=== PATIENT | female | born 1965 | race Caucasian/White ===

== ENCOUNTER 2020-01-18 10:57 | Outpatient (REF) | payer MEDICAID, SELFPAY | END 2020-01-18 10:58 | disposition home or self-care (01) | LOC: HO.LAB 10:57 | PROVIDERS: Visit Provider Internal Medicine | DX: Z20.828 Contact with and (suspected) exposure to other viral communicable diseases (principal) | CPT/HCPCS: U0003 ==

== ENCOUNTER → 2020-06-23 09:39 | Outpatient (BNVA) | payer MEDICAID, SELFPAY | PROVIDERS: PCP Nurse Practitioner Family; Visit Provider Student in an Organized Health Care Education/Training Program | DX: M17.0 Bilateral primary osteoarthritis of knee (principal); M25.511 Pain in right shoulder; M25.512 Pain in left shoulder | CPT/HCPCS: 99212 ==

== ENCOUNTER 2020-08-08 10:00 | Outpatient (RCR) | payer MEDICAID, SELFPAY ==
--- NOTE | 2020-07-19 15:00 | MHC.PT.EP ---
[facility] [place] [facility] [place] [facility] [place] Office [address] [phone] F: [phone] F: [phone] F: [phone] F: [phone] Physical Therapy Plan of Care Date of Evaluation: Date of Surgery: Diagnosis: B knee OA, B shoulder pain Assessment: 54 y/o RHD female referred to PT with B knee OA and B shoulder pain. She reports pain with news specialist, walking > 10min, standing, ascending/descending stairs in step through pattern, and reaching overhead. Examination shows decreased knee and shoulder strength, decreased shoulder AROM, decreased R patella mobility, and impaired gait pattern. Recommend PT 2x/week for 6 weeks to address impairments, implement HEP, and optimize functional mobility. Frequency and Duration: The patient will be seen 2x/week for 5 weeks Short Term Goals: 3 weeks 1. I with HEP 2. Pt will be able to reach overhead with shoulder flexion to 150 with pain < 3/10 Child Support Officer Goals: 6 weeks 1. I with HEP and self management of sx 2. Pt will be able to ascend/descend stairs in step through pattern with pain < 3/10 3. Pt will be able to walk >25min with pain < 3/10 Treatment Plan: Modalities to reduce pain, spasms and effusion. Manual therapy to restore motion and function. Therapeutic exercise to improve strength and flexibility. Neuromuscular re-education for posture and balance. Therapeutic activities to return to functional activities of daily living. Electronically signed by: Aislinn Edmonds PT Please sign and return to therapist. Thank you for your referral.
--- NOTE | 2020-11-09 09:28 | MHC.PT.DC ---
[facility] [place] [facility] [place] Office [place] Office [address] [facility] [phone] F: [phone] F: [phone] F: [phone] F: [phone] Physical Therapy Discharge Report Diagnosis: B knee OA, B shoulder pain Date of Surgery: Date of Evaluation: 07/19/20 Date of Discharge: 11/09/20 Treatments to Date: 4 Cancellations to Date: 1 No Shows to Date: 3 Discharge Status: Visit Non-compliance Discharge Summary: Pt did not f/u with further visits. Electronically signed by: Aislinn Edmonds PT Please sign and return to therapist. Thank you for your referral.
== END 2020-11-09 09:29 | disposition home or self-care (01) ==
LOC: HO.PT 10:00
PROVIDERS: PCP Family Medicine; Visit Provider Student in an Organized Health Care Education/Training Program
DX: M17.0 Bilateral primary osteoarthritis of knee (principal); M25.511 Pain in right shoulder; M25.512 Pain in left shoulder
CPT/HCPCS: 97110; 97162; 97530

== ENCOUNTER → 2020-10-17 08:17 | Outpatient (BNVA) | payer MEDICAID, SELFPAY | PROVIDERS: PCP Family Medicine; Visit Provider Internal Medicine | DX: I10 Essential (primary) hypertension (principal); R00.2 Palpitations; F17.200 Nicotine dependence, unspecified, uncomplicated | CPT/HCPCS: 93005; 99212 ==

== ENCOUNTER 2020-11-27 09:13 | Emergency (ER) | payer MEDICAID, SELFPAY ==
[2020-11-27 10:23] VITALS: BP 130/77; PULSE 84; RESP 19; TEMP 36.7; O2SAT 98; BMI 32.7
[2020-11-27 12:19] LABS: Appearance Urine CLOUDY; Color Urine YELLOW; Glucose Urine UA NEG (NEG); Leukocyte Esterase Urine NEG (NEG); Nitrite Urine NEG (NEG); Specific Gravity - Urine 1.025 (1.005-1.025); Urine Blood NEG (NEG); Urine Ketones NEG (NEG); Urine Protein NEG (NEG-TRACE)
[2020-11-27 15:39] LABS: MANUAL DIFF FLAG NO
[2020-11-27 15:43] LABS: Eosinophils Absolute Auto 0.3 X10*3/uL (0.0-0.4); Eosinophils Percent Auto 2.3 % (0-4); Hematocrit 41.9 % (37-47); Hemoglobin 13.4 g/dl (12.0-16.0); Imm Gran Abs Auto 0.03 X10*3/uL (0.00-0.03); Imm Gran Pct Auto 0.3 % (0.0-0.4); Lymphocytes Absolute Auto 1.4 X10*3/uL (1.2-4.9); Lymphocytes Percent Auto 12.7 % (20-40); Mean Corpuscular Volume 84.3 fL (80-98); Monocytes Absolute Auto 0.7 X10*3/uL (0.1-1.2); Neutrophils Absolute Auto 8.7 X10*3/uL (2.0-8.3); Neutrophils Percent Auto 78.7 % (45-73); Platelet Count 228 X10*3/uL (160-400); Red Blood Count 4.97 X10*6/uL (4.20-5.50); Red Cell Distribution Width 13.7 % (11.0-16.0); White Blood Count 11.1 X10*3/uL (4.8-10.8)
[2020-11-27 15:58] LABS: Alanine Aminotransferase 15 U/L (0-31); Alkaline Phosphatase 92 U/L (39-117); Anion Gap 11 (12-20); Aspartate Amino Transferase 17 U/L (5-31); Bilirubin Direct 0.2 mg/dL (0.0-0.5); Bilirubin Total 0.5 mg/dL (0.0-1.0); Blood Urea Nitrogen 16 mg/dL (9-16); Calcium 9.2 mg/dL (8.4-10.2); Carbon Dioxide 30 mmol/L (22-29); Chloride 103 mmol/L (96-108); Creatinine Clr Calc Pharmacy 97.7; Estimated Glomerular Filt Rate > 60; Glucose Random 88 mg/dL (60-115); Lipase 7 U/L (8-78); Potassium 3.9 mmol/L (3.3-5.1); Sodium 140 mmol/L (135-145); Total Protein 7.2 g/dL (6.5-8.0)
== END 2020-11-27 19:19 | disposition left against medical advice (07) ==
PROVIDERS: Emergency Medicine; Emergency Provider Emergency Medicine; PCP Family Medicine
DX: M54.5 Low back pain (principal); R19.7 Diarrhea, unspecified
CPT/HCPCS: 36415; 80048; 80076; 81003; 83690; 85025; 99282; 99283

== ENCOUNTER → 2021-01-29 10:52 | Outpatient (BNVA) | payer MEDICAID, SELFPAY | PROVIDERS: PCP Family Medicine; Visit Provider Nurse Practitioner Family | DX: M17.0 Bilateral primary osteoarthritis of knee (principal); M25.511 Pain in right shoulder; M25.512 Pain in left shoulder | CPT/HCPCS: 99212 ==

== ENCOUNTER 2021-03-19 04:41 | Emergency (ER) | payer MEDICAID, SELFPAY ==
--- NOTE | ~2021-03-19 | CT_ITS ---
EXAMINATION: CT ANGIOGRAM OF THE CHEST WITH AND WITHOUT CONTRAST (CT PULMONARY ANGIOGRAM FOR PE) CLINICAL INFORMATION: Reason for Exam Right-sided chest pain with abnormal D-dimer rule out PE COMPARISON: None TECHNIQUE: Prior to contrast administration, noncontrast localization images were obtained. Subsequently, multidetector volumetric imaging was performed from the thoracic inlet to below the diaphragms following the administration of 80 mL Omnipaque 350 intravenous contrast. No contrast reaction reported Sagittal, coronal, and MIP oblique sagittal reformatted images were obtained on the CT workstation, uploaded to PACS, and reviewed. This CT examination was performed using dose optimization techniques as appropriate, variously including the following: *Automated exposure control *Adjustment of mA and/or kV according to patient size (this includes techniques or standardized protocols for targeted exams where dose is matched to indication/reason for exam; i.e. extremities or head) *Use of iterative reconstruction technique Total exam dose-length product 343 mGy-cm FINDINGS: QUALITY OF STUDY/CONTRAST BOLUS: Satisfactory. PULMONARY ARTERIES: No central or segmental pulmonary emboli. THORACIC AORTA: No aneurysm or dissection. LUNG: No focal consolidation, nodules or masses. Minimal atelectatic changes are seen in the left lung base. PLEURA: No pleural effusion or pneumothorax. MEDIASTINUM: The heart size and the great vessels are normal caliber. There is a small hiatal hernia. No abnormal size mediastinal or hilar lymph nodes seen. The central trachea and the bronchi are widely patent the thyroid lobes are symmetrical and slightly prominent but no focal lesion seen. No evidence of septal bowing or right heart strain. CHEST WALL/AXILLA: No axillary or internal mammary lymphadenopathy. OSSEOUS STRUCTURES: No lytic or sclerotic process seen. There is mild spondylosis. UPPER ABDOMEN: Unremarkable. No reflux of contrast into the hepatic veins to suggest elevated right heart pressures. CT/CT angio chest PE protocol IMPRESSION: No evidence of PE. No evidence aortic dissection. Small hiatal hernia. Small right pleural effusion. No major change seen since the last exam VTE: negative
--- NOTE | ~2021-03-19 | XR_ITS ---
EXAMINATION: XR CHEST CLINICAL INFORMATION: Dyspnea COMPARISON: 10/01/2019 TECHNIQUE: Frontal view of the chest was obtained. FINDINGS: The lungs are clear with no focal consolidation. No evidence of pneumothorax, pulmonary edema, or pleural effusions. The cardiomediastinal silhouette is unremarkable. No acute osseous findings. XR/XR chest 1V IMPRESSION: No acute cardiopulmonary findings.
[2021-03-19 04:45] VITALS: BP 156/81; PULSE 97; RESP 22; O2SAT 97; BMI 29.7
--- NOTE | 2021-03-19 04:48 | ECG_ITS ---
Test Reason : SOB Blood Pressure : / mmHG Vent. Rate : 094 BPM Atrial Rate : 094 BPM P-R Int : 218 ms QRS Dur : 084 ms QT Int : 378 ms P-R-T Axes : 067 -06 020 degrees QTc Int : 472 ms Sinus rhythm with 1st degree A-V block Possible Left atrial enlargement Minimal voltage criteria for LVH, may be normal variant ( R in aVL ) Abnormal ECG When compared with ECG of 31-DEC-2018 18:16, No significant changes seen Referred By: Generic ED Physician Electronically Signed By:LUCIANA MAS MD
[2021-03-19 05:04] LABS: Basophils Percent Auto 0.2 % (0-2); Eosinophils Absolute Auto 0.2 X10*3/uL (0.0-0.4); Eosinophils Percent Auto 1.1 % (0-4); Hematocrit 39.5 % (37.0-47.0); Hemoglobin 12.6 g/dl (12.0-16.0); Imm Gran Abs Auto 0.06 X10*3/uL (0.00-0.03); Imm Gran Pct Auto 0.5 % (0.0-0.4); Lymphocytes Absolute Auto 1.5 X10*3/uL (1.2-4.9); Lymphocytes Percent Auto 11.1 % (20-40); MANUAL DIFF FLAG NO; Mean Corpuscular HGB Conc 31.9 g/dl (31.0-35.0); Mean Corpuscular Volume 84.6 fL (80.0-98.0); Mean Platelet Volume 11.7 fL (9.4-12.3); Monocytes Absolute Auto 1.2 X10*3/uL (0.1-1.2); Monocytes Percent Auto 9.4 % (2-11); Neutrophils Absolute Auto 10.3 x10*3/uL (2.0-8.3); Neutrophils Percent Auto 77.7 % (45-73); Platelet Count 218 X10*3/uL (160-400); Red Blood Count 4.67 X10*6/uL (4.20-5.50); Red Cell Distribution Width 13.9 % (11.0-16.0); White Blood Count 13.2 X10*3/uL (4.8-10.8)
[2021-03-19] MEDS: Acetaminophen 325 MG TABLET 650 MG PO (05:11)
[2021-03-19 05:19] LABS: COVID-19 Test Negative (Negative); IDNOW Serial# 9DD0AD1C
[2021-03-19 05:19] LABS: Anion Gap 12 (12-20); Blood Urea Nitrogen 12 mg/dL (9-16); Carbon Dioxide 29 mmol/L (22-29); Chloride 102 mmol/L (96-108); Creatinine Clr Calc Pharmacy 88.6; Estimated Glomerular Filt Rate > 60; Glucose Random 131 mg/dL (60-115); Potassium 4.1 mmol/L (3.3-5.1); Sodium 139 mmol/L (135-145)
[2021-03-19 05:23] LABS: Troponin-I High Sensitivity < 3.5 ng/L (<3.5-17.0)
--- NOTE | 2021-03-19 07:32 | ED_ITS ---
HPI - Chest Pain General Chief Complaint: Chest Pain Stated Complaint: SoB, chest pain? 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 Pain started yesterday, patient woke up with pain, pain described as constant, severe 10/10, pain is worsening with breathing and movement, nothing relieves the pain, patient to OTC pain medication which did not control her pain. Pain is localized to the right side of his chest with no radiation, patient has been coughing for the past couple days and that is making the pain worse, no recent travel, no lower extremity swelling or tenderness. No history of DVT. Related Data Home Medications Medication Instructions Recorded Confirmed bupropion HCl 150 mg 24 hr tablet, 150 mg PO QAM 06/23/20 10/17/20 extended release (Wellbutrin XL) duloxetine 60 mg capsule,delayed 60 mg PO DAILY 06/23/20 10/17/20 release fluticasone propionate 50 1 spray INTRANASAL DAILY 06/23/20 10/17/20 mcg/actuation nasal spray,suspension gabapentin 600 mg tablet 600 mg PO DAILY 06/23/20 10/17/20 lisinopril 20 1 tab PO DAILY 06/23/20 10/17/20 mg-hydrochlorothiazide 25 mg tablet sumatriptan succinate 50 mg tablet See Rx Instructions PO .COMPLEX 06/23/20 10/17/20 topiramate 100 mg tablet (Topamax) 100 mg PO BID 06/23/20 10/17/20 Previous Rx's Medication Instructions Recorded tramadol 50 mg tablet 50 mg PO Q6H #120 tab 10/17/20 Allergies Allergy/AdvReac Type Severity Reaction Status Date / Time ibuprofen [From Motrin] Allergy Unknown UPSET Verified 03/19/21 04:45 STOMACH Review of Systems Review of Systems: All other systems are reviewed and are negative Constitutional: Reports as per HPI and Reports no additional constitutional complaints Eyes: Reports as per HPI and Reports no additional eye complaints Reports system reviewed and no additional complaints, except as documented Cardiovascular: Reports as per HPI and Reports no additional cardiovascular complaints Respiratory: Reports as per HPI and Reports no additional respiratory complaints Gastrointestinal: Reports as per HPI and Reports no additional gastrointestinal complaints Genitourinary: Reports no additional female genitourinary complaints Musculoskeletal: Reports no additional musculoskeletal complaints Skin/Breast: Reports system reviewed and no additional complaints, except as docu Psychiatric: Reports no additional psychiatric complaints Endocrine: Reports no additional endocrine complaints Hematologic/Lymphatic: Reports no additional hematologic/lymphatic complaints Allergic/Immunologic: Reports no additional allergic/immunologic complaints Reports system reviewed and no additional complaints, except as documented and Reports Abnormal speech present FOR[facility]LY [facility], [facility] Past Medical History Medical History GERD (gastroesophageal reflux disease) HTN (hypertension) Hypercholesterolemia Obesity Osteoarthritis Primary osteoarthritis of knees, bilateral Smoker Surgical History Hx of hysterectomy Hx of tubal ligation Family History Family History Mother HTN (hypertension) Diabetes Father Alzheimer disease Brother Throat cancer Social History Social History Alcohol intake: unknown Patient Tobacco Use Status: Tobacco use Unknown Cigarettes Per Day: 8 Years Smoked: 40 Use of substances other than those prescribed or required for medical reasons: Unknown Advance Directives: No Advance Directives Information Provided: Yes Physical Exam Vital Signs: Vital Signs: Last Vital Signs Pulse 74 03/19/21 08:59 Resp 18 03/19/21 08:59 BP 143/86 H 03/19/21 08:59 Pulse Ox 96 03/19/21 08:59 BMI result Body Mass Index 29.7 Vital signs have been reviewed as appeared to be correct. Blood pressure normal. Heart rate normal. Respiration rate normal. Temperature normal. Oxygen saturation normal. Appearance: Alert. Oriented X3. No acute distress. Head: Normal external exam. Normocephalic. Atraumatic. No Tang signs noted. No raccoon eyes noted Eyes: PERRLA. EOMI. Conjunctiva and sclera normal. Eyelids normal. ENT: TM's Normal. Pharynx normal. Uvula midline. Moist mucous membranes. No trismus noted. No drooling noted. No muffled voice noted. Neck: Normal inspection. Neck supple. FROM. No adenopathy. Thyroid Normal. No meningeal signs. No neck mass noted. CVS: Normal heart rate and rhythm. Heart sound normal. No murmurs noted. Pulses normal throughout. Respiratory: No respiratory distress. Painless inspiration. Breath sounds normal. No wheezes/rales/rhonchi noted. Left-sided chest tenderness, no step- off, no deformity on ribs. No accessory muscle usage noted or decreased air movement noted. Abdomen: Soft and nontender. Bowel sounds normal in all 4 quadrants. No distention noted. No organomegaly noted. No visible injury noted. Back: No CVA tenderness. Full range of motion noted. Skin: Skin warm and dry. Normal skin color. Normal skin turgor. No rashes/lesions/lacerations noted. Extremities: No lower extremity edema. Extremities exhibit normal range of motion. Extremities nontender. Neuro: Oriented X 3. Cranial nerve exam: II-XII are grossly intact No motor deficit. No sensory deficit. Reflexes normal. Course Course Course Narrative: Assessment and plan. Right-sided chest pain, physical exam, lab finding, EKG, and CT angio of the chest is inconsistent for cardiopulmonary cause of the chest pain. Will discharge the patient with Tylenol if needed every 6 hours. Heating pad. MDM - Chest Pain Medical Records Data Attestation: I reviewed the patient's medical records. Lab Data Attestation: I reviewed the patient's lab results. Result diagrams: 03/19/21 04:59 03/19/21 04:59 Labs: Lab Results 03/19/21 03/19/21 03/19/21 Range/Units 04:58 04:59 04:59 WBC 13.2 H (4.8-10.8) X10*3/uL RBC 4.67 (4.20-5.50) X10*6/uL Hgb 12.6 (12.0-16.0) g/dl Hct 39.5 (37.0-47.0) % MCV 84.6 (80.0-98.0) fL MCH 27.0 (27.0-33.0) pg MCHC 31.9 (31.0-35.0) g/dl RDW 13.9 (11.0-16.0) % Plt Count 218 (160-400) X10*3/uL MPV 11.7 (9.4-12.3) fL Immature Gran % (Auto) 0.5 H (0.0-0.4) % Neut % (Auto) 77.7 H (45-73) % Lymph % (Auto) 11.1 L (20-40) % [place] % (Auto) 9.4 (2-11) % Eos % (Auto) 1.1 (0-4) % Baso % (Auto) 0.2 (0-2) % Lymph # (Auto) 1.5 (1.2-4.9) X10*3/uL [place] # (Auto) 1.2 (0.1-1.2) X10*3/uL Eos # (Auto) 0.2 (0.0-0.4) X10*3/uL Baso # (Auto) 0.0 (0.0-0.2) X10*3/uL Abs Immat Gran (auto) 0.06 H (0.00-0.03) X10*3/uL Absolute Neuts (auto) 10.3 H (2.0-8.3) x10*3/uL Absolute Nucleated RBC 0.000 (0.0-0.012) X10*3/uL Nucleated RBC % (auto) 0.0 (0.0-0.2) /100WBC D-Dimer High Sensitivty NG/ML Sodium 139 (135-145) mmol/L Potassium 4.1 (3.3-5.1) mmol/L Chloride 102 (96-108) mmol/L Carbon Dioxide 29 (22-29) mmol/L Anion Gap 12 (12-20) BUN 12 (9-16) mg/dL Creatinine 0.79 (0.5-1.4) mg/dL Estim Creat Clear Calc 88.6 Estimated GFR > 60 Random Glucose 131 H (60-115) mg/dL Calcium 9.0 (8.4-10.2) mg/dL Total Creatine Kinase (26-140) U/L Troponin I High Sens (<3.5-17.0) ng/L Urine Color Urine Appearance Urine pH (5.0-8.0) Ur Specific [place] (1.005-1.025) Urine Protein (NEG-TRACE) MG/DL Urine Glucose (UA) (NEG) MG/DL Urine Ketones (NEG) MG/DL Urine Blood (NEG) Urine Nitrite (NEG) Ur Leukocyte Esterase (NEG) COVID-19 (DIANE) Negative (Negative) COVID-19 Clin Com See Note 03/19/21 03/19/2103/19/22 Range/Units 04:59 08:08 08:08 WBC (4.8-10.8) X10*3/uL RBC (4.20-5.50) X10*6/uL Hgb (12.0-16.0) g/dl Hct (37.0-47.0) % MCV (80.0-98.0) fL MCH (27.0-33.0) pg MCHC (31.0-35.0) g/dl RDW (11.0-16.0) % Plt Count (160-400) X10*3/uL MPV (9.4-12.3) fL Immature Gran % (Auto) (0.0-0.4) % Neut % (Auto) (45-73) % Lymph % (Auto) (20-40) % [place] % (Auto) (2-11) % Eos % (Auto) (0-4) % Baso % (Auto) (0-2) % Lymph # (Auto) (1.2-4.9) X10*3/uL [place] # (Auto) (0.1-1.2) X10*3/uL Eos # (Auto) (0.0-0.4) X10*3/uL Baso # (Auto) (0.0-0.2) X10*3/uL Abs Immat Gran (auto) (0.00-0.03) X10*3/uL Absolute Neuts (auto) (2.0-8.3) x10*3/uL Absolute Nucleated RBC (0.0-0.012) X10*3/uL Nucleated RBC % (auto) (0.0-0.2) /100WBC D-Dimer High Sensitivty 244 NG/ML Sodium (135-145) mmol/L Potassium (3.3-5.1) mmol/L Chloride (96-108) mmol/L Carbon Dioxide (22-29) mmol/L Anion Gap (12-20) BUN (9-16) mg/dL Creatinine (0.5-1.4) mg/dL Estim Creat Clear Calc Estimated GFR Random Glucose (60-115) mg/dL Calcium (8.4-10.2) mg/dL Total Creatine Kinase 132 (26-140) U/L Troponin I High Sens < 3.5 (<3.5-17.0) ng/L Urine Color Urine Appearance Urine pH (5.0-8.0) Ur Specific [place] (1.005-1.025) Urine Protein (NEG-TRACE) MG/DL Urine Glucose (UA) (NEG) MG/DL Urine Ketones (NEG) MG/DL Urine Blood (NEG) Urine Nitrite (NEG) Ur Leukocyte Esterase (NEG) COVID-19 (DIANE) (Negative) COVID-19 Clin Com 03/19/21 03/19/21 Range/Units 08:08 08:08 WBC (4.8-10.8) X10*3/uL RBC (4.20-5.50) X10*6/uL Hgb (12.0-16.0) g/dl Hct (37.0-47.0) % MCV (80.0-98.0) fL MCH (27.0-33.0) pg MCHC (31.0-35.0) g/dl RDW (11.0-16.0) % Plt Count (160-400) X10*3/uL MPV (9.4-12.3) fL Immature Gran % (Auto) (0.0-0.4) % Neut % (Auto) (45-73) % Lymph % (Auto) (20-40) % [place] % (Auto) (2-11) % Eos % (Auto) (0-4) % Baso % (Auto) (0-2) % Lymph # (Auto) (1.2-4.9) X10*3/uL [place] # (Auto) (0.1-1.2) X10*3/uL Eos # (Auto) (0.0-0.4) X10*3/uL Baso # (Auto) (0.0-0.2) X10*3/uL Abs Immat Gran (auto) (0.00-0.03) X10*3/uL Absolute Neuts (auto) (2.0-8.3) x10*3/uL Absolute Nucleated RBC (0.0-0.012) X10*3/uL Nucleated RBC % (auto) (0.0-0.2) /100WBC D-Dimer High Sensitivty NG/ML Sodium (135-145) mmol/L Potassium (3.3-5.1) mmol/L Chloride (96-108) mmol/L Carbon Dioxide (22-29) mmol/L Anion Gap (12-20) BUN (9-16) mg/dL Creatinine (0.5-1.4) mg/dL Estim Creat Clear Calc Estimated GFR Random Glucose (60-115) mg/dL Calcium (8.4-10.2) mg/dL Total Creatine Kinase (26-140) U/L Troponin I High Sens < 3.5 (<3.5-17.0) ng/L Urine Color YELLOW Urine Appearance CLEAR Urine pH 6.0 (5.0-8.0) Ur Specific [place] 1.020 (1.005-1.025) Urine Protein TRACE (NEG-TRACE) MG/DL Urine Glucose (UA) NEG (NEG) MG/DL Urine Ketones NEG (NEG) MG/DL Urine Blood NEG (NEG) Urine Nitrite NEG (NEG) Ur Leukocyte Esterase NEG (NEG) COVID-19 (DIANE) (Negative) COVID-19 Clin Com Imaging Data Chest x-ray: Attestation: I personally reviewed and interpreted this imaging study as follows: Radiologist's impression: No acute cardiopulmonary findings. CT angio of the chest: Attestation: I personally reviewed and interpreted this imaging study as follows: Radiologist's impression: No evidence of PE. No evidence aortic dissection. ? Small hiatal hernia. ? Small right pleural effusion. No major change seen since the last exam ? ECG Data ECG #1: Attestation: I personally reviewed and interpreted this ECG as follows: Interpretation: Normal sinus rhythm with first-degree AV block, left axis deviation, LVH. Discharge Plan Discharge Clinical Impression: Chest pain Patient Disposition: Home, Self-Care Instructions: Chest Pain (ED) Prescriptions: No Action tramadol 50 mg tablet 50 mg PO Q6H Qty: 120 RF: 5 duloxetine 60 mg capsule,delayed release(DR/EC) 60 mg PO DAILY RF: 0 bupropion HCl [Wellbutrin XL] 150 mg tablet extended release 24 hr 150 mg PO QAM RF: 0 gabapentin 600 mg tablet 600 mg PO DAILY RF: 0 fluticasone propionate 50 mcg/actuation spray,suspension 1 spray intranasal DAILY RF: 0 lisinopril-hydrochlorothiazide 20-25 mg tablet 1 tab PO DAILY RF: 0 topiramate [Topamax] 100 mg tablet 100 mg PO BID RF: 0 sumatriptan succinate 50 mg tablet See Rx Instructions PO .COMPLEX RF: 0 Referrals: [facility] [Primary Care Provider] - 2 days
[2021-03-19] MEDS: Ibuprofen 600 MG TABLET PO (07:48)
[2021-03-19 08:21] LABS: Appearance Urine CLEAR; Color Urine YELLOW; Glucose Urine UA NEG (NEG); Leukocyte Esterase Urine NEG (NEG); Nitrite Urine NEG (NEG); Urine Blood NEG (NEG); Urine Ketones NEG (NEG); Urine Protein TRACE MG/DL (NEG-TRACE)
[2021-03-19 08:30] LABS: D Dimer High Sensitivity 244 NG/ML
[2021-03-19 08:49] LABS: Troponin-I High Sensitivity < 3.5 ng/L (<3.5-17.0)
[2021-03-19 08:59] VITALS: BP 143/86; PULSE 74; RESP 18; O2SAT 96
[2021-03-19] MEDS: iohexoL 350 MG/ML 100 ML INFUS..BTL IV (10:31)
== END 2021-03-19 11:56 | disposition home or self-care (01) ==
PROVIDERS: Emergency Provider Emergency Medicine
DX: R07.9 Chest pain, unspecified (principal); Z20.822 Contact with and (suspected) exposure to COVID-19; R06.02 Shortness of breath; I10 Essential (primary) hypertension; E78.5 Hyperlipidemia, unspecified; F17.200 Nicotine dependence, unspecified, uncomplicated
CPT/HCPCS: 36415; 71045; 71275; 80048; 81003; 82550; 84484; 85025; 85379; 87635; 93005; 99285; Q9967

== ENCOUNTER 2021-04-16 09:31 | Outpatient (REF) | payer MEDICAID, SELFPAY ==
--- NOTE | ~2021-04-16 | XR_ITS ---
EXAMINATION: XR FOOT, LEFT CLINICAL INFORMATION: Left foot pain. COMPARISON: None TECHNIQUE: AP, lateral, and oblique views of the left foot. FINDINGS: Subtle eccentric erosion is noted at the head of the first metatarsal. In the appropriate clinical setting, may represent early subtle changes secondary to gout. Mild diffuse osteopenia. Otherwise the bony alignments are intact. The cortices are intact. Articular margins, joint space and soft tissues are unremarkable. XR/XR foot LT min 3V IMPRESSION: Subtle eccentric erosion is noted at the head of the first metatarsal of the left foot, in the appropriate clinical setting may represent early subtle changes secondary to gout.
== END 2021-04-16 09:32 | disposition home or self-care (01) ==
LOC: HO.XRAY 09:31
PROVIDERS: Absent Provider Family Medicine; PCP Family Medicine; Visit Provider Emergency Medicine
DX: M79.672 Pain in left foot (principal)
CPT/HCPCS: 73630

== ENCOUNTER 2021-05-25 07:37 | Outpatient (REF) | payer MEDICAID, SELFPAY ==
[2021-05-25 08:03] LABS: MANUAL DIFF FLAG NO
[2021-05-25 08:17] LABS: Basophils Percent Auto 0.3 % (0-2); Eosinophils Absolute Auto 0.4 X10*3/uL (0.0-0.4); Eosinophils Percent Auto 4.6 % (0-4); Hematocrit 42.1 % (37.0-47.0); Hemoglobin 13.6 g/dl (12.0-16.0); Imm Gran Abs Auto 0.03 X10*3/uL (0.00-0.03); Imm Gran Pct Auto 0.3 % (0.0-0.4); Lymphocytes Absolute Auto 1.6 X10*3/uL (1.2-4.9); Lymphocytes Percent Auto 17.9 % (20-40); Mean Corpuscular HGB Conc 32.3 g/dl (31.0-35.0); Mean Corpuscular Hemoglobin 27.1 pg (27.0-33.0); Mean Platelet Volume 12.2 fL (9.4-12.3); Monocytes Absolute Auto 0.7 X10*3/uL (0.1-1.2); Monocytes Percent Auto 7.4 % (2-11); Neutrophils Absolute Auto 6.2 x10*3/uL (2.0-8.3); Neutrophils Percent Auto 69.5 % (45-73); Platelet Count 265 X10*3/uL (160-400); Red Blood Count 5.01 X10*6/uL (4.20-5.50); Red Cell Distribution Width 13.2 % (11.0-16.0); White Blood Count 8.9 X10*3/uL (4.8-10.8)
[2021-05-25 08:34] LABS: Estimated Average Glucose 114 mg/dL; Hemoglobin A1c % 5.6 %
[2021-05-25 08:50] LABS: Alanine Aminotransferase 13 U/L (0-31); Albumin Level 3.9 g/dL (3.5-5.0); Alkaline Phosphatase 122 U/L (39-117); Anion Gap 11 (12-20); Aspartate Amino Transferase 15 U/L (5-31); Bilirubin Total 0.5 mg/dL (0.0-1.0); Blood Urea Nitrogen 14 mg/dL (9-16); Calcium 9.4 mg/dL (8.4-10.2); Carbon Dioxide 32 mmol/L (22-29); Chloride 98 mmol/L (96-108); Cholesterol 196 mg/dL; Estimated Glomerular Filt Rate > 60; Glucose Random 127 mg/dL (60-115); HDL Cholesterol 33 mg/dL; LDL Cholesterol Calculated 126 mg/dl; Sodium 137 mmol/L (135-145); Total Protein 7.4 g/dL (6.5-8.0); Triglycerides 189 mg/dL
[2021-05-25 09:04] LABS: HIV AB/AG Nonreactive (Nonreactive); HIV Num 1 0.08 S/CO (0.00-0.99)
[2021-05-25 09:15] LABS: Thyroid Stimulating Hormone 1.46 uIU/mL (0.32-4.0); Vitamin D 25-OH Total 16.2 ng/mL (>30)
[2021-05-25 10:34] LABS: Creatinine Urine 148.21 mg/dL; Microalbum/Creatinine Ratio Ur 8.7 ug/mg cr
== END 2021-05-25 07:38 | disposition home or self-care (01) ==
LOC: HO.LAB 07:37
PROVIDERS: PCP Family Medicine; Visit Provider Family Medicine
DX: Z11.4 Encounter for screening for human immunodeficiency virus [HIV] (principal); E66.9 Obesity, unspecified
CPT/HCPCS: 36415; 80053; 80061; 82043; 82306; 83036; 84443; 85025; 87389

== ENCOUNTER 2021-05-28 09:21 | Outpatient (REF) | payer MEDICAID, SELFPAY ==
--- NOTE | ~2021-05-28 | XR_ITS ---
EXAMINATION: XR SHOULDER, RIGHT XR SHOULDER, LEFT CLINICAL INFORMATION: Shoulder pain. COMPARISON: Radiographs left shoulder 12/31/2018 TECHNIQUE: Each shoulder is imaged in 4 views. There are total of 8 views. FINDINGS: Right: Normal bony mineralization. No fracture or dislocation. The glenohumeral joint is normal. The acromioclavicular alignment is normal. There is borderline spurring at the lateral acromium. No visible rotator cuff calcifications. Left: Normal bony mineralization. No fracture or dislocation. The glenohumeral joint is normal. There is borderline spurring at lateral acromium. No visible rotator cuff calcifications. XR/XR shoulder LT min 2V IMPRESSION: 1. No fracture or dislocation. 2. No visible rotator cuff calcifications. 3. Borderline spurring bilateral acromium.
--- NOTE | ~2021-05-28 | XR_ITS ---
EXAMINATION: XR CERVICAL SPINE CLINICAL INFORMATION: M54.2 - Cervicalgia COMPARISON: None TECHNIQUE: 4 views of the cervical spine are obtained. FINDINGS: There is normal cervical lordosis. The vertebral bodies are normal in height. There is no cervical vertebral compression, spondylolisthesis, disc narrowing, or prevertebral soft tissue swelling. The odontoid appears intact. There is mild levocurvature cervical thoracic junction. No paraspinal soft tissue swelling. XR/XR cervical spine 2V IMPRESSION: Unremarkable examination.
--- NOTE | ~2021-05-28 | XR_ITS ---
EXAMINATION: XR SHOULDER, RIGHT XR SHOULDER, LEFT CLINICAL INFORMATION: Shoulder pain. COMPARISON: Radiographs left shoulder 12/31/2018 TECHNIQUE: Each shoulder is imaged in 4 views. There are total of 8 views. FINDINGS: Right: Normal bony mineralization. No fracture or dislocation. The glenohumeral joint is normal. The acromioclavicular alignment is normal. There is borderline spurring at the lateral acromium. No visible rotator cuff calcifications. Left: Normal bony mineralization. No fracture or dislocation. The glenohumeral joint is normal. There is borderline spurring at lateral acromium. No visible rotator cuff calcifications. XR/XR shoulder RT min 2V IMPRESSION: 1. No fracture or dislocation. 2. No visible rotator cuff calcifications. 3. Borderline spurring bilateral acromium.
== END 2021-05-28 09:22 | disposition home or self-care (01) ==
LOC: HO.XRAY 09:21
PROVIDERS: PCP Family Medicine; Visit Provider Nurse Practitioner Family
DX: M25.511 Pain in right shoulder (principal); M25.512 Pain in left shoulder; M54.2 Cervicalgia
CPT/HCPCS: 72040; 73030

== ENCOUNTER 2021-06-27 09:28 | Outpatient (REF) | payer MEDICAID, SELFPAY ==
--- NOTE | ~2021-06-27 | MM_ITS ---
EXAMINATION: MM SCREENING DIGITAL BREAST TOMOSYNTHESIS, BILATERAL CLINICAL INFORMATION: Screening. Asymptomatic. The lifetime risk of breast cancer based on the Tyrer-Cuzick Model is 6%. COMPARISON: Mammography: 05/24/2017, 09/20/2015, 07/06/2014 TECHNIQUE: Digital breast tomosynthesis is performed in both the craniocaudal and mediolateral oblique views along with computer-aided detection (CAD). Synthesized 2D images are generated from the tomosynthesis. FINDINGS: There are scattered areas of fibroglandular density (ACR BI-RADS breast composition Category b). There are no significant masses, abnormal calcifications, or other abnormalities. Parenchymal pattern is similar to prior studies. The axilla and skin contours are unremarkable. MM/MM tomosynthesis screening BI IMPRESSION: No mammographic evidence of malignancy. ASSESSMENT: BI-RADS 1: Negative RECOMMENDATION: Routine annual mammography screening. This patient's information was entered into a reminder system with a target due date for their next mammogram.
== END 2021-06-27 09:29 | disposition home or self-care (01) ==
LOC: HO.MAMMO 09:28
PROVIDERS: PCP Family Medicine; Visit Provider Family Medicine
DX: Z12.31 Encounter for screening mammogram for malignant neoplasm of breast (principal)
CPT/HCPCS: 77063; 77067

== ENCOUNTER 2021-08-07 21:08 | Emergency (ER) | payer MEDICAID, SELFPAY ==
--- NOTE | ~2021-08-07 | XR_ITS ---
EXAMINATION: XR CHEST CLINICAL INFORMATION: Chest pain COMPARISON: Chest x-ray 03/19/2021 TECHNIQUE: Frontal portable view of the chest was obtained. 2150 hours FINDINGS: No significant abnormality is noted involving the heart, lungs, mediastinum, bony thorax or soft tissues. XR/XR chest 1V IMPRESSION: Unremarkable examination.
--- NOTE | 2021-08-07 21:13 | ECG_ITS ---
Test Reason : CHEST PAIN Blood Pressure : / mmHG Vent. Rate : 099 BPM Atrial Rate : 099 BPM P-R Int : 212 ms QRS Dur : 080 ms QT Int : 366 ms P-R-T Axes : 062 -04 019 degrees QTc Int : 469 ms Sinus rhythm with 1st degree A-V block Minimal voltage criteria for LVH, may be normal variant ( R in aVL ) Borderline ECG When compared with ECG of 19-MAR-2021 04:49, No significant change was found Referred By: Yanci Rose Electronically Signed By:Van Zendejas
--- NOTE | 2021-08-07 21:15 | ED.CHESTPAIN ---
HPI - Chest Pain General Chief Complaint: Chest Pain Stated Complaint: SYNCOPAL EPIS,CHEST PAIN EARLIER S/P STRESSFUL DAY Time Seen by Provider: 08/07/21 21:13 Source: patient Mode of arrival: EMS Limitations: no limitations History of Present Illness MD complaint: chest pain (syncope x seconds, panic attack) Onset (ago): minute(s) (just prior to arrival ) Timing of current episode: other (improving) Prior episodes: Yes Onset: other (started after her house was raided for police due to suspicion of selling drugs) Pain location: left chest Pain radiation: left arm Severity: moderate Quality: aching Relieving factors: nothing Exacerbating factors: nothing Context: other (stressful event) Associated symptoms: nausea, dyspnea and syncope Treatment prior to arrival: none Related Data Home Medications Medication Instructions Recorded Confirmed bupropion HCl 150 mg 24 hr tablet, 150 mg PO QAM 06/23/20 10/17/20 extended release (Wellbutrin XL) duloxetine 60 mg capsule,delayed 60 mg PO DAILY 06/23/20 10/17/20 release fluticasone propionate 50 1 spray INTRANASAL DAILY 06/23/20 10/17/20 mcg/actuation nasal spray,suspension gabapentin 600 mg tablet 600 mg PO DAILY 06/23/20 10/17/20 lisinopril 20 1 tab PO DAILY 06/23/20 10/17/20 mg-hydrochlorothiazide 25 mg tablet sumatriptan succinate 50 mg tablet See Rx Instructions PO .COMPLEX 06/23/20 10/17/20 topiramate 100 mg tablet (Topamax) 100 mg PO BID 06/23/20 10/17/20 Previous Rx's Medication Instructions Recorded tramadol 50 mg tablet 50 mg PO Q6H #120 tab 07/23/21 Allergies Allergy/AdvReac Type Severity Reaction Status Date / Time ibuprofen [From Motrin] Allergy Unknown UPSET Verified 03/19/21 04:45 STOMACH Review of Systems Review of Systems: Constitutional : No Weight loss, No Fever, No Chills ENT/Mouth : No sore throat, No Rhinorrhea Eyes: No Eye Pain, No Swelling Cardiovascular : pos Chest Pain, pos SOB, no Dyspnea on Exertion, No Orthopnea, No Edema, pos Palpitations Respiratory : No Cough, No Sputum Gastrointestinal : pos Nausea, No Vomiting, No Diarrhea, No abdominal Pain, No Hematochezia, No Melena Genitourinary : No Dysuria, No Urinary Frequency Musculoskeletal : No joint pain, No Myalgias, No Joint Swelling Skin : No Skin Lesions, No rash Neuro : No Weakness, No Numbness, No Dizziness, No Headache, pos syncope Psych : No Anxiety/Panic, No Depression Heme/Lymph: No Bruising, No Lymphadenopathy Endocrine : No Polyuria, No Polydipsia All other systems reviewed and are negative [facility] Past Medical History Attestation statement: The following information was validated with the patient. Medical History GERD (gastroesophageal reflux disease) HTN (hypertension) Hypercholesterolemia Obesity Osteoarthritis Primary osteoarthritis of knees, bilateral Smoker Surgical History Hx of hysterectomy Hx of tubal ligation Family History Family History Mother HTN (hypertension) Diabetes Father Alzheimer disease Brother Throat cancer Social History Social History (Updated 08/07/21 @ 21:15 by Yanci Rose DO) Alcohol intake: unknown Patient Tobacco Use Status: Never used Tobacco Cigarettes Per Day: 8 Years Smoked: 40 Advance Directives: No Advance Directives Information Provided: No Physical Exam Vital Signs: Vital Signs: Last Vital Signs Temp 98.7 F 08/07/21 21:36 Pulse 100 08/07/21 21:36 Resp 15 08/07/21 21:36 BP 155/69 H 08/07/21 21:36 Pulse Ox 98 08/07/21 21:36 BMI result Body Mass Index 31.9 Appearance: Alert. Oriented X3. No acute distress. Anxious Eyes: Pupils equal, round and reactive to light. ENT: Pharynx normal. Neck: Normal inspection. Neck supple. CVS: Normal heart rate and rhythm. Pulses normal. Respiratory: No respiratory distress. Breath sounds normal. Abdomen: Soft and nontender. Skin: Skin warm and dry. Normal skin color. Normal skin turgor. Extremities: No lower extremity edema. No calf ttp Neuro: Oriented X 3. No motor deficit. No sensory deficit. Course Course Course Narrative: repeat trop flat talking to multiple visitors in no distress MDM - Chest Pain MDM Narrative Medical decision making narrative: 55 yo female with hx of asthma, HTN suffered chest pain, dyspnea then seconds of syncope after her house was raided due to suspicion for drug selling. She feels better now other than anxiety. At this time will need labs, EKG, troponin x 2, ativan. Seems situational. Doubt PE. Atypical for ACS. Dispo per results and findings. Syncope likelyl related to hyperventilation Lab Data Result diagrams: 08/07/21 21:35 08/07/21 21:35 Labs: Lab Results 08/07/21 08/07/21 08/07/21 Range/Units 21:35 21:35 21:35 WBC 9.1 (4.8-10.8) X10*3/uL RBC 4.46 (4.20-5.50) X10*6/uL Hgb 12.3 (12.0-16.0) g/dl Hct 37.6 (37.0-47.0) % MCV 84.3 (80.0-98.0) fL MCH 27.6 (27.0-33.0) pg MCHC 32.7 (31.0-35.0) g/dl RDW 13.7 (11.0-16.0) % Plt Count 218 (160-400) X10*3/uL MPV 11.8 (9.4-12.3) fL Immature Gran % (Auto) 0.3 (0.0-0.4) % Neut % (Auto) 68.6 (45-73) % Lymph % (Auto) 17.9 L (20-40) % [place] % (Auto) 9.2 (2-11) % Eos % (Auto) 3.8 (0-4) % Baso % (Auto) 0.2 (0-2) % Lymph # (Auto) 1.6 (1.2-4.9) X10*3/uL [place] # (Auto) 0.8 (0.1-1.2) X10*3/uL Eos # (Auto) 0.4 (0.0-0.4) X10*3/uL Baso # (Auto) 0.0 (0.0-0.2) X10*3/uL Abs Immat Gran (auto) 0.03 (0.00-0.03) X10*3/uL Absolute Neuts (auto) 6.3 (2.0-8.3) x10*3/uL Absolute Nucleated RBC 0.000 (0.0-0.012) X10*3/uL Nucleated RBC % (auto) 0.0 (0.0-0.2) /100WBC Sodium 140 (135-145) mmol/L Potassium 3.8 (3.3-5.1) mmol/L Chloride 105 (96-108) mmol/L Carbon Dioxide 27 (22-29) mmol/L Anion Gap 12 (12-20) BUN 16 (9-16) mg/dL Creatinine 0.83 (0.5-1.4) mg/dL Estim Creat Clear Calc 87.3 Estimated GFR > 60 Random Glucose 157 H (60-115) mg/dL Calcium 8.7 D (8.4-10.2) mg/dL Magnesium 1.9 (1.6-2.6) mg/dL Total Bilirubin 0.2 (0.0-1.0) mg/dL Direct Bilirubin < 0.2 (0.0-0.5) mg/dL AST 19 (5-31) U/L ALT 14 (0-31) U/L Alkaline Phosphatase 122 H (39-117) U/L Troponin I High Sens < 3.5 (<3.5-17.0) ng/L Total Protein 6.8 (6.5-8.0) g/dL Albumin 3.6 (3.5-5.0) g/dL 08/07/21 08/07/21 Range/Units 21:35 23:21 WBC (4.8-10.8) X10*3/uL RBC (4.20-5.50) X10*6/uL Hgb (12.0-16.0) g/dl Hct (37.0-47.0) % MCV (80.0-98.0) fL MCH (27.0-33.0) pg MCHC (31.0-35.0) g/dl RDW (11.0-16.0) % Plt Count (160-400) X10*3/uL MPV (9.4-12.3) fL Immature Gran % (Auto) (0.0-0.4) % Neut % (Auto) (45-73) % Lymph % (Auto) (20-40) % [place] % (Auto) (2-11) % Eos % (Auto) (0-4) % Baso % (Auto) (0-2) % Lymph # (Auto) (1.2-4.9) X10*3/uL [place] # (Auto) (0.1-1.2) X10*3/uL Eos # (Auto) (0.0-0.4) X10*3/uL Baso # (Auto) (0.0-0.2) X10*3/uL Abs Immat Gran (auto) (0.00-0.03) X10*3/uL Absolute Neuts (auto) (2.0-8.3) x10*3/uL Absolute Nucleated RBC (0.0-0.012) X10*3/uL Nucleated RBC % (auto) (0.0-0.2) /100WBC Sodium (135-145) mmol/L Potassium (3.3-5.1) mmol/L Chloride (96-108) mmol/L Carbon Dioxide (22-29) mmol/L Anion Gap (12-20) BUN (9-16) mg/dL Creatinine (0.5-1.4) mg/dL Estim Creat Clear Calc Estimated GFR Random Glucose (60-115) mg/dL Calcium (8.4-10.2) mg/dL Magnesium (1.6-2.6) mg/dL Total Bilirubin (0.0-1.0) mg/dL Direct Bilirubin (0.0-0.5) mg/dL AST (5-31) U/L ALT (0-31) U/L Alkaline Phosphatase (39-117) U/L Troponin I High Sens Cancelled 4.4 (<3.5-17.0) ng/L Total Protein (6.5-8.0) g/dL Albumin (3.5-5.0) g/dL ECG Data ECG #1: Attestation: I personally reviewed and interpreted this ECG as follows: ECG interpretation date: 08/07/21 ECG interpretation time: 21:28 Interpretation: Rate: 99 Rhythm: NSR 1st degree AVB [place]: left LVH Normal P waves. 1st degree AVB Normal QRS complex. ST T wave : normall no SWATI qTC: normal prior studies: no acute ischemia The study has been interpreted contemporaneously by me. . Discharge Plan Discharge Clinical Impression: Atypical chest pain, Anxiety Patient Disposition: Home, Self-Care Instructions: Chest Pain (ED), Panic Attack (ED) Additional Instructions: return to ED for any worsening symptoms or concerns Prescriptions: No Action tramadol 50 mg tablet 50 mg PO Q6H Qty: 120 0RF duloxetine 60 mg capsule,delayed release(DR/EC) 60 mg PO DAILY 0RF bupropion HCl [Wellbutrin XL] 150 mg tablet extended release 24 hr 150 mg PO QAM 0RF gabapentin 600 mg tablet 600 mg PO DAILY 0RF fluticasone propionate 50 mcg/actuation spray,suspension 1 spray intranasal DAILY 0RF Rx Instructions: administer into each nostril lisinopril-hydrochlorothiazide 20-25 mg tablet 1 tab PO DAILY 0RF topiramate [Topamax] 100 mg tablet 100 mg PO BID 0RF sumatriptan succinate 50 mg tablet See Rx Instructions PO .COMPLEX 0RF Rx Instructions: take 1 tab at onset of headache; if no relief may repeat 1 tab after at least 2 hrs; max = 4 tabs/24 hr PO Referrals: Chanel Bai MD [Primary Care Provider] - 2 days (if not better)
[2021-08-07 21:17] VITALS: BP 147/83; BP 152/78; PULSE 100; PULSE 101; RESP 18; TEMP 37.1; O2SAT 97; O2SAT 98; BMI 31.9
[2021-08-07 21:36] VITALS: BP 155/69; PULSE 100; RESP 15; TEMP 37.1; O2SAT 98
[2021-08-07 21:40] LABS: MANUAL DIFF FLAG NO
[2021-08-07 21:45] LABS: Basophils Percent Auto 0.2 % (0-2); Eosinophils Absolute Auto 0.4 X10*3/uL (0.0-0.4); Eosinophils Percent Auto 3.8 % (0-4); Hematocrit 37.6 % (37.0-47.0); Hemoglobin 12.3 g/dl (12.0-16.0); Imm Gran Abs Auto 0.03 X10*3/uL (0.00-0.03); Imm Gran Pct Auto 0.3 % (0.0-0.4); Lymphocytes Absolute Auto 1.6 X10*3/uL (1.2-4.9); Lymphocytes Percent Auto 17.9 % (20-40); Mean Corpuscular HGB Conc 32.7 g/dl (31.0-35.0); Mean Corpuscular Hemoglobin 27.6 pg (27.0-33.0); Mean Corpuscular Volume 84.3 fL (80.0-98.0); Mean Platelet Volume 11.8 fL (9.4-12.3); Monocytes Absolute Auto 0.8 X10*3/uL (0.1-1.2); Monocytes Percent Auto 9.2 % (2-11); Neutrophils Absolute Auto 6.3 x10*3/uL (2.0-8.3); Neutrophils Percent Auto 68.6 % (45-73); Platelet Count 218 X10*3/uL (160-400); Red Blood Count 4.46 X10*6/uL (4.20-5.50); Red Cell Distribution Width 13.7 % (11.0-16.0); White Blood Count 9.1 X10*3/uL (4.8-10.8)
[2021-08-07 21:59] LABS: Alanine Aminotransferase 14 U/L (0-31); Albumin Level 3.6 g/dL (3.5-5.0); Alkaline Phosphatase 122 U/L (39-117); Anion Gap 12 (12-20); Aspartate Amino Transferase 19 U/L (5-31); Bilirubin Direct < 0.2 mg/dL (0.0-0.5); Bilirubin Total 0.2 mg/dL (0.0-1.0); Blood Urea Nitrogen 16 mg/dL (9-16); Calcium 8.7 mg/dL (8.4-10.2); Carbon Dioxide 27 mmol/L (22-29); Chloride 105 mmol/L (96-108); Creatinine Clr Calc Pharmacy 87.3; Estimated Glomerular Filt Rate > 60; Glucose Random 157 mg/dL (60-115); Magnesium 1.9 mg/dL (1.6-2.6); Potassium 3.8 mmol/L (3.3-5.1); Sodium 140 mmol/L (135-145); Total Protein 6.8 g/dL (6.5-8.0)
[2021-08-07 22:05] LABS: Troponin-I High Sensitivity < 3.5 ng/L (<3.5-17.0)
[2021-08-07 23:53] LABS: Troponin-I High Sensitivity 4.4 ng/L (<3.5-17.0)
[2021-08-08] VITALS: BP 155/87; PULSE 99; RESP 16; TEMP 36.6; O2SAT 97
== END 2021-08-08 00:11 | disposition home or self-care (01) ==
PROVIDERS: Emergency Provider Emergency Medicine; PCP Family Medicine
DX: R07.89 Other chest pain (principal); R55 Syncope and collapse; F41.1 Generalized anxiety disorder; F43.0 Acute stress reaction; R06.02 Shortness of breath; Z79.899 Other long term (current) drug therapy; Z87.891 Personal history of nicotine dependence
CPT/HCPCS: 36415; 71045; 80048; 80076; 83735; 84484; 85025; 93005; 99283

== ENCOUNTER 2021-08-10 08:36 | Inpatient (IN) | payer MEDICAID, SELFPAY ==
[2021-08-10] VITALS (12 sets, daily range): BP systolic 114–181; BP diastolic 63–113; PULSE 68–87; RESP 13–18; TEMP 35.8–36.6; O2SAT 97–100; BMI 31.8
--- NOTE | ~2021-08-10 | XR_ITS ---
EXAMINATION: XR CHEST CLINICAL INFORMATION: Chest pain. COMPARISON: 08/07/2021 chest radiograph. TECHNIQUE: Frontal view of the chest was obtained. FINDINGS: No significant abnormality is noted involving the heart, lungs, mediastinum, bony thorax or soft tissues. XR/XR chest 1V IMPRESSION: No acute cardiopulmonary process.
--- NOTE | 2021-08-10 08:41 | ECG_ITS ---
Test Reason : cp Blood Pressure : / mmHG Vent. Rate : 084 BPM Atrial Rate : 084 BPM P-R Int : 200 ms QRS Dur : 090 ms QT Int : 386 ms P-R-T Axes : 053 -10 019 degrees QTc Int : 456 ms Normal sinus rhythm Moderate voltage criteria for LVH, may be normal variant ( R in aVL , [place] product ) Borderline ECG When compared with ECG of 07-AUG-2021 21:13, No significant change was found Referred By: Generic ED Physician Electronically Signed By:Van Zendejas
[2021-08-10 08:59] LABS: MANUAL DIFF FLAG NO
[2021-08-10 09:01] LABS: Basophils Percent Auto 0.4 % (0-2); Eosinophils Absolute Auto 0.4 X10*3/uL (0.0-0.4); Eosinophils Percent Auto 4.1 % (0-4); Hematocrit 41.1 % (37.0-47.0); Imm Gran Abs Auto 0.03 X10*3/uL (0.00-0.03); Imm Gran Pct Auto 0.4 % (0.0-0.4); Lymphocytes Absolute Auto 1.4 X10*3/uL (1.2-4.9); Lymphocytes Percent Auto 16.1 % (20-40); Mean Corpuscular HGB Conc 31.6 g/dl (31.0-35.0); Mean Corpuscular Hemoglobin 26.7 pg (27.0-33.0); Mean Corpuscular Volume 84.6 fL (80.0-98.0); Mean Platelet Volume 11.6 fL (9.4-12.3); Monocytes Absolute Auto 0.7 X10*3/uL (0.1-1.2); Monocytes Percent Auto 8.5 % (2-11); Neutrophils Percent Auto 70.5 % (45-73); Platelet Count 267 X10*3/uL (160-400); Red Blood Count 4.86 X10*6/uL (4.20-5.50); Red Cell Distribution Width 13.7 % (11.0-16.0); White Blood Count 8.6 X10*3/uL (4.8-10.8)
[2021-08-10 09:18] LABS: Anion Gap 12 (12-20); Blood Urea Nitrogen 15 mg/dL (9-16); Calcium 9.4 mg/dL (8.4-10.2); Carbon Dioxide 29 mmol/L (22-29); Chloride 102 mmol/L (96-108); Creatinine Clr Calc Pharmacy 87.1; Estimated Glomerular Filt Rate > 60; Glucose Random 137 mg/dL (60-115); Sodium 139 mmol/L (135-145)
[2021-08-10 09:21] LABS: Troponin-I High Sensitivity < 3.5 ng/L (<3.5-17.0)
--- NOTE | 2021-08-10 09:21 | ED_ITS ---
HPI - Chest Pain General Chief Complaint: Chest Pain Stated Complaint: chest pains Time Seen by Provider: 08/10/21 09:15 Source: patient and old records reviewed Mode of arrival: ambulatory Limitations: no limitations History of Present Illness HPI narrative: just seen on 08/07 after her house was raided by police for suspected drug use - had two negative troponins at that time and nonischemic EKG comes today with c/o MD complaint: chest pain Onset (ago): hour(s) (8am today) Timing of current episode: constant Prior episodes: Yes Onset: during rest Pain location: substernal Pain radiation: left arm Severity: moderate Quality: heaviness Relieving factors: nothing Exacerbating factors: nothing Context: other (recent stressful event , diodnt take BP meds today) Associated symptoms: nausea and dyspnea Treatment prior to arrival: none Related Data Home Medications Medication Instructions Recorded Confirmed bupropion HCl 150 mg 24 hr tablet, 150 mg PO QAM 06/23/20 10/17/20 extended release (Wellbutrin XL) duloxetine 60 mg capsule,delayed 60 mg PO DAILY 06/23/20 10/17/20 release fluticasone propionate 50 1 spray INTRANASAL DAILY 06/23/20 10/17/20 mcg/actuation nasal spray,suspension gabapentin 600 mg tablet 600 mg PO DAILY 06/23/20 10/17/20 lisinopril 20 1 tab PO DAILY 06/23/20 10/17/20 mg-hydrochlorothiazide 25 mg tablet sumatriptan succinate 50 mg tablet See Rx Instructions PO .COMPLEX 06/23/20 10/17/20 topiramate 100 mg tablet (Topamax) 100 mg PO BID 06/23/20 10/17/20 Previous Rx's Medication Instructions Recorded tramadol 50 mg tablet 50 mg PO Q6H #120 tab 07/23/21 Allergies Allergy/AdvReac Type Severity Reaction Status Date / Time ibuprofen [From Motrin] Allergy Unknown UPSET Verified 03/19/21 04:45 STOMACH Review of Systems Review of Systems: Constitutional : No Weight loss, No Fever, No Chills ENT/Mouth : No sore throat, No Rhinorrhea Eyes: No Eye Pain, No Swelling Cardiovascular : pos Chest Pain, pos SOB, no Dyspnea on Exertion, No Orthopnea, No Edema, No Palpitations Respiratory : No Cough, No Sputum Gastrointestinal : pos Nausea, No Vomiting, No Diarrhea, No abdominal Pain, No Hematochezia, No Melena Genitourinary : No Dysuria, No Urinary Frequency Musculoskeletal : No joint pain, No Myalgias, No Joint Swelling Skin : No Skin Lesions, No rash Neuro : No Weakness, No Numbness, No Dizziness, No Headache Psych : pos Anxiety/Panic, No Depression Heme/Lymph: No Bruising, No Lymphadenopathy Endocrine : No Polyuria, No Polydipsia All other systems reviewed and are negative PMFSH Past Medical History Attestation statement: The following information was validated with the patient. Medical History GERD (gastroesophageal reflux disease) HTN (hypertension) Hypercholesterolemia Obesity Osteoarthritis Primary osteoarthritis of knees, bilateral Smoker Surgical History Hx of hysterectomy Hx of tubal ligation Family History Family History Mother HTN (hypertension) Diabetes Father Alzheimer disease Brother Throat cancer Social History Social History Alcohol intake: unknown Patient Tobacco Use Status: Never used Tobacco Cigarettes Per Day: 8 Years Smoked: 40 Advance Directives: No Advance Directives Information Provided: Yes Physical Exam Vital Signs: Vital Signs: Last Vital Signs Temp 97.8 F 08/10/21 10:17 Pulse 75 08/10/21 14:05 Resp 16 08/10/21 14:04 BP 168/89 H 08/10/21 14:05 Pulse Ox 99 08/10/21 14:04 BMI result Body Mass Index 31.8 Appearance: Alert. Oriented X3. Mild acute distress. Very anxious. Tearful Eyes: Pupils equal, round and reactive to light. ENT: Pharynx normal. Neck: Normal inspection. Neck supple. CVS: Normal heart rate and rhythm. Pulses normal. Respiratory: No respiratory distress. Breath sounds normal. Abdomen: Soft and non-tender. Skin: Skin warm and dry. Normal skin color. Normal skin turgor. Extremities: No lower extremity edema. No calf ttp Neuro: Oriented X 3. No motor deficit. No sensory deficit. Course Course Course Narrative: has no chest pain - message sent to Dr. Zendejas plts and coags normal - no issues with bleeding per patient will start heparin while waiting for cardiology, patient adamantly denies cocaine or drug use Dr. Zendejas aware would admit and see patient - heparinize MDM - Chest Pain MDM Narrative Medical decision making narrative: 55 yo female with hx of HTN, OA, here with c/o chest pain that started at 8am this morning in sleep with associated nasuea, dyspnea and anxiety, she is crying. She is very anxious. She did not take her BP medications this AM. Will dose with her BP medications this AM and obtain trop x 2, EKG, CXR, and aspirin/ativan. She was just seen with CP following significant s tressful event at home. No hypoxia, not pleuritic, no signs of DVT to suggest PE. Distal pulses intact doubt dissection. Possible ACS vs stress event. Dispo per results and findings. Lab Data Result diagrams: 08/10/21 08:56 08/10/21 08:56 Labs: Lab Results 08/10/21 08/10/21 08/10/21 Range/Units 08:56 08:56 08:56 WBC 8.6 (4.8-10.8) X10*3/uL RBC 4.86 (4.20-5.50) X10*6/uL Hgb 13.0 (12.0-16.0) g/dl Hct 41.1 (37.0-47.0) % MCV 84.6 (80.0-98.0) fL MCH 26.7 L (27.0-33.0) pg MCHC 31.6 (31.0-35.0) g/dl RDW 13.7 (11.0-16.0) % Plt Count 267 (160-400) X10*3/uL MPV 11.6 (9.4-12.3) fL Immature Gran % (Auto) 0.4 (0.0-0.4) % Neut % (Auto) 70.5 (45-73) % Lymph % (Auto) 16.1 L (20-40) % [place] % (Auto) 8.5 (2-11) % Eos % (Auto) 4.1 H (0-4) % Baso % (Auto) 0.4 (0-2) % Lymph # (Auto) 1.4 (1.2-4.9) X10*3/uL [place] # (Auto) 0.7 (0.1-1.2) X10*3/uL Eos # (Auto) 0.4 (0.0-0.4) X10*3/uL Baso # (Auto) 0.0 (0.0-0.2) X10*3/uL Abs Immat Gran (auto) 0.03 (0.00-0.03) X10*3/uL Absolute Neuts (auto) 6.0 (2.0-8.3) x10*3/uL Absolute Nucleated RBC 0.000 (0.0-0.012) X10*3/uL Nucleated RBC % (auto) 0.0 (0.0-0.2) /100WBC PT (9.9-13.0) SEC INR (0.9-1.1) APTT (24.1-38.0) SEC aPTT Heparin Protocol (53-77.9) SEC Sodium 139 (135-145) mmol/L Potassium 4.0 (3.3-5.1) mmol/L Chloride 102 (96-108) mmol/L Carbon Dioxide 29 (22-29) mmol/L Anion Gap 12 (12-20) BUN 15 (9-16) mg/dL Creatinine 0.83 (0.5-1.4) mg/dL Estim Creat Clear Calc 87.1 Estimated GFR > 60 Random Glucose 137 H (60-115) mg/dL Calcium 9.4 D (8.4-10.2) mg/dL Total Bilirubin 0.4 (0.0-1.0) mg/dL Direct Bilirubin < 0.2 (0.0-0.5) mg/dL AST 17 (5-31) U/L ALT 15 (0-31) U/L Alkaline Phosphatase 127 H (39-117) U/L Troponin I High Sens < 3.5 (<3.5-17.0) ng/L Total Protein 7.5 (6.5-8.0) g/dL Albumin 3.9 (3.5-5.0) g/dL Lipase 15 (8-78) U/L COVID-19 (DIANE) (Negative) COVID-19 Clin Com 08/10/21 08/10/21 08/10/21 Range/Units 11:16 11:51 11:51 WBC (4.8-10.8) X10*3/uL RBC (4.20-5.50) X10*6/uL Hgb (12.0-16.0) g/dl Hct (37.0-47.0) % MCV (80.0-98.0) fL MCH (27.0-33.0) pg MCHC (31.0-35.0) g/dl RDW (11.0-16.0) % Plt Count (160-400) X10*3/uL MPV (9.4-12.3) fL Immature Gran % (Auto) (0.0-0.4) % Neut % (Auto) (45-73) % Lymph % (Auto) (20-40) % [place] % (Auto) (2-11) % Eos % (Auto) (0-4) % Baso % (Auto) (0-2) % Lymph # (Auto) (1.2-4.9) X10*3/uL [place] # (Auto) (0.1-1.2) X10*3/uL Eos # (Auto) (0.0-0.4) X10*3/uL Baso # (Auto) (0.0-0.2) X10*3/uL Abs Immat Gran (auto) (0.00-0.03) X10*3/uL Absolute Neuts (auto) (2.0-8.3) x10*3/uL Absolute Nucleated RBC (0.0-0.012) X10*3/uL Nucleated RBC % (auto) (0.0-0.2) /100WBC PT 11.0 (9.9-13.0) SEC INR 1.0 (0.9-1.1) APTT 36.6 (24.1-38.0) SEC aPTT Heparin Protocol (53-77.9) SEC Sodium (135-145) mmol/L Potassium (3.3-5.1) mmol/L Chloride (96-108) mmol/L Carbon Dioxide (22-29) mmol/L Anion Gap (12-20) BUN (9-16) mg/dL Creatinine (0.5-1.4) mg/dL Estim Creat Clear Calc Estimated GFR Random Glucose (60-115) mg/dL Calcium (8.4-10.2) mg/dL Total Bilirubin (0.0-1.0) mg/dL Direct Bilirubin (0.0-0.5) mg/dL AST (5-31) U/L ALT (0-31) U/L Alkaline Phosphatase (39-117) U/L Troponin I High Sens 76.4 H* D (<3.5-17.0) ng/L Total Protein (6.5-8.0) g/dL Albumin (3.5-5.0) g/dL Lipase (8-78) U/L COVID-19 (DIANE) Negative (Negative) COVID-19 Clin Com See Note 08/10/21 Range/Units 12:41 WBC (4.8-10.8) X10*3/uL RBC (4.20-5.50) X10*6/uL Hgb (12.0-16.0) g/dl Hct (37.0-47.0) % MCV (80.0-98.0) fL MCH (27.0-33.0) pg MCHC (31.0-35.0) g/dl RDW (11.0-16.0) % Plt Count (160-400) X10*3/uL MPV (9.4-12.3) fL Immature Gran % (Auto) (0.0-0.4) % Neut % (Auto) (45-73) % Lymph % (Auto) (20-40) % [place] % (Auto) (2-11) % Eos % (Auto) (0-4) % Baso % (Auto) (0-2) % Lymph # (Auto) (1.2-4.9) X10*3/uL [place] # (Auto) (0.1-1.2) X10*3/uL Eos # (Auto) (0.0-0.4) X10*3/uL Baso # (Auto) (0.0-0.2) X10*3/uL Abs Immat Gran (auto) (0.00-0.03) X10*3/uL Absolute Neuts (auto) (2.0-8.3) x10*3/uL Absolute Nucleated RBC (0.0-0.012) X10*3/uL Nucleated RBC % (auto) (0.0-0.2) /100WBC PT (9.9-13.0) SEC INR (0.9-1.1) APTT (24.1-38.0) SEC aPTT Heparin Protocol 34.9 L (53-77.9) SEC Sodium (135-145) mmol/L Potassium (3.3-5.1) mmol/L Chloride (96-108) mmol/L Carbon Dioxide (22-29) mmol/L Anion Gap (12-20) BUN (9-16) mg/dL Creatinine (0.5-1.4) mg/dL Estim Creat Clear Calc Estimated GFR Random Glucose (60-115) mg/dL Calcium (8.4-10.2) mg/dL Total Bilirubin (0.0-1.0) mg/dL Direct Bilirubin (0.0-0.5) mg/dL AST (5-31) U/L ALT (0-31) U/L Alkaline Phosphatase (39-117) U/L Troponin I High Sens (<3.5-17.0) ng/L Total Protein (6.5-8.0) g/dL Albumin (3.5-5.0) g/dL Lipase (8-78) U/L COVID-19 (DIANE) (Negative) COVID-19 Clin Com ECG Data ECG #1: Attestation: I personally reviewed and interpreted this ECG as follows: ECG interpretation date: 08/10/21 ECG interpretation time: 09:22 Interpretation: Rate: 84 Rhythm: NSR [place]: left , LVH Normal P waves. Normal [place]EN[place]. Normal QRS complex. ST T wave : no SWATI, inverted t wave III qTC: normal prior studies: no acute ischemia The study has been interpreted contemporaneously by me. . Critical Care Time Critical Care Time Critical Care Time: Yes Total Critical Care Time: 40 Attestation: review of records, repeat labs, IV ativan, BP medications, medical consult I attest to this time spent taking care of the patient Discharge Plan Discharge Clinical Impression: Elevated troponin Chest pain Qualifiers: Chest pain type: precordial pain Qualified Code(s): R07.2 - Precordial pain Patient Disposition: Admitted As Inpatient
[2021-08-10 09:47] LABS: Alanine Aminotransferase 15 U/L (0-31); Albumin Level 3.9 g/dL (3.5-5.0); Alkaline Phosphatase 127 U/L (39-117); Aspartate Amino Transferase 17 U/L (5-31); Bilirubin Direct < 0.2 mg/dL (0.0-0.5); Bilirubin Total 0.4 mg/dL (0.0-1.0); Lipase 15 U/L (8-78); Total Protein 7.5 g/dL (6.5-8.0)
[2021-08-10] MEDS: hydroCHLOROthiazide 25 MG TABLET PO (09:56)
[2021-08-10] MEDS: lisinopriL 20 MG TABLET PO (09:56)
[2021-08-10] MEDS: Aspirin 81 MG TAB.CHEW 162 MG PO (09:56)
[2021-08-10] MEDS: Famotidine 20 MG TABLET PO (09:56)
[2021-08-10] MEDS: Ondansetron ODT 4 MG TAB.RAPDIS TRANSLINGU (09:57)
[2021-08-10] MEDS: LORazepam 1 MG TABLET PO (09:57)
[2021-08-10 11:42] LABS: Troponin-I High Sensitivity 76.4 ng/L (<3.5-17.0)
[2021-08-10 12:06] LABS: Partial Thromboplastin Time 36.6 SEC (24.1-38.0)
[2021-08-10 12:28] LABS: COVID-19 Test Negative (Negative); IDNOW Serial# 16C4AD1C
[2021-08-10 13:01] LABS: PTT Heparin Drip 34.9 SEC (53-77.9)
[2021-08-10] MEDS: Heparin Sodium,Porcine 5,000 UNIT/ML VIAL 4000 UNIT IVPUSH (13:05)
[2021-08-10] MEDS: Heparin Sodium,Porcine/1/2NS 25,000 UNIT/250 ML IV.SOLN 10 UNIT IVCONT (13:10)
--- NOTE | 2021-08-10 13:33 | P.HPHOSP_ITS ---
History of Present Illness Date of Service: 08/10/21 Chief Complaint: chest pain 55 year old female [place] with history of HTN, HLD, history of palpittaion and is followed by Dr. Carmichael here with chest pain onset this mornin around 8, started as palpitation in the middle of chest about 10/10, no radiation, no sob, no diaphoresis. ECG show no acute ischemic changes, initial trop 3, repetat 76 consitent with acute NSTEMI and is bein treated as such with IV heparin, ASA, BB and statin Review of Systems Review of Systems: Gen: no fever Resp: no sob, no cough CV: + chest, no DIXON, no leg edema GI: No n/v, no abd pain Neuro: headache Yes all other systems are reviewed and are negative [facility] [place] Medical History GERD (gastroesophageal reflux disease) HTN (hypertension) Hypercholesterolemia Obesity Osteoarthritis Primary osteoarthritis of knees, bilateral Smoker Family History Mother HTN (hypertension) Diabetes Father Alzheimer disease Brother Throat cancer Surgical History Hx of hysterectomy Hx of tubal ligation Social History Alcohol intake: unknown Patient Tobacco Use Status: Never used Tobacco Cigarettes Per Day: 8 Years Smoked: 40 Advance Directives: No Advance Directives Information Provided: Yes service: No Current occupational status: unemployed Meds Allergies Allergy/AdvReac Type Severity Reaction Status Date / Time ibuprofen [From Motrin] Allergy Unknown UPSET Verified 03/19/21 04:45 STOMACH Active Medications: Current Medications Heparin Sodium (Porcine) (Heparin Sodium,Porcine 5,000 Unit/Ml Vial) 3,700 unit 40 unit/kg (3700 unit) IVPUSH PROTOCOL BOLUS PRN; Protocol PRN Reason: 40 unit/kg - Heparin Protocol Heparin Sodium (Porcine) (Heparin Sodium,Porcine 5,000 Unit/Ml Vial) 7,400 unit 80 unit/kg (7400 unit) IVPUSH PROTOCOL BOLUS PRN; Protocol PRN Reason: 80 unit/kg - Heparin Protocol Heparin Sodium/Sodium Chloride () 25,000 unit in 250 mls @ 0 mls/hr IVCONT .Q0M LIVIA; Protocol Last Admin: 08/10/21 13:10 Dose: 10.73 units/kg/hr, 10 mls/hr Documented by: Pharmacy Consult (Consult Rx Perform Med Rec) 1 each MISCELLANE ONCE PRN PRN Reason: Consult order Home Medications Medication Instructions Recorded Confirmed Last Taken Type omeprazole 20 mg tablet,delayed 20 mg PO DAILY 08/10/21 08/10/21 Unknown History release Physical Exam Vital Signs and Narrative: Vital Signs: Last Vital Signs Temp 97.8 F 08/10/21 10:17 Pulse 75 08/10/21 13:04 Resp 18 08/10/21 13:04 BP 181/91 H 08/10/21 13:04 Pulse Ox 98 08/10/21 13:04 BMI result Body Mass Index 31.8 Const: Other: Constitutional: Alert, in no distress, overweight. Mental Status: Oriented to person, place and time. Eyes: Pupils are equal, round and reactive to light. Ear, Nose and Throat: Oropharynx clear, mucous membranes moist. Ears and nose without eformities. Respiratory: Clear to auscultation. No wheezing, rales or rhonchi. Cardiovascular: S1 S2 regular. No murmurs, rubs or gallops. Gastrointestinal: Abdomen soft, non-tender, non-distended. Normal bowel sounds.? Neurologic: Cranial nerves II-XII grossly intact. No focal neurological deficits. Moves all extremities spontaneously.? Skin: No rashes or lesions.? Musculoskeletal: No cyanosis or clubbing. Psychiatric: Normal mood and affect? Results Labs CBC and Chem 7: 08/11/21 07:15 08/10/21 08:56 Labs: Laboratory Results - last 24 hr 08/10/21 08/10/21 08/10/21 08:56 08:56 08:56 MCV 84.6 MCH 26.7 L MCHC 31.6 RDW 13.7 Plt Count 267 MPV 11.6 Immature Gran % (Auto) 0.4 Neut % (Auto) 70.5 Lymph % (Auto) 16.1 L [place] % (Auto) 8.5 Eos % (Auto) 4.1 H Baso % (Auto) 0.4 Lymph # (Auto) 1.4 [place] # (Auto) 0.7 Eos # (Auto) 0.4 Baso # (Auto) 0.0 Abs Immat Gran (auto) 0.03 Absolute Neuts (auto) 6.0 Absolute Nucleated RBC 0.000 Nucleated RBC % (auto) 0.0 PT INR APTT aPTT Heparin Protocol Anion Gap 12 Estim Creat Clear Calc 87.1 Estimated GFR > 60 Random Glucose 137 H Calcium 9.4 D Total Bilirubin 0.4 Direct Bilirubin < 0.2 AST 17 ALT 15 Alkaline Phosphatase 127 H Troponin I High Sens < 3.5 Total Protein 7.5 Albumin 3.9 Lipase 15 COVID-19 (DIANE) COVID-19 [employer] 08/10/21 08/10/21 08/10/21 11:16 11:51 11:51 MCV MCH MCHC RDW Plt Count MPV Immature Gran % (Auto) Neut % (Auto) Lymph % (Auto) [place] % (Auto) Eos % (Auto) Baso % (Auto) Lymph # (Auto) [place] # (Auto) Eos # (Auto) Baso # (Auto) Abs Immat Gran (auto) Absolute Neuts (auto) Absolute Nucleated RBC Nucleated RBC % (auto) PT 11.0 INR 1.0 APTT 36.6 aPTT Heparin Protocol Anion Gap Estim Creat Clear Calc Estimated GFR Random Glucose Calcium Total Bilirubin Direct Bilirubin AST ALT Alkaline Phosphatase Troponin I High Sens 76.4 H* D Total Protein Albumin Lipase COVID-19 (DIANE) Negative COVID-Inaika See Note 08/10/21 12:41 MCV MCH MCHC RDW Plt Count MPV Immature Gran % (Auto) Neut % (Auto) Lymph % (Auto) [place] % (Auto) Eos % (Auto) Baso % (Auto) Lymph # (Auto) [place] # (Auto) Eos # (Auto) Baso # (Auto) Abs Immat Gran (auto) Absolute Neuts (auto) Absolute Nucleated RBC Nucleated RBC % (auto) PT INR APTT aPTT Heparin Protocol 34.9 L Anion Gap Estim Creat Clear Calc Estimated GFR Random Glucose Calcium Total Bilirubin Direct Bilirubin AST ALT Alkaline Phosphatase Troponin I High Sens Total Protein Albumin Lipase COVID-19 (DIANE) COVID-Inaika Imaging Radiologist's Impressions: Impressions Chest X-Ray 08/10/21 09:10 IMPRESSION: No acute cardiopulmonary process. Assessment and Plan (1) Chest pain: Qualifiers: Chest pain type: precordial pain Qualified Code(s): R07.2 - Precordial pain Status: Acute (2) NSTEMI (non-ST elevated myocardial infarction): Status: Acute (3) HTN (hypertension): Status: Acute (4) Hypercholesterolemia: Status: Acute Plan 55 year old female with HTN, HLD here with chest pain and found to have NSTEMI NSTEMI--Hemodynamically stable, other than elevated BP -Medical therapy with Heparin, ASA, Statin, BB. Cardiology evaluation, morphine for pain HTN--continue home meds HCTZ 25 daily, Lisinopril 20 and adding Metoprolol 25 bid HLD--Lipitor 80 mg at bed time Obesity--weight loss measures discussed and aware of health risk, including making the above worse Admission to [facility] at least 2 midnight for treatement of acute HI with IV heparin, further risk stratification before dc, adjustment of BP meds DVT prophylaxis: Heparin Full code Quality Stroke Does the patient have a stroke diagnosis?: No VTE Prior VTE?: No VTE Risk Level:: Medical - moderate - high VTE Device Contraindication: Treatment Not Indicated VTE Drug Contraindication: N/A - Med Ordered
[2021-08-10] MEDS: Nitroglycerin 2 % Oint 1 GM Packet 1 INCH TRANSDERMA (14:05)
--- NOTE | 2021-08-10 14:41 | PHA.MEDREC ---
Pharmacy Consult ? Medication Reconciliation Pharmacy has completed the medication reconciliation. Patient reports only taking omeprazole at home. Patient has recent filled history for the following medications: - Tramadol 50 mg q6h - paroxetine 20 mg at bedtime - bupropion SR 100 daily - Trazodone 100 mg bedtime Patient was clear reiterated that she only takes omeprazole and nothing from her pharmacy Eugenie Mendes, DkD
[2021-08-10 15:40] LABS: Amphetamine Screen Urine Not Detected (Not Detect); Barbiturates, Urine Not Detected (Not Detect); Benzodiazepines Screen Urine Not Detected (Not Detect); Cannabinoid Screen Urine Not Detected (Not Detect); Cocaine Screen Urine Not Detected (Not Detect); Fentanyl, urine Not Detected (Not Detect); Opiate Screen Urine Not Detected (Not Detect); Phencyclidine Screen Urine Not Detected (Not Detect)
[2021-08-10] MEDS: Metoprolol Tartrate 25 MG TABLET PO (17:10)
[2021-08-10 19:54] LABS: PTT Heparin Drip 75.7 SEC (53-77.9)
--- NOTE | 2021-08-10 19:58 | PC.NURSE ---
Aptt 75.7 at 19:03, therapeutic. According to order, no rate change. Will check again as per hospital protocol.
[2021-08-10] MEDS: Acetaminophen 325 MG TABLET 650 MG PO (20:10)
[2021-08-10] MEDS: Atorvastatin Calcium 80 MG TABLET PO (20:10)
[2021-08-10] MEDS: 0.9 % Sodium Chloride Flush 3 ML SYRINGE IVFLUSH (23:15)
[2021-08-11] VITALS: BP 143/73; PULSE 70; RESP 12; O2SAT 97
[2021-08-11 01:37] LABS: PTT Heparin Drip 68.1 SEC (53-77.9)
--- NOTE | 2021-08-11 01:43 | PC.NURSE ---
Aptt 68.1, therapeutic. No rate change according to MD order. Will monitor.
[2021-08-11 02:03] VITALS: BP 140/60; PULSE 63; RESP 14; O2SAT 99
[2021-08-11 06:09] VITALS: BP 132/67; PULSE 74; RESP 17; O2SAT 93
[2021-08-11] MEDS: Metoprolol Tartrate 25 MG TABLET PO (06:16)
[2021-08-11 06:56] VITALS: BP 115/56; PULSE 72; RESP 12; TEMP 36.6; O2SAT 97
[2021-08-11 07:29] LABS: Hematocrit 41.5 % (37.0-47.0); Hemoglobin 13.3 g/dl (12.0-16.0); Mean Corpuscular Hemoglobin 26.8 pg (27.0-33.0); Mean Corpuscular Volume 83.7 fL (80.0-98.0); Mean Platelet Volume 11.8 fL (9.4-12.3); Platelet Count 266 X10*3/uL (160-400); Red Blood Count 4.96 X10*6/uL (4.20-5.50); Red Cell Distribution Width 13.6 % (11.0-16.0); White Blood Count 10.7 X10*3/uL (4.8-10.8)
[2021-08-11 07:35] LABS: Prothrombin Time 11.8 SEC (9.9-13.0)
[2021-08-11 07:37] LABS: PTT Heparin Drip 70.5 SEC (53-77.9)
[2021-08-11] MEDS: Aspirin Enteric Coated 81 MG TABLET.DR PO (08:33)
--- NOTE | 2021-08-11 09:14 | MHC.CM.PN ---
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
[2021-08-11] MEDS: Heparin Sodium,Porcine/1/2NS 25,000 UNIT/250 ML IV.SOLN 10 UNIT IVCONT (10:22)
[2021-08-11 10:44] VITALS: BP 131/72; PULSE 67; RESP 16; TEMP 36.8; O2SAT 97
--- NOTE | 2021-08-11 11:21 | P.CONCA_ITS ---
History of Present Illness History of Present Illness Date of Service: 08/11/21 Requesting physician: Gera Nelson Chief complaint: NSTEMI Narrative: 55-year-old female who is presenting with chest tightness and ruled in for NSTEMI. Yesterday she had sudden onset sweating and chest tightness which lasted for approximately 1 hour. With these symptoms she presented to [facility]. Her symptoms improved while she was here and her biomarker were abnormal. She has been pain-free since then. She has been on heparin drip. No bleeding issues in the past. No other significant allergies. She is a current smoker and smokes half pack per day. She also has hypertension. She is prediabetic. [facility] Past Medical History Medical History GERD (gastroesophageal reflux disease) HTN (hypertension) Hypercholesterolemia Obesity Osteoarthritis Primary osteoarthritis of knees, bilateral Smoker Family History Family History Mother HTN (hypertension) Diabetes Father Alzheimer disease Brother Throat cancer Surgical History Surgical History Hx of hysterectomy Hx of tubal ligation Social History Social History Alcohol intake: unknown Patient Tobacco Use Status: Never used Tobacco Cigarettes Per Day: 8 Years Smoked: 40 Advance Directives: No Advance Directives Information Provided: Yes service: No Current occupational status: unemployed Meds Allergies Allergy/AdvReac Type Severity Reaction Status Date / Time ibuprofen [From Motrin] Allergy Unknown UPSET Verified 03/19/21 04:45 STOMACH Active Medications: Current Medications Acetaminophen (Acetaminophen 325 Mg Tablet) 650 mg PO Q6H PRN PRN Reason: Pain, Mild (Pain Scale 1-3) Last Admin: 08/10/21 20:10 Dose: 650 mg Documented by: Aspirin (Aspirin Enteric Coated 81 Mg Tablet.) 81 mg PO DAILY [facility] Last Admin: 08/11/21 08:33 Dose: 81 mg Documented by: Atorvastatin Calcium (Atorvastatin Calcium 80 Mg Tablet) 80 mg PO BEDTIME [facility] Last Admin: 08/10/21 20:10 Dose: 80 mg Documented by: Heparin Sodium (Porcine) (Heparin Sodium,Porcine 5,000 Unit/Ml Vial) 3,700 unit 40 unit/kg (3700 unit) IVPUSH PROTOCOL BOLUS PRN; Protocol PRN Reason: 40 unit/kg - Heparin Protocol Heparin Sodium (Porcine) (Heparin Sodium,Porcine 5,000 Unit/Ml Vial) 7,400 unit 80 unit/kg (7400 unit) IVPUSH PROTOCOL BOLUS PRN; Protocol PRN Reason: 80 unit/kg - Heparin Protocol Heparin Sodium/Sodium Chloride () 25,000 unit in 250 mls @ 0 mls/hr IVCONT .Q0M [facility]; Protocol Last Admin: 08/11/21 10:22 Dose: 10.73 units/kg/hr, 10 mls/hr Documented by: Magnesium Hydroxide (Milk Of Magnesia 30 Ml Oral.Susp) 30 ml PO DAILY PRN PRN Reason: Constipation Melatonin (Melatonin 3 Mg Tablet) 6 mg PO BEDTIME PRN PRN Reason: Insomnia Metoprolol Tartrate (Metoprolol Tartrate 25 Mg Tablet) 25 mg PO Q12H [facility]; Protocol Last Admin: 08/11/21 06:16 Dose: 25 mg Documented by: Morphine Sulfate (Morphine Sulfate 4 Mg/Ml Cartridge) 2 mg IVPUSH Q4H PRN; Protocol PRN Reason: Pain, Severe (Pain Scale 7-10) Ondansetron HCl (Ondansetron Hcl 4 Mg/2 Ml Vial) 4 mg IVPUSH Q8H PRN PRN Reason: Nausea and Vomiting Pharmacy Consult (Consult Rx Perform Med Rec) 1 each MISCELLANE ONCE PRN PRN Reason: Consult order Sodium Chloride (0.9 % Sodium Chloride Flush 3 Ml Syringe) [facility] Last Admin: 08/11/21 08:34 Dose: Not Given Documented by: Home Medications Medication Instructions Recorded Confirmed Last Taken Type omeprazole 20 mg tablet,delayed 20 mg PO DAILY 08/10/21 08/10/21 Unknown History release Physical Exam Vital Signs: Vital Signs: Last Vital Signs Temp 98.3 F 08/11/21 10:44 Pulse 67 08/11/21 10:44 Resp 16 08/11/21 10:44 BP 131/72 08/11/21 10:44 Pulse Ox 97 08/11/21 10:44 BMI result Body Mass Index 31.8 GENERAL APPEARANCE: in no acute distress, pleasant. NECK: no carotid bruit, no jugular venous distention. SKIN: no suspicious lesions, warm and dry. HEART: no murmurs, regular rate and rhythm. LUNGS: clear to auscultation bilaterally. ABDOMEN: soft, nontender. EXTREMITIES: no edema. PERIPHERAL PULSES: equal. NEUROLOGIC: No gross deficits, AAO X 3 Objective Labs and Meds Result diagrams: 08/11/21 07:15 08/10/21 08:56 Lab results: Laboratory Results - last 24 hr 08/10/21 08/10/21 08/10/21 11:16 11:51 11:51 WBC RBC Hgb Hct MCV MCH MCHC RDW Plt Count MPV Absolute Nucleated RBC Nucleated RBC % (auto) PT 11.0 INR 1.0 APTT 36.6 aPTT Heparin Protocol Troponin I High Sens 76.4 H* D Urine Opiates Screen Urine Fentanyl Screen Ur Barbiturates Screen Ur Phencyclidine Scrn Ur Amphetamines Screen U Benzodiazepines Scrn Urine Cocaine Screen U Marijuana (THC) Screen COVID-19 (DIANE) Negative COVID-19 Clin Com See Note 08/10/21 08/10/21 08/10/21 12:41 15:13 19:03 WBC RBC Hgb Hct MCV MCH MCHC RDW Plt Count MPV Absolute Nucleated RBC Nucleated RBC % (auto) PT INR APTT aPTT Heparin Protocol 34.9 L 75.7 D Troponin I High Sens Urine Opiates Screen Not Detected Urine Fentanyl Screen Not Detected Ur Barbiturates Screen Not Detected Ur Phencyclidine Scrn Not Detected Ur Amphetamines Screen Not Detected U Benzodiazepines Scrn Not Detected Urine Cocaine Screen Not Detected U Marijuana (THC) Screen Not Detected COVID-19 (DIANE) COVID-19 [employer] Com 08/11/21 08/11/21 08/11/21 01:08 07:15 07:15 WBC 10.7 RBC 4.96 Hgb 13.3 Hct 41.5 MCV 83.7 MCH 26.8 L MCHC 32.0 RDW 13.6 Plt Count 266 MPV 11.8 Absolute Nucleated RBC 0.000 Nucleated RBC % (auto) 0.0 PT 11.8 INR 1.0 APTT aPTT Heparin Protocol 68.1 70.5 Troponin I High Sens Urine Opiates Screen Urine Fentanyl Screen Ur Barbiturates Screen Ur Phencyclidine Scrn Ur Amphetamines Screen U Benzodiazepines Scrn Urine Cocaine Screen U Marijuana (THC) Screen COVID-19 (DIANE) COVID-19 Clin Com Assessment and Plan (1) HTN (hypertension): Status: Acute (2) NSTEMI (non-ST elevated myocardial infarction): Status: Acute Plan Pleasant 55-year-old female here for chest discomfort and non ST-elevation CO. Currently clinically stable. On heparin drip. On baby aspirin right now. Metoprolol 25 mg twice a day was added. Blood pressure currently is stable. I have discussed with her about cardiac catheterization and she is agreeable. I have discussed the case with Dr. Cm who will do cardiac catheterization on her tomorrow. Will transfer to [facility] for cardiac catheterization. She should be NPO after midnight. Thank you for allowing me to participate in the care of your patient. Please feel free to contact me if you have any questions. Procedures Date of Service Date of Service: 08/11/21
--- NOTE | 2021-08-11 12:29 | PC.NURSE ---
pt accepted [facility] mm7 room 10b nurse - nurse [phone]
--- NOTE | 2021-08-11 12:30 | P.DS_ITS ---
DS: Providers Provider Date of Service: 08/11/21 Date of admission: 08/10/21 14:19 Primary care physician: Chanel Bai MD Consults: 08/10/21 14:24 Consult to Cardiology Routine Consulting Provider: Van Zendejas Reason for consultation: NSTEMI Has provider been notified: No DS: Diagnosis Discharge Diagnosis (1) Chest pain: Status: Acute (2) NSTEMI (non-ST elevated myocardial infarction): Status: Acute (3) HTN (hypertension): Status: Acute (4) Hypercholesterolemia: Status: Acute DS: Summary Hospital Course Hospital Course: Chief Complaint: chest pain 55 year old female [place] with history of HTN, HLD, history of palpittaion and is followed by Dr. Carmichael here with chest pain onset this mornin around 8, started as palpitation in the middle of chest about 10/10, no radiation, no sob, no diaphoresis. ECG show no acute ischemic changes,? initial trop 3, repetat 76 consitent with acute NSTEMI and is bein treated as such with IV heparin, ASA, BB and statin Hospital course: Patient was admitted due to NSTEMI which has been medically managed with ASA, Heparin, betablocker and Lipitor. She is hemodynamically stable, no arrythmia. Following evaluation by Dr. Zendejas apprentice carpenter a decision was made for patient to be transfer to [facility] for cardiac cath. Time Spent with Patient Time attestation: Total time spent providing and/or coordinating discharge services: Discharge coordination time: Greater than 30 minutes Quality: Safe Use of Opioids Does Pt have an Active Cancer Diagnosis on the Problem List?: No Quality: Stroke Does the patient have a stroke diagnosis?: No Physical Exam Vital Signs: Vital Signs: Last Vital Signs Temp 98.3 F 08/11/21 10:44 Pulse 67 08/11/21 10:44 Resp 16 08/11/21 10:44 BP 131/72 08/11/21 10:44 Pulse Ox 97 08/11/21 10:44 BMI result Body Mass Index 31.8 DS: Data Data Completed and Pending Labs on day of discharge: Laboratory Results - last 24 hr 08/10/21 08/10/21 08/10/21 12:41 15:13 19:03 WBC RBC Hgb Hct MCV MCH MCHC RDW Plt Count MPV Absolute Nucleated RBC Nucleated RBC % (auto) PT INR aPTT Heparin Protocol 34.9 L 75.7 D Urine Opiates Screen Not Detected Urine Fentanyl Screen Not Detected Ur Barbiturates Screen Not Detected Ur Phencyclidine Scrn Not Detected Ur Amphetamines Screen Not Detected U Benzodiazepines Scrn Not Detected Urine Cocaine Screen Not Detected U Marijuana (THC) Screen Not Detected 08/11/21 08/11/21 08/11/21 01:08 07:15 07:15 WBC 10.7 RBC 4.96 Hgb 13.3 Hct 41.5 MCV 83.7 MCH 26.8 L MCHC 32.0 RDW 13.6 Plt Count 266 MPV 11.8 Absolute Nucleated RBC 0.000 Nucleated RBC % (auto) 0.0 PT 11.8 INR 1.0 aPTT Heparin Protocol 68.1 70.5 Urine Opiates Screen Urine Fentanyl Screen Ur Barbiturates Screen Ur Phencyclidine Scrn Ur Amphetamines Screen U Benzodiazepines Scrn Urine Cocaine Screen U Marijuana (THC) Screen Discharge Plan Discharge Anticipated Discharge Date/Time: 08/11/21 12:07 Patient Disposition: er [facility] Hospital Discharge Diagnosis: NSTEMI Referrals: Chanel Bai MD [Primary Care Provider] - 1 Week Discharge Medications: New heparin (porcine) 5,000 unit/mL Solution 3,700 unit IVPUSH PROTOCOL BOLUS PRN (Reason: 40 Unit/Kg - Heparin Protocol) Qty: 250 0RF atorvastatin 80 mg Tablet 80 mg PO BEDTIME Qty: 30 0RF heparin(porcine) in 0.45% NaCl 25,000 unit/250 mL Parenteral Solution 25,000 unit continuous IV infusion .Q0M Qty: 6000 0RF metoprolol tartrate 25 mg Tablet 25 mg PO Q12H Qty: 20 0RF Protocol: Hold for SBP/HR < HOLD for SBP < : 90 HOLD for HR < : 60 aspirin 81 mg Tablet,Delayed Release (Dr/Ec) 81 mg PO DAILY Qty: 14 0RF Continued omeprazole 20 mg Tablet,Delayed Release (Dr/Ec) 20 mg PO DAILY 0RF Discharge Orders: Discharge Order (Routine); Ordered 08/11/21 Ordered By: Gera Nelson Diet: advance to usual diet Activity on Discharge: As tolerated Stand Alone Forms: Patient Portal Discharge page Care Plan Goals: Full work up including cardiac cath Health Concerns: NSTEMI Plan of Treatment: To be transfer to [facility] for cardiac cath Heparin drip by hospital protocol Assessment: as above
== END 2021-08-11 18:36 | disposition short-term general hospital (02) | DRG 190 ==
LOC: HO.ED 13:48 → HO.EDOVER 14:25
PROVIDERS: Admitting Provider Internal Medicine; Emergency Provider Emergency Medicine; PCP Family Medicine; Visit Provider Internal Medicine
DX: I21.4 Non-ST elevation (NSTEMI) myocardial infarction (principal); E66.9 Obesity, unspecified; E78.5 Hyperlipidemia, unspecified; I10 Essential (primary) hypertension; K21.9 Gastro-esophageal reflux disease without esophagitis; Z20.822 Contact with and (suspected) exposure to COVID-19; Z56.0 Unemployment, unspecified; Z68.32 Body mass index [BMI] 32.0-32.9, adult; Z88.6 Allergy status to analgesic agent; Z79.82 Long term (current) use of aspirin; Z79.899 Other long term (current) drug therapy
CPT/HCPCS: 36415; 71045; 80048; 80076; 80307; 83690; 84484; 85025; 85027; 85610; 85730; 87635; 93005; 96365; 96366; 96375; 99285; 99291

== ENCOUNTER → 2021-08-29 12:09 | Outpatient (BNVA) | payer MEDICAID, SELFPAY | PROVIDERS: PCP Family Medicine; Referring Provider Family Medicine; Visit Provider Internal Medicine | DX: I21.4 Non-ST elevation (NSTEMI) myocardial infarction (principal); I10 Essential (primary) hypertension; E78.5 Hyperlipidemia, unspecified; F17.200 Nicotine dependence, unspecified, uncomplicated; Z79.82 Long term (current) use of aspirin; Z79.899 Other long term (current) drug therapy | CPT/HCPCS: 99212 ==

== ENCOUNTER 2021-09-04 07:20 | Outpatient (REF) | payer MEDICAID, SELFPAY ==
[2021-09-04 08:13] LABS: Alanine Aminotransferase 19 U/L (0-31); Albumin Level 3.8 g/dL (3.5-5.0); Alkaline Phosphatase 128 U/L (39-117); Aspartate Amino Transferase 20 U/L (5-31); Bilirubin Direct < 0.2 mg/dL (0.0-0.5); Bilirubin Total 0.4 mg/dL (0.0-1.0); Cholesterol 154 mg/dL; HDL Cholesterol 26 mg/dL; LDL Cholesterol Calculated 68 mg/dl; Total Protein 7.3 g/dL (6.5-8.0); Triglycerides 303 mg/dL
== END 2021-09-04 07:21 | disposition home or self-care (01) ==
LOC: HO.LAB 07:20
PROVIDERS: PCP Family Medicine; Visit Provider Internal Medicine
DX: I25.10 Atherosclerotic heart disease of native coronary artery without angina pectoris (principal); I21.4 Non-ST elevation (NSTEMI) myocardial infarction; E78.5 Hyperlipidemia, unspecified
CPT/HCPCS: 36415; 80061; 80076

== ENCOUNTER → 2021-09-27 10:40 | Outpatient (BNVA) | payer MEDICAID, SELFPAY | PROVIDERS: PCP Family Medicine; Visit Provider Nurse Practitioner Family | DX: M17.0 Bilateral primary osteoarthritis of knee (principal); M25.511 Pain in right shoulder; M25.512 Pain in left shoulder | CPT/HCPCS: 99212 ==

== ENCOUNTER 2021-10-02 06:35 | Outpatient (REF) | payer MEDICAID, SELFPAY ==
--- NOTE | ~2021-10-02 | XR_ITS ---
EXAMINATION: BILATERAL KNEE. CLINICAL INFORMATION: Pain. COMPARISON: None TECHNIQUE: 3 views each knee. FINDINGS: Right knee: There is minimal loss of medial compartment joint space. The lateral and the patellofemoral compartment joint spaces contain. No loose bodies, acute fracture or dislocation. No abnormal joint effusion seen. Left knee: There is minimal loss of medial compartment joint space. No visible acute fracture or dislocation seen. No abnormal suprapatellar joint effusion. There are no loose bodies. XR/XR knee RT 3V IMPRESSION: Mild degenerative changes in the medial compartment both knees. No visible acute fracture or dislocation seen.
--- NOTE | ~2021-10-02 | XR_ITS ---
EXAMINATION: BILATERAL KNEE. CLINICAL INFORMATION: Pain. COMPARISON: None TECHNIQUE: 3 views each knee. FINDINGS: Right knee: There is minimal loss of medial compartment joint space. The lateral and the patellofemoral compartment joint spaces contain. No loose bodies, acute fracture or dislocation. No abnormal joint effusion seen. Left knee: There is minimal loss of medial compartment joint space. No visible acute fracture or dislocation seen. No abnormal suprapatellar joint effusion. There are no loose bodies. XR/XR knee LT 3V IMPRESSION: Mild degenerative changes in the medial compartment both knees. No visible acute fracture or dislocation seen.
== END 2021-10-02 06:36 | disposition home or self-care (01) ==
LOC: HO.XRAY 06:35
PROVIDERS: PCP Family Medicine; Visit Provider Nurse Practitioner Family
DX: M25.561 Pain in right knee (principal); M25.562 Pain in left knee
CPT/HCPCS: 73562

== ENCOUNTER 2021-10-26 13:15 | Outpatient (REF) | payer MEDICAID, SELFPAY ==
--- NOTE | ~2021-10-26 | CT_ITS ---
EXAMINATION: CT CHEST SCREENING CLINICAL INFORMATION: Current smoker. 42 pack year history. COMPARISON: Previous chest x-ray July [address] a March 2021 TECHNIQUE: Multidetector volumetric CT imaging of the chest is performed without contrast using low dose technique. Additional 2D coronal and sagittal reformatted images and axial 3D maximum intensity projection (MIP) images are generated on the CT workstation. This CT examination was performed using dose optimization techniques as appropriate, variously including the following: *Automated exposure control *Adjustment of mA and/or kV according to patient size (this includes techniques or standardized protocols for targeted exams where dose is matched to indication/reason for exam; i.e. extremities or head) *Use of iterative reconstruction technique DLP: 58 mGy-cm FINDINGS: LUNGS: There is a 3 mm peripheral or subpleural right middle lobe nodule axial image 306 series 5 that is stable. There is minimal linear scarring or subsegmental atelectasis in the left lower lobe that is stable. No endobronchial or endotracheal lesion. MEDIASTINUM: There are small mediastinal lymph nodes that are stable. No enlarged lymph nodes are seen. There is a right thyroid nodule that is stable. The heart size is normal. No coronary artery calcification. No pericardial effusion. Normal caliber thoracic aorta. PLEURA: There is no pleural effusion. No pleural mass or thickening. Previously identified small right pleural effusion is no longer seen. AXILLA: Small bilateral axillary lymph nodes. No enlarged axillary lymph nodes or chest wall mass. UPPER ABDOMEN: Unremarkable. OSSEOUS STRUCTURES: There are mild degenerative changes of the spine. CT/CT lung screening IMPRESSION: Stable small right pulmonary nodule. Stable small mediastinal lymph nodes. ASSESSMENT: Lung-RADS category 2: Benign RECOMMENDATION: Annual low-dose chest CT follow-up recommended.
== END 2021-10-26 13:16 | disposition home or self-care (01) ==
LOC: HO.CT 13:15
PROVIDERS: PCP Family Medicine; Visit Provider Physician Assistant Medical
DX: Z12.2 Encounter for screening for malignant neoplasm of respiratory organs (principal); F17.210 Nicotine dependence, cigarettes, uncomplicated
CPT/HCPCS: 71271; G0296

== ENCOUNTER → 2022-02-04 12:31 | Outpatient (REF) | payer MEDICAID, SELFPAY ==
--- NOTE | 2022-02-04 12:39 | HM_ITS ---
Conclusion: 1. Patient was monitored for total period of 22 hours and 57 minutes 2. Baseline was normal sinus rhythm with average heart rate of 68 beats per minute 3. No significant pauses or bradycardia noted 4. Rare PVCs noted 5. No patient reported events MTDD
== END ==
LOC: HO.CARD 12:31
PROVIDERS: PCP Family Medicine; Visit Provider Family Medicine
DX: I49.9 Cardiac arrhythmia, unspecified (principal)
CPT/HCPCS: 93226; 93242

== ENCOUNTER → 2022-03-08 12:55 | Outpatient (BNVA) | payer MEDICAID, SELFPAY | PROVIDERS: PCP Family Medicine; Referring Provider Family Medicine; Visit Provider Nurse Practitioner Family | DX: I25.2 Old myocardial infarction (principal); I10 Essential (primary) hypertension; R00.2 Palpitations; E78.00 Pure hypercholesterolemia, unspecified | CPT/HCPCS: 99212 ==

== ENCOUNTER → 2022-03-26 10:09 | Outpatient (BNVA) | payer MEDICAID, SELFPAY | PROVIDERS: PCP Family Medicine; Visit Provider Nurse Practitioner Family | DX: M17.0 Bilateral primary osteoarthritis of knee (principal); M25.511 Pain in right shoulder; M25.512 Pain in left shoulder; M25.551 Pain in right hip; M25.552 Pain in left hip; R79.89 Other specified abnormal findings of blood chemistry | CPT/HCPCS: 99212 ==

== ENCOUNTER 2022-03-27 06:13 | Outpatient (REF) | payer MEDICAID, SELFPAY ==
--- NOTE | ~2022-03-27 | XR_ITS ---
EXAMINATION: XR hip RT min 2V, XR hip LT min 2V CLINICAL INFORMATION: Reason for Exam M25.551 - Pain in right hip COMPARISON: Hip radiographs 10/21/2017 TECHNIQUE: Two views of each hip. FINDINGS: No acute fracture or dislocation. Right hip joint space is maintained. Mild degenerative changes of the left hip with marginal osteophytes. Soft tissues are unremarkable. XR/XR hip LT min 2V IMPRESSION: No acute osseous abnormality. Mild degenerative changes of the left hip. No significant degenerative changes of the right hip.
--- NOTE | ~2022-03-27 | XR_ITS ---
EXAMINATION: XR hip RT min 2V, XR hip LT min 2V CLINICAL INFORMATION: Reason for Exam M25.551 - Pain in right hip COMPARISON: Hip radiographs 10/21/2017 TECHNIQUE: Two views of each hip. FINDINGS: No acute fracture or dislocation. Right hip joint space is maintained. Mild degenerative changes of the left hip with marginal osteophytes. Soft tissues are unremarkable. XR/XR hip RT min 2V IMPRESSION: No acute osseous abnormality. Mild degenerative changes of the left hip. No significant degenerative changes of the right hip.
== END 2022-03-27 06:14 | disposition home or self-care (01) ==
LOC: HO.XRAY 06:13
PROVIDERS: PCP Family Medicine; Visit Provider Nurse Practitioner Family
DX: M25.552 Pain in left hip (principal); M25.551 Pain in right hip
CPT/HCPCS: 73502

== ENCOUNTER → 2022-04-23 10:57 | Outpatient (BNVA) | payer MEDICAID, SELFPAY | PROVIDERS: PCP Family Medicine; Visit Provider Physician Assistant | DX: M17.0 Bilateral primary osteoarthritis of knee (principal); R73.03 Prediabetes | CPT/HCPCS: 20610; 99202; J1020 ==

== ENCOUNTER 2022-04-24 08:02 | Outpatient (REF) | payer MEDICAID, SELFPAY ==
--- NOTE | ~2022-04-24 | US_ITS ---
EXAMINATION: US ABDOMEN LIMITED CLINICAL INFORMATION: Mild worsening transaminitis. COMPARISON: CT abdomen and pelvis without contrast 03/24/2018. Ultrasound abdomen complete 11/21/2014. TECHNIQUE: Real-time imaging of the right upper quadrant abdominal viscera. FINDINGS: PANCREAS: There is an ovoid hypoechoic lesion in or adjacent to the pancreatic head measuring 1.8 x 1.0 x 2.6 cm. No ductal dilatation. LIVER: The liver is normal in size. The liver contour is normal. There is diffuse increased liver parenchymal echogenicity, consistent with hepatic steatosis. No focal hepatic lesion. There is no intrahepatic biliary duct dilatation seen. GALLBLADDER: Normal. The gallbladder is physiologically distended without evidence of stones, sludge, polyps, wall thickening or pericholecystic fluid. COMMON BILE DUCT: Normal in caliber measuring 0.6 cm in diameter. RIGHT KIDNEY: Normal. No hydronephrosis. No renal calculi or focal parenchymal lesions. The kidney measures 9.5 cm in maximum dimension. FREE FLUID: None. US/US abdomen limited IMPRESSION: Fatty liver. Ovoid hypoechoic lesion in the adjacent to the pancreatic head measuring 1.8 x 1.0 x 2.6 cm. This may be a peripancreatic lymph node but a pancreatic lesion cannot be excluded. Recommend further evaluation with MRI without and with contrast pancreas protocol.
== END 2022-04-24 08:03 | disposition home or self-care (01) ==
LOC: HO.US 08:02
PROVIDERS: Visit Provider Family Medicine
DX: R74.01 Elevation of levels of liver transaminase levels (principal)
CPT/HCPCS: 76705

== ENCOUNTER 2022-05-28 13:14 | Outpatient (REF) | payer MEDICAID, SELFPAY | END 2022-05-28 13:15 | disposition home or self-care (01) | LOC: HO.MRI 13:14 | PROVIDERS: PCP Family Medicine; Visit Provider Family Medicine | DX: Z13.89 Encounter for screening for other disorder (principal) ==

== ENCOUNTER 2022-06-28 09:01 | Outpatient (REF) | payer MEDICAID, SELFPAY ==
[2022-06-28 14:02] LABS: Amphetamine Screen Urine Not Detected (Not Detect); Barbiturates, Urine Not Detected (Not Detect); Benzodiazepines Screen Urine Not Detected (Not Detect); Cannabinoid Screen Urine Not Detected (Not Detect); Cocaine Screen Urine Not Detected (Not Detect); Fentanyl, urine POSITIVE (Not Detect); Opiate Screen Urine Not Detected (Not Detect); Phencyclidine Screen Urine Not Detected (Not Detect)
== END 2022-06-28 09:02 | disposition home or self-care (01) ==
LOC: HO.10HDL 09:01
PROVIDERS: Visit Provider Nurse Practitioner Family
DX: Z51.81 Encounter for therapeutic drug level monitoring (principal)
CPT/HCPCS: 80307

== ENCOUNTER 2022-07-02 14:00 | Outpatient (REF) | payer MEDICAID, SELFPAY ==
[2022-07-02 16:54] LABS: Amphetamine Screen Urine Not Detected (Not Detect); Barbiturates, Urine Not Detected (Not Detect); Benzodiazepines Screen Urine Not Detected (Not Detect); Cannabinoid Screen Urine Not Detected (Not Detect); Cocaine Screen Urine Not Detected (Not Detect); Fentanyl, urine POSITIVE (Not Detect); Opiate Screen Urine Not Detected (Not Detect); Phencyclidine Screen Urine Not Detected (Not Detect)
== END 2022-07-02 14:01 | disposition home or self-care (01) ==
LOC: HO.LAB 14:00
PROVIDERS: Visit Provider Nurse Practitioner Family
DX: Z79.899 Other long term (current) drug therapy (principal)
CPT/HCPCS: 80307

== ENCOUNTER 2022-07-03 09:28 | Outpatient (REF) | payer MEDICAID, SELFPAY ==
--- NOTE | ~2022-07-03 | MM_ITS ---
EXAMINATION: MM SCREENING DIGITAL BREAST TOMOSYNTHESIS, BILATERAL CLINICAL INFORMATION: Screening. Asymptomatic. The lifetime risk of breast cancer based on the Tyrer-Cuzick Model is 5.2%. COMPARISON: Mammography: June 27, 2021 and studies dating back to June 01, 2013 TECHNIQUE: Digital breast tomosynthesis is performed in both the craniocaudal and mediolateral oblique views along with computer-aided detection (CAD). Synthesized 2D images are generated from the tomosynthesis. FINDINGS: There are scattered areas of fibroglandular density (ACR BI-RADS breast composition Category b). There are no new significant masses, abnormal calcifications, or other abnormalities. MM/MM tomosynthesis screening BI IMPRESSION: No significant changes from prior exam. ASSESSMENT: BI-RADS 1: Negative RECOMMENDATION: Routine annual mammography screening. This patient's information was entered into a reminder system with a target due date for their next mammogram.
== END 2022-07-03 09:29 | disposition home or self-care (01) ==
LOC: HO.MAMMO 09:28
PROVIDERS: PCP Family Medicine; Visit Provider Family Medicine
DX: Z12.31 Encounter for screening mammogram for malignant neoplasm of breast (principal)
CPT/HCPCS: 77063; 77067

== ENCOUNTER 2022-07-10 08:13 | Outpatient (REF) | payer MEDICAID, SELFPAY | END 2022-07-10 08:14 | disposition home or self-care (01) | LOC: HO.LAB 08:13 | PROVIDERS: PCP Family Medicine; Visit Provider Nurse Practitioner Family | DX: Z51.81 Encounter for therapeutic drug level monitoring (principal) | CPT/HCPCS: 36415; 80373 ==

== ENCOUNTER 2022-08-27 12:28 | Emergency (ER) | payer MEDICAID, SELFPAY ==
--- NOTE | ~2022-08-27 | XR_ITS ---
EXAMINATION: XR CHEST CLINICAL INFORMATION: Chest pain COMPARISON: Chest 06/10/2021 TECHNIQUE: Frontal view of the chest was obtained. FINDINGS: No significant abnormality is noted involving the heart, lungs, mediastinum, bony thorax or soft tissues. XR/XR chest 1V IMPRESSION: Unremarkable chest exam.
--- NOTE | 2022-08-27 12:30 | ECG_ITS ---
Test Reason : CP Blood Pressure : / mmHG Vent. Rate : 064 BPM Atrial Rate : 064 BPM P-R Int : 182 ms QRS Dur : 088 ms QT Int : 426 ms P-R-T Axes : 031 -13 002 degrees QTc Int : 439 ms Normal sinus rhythm Normal ECG When compared with ECG of 10-AUG-2021 08:40, No significant change was found Referred By: Milagro Garcia Electronically Signed By:LUCIANA MAS MD
[2022-08-27 12:42] VITALS: BP 125/65; PULSE 64; RESP 16; TEMP 36; O2SAT 98; BMI 31.0
--- NOTE | 2022-08-27 12:42 | ED.CHESTPAIN ---
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 Patient states that she began having chest pain 45 minutes ago on the left side of her chest that feels consistently with when she had an NSTEMI last year. Patient denies any dizziness, lightheadedness, abdominal pain, nausea, vomiting, fever, chills, blurry vision, double vision, loss of vision, difficulty breathing, shortness of breath, back pain, night sweats, pain with urination, increased urinary frequency, increased urinary urgency, blood in her urine or stool, syncope or a near syncopal episode, recent trauma or falls, bowel incontinence, bladder incontinence, bowel retention, bladder retention, or any other complaints at this time. MD complaint: chest pain Pain location: left chest Pain radiation: none Related Data Home Medications Medication Instructions Recorded Confirmed omeprazole 20 mg tablet,delayed 20 mg PO DAILY 08/10/21 03/26/22 release amlodipine 5 mg tablet 5 mg PO DAILY 08/29/21 03/26/22 lisinopril 20 mg tablet 20 mg PO DAILY 08/29/21 03/26/22 mirabegron 50 mg tablet,extended 50 mg PO DAILY 08/29/21 03/26/22 release 24 hr (Myrbetriq) nitroglycerin 0.4 mg sublingual 0.4 mg sublingual angina 08/29/21 03/26/22 tablet sennosides 8.6 mg tablet (senna) 17.2 mg PO BEDTIME 08/29/21 03/26/22 bupropion HCl 100 mg tablet,12 hr 100 mg PO QAM 03/26/22 03/26/22 sustained-release cholecalciferol (vitamin D3) 50 50 mcg PO QAM 03/26/22 03/26/22 mcg (2,000 unit) tablet clopidogrel 75 mg tablet 75 mg PO QAM 03/26/22 03/26/22 fluticasone propionate 50 2 spray intranasal QAM PRN 03/26/22 03/26/22 mcg/actuation nasal spray,suspension loratadine 10 mg tablet (Allergy 10 mg PO DAILY PRN 03/26/22 03/26/22 Relief (loratadine)) pantoprazole 20 mg tablet,delayed 20 mg PO QAM 03/26/22 03/26/22 release paroxetine HCl 20 mg tablet 20 mg PO BEDTIME 03/26/22 03/26/22 topiramate 100 mg tablet 100 mg PO BEDTIME 03/26/22 03/26/22 trazodone 50 mg tablet 50 mg PO BEDTIME PRN 03/26/22 03/26/22 Previous Rx's Medication Instructions Recorded aspirin 81 mg tablet,delayed 81 mg PO DAILY #14 tabs 08/11/21 release atorvastatin 80 mg tablet 80 mg PO BEDTIME #30 tabs 08/11/21 metoprolol tartrate 25 mg tablet 25 mg PO Q12H #20 tabs 08/11/21 Allergies Allergy/AdvReac Type Severity Reaction Status Date / Time ibuprofen [From Motrin] Allergy Unknown UPSET Verified 08/27/22 12:42 STOMACH Review of Systems Constitutional: Constitutional: Reports no additional constitutional complaints, Denies chills, Denies fever(s) and Denies night sweats Eyes: Eyes: Reports no additional eye complaints, Denies blurry vision, Denies change in vision, Denies diplopia, Denies eye discharge, Denies loss of vision and Denies eye pain ENT: Denies dizziness Cardiovascular: Cardiovascular: Reports no additional cardiovascular complaints, Reports chest pain, Denies lightheadedness, Denies Loss of Consciousness and Denies dyspnea Respiratory: Respiratory: Reports no additional respiratory complaints and Denies dyspnea Gastrointestinal: Gastrointestinal: Reports no additional gastrointestinal complaints, Denies abdominal pain, Denies melena, Denies hematochezia, Denies change in bowel habits and Denies change in stool character Genitourinary: Genitourinary: Denies hematuria, Denies urinary frequency, Denies dysuria, Denies urinary incontinence, Denies urinary hesitancy and Denies urinary urgency Musculoskeletal: Musculoskeletal: Reports no additional musculoskeletal complaints, Denies numbness and Denies tingling Neurologic: Denies dizziness, Denies loss of vision, Denies numbness and Denies tingling Psychiatric: Psychiatric: Reports no additional psychiatric complaints Endocrine: Endocrine: Reports no additional endocrine complaints Hematologic/Lymphatic: Hematologic/Lymphatic: Reports no additional hematologic/lymphatic complaints Allergic/Immunologic: Allergic/Immunologic: Reports no additional allergic/immunologic complaints PMFSH Past Medical History Attestation statement: The following information was validated with the patient. Source: old records reviewed and nursing notes reviewed Medical History Depression with anxiety GERD (gastroesophageal reflux disease) History of non-ST elevation myocardial infarction (NSTEMI) (~07/2021) HTN (hypertension) Hypercholesterolemia Migraines Obesity Osteoarthritis Osteoarthritis of left hip Personal history of nicotine dependence Primary osteoarthritis of knees, bilateral Surgical History History of cardiac cath (~2021) History of carpal tunnel surgery of right wrist (~2014) History of colonoscopy History of total abdominal hysterectomy (~2004) History of tubal ligation Family History Family History Mother HTN (hypertension) Diabetes Father Alzheimer disease Brother Throat cancer Social History Social History Alcohol intake: current Alcohol intake frequency: a few times a month Alcohol type: beer Patient Tobacco Use Status: Current everyday Tobacco user Tobacco use type: Cigarette Cigarettes Per Day: 4 Years Smoked: (onset 13, 1/2ppd x 42yrs, 20+PYH) Smoked in Last 30 Days: No Use of substances other than those prescribed or required for medical reasons: No Substance Use Type: Marijuana Advance Directives: No Advance Directives Information Provided: Yes service: No Current occupational status: disabled Physical Exam Vital Signs: Vital Signs: Last Vital Signs Temp 98.2 F 08/27/22 16:00 Pulse 63 08/27/22 16:00 Resp 16 08/27/22 16:00 BP 118/46 L 08/27/22 16:00 Pulse Ox 98 08/27/22 16:00 O2 Del Method Room Air 08/27/22 16:00 BMI result Body Mass Index 31.0 Const: General: cooperative, no acute distress, alert and awake Nutritional Appearance: well nourished Orientation/consciousness: patient oriented x3 Limitations: no limitations HEENT: Head: Yes normal to inspection and Yes atraumatic Ears: hearing grossly normal bilaterally and external ears normal General nose exam: Normal external nose present, no nasal discharge noted and no epistaxis Face and sinus: Yes normal facial exam, No abrasion and No laceration Mouth: Normal oral and palatal mucosa present, no drooling and no muffled voice Eyes: General: appearance normal, both eyes and all related structures Periorbital: periorbital findings normal Eyelids: Yes eyelids normal Conjunctivae: conjunctivae normal Pupils: Equal, round and reactive pupils present EOM: EOMs intact bilaterally Neck: Neck: Yes normal visual inspection, Yes full ROM and Yes no lymphadenopathy Chest: Chest palpation & inspection: normal inspection of the chest Resp: Effort & Inspection: normal respiratory effort and able to speak in complete sentences Auscultation: clear to auscultation bilaterally Cardio: Rate: regular rate Rhythm: regular rhythm GI: Inspection: Yes normal to inspection Palpation (GI): Soft to palpation, not firm, nontender, no guarding and not rigid Neuro: General: patient oriented x3 and moves all extremities Cranial nerves: Yes Equal, round and reactive pupils present Cognition (Neuro): normal cognition Motor exam (neuro): 5/5 motor strength present throughout Sensory Exam: Normal double simultaneous stimulation for sensation Coordination: [id number] test normal Extrem: General: Yes normal to inspection, Yes full ROM and Yes capillary refill normal Psych: Appearance: grossly normal Mental Status: mental status grossly normal Affect: normal affect Attitude: cooperative Thought process: Normal thought process present Thought content: Normal thought content present Insight: Good insight present (Psych) Course Course Course Narrative: RME: 48-year-old female with a past medical history of OA, NSTEMI, HTN, palpitations, HLD, presenting to the ED complaining of intermittent CP x 45 minutes. Described as stabbing with mild SOB. Lungs CTA, VSS EKG, labs, CXR ordered Full HPI, ROS and PE to be performed by primary ED provider. Reevaluation(s) Reevaluation #1: Delta troponin negative, patient stable for discharge home. Time: 17:17 Medical Decision Making Medical Decision Making MDM Narrative: Patient is a 56 year old assigned female at with a history of NSTEMI presenting to the emergency department today with left sided chest pain. Patient's physical exam was unremarkable. Patient's blood work was unremarkable including a normal initial troponin. Patient's repeat troponin is pending. Patient's EKG was unremarkable. Patient's chest x-ray showed no acute process. I explained my physical exam findings as well as all test results to the patient. I answered all questions asked by the patient. Patient's disposition is pending her repeat troponin. Patient signed out to CHAPIN Ravi. Differential Diagnosis Differential Diagnoses: The differential diagnosis associated with the presentation includes chest pain Admission/Observation Consideration of admission/observation: Escalation of care including admission/observation considered Patient's need for admission will be determined by her repeat troponin. Lab Data MDM Lab Attestation statement: I reviewed the patient's lab results. My interpretation of these studies and their corresponding values is that they are grossly normal. 08/27/22 13:24 08/27/22 13:24 Labs: Lab Results 08/27/22 08/27/22 08/27/22 Range/Units 13:24 13:24 13:24 WBC 9.9 (4.8-10.8) X10*3/uL RBC 4.70 (4.20-5.50) X10*6/uL Hgb 13.4 (12.0-16.0) g/dl Hct 41.0 (37.0-47.0) % MCV 87.2 (80.0-98.0) fL MCH 28.5 (27.0-33.0) pg MCHC 32.7 (31.0-35.0) g/dl RDW 13.1 (11.0-16.0) % Plt Count 236 (160-400) X10*3/uL MPV 11.9 (9.4-12.3) fL Immature Gran % (Auto) 0.3 (0.0-0.4) % Neut % (Auto) 72.2 (45-73) % Lymph % (Auto) 14.9 L (20-40) % [place] % (Auto) 8.0 (2-11) % Eos % (Auto) 4.3 H (0-4) % Baso % (Auto) 0.3 (0-2) % Lymph # (Auto) 1.5 (1.2-4.9) X10*3/uL [place] # (Auto) 0.8 (0.1-1.2) X10*3/uL Eos # (Auto) 0.4 (0.0-0.4) X10*3/uL Baso # (Auto) 0.0 (0.0-0.2) X10*3/uL Abs Immat Gran (auto) 0.03 (0.00-0.03) X10*3/uL Absolute Neuts (auto) 7.2 (2.0-8.3) x10*3/uL Absolute Nucleated RBC 0.000 (0.0-0.012) X10*3/uL Nucleated RBC % (auto) 0.0 (0.0-0.2) /100WBC PT (10.0-13.1) SEC INR (0.9-1.1) Sodium 140 (135-145) mmol/L Potassium 3.7 (3.3-5.1) mmol/L Chloride 104 (96-108) mmol/L Carbon Dioxide 29 (22-29) mmol/L Anion Gap 11 L (12-20) BUN 13 (9-16) mg/dL Creatinine 0.86 (0.5-1.4) mg/dL Estim Creat Clear Calc 82.0 Estimated GFR > 60 Random Glucose 107 (60-115) mg/dL Calcium 9.1 (8.4-10.2) mg/dL Magnesium 1.9 (1.6-2.6) mg/dL Total Bilirubin 0.5 (0.0-1.0) mg/dL Direct Bilirubin 0.1 (0.0-0.5) mg/dL AST 25 (5-31) U/L ALT 18 (0-31) U/L Alkaline Phosphatase 101 (39-117) U/L Troponin I High Sens < 2.7 (<3.5-17.0) ng/L B-Natriuretic Peptide (<100) pg/mL Total Protein 6.8 (6.5-8.0) g/dL Albumin 3.7 (3.5-5.0) g/dL 08/27/22 08/27/22 08/27/22 Range/Units 13:24 13:24 15:19 WBC (4.8-10.8) X10*3/uL RBC (4.20-5.50) X10*6/uL Hgb (12.0-16.0) g/dl Hct (37.0-47.0) % MCV (80.0-98.0) fL MCH (27.0-33.0) pg MCHC (31.0-35.0) g/dl RDW (11.0-16.0) % Plt Count (160-400) X10*3/uL MPV (9.4-12.3) fL Immature Gran % (Auto) (0.0-0.4) % Neut % (Auto) (45-73) % Lymph % (Auto) (20-40) % [place] % (Auto) (2-11) % Eos % (Auto) (0-4) % Baso % (Auto) (0-2) % Lymph # (Auto) (1.2-4.9) X10*3/uL [place] # (Auto) (0.1-1.2) X10*3/uL Eos # (Auto) (0.0-0.4) X10*3/uL Baso # (Auto) (0.0-0.2) X10*3/uL Abs Immat Gran (auto) (0.00-0.03) X10*3/uL Absolute Neuts (auto) (2.0-8.3) x10*3/uL Absolute Nucleated RBC (0.0-0.012) X10*3/uL Nucleated RBC % (auto) (0.0-0.2) /100WBC PT 11.7 (10.0-13.1) SEC INR 1.0 (0.9-1.1) Sodium (135-145) mmol/L Potassium (3.3-5.1) mmol/L Chloride (96-108) mmol/L Carbon Dioxide (22-29) mmol/L Anion Gap (12-20) BUN (9-16) mg/dL Creatinine (0.5-1.4) mg/dL Estim Creat Clear Calc Estimated GFR Random Glucose (60-115) mg/dL Calcium (8.4-10.2) mg/dL Magnesium (1.6-2.6) mg/dL Total Bilirubin (0.0-1.0) mg/dL Direct Bilirubin (0.0-0.5) mg/dL AST (5-31) U/L ALT (0-31) U/L Alkaline Phosphatase (39-117) U/L Troponin I High Sens < 2.7 (<3.5-17.0) ng/L B-Natriuretic Peptide 39 (<100) pg/mL Total Protein (6.5-8.0) g/dL Albumin (3.5-5.0) g/dL 08/27/22 Range/Units 16:40 WBC (4.8-10.8) X10*3/uL RBC (4.20-5.50) X10*6/uL Hgb (12.0-16.0) g/dl Hct (37.0-47.0) % MCV (80.0-98.0) fL MCH (27.0-33.0) pg MCHC (31.0-35.0) g/dl RDW (11.0-16.0) % Plt Count (160-400) X10*3/uL MPV (9.4-12.3) fL Immature Gran % (Auto) (0.0-0.4) % Neut % (Auto) (45-73) % Lymph % (Auto) (20-40) % [place] % (Auto) (2-11) % Eos % (Auto) (0-4) % Baso % (Auto) (0-2) % Lymph # (Auto) (1.2-4.9) X10*3/uL [place] # (Auto) (0.1-1.2) X10*3/uL Eos # (Auto) (0.0-0.4) X10*3/uL Baso # (Auto) (0.0-0.2) X10*3/uL Abs Immat Gran (auto) (0.00-0.03) X10*3/uL Absolute Neuts (auto) (2.0-8.3) x10*3/uL Absolute Nucleated RBC (0.0-0.012) X10*3/uL Nucleated RBC % (auto) (0.0-0.2) /100WBC PT (10.0-13.1) SEC INR (0.9-1.1) Sodium (135-145) mmol/L Potassium (3.3-5.1) mmol/L Chloride (96-108) mmol/L Carbon Dioxide (22-29) mmol/L Anion Gap (12-20) BUN (9-16) mg/dL Creatinine (0.5-1.4) mg/dL Estim Creat Clear Calc Estimated GFR Random Glucose (60-115) mg/dL Calcium (8.4-10.2) mg/dL Magnesium (1.6-2.6) mg/dL Total Bilirubin (0.0-1.0) mg/dL Direct Bilirubin (0.0-0.5) mg/dL AST (5-31) U/L ALT (0-31) U/L Alkaline Phosphatase (39-117) U/L Troponin I High Sens < 2.7 (<3.5-17.0) ng/L B-Natriuretic Peptide (<100) pg/mL Total Protein (6.5-8.0) g/dL Albumin (3.5-5.0) g/dL Independent Interpretation I performed an independent interpretation of an: EKG Interpretation: Vent. Rate: 064 BPM ? ? Atrial Rate: 064 BPM P-R Int: 182 ms? QRS Dur: 088 ms QT Int: 426 ms ? ? ? P-R-T Axes: 031 -13 002 degrees QTc Int: 439 ms ? Normal sinus rhythm Normal ECG When compared with ECG of 10-AUG-2021 08:40, No significant change was found DD/ [id number] Critical Care Time Critical Care Time Critical Care Time: Yes Total Critical Care Time: 30 Attestation: I spent 30 minutes of Critical Care Time with this patient. This does not include time spent on separately reported billable procedures. Discharge Plan Discharge Clinical Impression: Chest pain Patient Disposition: Home, Self-Care Instructions: Chest Pain (DC) Prescriptions: No Action omeprazole 20 mg Tablet,Delayed Release (Dr/Ec) 20 mg PO DAILY atorvastatin 80 mg Tablet 80 mg PO BEDTIME Qty: 30 0RF aspirin 81 mg Tablet,Delayed Release (Dr/Ec) 81 mg PO DAILY Qty: 14 0RF metoprolol tartrate 25 mg Tablet 25 mg PO Q12H Qty: 20 0RF Protocol: Hold for SBP/HR < HOLD for SBP < : 90 HOLD for HR < : 60 sennosides [senna] 8.6 mg tablet 17.2 mg PO BEDTIME amlodipine 5 mg tablet 5 mg PO DAILY lisinopril 20 mg tablet 20 mg PO DAILY nitroglycerin 0.4 mg tablet, sublingual 0.4 mg sublingual Myrbetriq 50 mg tablet extended release 24 hr 50 mg PO DAILY cholecalciferol (vitamin D3) 50 mcg (2,000 unit) tablet 50 mcg PO QAM loratadine [Allergy Relief (loratadine)] 10 mg tablet 10 mg PO DAILY PRN fluticasone propionate 50 mcg/actuation spray,suspension 2 spray intranasal QAM PRN topiramate 100 mg tablet 100 mg PO BEDTIME paroxetine HCl 20 mg tablet 20 mg PO BEDTIME pantoprazole 20 mg tablet,delayed release (DR/EC) 20 mg PO QAM trazodone 50 mg tablet 50 mg PO BEDTIME PRN clopidogrel 75 mg tablet 75 mg PO QAM bupropion HCl 100 mg tablet sustained-release 12 hr 100 mg PO QAM
[2022-08-27 13:09] VITALS: BP 118/59; PULSE 79; RESP 18; TEMP 36.8; O2SAT 98
--- NOTE | 2022-08-27 13:12 | PC.NURSE ---
Alert and oriented. has had chest pain for bout 1 hour. States also has SOB. denies n/v/or headache. Denies trauma or lifting of any heavy objects. did get into an argument with her son about an hour ago and then her chest pain started. Lungs clear, no lower extremity edema noted, perrla. States pain does not radiate to her back but an hour ago it did extend to her left arm. vss.
[2022-08-27 13:31] LABS: MANUAL DIFF FLAG NO
[2022-08-27 13:32] LABS: Basophils Percent Auto 0.3 % (0-2); Eosinophils Absolute Auto 0.4 X10*3/uL (0.0-0.4); Eosinophils Percent Auto 4.3 % (0-4); Hemoglobin 13.4 g/dl (12.0-16.0); Imm Gran Abs Auto 0.03 X10*3/uL (0.00-0.03); Imm Gran Pct Auto 0.3 % (0.0-0.4); Lymphocytes Absolute Auto 1.5 X10*3/uL (1.2-4.9); Lymphocytes Percent Auto 14.9 % (20-40); Mean Corpuscular HGB Conc 32.7 g/dl (31.0-35.0); Mean Corpuscular Hemoglobin 28.5 pg (27.0-33.0); Mean Corpuscular Volume 87.2 fL (80.0-98.0); Mean Platelet Volume 11.9 fL (9.4-12.3); Monocytes Absolute Auto 0.8 X10*3/uL (0.1-1.2); Neutrophils Absolute Auto 7.2 x10*3/uL (2.0-8.3); Neutrophils Percent Auto 72.2 % (45-73); Platelet Count 236 X10*3/uL (160-400); Red Cell Distribution Width 13.1 % (11.0-16.0); White Blood Count 9.9 X10*3/uL (4.8-10.8)
[2022-08-27 13:40] LABS: Prothrombin Time 11.7 SEC (10.0-13.1)
[2022-08-27 13:49] LABS: Alanine Aminotransferase 18 U/L (0-31); Albumin Level 3.7 g/dL (3.5-5.0); Alkaline Phosphatase 101 U/L (39-117); Anion Gap 11 (12-20); Aspartate Amino Transferase 25 U/L (5-31); Bilirubin Direct 0.1 mg/dL (0.0-0.5); Bilirubin Total 0.5 mg/dL (0.0-1.0); Blood Urea Nitrogen 13 mg/dL (9-16); Calcium 9.1 mg/dL (8.4-10.2); Carbon Dioxide 29 mmol/L (22-29); Chloride 104 mmol/L (96-108); Estimated Glomerular Filt Rate > 60; Glucose Random 107 mg/dL (60-115); Magnesium 1.9 mg/dL (1.6-2.6); Potassium 3.7 mmol/L (3.3-5.1); Sodium 140 mmol/L (135-145); Total Protein 6.8 g/dL (6.5-8.0)
[2022-08-27 13:52] LABS: B Type Natriuretic Peptide 39 pg/mL (<100)
[2022-08-27 13:57] LABS: Troponin-I High Sensitivity < 2.7 ng/L (<3.5-17.0)
[2022-08-27 14:13] VITALS: BP 117/49; PULSE 64; RESP 14; TEMP 36.8; O2SAT 98
[2022-08-27 15:59] LABS: Troponin-I High Sensitivity < 2.7 ng/L (<3.5-17.0)
[2022-08-27 16:00] VITALS: BP 118/46; PULSE 63; RESP 16; TEMP 36.8; O2SAT 98
[2022-08-27 17:06] LABS: Troponin-I High Sensitivity < 2.7 ng/L (<3.5-17.0)
--- NOTE | 2022-08-27 17:54 | PC.NURSE ---
Took over for EUGENIE Weiss pt not in room departed pt.
== END 2022-08-27 17:53 | disposition home or self-care (01) ==
PROVIDERS: Physician Assistant; Physician Assistant Medical; Emergency Provider Emergency Medicine; PCP Family Medicine
DX: R07.89 Other chest pain (principal); R06.02 Shortness of breath; R00.2 Palpitations; F17.210 Nicotine dependence, cigarettes, uncomplicated; Z71.6 Tobacco abuse counseling; I10 Essential (primary) hypertension; Z79.899 Other long term (current) drug therapy
CPT/HCPCS: 36415; 71045; 80048; 80076; 83735; 83880; 84484; 85025; 85610; 93005; 99283; 99284

== ENCOUNTER 2022-10-14 07:57 | Outpatient (AMB) | payer MEDICAID, SELFPAY ==
[2022-10-14 08:10] VITALS: BP 118/50; PULSE 70; BMI 31.1
--- NOTE | 2022-10-14 08:10 | MHC.OFFVIS ---
Intake Vital Signs 10/14/22 08:10 Height 5 ft 7 in Weight 198 lb 6.656 oz BMI 31.1 BP 118/50 L Blood Pressure Location Lt brachial Position Sitting Pulse 70 Pulse Source Pulse Oximeter Intake Visit Reasons: 6 month p/u per DC Intake Note: 6 month f/u per DC patient has some palpitation while doing physical activities and when she is not doing them sometimes also Beach Expert Required: Yes Beach Expert Name: josiane montes [id number] Allergies ibuprofen [From Motrin] Allergy (Unknown, Verified 10/14/22 08:15) UPSET STOMACH Medication List - Last Reconciled 10/14/22 by CUATE Lino amlodipine 5 mg PO DAILY aspirin 81 mg PO DAILY atorvastatin 80 mg PO BEDTIME bupropion HCl 100 mg PO QAM cholecalciferol (vitamin D3) 50 mcg PO QAM clopidogrel 75 mg PO QAM fluticasone propionate 50 mcg/actuation 2 sprays intranasal QAM PRN lisinopril 20 mg PO DAILY loratadine (Allergy Relief (loratadine)) 10 mg PO DAILY PRN metoprolol tartrate 25 mg See Protocol PO Q12H mirabegron ER (Myrbetriq) 50 mg PO DAILY nitroglycerin 0.4 mg sublingual omeprazole 20 mg PO DAILY pantoprazole 20 mg PO QAM paroxetine HCl 20 mg PO BEDTIME sennosides (senna) 17.2 mg PO BEDTIME topiramate 100 mg PO BEDTIME trazodone 50 mg PO BEDTIME PRN HPI 6 month p/u per DC HPI Details Suze is a 56-year-old female with past medical history of hypertension, hyperlipidemia, obesity who had NSTEMI 07/2021 with cardiac catheterization showing no significant coronary artery disease who now presents for follow-up. Today she reports that she has been having increased stress at home. She was in the ER recently with chest discomfort and ruled out for ACS. She has not had any exertional chest discomfort. She does feel heart palpitations at times when she is doing only light activities. This is causing her concern as she is fearful of having another heart attack. No dizziness, presyncope, syncope, falls. When she has heart palpitations she says it lasts a few minutes and leaves her with fatigue. No shortness of breath, PND, orthopnea or edema. Mostly sedentary due to arthritis. Has a [employer]. Taking all meds as directed. 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 [facility] Medical History Depression with anxiety GERD (gastroesophageal reflux disease) History of non-ST elevation myocardial infarction (NSTEMI) (~07/2021) HTN (hypertension) Hypercholesterolemia Migraines Obesity Osteoarthritis Osteoarthritis of left hip Personal history of nicotine dependence Primary osteoarthritis of knees, bilateral Surgical History History of cardiac cath (~2021) History of carpal tunnel surgery of right wrist (~2014) History of colonoscopy History of total abdominal hysterectomy (~2004) History of tubal ligation Family History Mother HTN (hypertension) Diabetes Father Alzheimer disease Brother Throat cancer Social History Alcohol intake: current Alcohol intake frequency: a few times a month Alcohol type: beer Patient Tobacco Use Status: Current everyday Tobacco user Tobacco use type: Cigarette Cigarettes Per Day: 4 Years Smoked: (onset 13, 1/2ppd x 42yrs, 20+PYH) Substance Use Type: Marijuana service: No Current occupational status: disabled Review of Systems Const Details: high anxiety and stress All systems reviewed & are unremarkable except as noted in HPI and below ENT Reports dizziness Card Details: Chest pain episode last month. Reports chest pain, Denies chest pain at rest, Denies chest pain with activity, Denies rapid heart rate, Denies pedal edema, Denies edema, Denies leg edema, Denies lightheadedness, Denies palpitations, Denies dyspnea, Denies dyspnea on exertion and Denies orthopnea Resp Denies cough, Denies dyspnea and Denies dyspnea on exertion GI Denies hematochezia and Denies change in stool character Musc Denies abnormal gait, Reports limited range of motion, Reports muscle cramps, Denies muscle weakness, Denies numbness, Denies radiating pain into limb, Denies stiffness and Denies tingling Neuro Denies abnormal gait, Reports dizziness, Denies numbness and Denies tingling Endo Denies palpitations Physical Exam Vital Signs: Last Vital Signs Pulse 70 10/14/22 08:10 BP 118/50 L 10/14/22 08:10 BMI result Body Mass Index 31.1 Const General: cooperative, healthy appearing, comfortable and no acute distress Orientation/consciousness: patient oriented x3 Neck Neck: Yes normal visual inspection Resp Effort & Inspection: normal respiratory effort Auscultation: clear to auscultation bilaterally, no crackles, no rales, no rhonchi and no wheezes Cardio Jugular venous distension: no JVD Rate: regular rate Rhythm: regular rhythm Heart sounds: S1 normal heart sound present, S2 normal heart sound present, no gallops, no murmurs and no rubs Neuro General: patient oriented x3 Extrem General: Yes normal to inspection Psych Appearance: grossly normal Mental Status: mental status grossly normal Speech and movement: Normal speech and movement present Assessment & Plan Assessment & Plan (1) NSTEMI (non-ST elevated myocardial infarction): Onset Date: ~07/2021 Code(s): I21.4 - Non-ST elevation (NSTEMI) myocardial infarction Plan: NSTEMI 07/2021. Cardiac catheterization showed no obstructive coronary artery disease only mild luminal irregularities in the LAD, left circumflex and RCA. She has possible microvascular disease, based on prior note. Echocardiogram showed EF 65-70%, moderate LVH, mild basilar inferior hypokinesis. She was managed medically. She continues on aspirin indefinitely. She was initially on Plavix which has since been discontinued. No anginal sounding symptoms. Continue atorvastatin 80 mg daily. Labs done 09/04/2021 showed LDL 68. Continue lisinopril, metoprolol, amlodipine. Signs and symptoms of angina reviewed. Cardiac risk factor modification reviewed. Patient is a smoker. Benefits of smoking cessation reviewed. Cardiology followup in 1 year, sooner if needed (2) Primary hypertension: Code(s): I10 - Essential (primary) hypertension Plan: Well controlled at this time. Continue same antihypertensives, amlodipine, lisinopril and metoprolol. Labs from 08/27/2022 shows potassium 3.7, creatinine 0.86 (3) Hypercholesterolemia: Code(s): E78.00 - Pure hypercholesterolemia, unspecified Plan: Pony LDL goal less than 70. Continue high-dose statin (4) Heart palpitations: Code(s): R00.2 - Palpitations Plan: Reports of heart palpitations like her heart is beating fast for a few minutes. Previously evaluated with Holter monitor without findings. At this time will order a 7 day Holter for further evaluation and plan to call her with results. ED care if needed for sustained rapid palpitations. Anxiety may be a contributing factor. Orders: Orders ECG 7 day holter monitor Today R00.2 - Palpitations Coding Level of Care Code Est Pt Level 4 (49060) Diagnoses NSTEMI (non-ST elevated myocardial infarction) I21.4 Primary hypertension I10 Hypercholesterolemia E78.00 Heart palpitations R00.2 Time Spent (min) 26 Comment Chart review, documentation, interview, assessment
== END 2022-10-14 08:33 | disposition home or self-care (01) ==
PROVIDERS: PCP Family Medicine; Visit Provider Nurse Practitioner Family
DX: I21.4 Non-ST elevation (NSTEMI) myocardial infarction (principal); I10 Essential (primary) hypertension; E78.00 Pure hypercholesterolemia, unspecified; R00.2 Palpitations
CPT/HCPCS: 99214

== ENCOUNTER → 2022-10-14 07:57 | Outpatient (BNVA) | payer MEDICAID, SELFPAY | PROVIDERS: PCP Family Medicine; Visit Provider Nurse Practitioner Family | DX: I25.2 Old myocardial infarction (principal); I10 Essential (primary) hypertension; E78.00 Pure hypercholesterolemia, unspecified; R00.2 Palpitations | CPT/HCPCS: 99214 ==

== ENCOUNTER → 2022-10-25 09:20 | Outpatient (REF) | payer MEDICAID, SELFPAY ==
--- NOTE | 2022-10-25 09:24 | HM_ITS ---
Conclusion: 1. Patient was monitored for total period of 2 days 2. Baseline was normal sinus rhythm with average heart rate of 76 beats per minute 3. Occasional PVCs noted 4. No significant pauses noted 5. No patient reported symptoms MTDD
== END ==
LOC: HO.CARD 09:20
PROVIDERS: Visit Provider Nurse Practitioner Family
DX: R00.2 Palpitations (principal)
CPT/HCPCS: 93225

== ENCOUNTER → 2022-10-25 09:24 | Outpatient (BNV) | payer MEDICAID, SELFPAY | PROVIDERS: Visit Provider Internal Medicine Cardiovascular Disease | DX: I49.3 Ventricular premature depolarization (principal) | CPT/HCPCS: 93227 ==

== ENCOUNTER 2022-11-26 23:31 | Inpatient (IN) | payer MEDICAID, SELFPAY ==
--- NOTE | ~2022-11-26 | CT_ITS ---
EXAMINATION: CT ABDOMEN AND PELVIS WITH CONTRAST CLINICAL INFORMATION: Pain. COMPARISON: None available. TECHNIQUE: Multidetector volumetric images were obtained from the superior aspect of the liver through the pubic symphysis following administration 85 mL of Omnipaque 350 intravenous contrast. Sagittal and coronal reformatted images were obtained on the technologist's workstation. Oral contrast: No This CT examination was performed using dose optimization techniques as appropriate, variously including the following: *Automated exposure control *Adjustment of mA and/or kV according to patient size (this includes techniques or standardized protocols for targeted exams where dose is matched to indication/reason for exam; i.e. extremities or head) *Use of iterative reconstruction technique DLP: 759 mGy-cm FINDINGS: LUNG BASES: The visualized lung bases are unremarkable. LIVER, GALLBLADDER, AND BILIARY TREE: The liver is normal in size, shape, and attenuation. No focal hepatic lesion or biliary ductal dilatation is present. The gallbladder is unremarkable with no evidence of radiopaque gallstones, gallbladder wall thickening, or obvious pericholecystic inflammatory changes. PANCREAS: Unremarkable. SPLEEN: Unremarkable. ADRENAL GLANDS: Unremarkable. KIDNEYS AND URETERS: The kidneys are normal in size and position. There are adjacent 1 to 2 mm right upper pole renal calculi. There is no hydronephrosis. BLADDER: Unremarkable. GASTROINTESTINAL TRACT: There are diverticula of the distal descending/proximal sigmoid colon without diverticulitis. The appendix is visualized and is within normal limits. ABDOMINAL WALL: No significant hernia is appreciated. LYMPH NODES: Normal. VASCULAR: There is atherosclerotic plaque of the abdominal aorta with an aortic bulge up to 2.5 cm. PELVIC VISCERA: Unremarkable. OSSEOUS STRUCTURES: Unremarkable. CT/CT abdomen pelvis w IV con IMPRESSION: Diverticula of the distal descending/proximal sigmoid colon without diverticulitis. Nonobstructing 1 to 2 mm calculi upper pole right kidney. No acute intra-abdominal process identified. Fleischner guidelines were followed.
--- NOTE | ~2022-11-26 | US_ITS ---
EXAMINATION: US ABDOMEN LIMITED CLINICAL INFORMATION: Right upper quadrant pain, elevated LFTs. COMPARISON: None available. TECHNIQUE: Real-time imaging of the right upper quadrant abdominal viscera. FINDINGS: PANCREAS: The pancreas is homogeneous in echotexture. No focal lesion seen. There is a small lesion about the head of the pancreas likely a small lymph node measuring 1.7 x 1.1 x 3.0). LIVER: The liver is normal in size. The liver contour is normal. Parenchymal echogenicity is normal. No focal hepatic lesion. There is no intrahepatic biliary duct dilatation seen. GALLBLADDER: The gallbladder is physiologically distended with nonmobile echogenic sludge. The there is mild thickening and edema in the gallbladder wall with thickness of 0.7 cm. No pericystic cholecystic fluid collection. Mild tenderness is noted in the right upper quadrant by ultrasound probe. COMMON BILE DUCT: Normal in caliber measuring 1.0 cm in diameter. RIGHT KIDNEY: Normal. No hydronephrosis. No renal calculi or focal parenchymal lesions. The kidney measures 12.5 cm in maximum dimension. There are echogenic stones seen on CT. These are not visualized on ultrasound. FREE FLUID: None. US/US abdomen limited IMPRESSION: 1. Nonmobile echogenic sludge with mild wall thickening and mild tenderness in right upper quadrant by ultrasound probe. Findings are suggestive of acute cholecystitis. 2. Small lymph node at the head of the pancreas. 3. The liver, CBD and the right kidney is unremarkable.
[2022-11-26 23:37] VITALS: BP 129/52; PULSE 70; RESP 16; TEMP 37.1; O2SAT 98; BMI 31.1
[2022-11-27] VITALS (11 sets, daily range): BP systolic 105–153; BP diastolic 48–75; PULSE 62–71; RESP 12–20; TEMP 36–36.8; O2SAT 96–98; BMI 31.1
--- NOTE | 2022-11-27 00:05 | ECG_ITS ---
Test Reason : ABD PAIN Blood Pressure : / mmHG Vent. Rate : 070 BPM Atrial Rate : 070 BPM P-R Int : 224 ms QRS Dur : 094 ms QT Int : 420 ms P-R-T Axes : 061 -03 025 degrees QTc Int : 453 ms Sinus rhythm with 1st degree A-V block Otherwise normal ECG When compared with ECG of 27-AUG-2022 12:35, [place] interval has increased Referred By: Lisy Marti Electronically Signed By:ROBERTO KHAN
--- NOTE | 2022-11-27 00:15 | ED_ITS ---
HPI - Abdominal Pain General Chief Complaint: Abdominal Pain Stated Complaint: Abd pain Time Seen by Provider: 11/27/22 00:04 Source: patient Mode of arrival: ambulatory Limitations: no limitations History of Present Illness HPI narrative: Patient comes to the emergency room complaining of periumbilical/epigastric pain for approximately 4 days. Patient states that the pain is constant. Patient thought that the pain would self resolve but instead, the pain got worse. Patient denies nausea vomiting diarrhea. Patient states that earlier today she believes she had fever. Patient denies UTI symptoms Related Data Home Medications Medication Instructions Recorded Confirmed omeprazole 20 mg tablet,delayed 20 mg PO DAILY 08/10/21 10/14/22 release amlodipine 5 mg tablet 5 mg PO DAILY 08/29/21 10/14/22 lisinopril 20 mg tablet 20 mg PO DAILY 08/29/21 10/14/22 mirabegron 50 mg tablet,extended 50 mg PO DAILY 08/29/21 10/14/22 release 24 hr (Myrbetriq) nitroglycerin 0.4 mg sublingual 0.4 mg sublingual angina 08/29/21 10/14/22 tablet sennosides 8.6 mg tablet (senna) 17.2 mg PO BEDTIME 08/29/21 10/14/22 bupropion HCl 100 mg tablet,12 hr 100 mg PO QAM 03/26/22 10/14/22 sustained-release cholecalciferol (vitamin D3) 50 50 mcg PO QAM 03/26/22 10/14/22 mcg (2,000 unit) tablet clopidogrel 75 mg tablet 75 mg PO QAM 03/26/22 10/14/22 fluticasone propionate 50 2 spray intranasal QAM PRN 03/26/22 10/14/22 mcg/actuation nasal spray,suspension loratadine 10 mg tablet (Allergy 10 mg PO DAILY PRN 03/26/22 10/14/22 Relief (loratadine)) pantoprazole 20 mg tablet,delayed 20 mg PO QAM 03/26/22 10/14/22 release paroxetine HCl 20 mg tablet 20 mg PO BEDTIME 03/26/22 10/14/22 topiramate 100 mg tablet 100 mg PO BEDTIME 03/26/22 10/14/22 trazodone 50 mg tablet 50 mg PO BEDTIME PRN 03/26/22 10/14/22 Previous Rx's Medication Instructions Recorded aspirin 81 mg tablet,delayed 81 mg PO DAILY #14 tabs 08/11/21 release atorvastatin 80 mg tablet 80 mg PO BEDTIME #30 tabs 08/11/21 metoprolol tartrate 25 mg tablet 25 mg PO Q12H #20 tabs 08/11/21 Allergies Allergy/AdvReac Type Severity Reaction Status Date / Time ibuprofen [From Motrin] Allergy Unknown UPSET Verified 10/14/22 08:15 STOMACH Review of Systems Review of Systems Constitutional : No Weight loss, subjective Fever, No Chills, No Night Sweats, No Fatigue, No Malaise ENT/Mouth : No Hearing loss, No Ear Pain, No Nasal Congestion, No Sinus Pain, No Hoarseness, No sore throat, No Rhinorrhea, No Swallowing Difficulty Eyes: No Eye Pain, No Swelling, No Redness, No Foreign Body, No Discharge, No Vision Changes Cardiovascular : No Chest Pain, No SOB, No Dyspnea on Exertion, No Orthopnea, No Edema, No Palpitations Respiratory : No Cough, No Sputum, No Wheezing, No Smoke Exposure, No Dyspnea Gastrointestinal : No Nausea, No Vomiting, No Diarrhea, complaining of abdominal pain, worse in the periumbilical and epigastric area Genitourinary : no irregular bleeding, No Dysuria, No Urinary Frequency, No Hematuria, No Urinary Incontinence, No Urgency, No Flank Pain, No Urinary Flow Changes, No Hesitancy Musculoskeletal : No joint pain, No Myalgias, No Joint Swelling Skin : No Skin Lesions, No rash Neuro : No Weakness, No Numbness, No Paresthesias, No Loss of Consciousness, No Dizziness, No Headache Psych : No Anxiety/Panic, No Depression, No SI/HI/AH/VH, No Social Issues, Heme/Lymph: No Bruising, No Bleeding,No Lymphadenopathy Endocrine : No Polyuria, No Polydipsia, No Temperature Intolerance [facility] Past Medical History Medical History Osteoarthritis of left hip Depression with anxiety Migraines History of non-ST elevation myocardial infarction (NSTEMI) (~07/2021) Personal history of nicotine dependence Primary osteoarthritis of knees, bilateral GERD (gastroesophageal reflux disease) Hypercholesterolemia Obesity HTN (hypertension) Osteoarthritis Surgical History History of cardiac cath (~2021) History of colonoscopy History of carpal tunnel surgery of right wrist (~2014) History of total abdominal hysterectomy (~2004) History of tubal ligation Family History Family History Mother HTN (hypertension) Diabetes Father Alzheimer disease Brother Throat cancer Social History Social History Alcohol intake: current Alcohol intake frequency: does not drink Alcohol type: beer Patient Tobacco Use Status: Current everyday Tobacco user Tobacco use type: Cigarette Cigarettes Per Day: 4 Years Smoked: (onset 13, 1/2ppd x 40yrs, 20+PYH) Smoked in Last 30 Days: Yes Use of substances other than those prescribed or required for medical reasons: No Substance Use Type: Marijuana Advance Directives: No Advance Directives Information Provided: Yes service: No Current occupational status: disabled Physical Exam ED Vital Signs: Vital Signs - 24 hr 11/26/22 23:37 11/27/22 00:21 11/27/22 00:44 Temperature 98.8 F 98.2 F Pulse Rate 70 71 Respiratory Rate 16 12 16 Blood Pressure 129/52 L 115/57 L Pulse Oximetry 98 98 Oxygen Delivery Method Room Air Room Air BMI result Body Mass Index 31.1 Const Other: Appearance: Alert. Oriented X3. Patient seems uncomfortable Eyes: Pupils equal, round and reactive to light. ENT: Pharynx normal. Neck: Normal inspection. Neck supple. No lymph nodes noted. No crepitus CVS: Normal heart rate and rhythm. Pulses normal. Normal S1 and S2 Respiratory: No respiratory distress. Breath sounds normal. No Wheezing. No rales Abdomen: Soft , pain to palpation in the epigastric area, negative Harman sign Skin: Skin warm and dry. Normal skin color. Normal skin turgor. Extremities: No lower extremity edema. No Lacerations. No Rash Neuro: Oriented X 3. No motor deficit. No sensory deficit. Moving all extremities. No slurred speech. CN 2 through 12 grossly intact Psych: calm, cooperative, normal affect Medical Decision Making Medical Decision Making MDM Narrative: -:23, I reviewed patient's labs, patient's LFTs are elevated. Imaging studies are still pending. Empirically, patient receiving IV fluids based on an ideal weight of 64 kg, Zosyn has been given as well. Patient's blood pressure 115/57, not tachycardic, no fever. Lactic acid pending. At this time, sepsis is not suspected. -CT scan of the abdomen pending. Patient may need an ultrasound. -pending on the CT scan results, patient may need surgery consult. -sign-out given to Dr. Rose Differential Diagnosis Differential Diagnoses: The differential diagnosis associated with the presentation includes (Cholecystitis, ascending cholangitis, pancreatitis, gastroenteritis, peptic ulcer) Admission/Observation Consideration of admission/observation: Escalation of care including admission/observation considered Lab Data MDM Lab Attestation statement: I reviewed the patient's lab results. 11/27/22 00:37 11/27/22 00:37 Labs: Lab Results 11/27/22 11/27/22 Range/Units 00:37 01:38 WBC 11.2 H (4.8-10.8) X10*3/uL RBC 4.86 (4.20-5.50) X10*6/uL Hgb 13.6 (12.0-16.0) g/dl Hct 41.0 (37.0-47.0) % MCV 84.4 (80.0-98.0) fL MCH 28.0 (27.0-33.0) pg MCHC 33.2 (31.0-35.0) g/dl RDW 13.0 (11.0-16.0) % Plt Count 221 (160-400) X10*3/uL MPV 12.3 (9.4-12.3) fL Absolute Nucleated RBC 0.000 (0.0-0.012) X10*3/uL Nucleated RBC % (auto) 0.0 (0.0-0.2) /100WBC Sodium 139 (135-145) mmol/L Potassium 3.5 (3.3-5.1) mmol/L Chloride 104 (96-108) mmol/L Carbon Dioxide 29 (22-29) mmol/L Anion Gap 10 L (12-20) BUN 13 (9-16) mg/dL Creatinine 0.84 (0.5-1.4) mg/dL Estim Creat Clear Calc 84.1 Estimated GFR > 60 Random Glucose 114 (60-115) mg/dL Calcium 9.1 (8.4-10.2) mg/dL Total Bilirubin 2.1 H (0.0-1.0) mg/dL AST 137 H (5-31) U/L ALT 68 H (0-31) U/L Alkaline Phosphatase 252 H (39-117) U/L Troponin I High Sens < 2.7 (<3.5-17.0) ng/L Total Protein 7.2 (6.5-8.0) g/dL Albumin 4.0 (3.5-5.0) g/dL Lipase 12 (8-78) U/L Urine Color Yellow Urine Appearance Clear Urine pH 7.0 (5.0-9.0) Ur Specific [place] <= 1.005 (1.005-1.025) Urine Protein Negative (Neg-Trace) mg/dL Urine Glucose (UA) Negative (Negative) mg/dL Urine Ketones Negative (Negative) mg/dL Urine Blood Negative (Negative) Urine Nitrite Negative (Negative) Ur Leukocyte Esterase Negative (Negative) Independent Interpretation I performed an independent interpretation of an: EKG (My interpretation of EKG: Sinus rhythm, first-degree AV block, heart rate 70, no ST segment depression or elevation, nonspecific T-wave inversion in lead 3, QTC 453) Medications Administered Discontinued Medications Generic Name Dose Route Start Last Admin Trade Name José Luisq PRN Reason Stop Dose Admin Sodium Chloride 1,000 mls @ 999 mls/hr 11/27/22 00:10 11/27/22 00:46 Ns IVCONT 11/27/22 01:10 999 mls/hr .Q1H1M ONE Administration Morphine Sulfate 4 mg 11/27/22 00:10 11/27/22 00:44 Morphine Sulfate 4 Mg/Ml Cartridge IVPUSH 11/27/22 00:11 4 mg ONCE ONE Administration Protocol Ondansetron HCl 4 mg 11/27/22 00:10 11/27/22 00:42 Ondansetron Hcl 4 Mg/2 Ml Vial IVPUSH 11/27/22 00:11 4 mg ONCE ONE Administration Critical Care Time Critical Care Time Critical Care Time: Yes Total Critical Care Time: 60 Attestation: I have personally provided critical care time. Time includes review of lab data, radiology results, discussion with consultants, and monitoring for potential decompensation. Intervention performed as documented. Discharge Plan Discharge Clinical Impression: Abdominal pain Patient Disposition: Home, Self-Care Prescriptions: No Action omeprazole 20 mg Tablet,Delayed Release (Dr/Ec) 20 mg PO DAILY atorvastatin 80 mg Tablet 80 mg PO BEDTIME Qty: 30 0RF aspirin 81 mg Tablet,Delayed Release (Dr/Ec) 81 mg PO DAILY Qty: 14 0RF metoprolol tartrate 25 mg Tablet 25 mg PO Q12H Qty: 20 0RF Protocol: Hold for SBP/HR < HOLD for SBP < : 90 HOLD for HR < : 60 sennosides [senna] 8.6 mg tablet 17.2 mg PO BEDTIME amlodipine 5 mg tablet 5 mg PO DAILY lisinopril 20 mg tablet 20 mg PO DAILY nitroglycerin 0.4 mg tablet, sublingual 0.4 mg sublingual Myrbetriq 50 mg tablet extended release 24 hr 50 mg PO DAILY cholecalciferol (vitamin D3) 50 mcg (2,000 unit) tablet 50 mcg PO QAM loratadine [Allergy Relief (loratadine)] 10 mg tablet 10 mg PO DAILY PRN fluticasone propionate 50 mcg/actuation spray,suspension 2 spray intranasal QAM PRN topiramate 100 mg tablet 100 mg PO BEDTIME paroxetine HCl 20 mg tablet 20 mg PO BEDTIME pantoprazole 20 mg tablet,delayed release (DR/EC) 20 mg PO QAM trazodone 50 mg tablet 50 mg PO BEDTIME PRN clopidogrel 75 mg tablet 75 mg PO QAM bupropion HCl 100 mg tablet sustained-release 12 hr 100 mg PO QAM
--- NOTE | 2022-11-27 00:22 | PC.NURSE ---
Pt spo pt ca&ox4, no signs of distress. Pt reports 10/10 adbm pain. EKG being done by tech provider in with pt. plan of care ongoing.
[2022-11-27] MEDS: ondansetron HCL 4 MG/2 ML VIAL IVPUSH (00:42)
[2022-11-27 00:44] LABS: Hemoglobin 13.6 g/dl (12.0-16.0); Mean Corpuscular HGB Conc 33.2 g/dl (31.0-35.0); Mean Corpuscular Volume 84.4 fL (80.0-98.0); Mean Platelet Volume 12.3 fL (9.4-12.3); Platelet Count 221 X10*3/uL (160-400); Red Blood Count 4.86 X10*6/uL (4.20-5.50); White Blood Count 11.2 X10*3/uL (4.8-10.8)
[2022-11-27] MEDS: Morphine Sulfate 4 MG/ML CARTRIDGE IVPUSH ×2 (00:44→09:12)
[2022-11-27] MEDS: 0.9 % Sodium Chloride 1,000 ML 999 ML IVCONT ×2 (00:46→02:42)
--- NOTE | 2022-11-27 00:49 | PC.NURSE ---
Pt ca&ox4, no signs of distress. Pt IV placed in RT AC. Pt labs collected and sent. Pt placed on 02 monitor sat 96 Pt made aware urine needed. Plan of care ongoing.
[2022-11-27 01:01] LABS: Alanine Aminotransferase 68 U/L (0-31); Alkaline Phosphatase 252 U/L (39-117); Anion Gap 10 (12-20); Aspartate Amino Transferase 137 U/L (5-31); Bilirubin Total 2.1 mg/dL (0.0-1.0); Blood Urea Nitrogen 13 mg/dL (9-16); Calcium 9.1 mg/dL (8.4-10.2); Carbon Dioxide 29 mmol/L (22-29); Chloride 104 mmol/L (96-108); Creatinine Clr Calc Pharmacy 84.1; Estimated Glomerular Filt Rate > 60; Glucose Random 114 mg/dL (60-115); Lipase 12 U/L (8-78); Potassium 3.5 mmol/L (3.3-5.1); Sodium 139 mmol/L (135-145); Total Protein 7.2 g/dL (6.5-8.0)
[2022-11-27 01:12] LABS: Troponin-I High Sensitivity < 2.7 ng/L (<3.5-17.0)
--- NOTE | 2022-11-27 01:41 | PC.NURSE ---
Pt assisted to restroom. UA collected and sent. Pt with CT. Plan of care ongoing.
[2022-11-27 01:47] LABS: Appearance Urine Clear; Color Urine Yellow; Glucose Urine UA Negative (Negative); Leukocyte Esterase Urine Negative (Negative); Nitrite Urine Negative (Negative); Specific Gravity - Urine <= 1.005 (1.005-1.025); Urine Blood Negative (Negative); Urine Ketones Negative (Negative); Urine Protein Negative (Neg-Trace)
[2022-11-27 01:50] LABS: Bacteria Urine None Seen (None Seen); Hyaline Casts Urine 0-2 /LPF (0-2); RBC Urine 0-2 /HPF (0-2); Squamous Epithelial Cell Urine 0-2 /HPF (0-2); WBC Urine 0-5 /HPF (0-5)
[2022-11-27] MEDS: iohexoL 350 MG/ML 100 ML INFUS..BTL 85 ML IV (02:25)
[2022-11-27 02:39] LABS: Lactic Acid 0.6 mmol/L (0.5-2.0)
[2022-11-27] MEDS: Piperacillin Sodium/Tazobactam 3.375 GM in 0.9 % Sodium Chloride 50 ML IV ×4 (02:41→22:05)
--- NOTE | 2022-11-27 02:48 | PC.NURSE ---
Pt medicated per may. Plan of care ongoing.
--- NOTE | 2022-11-27 06:31 | PC.NURSE ---
Pt ca&ox4, no signs of distress. Pt requesting help with the TV. Plan of care ongoing.
--- NOTE | 2022-11-27 06:57 | PC.NURSE ---
This RN gave report to oncoming RN.
--- NOTE | 2022-11-27 07:00 | CA_ITS ---
Transthoracic Echocardiogram Patient (Last, First, Middle): Suze Edwards E Gender: Female Date of : 1965 Age: 56 Procedure Date: 11/27/2022 Procedure Type: Transthoracic Echocardiogram Location: ER Height: 170.18 cm Weight: 89.81 kg BSA: 2.01 m2 Heart Rate: bpm BP: 105 / 58 mmHg Customs Collector: TO Referring MD: Brina GOSS Symptoms: meza, pre-op Study Quality: Fair/Contrast Conclusions: - The left ventricular systolic function is normal. The calculated ejection fraction is 67% by biplane method. - No obvious valvular pathology seen on this study. Findings Procedure Information Contrast agent, definity, is being given per protocol without apparent complications. Left Ventricle Normal left ventricular cavity size. The left ventricular systolic function is normal. The calculated ejection fraction is 67% by biplane method. There is no evidence of regional wall motion abnormalities. Diastolic function is normal for age. There is mild septal asymmetric hypertrophy. Right Ventricle Normal right ventricular cavity size and systolic function. Atria Both atria are normal in size. Aortic Valve There is a normal trileaflet aortic valve. There is mild calcification of the aortic valve. There is no aortic valve stenosis. There is no aortic valve regurgitation. Mitral Valve The mitral valve appears normal. There is mild mitral annular calcification. There is no mitral valve regurgitation. There is no mitral valve stenosis. Pulmonic Valve The pulmonic valve is likely normal. Tricuspid Valve Normal tricuspid valve structure. There is trace tricuspid valve regurgitation. There is no evidence of pulmonary hypertension. Great Vessels The asc aorta is normal in size. Venous The inferior vena cava is normal in size and collapses greater than 50% with inspiration. Pericardium/Pleural There is no evidence of pericardial effusion. Prior Study Comparison No significant change compared to prior study dated: 03/05/2019. Recommendations, Care & Conclusions No obvious valvular pathology seen on this study. Measurements 2D Linear Measurements IVSd: 1.19 0.6-0.9/0.6-1.0 cm LVIDd: 4.43 3.9-5.3/4.2-5.9 cm LVIDd Index: 2.20 2.4-3.2/2.2-3.1 cm/m2 LVIDs: 2.85 2.0-3.6 cm LVPWd: 0.84 0.7-1.1 cm LA Diam: 3.80 2.7-3.8/3.0-4.0 cm LAIDs Index: 1.89 1.5-2.3 cm/m2 LV Mass: 190.08 67-162/88-224 g LV Mass Index: 94.57 43-95/49-115 g/m2 LVOT Diam: 2.10 3.0+(-)1.3 cm 2D Systolic Function EF 4C: 66.40 >55% EF 2C: 68.20 >55% EF BiP: 66.80 >55% Mitral Valve MV VTI: 0.30 MV Pk Heriberto: 0.95 MV Mn Heriberto: 0.62 MV Pk Grad: 4.00 MV Mn Grad: 2.00 MV Pk E: 0.96 MV PK A: 0.59 MV Decel Time: 196.00 E/A: 1.60 E'Lateral: 11.00 E'Medial: 7.62 E/E' Med: 12.70 E/E' Lat: 8.80 PHT: 57.00 MVA PHT: 3.86 MVA Continuity: 2.71 Decel [place]: 4.91 Aortic Valve AoV Pk Heriberto: 1.43 AoV Mn Heriberto: 0.97 AoV VTI: 0.33 AoV Pk Grad: 8.00 Aov Mn Grad: 4.00 ELISABETH Cont.VTI: 2.50 LVOT LVOT Pk Heriberto: 1.09 LVOT Mn Heriberto: 0.68 LVOT VTI: 0.24 LVOT Pk Grad: 5.00 LVOT Mn Grad: 2.00 LVOT Diam: 2.10 LVOT Area: 3.46 Diastolic Function MV Pk E: 0.96 MV Pk A: 0.59 E/A: 1.60 E'Medial: 7.62 E/E' Med: 12.70 E' Laterial: 11.00 E/E' Lat: 8.80 Right Ventricle TAPSE (mm): 25.40 TVS' Heriberto: 11.40 Tricuspid Valve TR Pk Heriberto: 1.91 TR Pk Grad: 15.00 RA Press: 3.00 RVSP: 18.00 Great Vessels Aorta Sinus of Valsalva: 3.48 2.0-3.5 cm Ao Asc: 3.30 2.1-3.4 cm Updated in Other Vendor System with Status of Final Hector Carmichael MD electronically signed on 11/27/2022 4:56:37 PM with status of Final
--- NOTE | 2022-11-27 07:19 | PC.NURSE ---
assumed care of pt at 0700. pt awake and alert in stretcher watching tv and talking on the phone. 20G IV access to the RAC patent and asymptomatic. no s/s of distress raciel. call sigala within pt reach. awaiting ultrasound per EUGENIE Pleitez.
[2022-11-27] MEDS: Lactated Ringers 1,000 ML 125 ML IVCONT (10:39)
--- NOTE | 2022-11-27 12:44 | P.HPGS_ITS ---
History of Present Illness History of Present Illness Date of Service: 12/02/22 Chief complaint: abdominal pain, question cholecystitis Narrative: Suze Edwards is a 56 year old female here in the ED for abdominal pain. She says she has had this problem for about 3-4 days now. This seems to be periodioc. She describes this us on the entire upper abdomen, not worse on the right side. She denies any nausea or vomitting. She is on PPI. She has a history of chronic constipation. She also has had 2 MIs, with the last one in July 2021. She apparently had cardiac cath done that time which did not show coronary obstruction.She denies any stenting or cardiac surgery. She currently denies abdominal now. Her last dose of pain meds here in the ED was over 3 hours ago. Review of Systems Constitutional: Constitutional: Denies chills and Denies fever(s) Cardiovascular: Cardiovascular: Denies chest pain, Denies dyspnea and Denies dyspnea on exertion Respiratory: Respiratory: Denies cough, Denies dyspnea and Denies dyspnea on exertion Gastrointestinal: Gastrointestinal: Denies hematochezia and Denies change in bowel habits Genitourinary: Genitourinary: Denies hematuria Musculoskeletal: Musculoskeletal: Reports back pain, Reports myalgias, Reports arthralgias and Reports limited range of motion Neurologic: Denies focal weakness and Denies convulsions Psychiatric: Psychiatric: Denies depression and Denies mood swings PMFSH Past Medical History Medical History Osteoarthritis of left hip Depression with anxiety Migraines History of non-ST elevation myocardial infarction (NSTEMI) (~07/2021) Personal history of nicotine dependence Primary osteoarthritis of knees, bilateral GERD (gastroesophageal reflux disease) Hypercholesterolemia Obesity HTN (hypertension) Osteoarthritis Family History Family History Mother HTN (hypertension) Diabetes Father Alzheimer disease Brother Throat cancer Surgical History Surgical History History of cardiac cath (~2021) History of colonoscopy History of carpal tunnel surgery of right wrist (~2014) History of total abdominal hysterectomy (~2004) History of tubal ligation Social History Social History Household Members: None Housing: House Do you presently have visiting nurse or other home services: No Alcohol intake: current Alcohol intake frequency: does not drink Alcohol type: beer Patient Tobacco Use Status: Current everyday Tobacco user Tobacco use type: Cigarette Cigarettes Per Day: 8 Years Smoked: (onset 13, 1/2ppd x 42yrs, 20+PYH) Second Hand Smoke Exposure: No Substance Use Type: Marijuana service: No Current occupational status: disabled Meds Allergies Allergy/AdvReac Type Severity Reaction Status Date / Time ibuprofen [From Motrin] Allergy Unknown UPSET Verified 10/14/22 08:15 STOMACH Active Medications: Current Medications Lactated Ringer's (Lr) 1,000 mls @ 125 mls/hr IVCONT .Q8H LIVIA Last Admin: 11/27/22 10:39 Dose: 125 mls/hr Home Medications Medication Instructions Recorded Confirmed Last Taken Type omeprazole 20 mg tablet,delayed 20 mg PO DAILY 08/10/21 11/27/22 11/26/22 Histo ry release amlodipine 5 mg tablet 5 mg PO DAILY 08/29/21 11/27/22 11/26/22 History lisinopril 20 mg tablet 20 mg PO DAILY 08/29/21 11/27/22 11/26/22 History mirabegron 50 mg tablet,extended 50 mg PO DAILY 08/29/21 11/27/22 11/26/22 History release 24 hr (Myrbetriq) nitroglycerin 0.4 mg sublingual 0.4 mg sublingual Q5M angina 08/29/21 11/27/22 11/26/22 History tablet sennosides 8.6 mg tablet (senna) 17.2 mg PO BEDTIME 08/29/21 11/27/22 11/26/22 History cholecalciferol (vitamin D3) 50 50 mcg PO QAM 03/26/22 11/27/22 11/26/22 History mcg (2,000 unit) tablet clopidogrel 75 mg tablet 75 mg PO QAM 03/26/22 11/27/22 11/26/22 History fluticasone propionate 50 2 spray intranasal QAM PRN Allergy 03/26/22 11/27/22 11/26/22 History mcg/actuation nasal Symptoms spray,suspension loratadine 10 mg tablet (Allergy 10 mg PO DAILY PRN Allergy Symptoms 03/26/22 11/27/22 11/26/22 History Relief (loratadine)) paroxetine HCl 20 mg tablet 20 mg PO BEDTIME 03/26/22 11/27/22 11/26/22 History topiramate 100 mg tablet 100 mg PO BEDTIME 03/26/22 11/27/22 11/26/22 History trazodone 50 mg tablet 50 mg PO BEDTIME Insomnia 03/26/22 11/27/22 11/26/22 History bupropion HCl 150 mg 24 hr tablet, 150 mg PO QAM 11/27/22 11/27/22 11/26/22 History extended release tramadol 50 mg tablet 50 mg PO Q6H PRN Pain 11/27/22 11/27/22 11/26/22 History Physical Exam Vital Signs: Vital Signs: Last Vital Signs Temp 98.3 F 11/27/22 05:50 Pulse 66 11/27/22 10:10 Resp 17 11/27/22 10:10 BP 117/48 L 11/27/22 10:10 Pulse Ox 96 11/27/22 10:10 O2 Del Method Room Air 11/27/22 10:10 BMI result Body Mass Index 31.1 Const: Other: obese, looks well General: comfortable and no acute distress Orientation/consciousness: patient oriented x3 Neck: Neck: Yes no lymphadenopathy Resp: Auscultation: clear to auscultation bilaterally Cardio: Rhythm: regular rhythm GI: Other: no tenderness at this time, no Harman's' sign Palpation (GI): Soft to palpation, nontender and no guarding Neuro: General: patient oriented x3 Results Results Labs: Short CBC 11/27/22 Range/Units 00:37 WBC 11.2 H (4.8-10.8) X10*3/uL Hgb 13.6 (12.0-16.0) g/dl Hct 41.0 (37.0-47.0) % Plt Count 221 (160-400) X10*3/uL BMP 11/27/22 00:37 Sodium 139 Potassium 3.5 Chloride 104 Carbon Dioxide 29 BUN 13 Creatinine 0.84 Calcium 9.1 Liver Function 11/27/22 Range/Units 00:37 Total Bilirubin 2.1 H (0.0-1.0) mg/dL AST 137 H (5-31) U/L ALT 68 H (0-31) U/L Alkaline Phosphatase 252 H (39-117) U/L Albumin 4.0 (3.5-5.0) g/dL Urine 11/27/22 Range/Units 01:38 Urine Color Yellow Urine Appearance Clear Urine pH 7.0 (5.0-9.0) Ur Specific [place] <= 1.005 (1.005-1.025) Urine Protein Negative (Neg-Trace) mg/dL Urine Glucose (UA) Negative (Negative) mg/dL Assessment and Plan (1) Abdominal pain: Status: Acute She describes periodic upper abdominal pain for 3-4 days. She denies nausea or vomitting. Her CT scan does not show any obvious acute intraabdominal pathology. Her US shows sludge, mild and mild GB wall thickening, and acute cholecystitis was a consideration. Currently, she denies any pain., SHe does not have RUQ tenderness nor Harman's sign. I recommended to her to be admitted at least for observation in view of the US report. I told her we will do serial exams and if there is a high index of suspicion for acute cholecystitis, we will review with her the option of cholecystectomy. Her LFTs are mildly elevated. There is no suggestion of CBD obstruction. We will repeat her LFTs tomorrow and decide whether she will benefit from MRCP. She can have clear liquids. I will start her on abx as well. She understands the plan and is comfortable with this. In view of her significant cardiac hx, I will ask the hospitalist to follow her as well. She otherwise looks well and nontoxic. Time Spent With Patient Time: Total time managing care of this patient today ____ minutes. Quality Stroke Does the patient have a stroke diagnosis?: No VTE Prior VTE?: No VTE Risk Level:: Medical - moderate - high VTE Device Contraindication: N/A - Device Ordered VTE Drug Contraindication: N/A - Med Ordered Procedures Date of Service Date of Service: 12/02/22
--- NOTE | 2022-11-27 13:29 | P.CONHOSP_ITS ---
History of Present Illness Data of Consult Service Date: 11/27/22 Requesting physician: Waqar Wynn Primary Care Provider: Chanel Bai MD [facility] Reason for consult: medical management, history ID 56-year-old female with history hypertension, hyperlipidemia, osteoarthritis, prediabetes, history NSTEMI in 07/2021 admitted to General surgery for management of acute acalculous cholecystitis with consult placed to hospital service for medical management given cardiac history. She has been following with Dr. Carmichael/Shonda Rubi NP in cardiology since the cardiac event. Cardiac catheterization at that time showed no obstructive coronary artery disease but only mild luminal irregularities in the LAD, left circumflex and RCA. Echocardiogram at that time showed EF 65-70%, moderate LVH, and mild basilar inferior hypokinesis and was managed medically during that hospitalization at [facility]. She was discharged on DAPT and per cardiology note, continues on asa only. However, it appears plavix may be filled through a different source. She denies any recent episodes of chest pain. No shortness of breath at rest but does endorse dyspnea on exertion when walking a distance or ascending stairs. Reports intermittent BLE edema. No palpitations or lightheadedness. She only uses etoh occassionally, last use several weeks ago. No illicit drug use or MJ use. Smokes 8 cigarettes daily (down from 1 PPD) and desires to quit. Last cigarette yesterday. Review of Systems 2 Review of Systems: General: No fevers, malaise, unintentional weight loss HEENT: No blurred vision, diplopia. No sore throat, nasal congestion, rhinorrhea, sinus pain, ear pain Cardiovascular: No chest pain, palpitations. +b/l leg edema Respiratory: +meza. No shortness of breath at rest, wheezing, cough GI: +abd painNo abdominal pain, nausea, vomiting, diarrhea, constipation, melena, hematochezia Skin: No rashes or lesions [facility] Medical History Osteoarthritis of left hip Depression with anxiety Migraines History of non-ST elevation myocardial infarction (NSTEMI) (~07/2021) Personal history of nicotine dependence Primary osteoarthritis of knees, bilateral GERD (gastroesophageal reflux disease) Hypercholesterolemia Obesity HTN (hypertension) Osteoarthritis Family History Mother HTN (hypertension) Diabetes Father Alzheimer disease Brother Throat cancer Surgical History History of cardiac cath (~2021) History of colonoscopy History of carpal tunnel surgery of right wrist (~2014) History of total abdominal hysterectomy (~2004) History of tubal ligation Social History Alcohol intake: current Alcohol intake frequency: does not drink Alcohol type: beer Patient Tobacco Use Status: Current everyday Tobacco user Tobacco use type: Cigarette Cigarettes Per Day: 4 Years Smoked: (onset 13, 1/2ppd x 42yrs, 20+PYH) Smoked in Last 30 Days: Yes Use of substances other than those prescribed or required for medical reasons: No Substance Use Type: Marijuana Advance Directives: No Advance Directives Information Provided: Yes service: No Current occupational status: disabled Meds Allergies Allergy/AdvReac Type Severity Reaction Status Date / Time ibuprofen [From Motrin] Allergy Unknown UPSET Verified 10/14/22 08:15 STOMACH Active Medications: Current Medications Heparin Sodium (Porcine) (Heparin Sodium,Porcine 5,000 Unit/Ml Vial) 5,000 unit SUBCUT Q8H LIVIA Lactated Ringer's (Lr) 1,000 mls @ 125 mls/hr IVCONT .Q8H LIVIA Last Admin: 11/27/22 10:39 Dose: 125 mls/hr Sodium Chloride (Ns) 1,000 mls @ 80 mls/hr IVCONT .[id number] LIVIA Piperacillin Sod/Tazobactam (Sod 3.375 gm/ Sodium Chloride) 50 mls @ 100 mls/hr IV Q6H LIVIA Morphine Sulfate (Morphine Sulfate 4 Mg/Ml Cartridge) 3 mg IVPUSH Q4H PRN; Protocol PRN Reason: Pain, Severe (Pain Scale 7-10) Sodium Chloride (0.9 % Sodium Chloride Flush 3 Ml Syringe) 3 ml IVFLUSH QSHIFT LIVIA Home Medications Medication Instructions Recorded Confirmed Last Taken Type omeprazole 20 mg tablet,delayed 20 mg PO DAILY 08/10/21 11/27/22 11/26/22 History release amlodipine 5 mg tablet 5 mg PO DAILY 08/29/21 11/27/22 11/26/22 History lisinopril 20 mg tablet 20 mg PO DAILY 08/29/21 11/27/22 11/26/22 History mirabegron 50 mg tablet,extended 50 mg PO DAILY 08/29/21 11/27/22 11/26/22 History release 24 hr (Myrbetriq) nitroglycerin 0.4 mg sublingual 0.4 mg sublingual Q5M angina 08/29/21 11/27/22 11/26/22 History tablet sennosides 8.6 mg tablet (senna) 17.2 mg PO BEDTIME 08/29/21 11/27/22 11/26/22 History cholecalciferol (vitamin D3) 50 50 mcg PO QAM 03/26/22 11/27/22 11/26/22 History mcg (2,000 unit) tablet clopidogrel 75 mg tablet 75 mg PO QAM 03/26/22 11/27/22 11/26/22 History fluticasone propionate 50 2 spray intranasal QAM PRN Allergy 03/26/22 11/27/22 11/26/22 History mcg/actuation nasal Symptoms spray,suspension loratadine 10 mg tablet (Allergy 10 mg PO DAILY PRN Allergy Symptoms 03/26/22 11/27/22 11/26/22 History Relief (loratadine)) paroxetine HCl 20 mg tablet 20 mg PO BEDTIME 03/26/22 11/27/22 11/26/22 History topiramate 100 mg tablet 100 mg PO BEDTIME 03/26/22 11/27/22 11/26/22 History trazodone 50 mg tablet 50 mg PO BEDTIME Insomnia 03/26/22 11/27/22 11/26/22 History bupropion HCl 150 mg 24 hr tablet, 150 mg PO QAM 11/27/22 11/27/22 11/26/22 History extended release tramadol 50 mg tablet 50 mg PO Q6H PRN Pain 11/27/22 11/27/22 11/26/22 History Physical Exam 2 Vital Signs and Narrative: Vital Signs: Last Vital Signs Temp 98.3 F 11/27/22 05:50 Pulse 66 11/27/22 10:10 Resp 17 11/27/22 10:10 BP 117/48 L 11/27/22 10:10 Pulse Ox 96 11/27/22 10:10 O2 Del Method Room Air 11/27/22 10:10 BMI result Body Mass Index 31.1 Constitutional - Awake and Alert, No apparent distress Eyes - PERRLA, EOMI Cardiovascular - S1S2, RRR, No edema Respiratory - Normal lung expansion, Normal respiratory effort, No respiratory distress, CTA bilaterally Extremities - no calf tenderness bilaterally, no swelling Skin - Warm/Dry Neurological - Alert & oriented x3 Results Labs 11/27/22 00:37 11/27/22 00:37 Labs: Laboratory Results - last 24 hr 11/27/22 11/27/22 11/27/22 00:37 01:38 02:23 MCV 84.4 MCH 28.0 MCHC 33.2 RDW 13.0 Plt Count 221 MPV 12.3 Absolute Nucleated RBC 0.000 Nucleated RBC % (auto) 0.0 Anion Gap 10 L Estim Creat Clear Calc 84.1 Estimated GFR > 60 Random Glucose 114 Lactic Acid 0.6 Calcium 9.1 Total Bilirubin 2.1 H AST 137 H ALT 68 H Alkaline Phosphatase 252 H Total Protein 7.2 Albumin 4.0 Lipase 12 Urine Color Yellow Urine Appearance Clear Urine pH 7.0 Ur Specific [place] <= 1.005 Urine Protein Negative Urine Glucose (UA) Negative Urine Ketones Negative Urine Blood Negative Urine Nitrite Negative Ur Leukocyte Esterase Negative Urine RBC 0-2 Urine WBC 0-5 Ur Squamous Epith Cells 0-2 Urine Bacteria None Seen Hyaline Casts 0-2 Imaging Radiologist's Impressions: Impressions Abdomen/Pelvis CT 11/27/22 02:00 IMPRESSION: Diverticula of the distal descending/proximal sigmoid colon without diverticulitis. Nonobstructing 1 to 2 mm calculi upper pole right kidney. No acute intra-abdominal process identified. Fleischner guidelines were followed. Abdomen Ultrasound 11/27/22 07:38 IMPRESSION: 1. Nonmobile echogenic sludge with mild wall thickening and mild tenderness in right upper quadrant by ultrasound probe. Findings are suggestive of acute cholecystitis. 2. Small lymph node at the head of the pancreas. 3. The liver, CBD and the right kidney is unremarkable. Assessment and Plan (1) Acute acalculous cholecystitis: Status: Acute Plan 56-year-old female with history hypertension, hyperlipidemia, osteoarthritis, prediabetes, history NSTEMI in 07/2021 admitted to General surgery for management of acute acalculous cholecystitis with consult placed to hospital service for medical management given cardiac history. #Acute acalculous cholecystitis -plan per General surgery. Discussed with Dr. Wynn, will likely continue with conservative management -given significant cardiac history and reports of dyspnea on exertion, echocardiogram ordered preoperatively and will consult Cardiology for risk assessment -she does appear to still be on dual antiplatelet therapy. Hold aspirin and Plavix preoperatively as it does not appear pt should still be taking plavix per cardiology note. # history NSTEMI -no anginal chest pain and recent history -Trop undetectable x 4 -EKG non-ischemic -resume statin on discharge #MEZA -BNP 39, lucy edema, lungs clear -low suspicion for acute CHF exacerbation -echo ordered as above #HTN -blood pressures soft -hold antihypertensives at this time #Mood disorder -continue home meds #PreDm -glucose controlled Thank you for this consult, we will continue following. Time Spent With Patient Time: Total time managing care of this patient today ____ minutes.
--- NOTE | 2022-11-27 15:08 | PHA.MEDREC ---
Pharmacy Consult ? Medication Reconciliation Pharmacy has completed the medication reconciliation. Patient confirmed medicaitons. Patient gets med boxes. Called pharmacy to confirm if patient is still taking clopidgrel. Amlodpipine has not been filled since 06/28, patient reports still taking it. Eugenie Mendes, PharmD
[2022-11-27] MEDS: 0.9 % Sodium Chloride 1,000 ML 80 ML IVCONT (15:20)
--- NOTE | 2022-11-27 16:16 | PC.NURSE ---
Dr. Wynn d/c lactated ringers. normal saline running per may. pt currently having echocardiogram. awaiting bed assignment.
--- NOTE | 2022-11-27 16:24 | PM.EVENT ---
Event Note Date of Service: 11/27/22 Event Note: seen on afternoon round says she has had no abdominal pain looks well abd remains soft, nontender echocardiogram ordered by Hospitalist hold Plavix temporarily in case she needs invasive intervention repeat LFTs in AM appreciate Hospitalist input Time Spent With Patient Time: Total time managing care of this patient today ____ minutes.
--- NOTE | 2022-11-27 17:20 | PC.NURSE ---
nurse to nurse report given to Raquel, RN
[2022-11-27] MEDS: PARoxetine HCL 20 MG TABLET PO (20:07)
[2022-11-27] MEDS: Sennosides 8.6 MG TABLET 17.2 MG PO (20:07)
[2022-11-27] MEDS: 0.9 % Sodium Chloride Flush 3 ML SYRINGE IVFLUSH (20:07)
[2022-11-27] MEDS: Topiramate 100 MG TABLET PO (20:07)
[2022-11-27] MEDS: traZODone HCL 50 MG TABLET PO (20:07)
[2022-11-27] MEDS: Morphine Sulfate 4 MG/ML CARTRIDGE 3 MG IVPUSH (22:05)
[2022-11-28] MEDS: 0.9 % Sodium Chloride 1,000 ML 80 ML IVCONT ×2 (03:16→09:40)
[2022-11-28] MEDS: Piperacillin Sodium/Tazobactam 3.375 GM in 0.9 % Sodium Chloride 50 ML IV ×4 (03:17→21:48)
[2022-11-28 03:24] VITALS: BP 132/67; PULSE 65; RESP 16; TEMP 36.2; O2SAT 95
[2022-11-28] MEDS: Omeprazole 20 MG CAPSULE.DR PO (05:07)
[2022-11-28 06:47] LABS: Alanine Aminotransferase 62 U/L (0-31); Albumin Level 3.5 g/dL (3.5-5.0); Alkaline Phosphatase 246 U/L (39-117); Anion Gap 10 (12-20); Aspartate Amino Transferase 72 U/L (5-31); Bilirubin Total 1.6 mg/dL (0.0-1.0); Blood Urea Nitrogen 7 mg/dL (9-16); Calcium 8.9 mg/dL (8.4-10.2); Carbon Dioxide 28 mmol/L (22-29); Chloride 108 mmol/L (96-108); Creatinine Clr Calc Pharmacy 88.3; Estimated Glomerular Filt Rate > 60; Glucose Random 72 mg/dL (60-115); Potassium 3.7 mmol/L (3.3-5.1); Sodium 142 mmol/L (135-145); Total Protein 6.5 g/dL (6.5-8.0)
[2022-11-28 07:47] VITALS: BP 104/64; PULSE 67; RESP 16; TEMP 36.7; O2SAT 95
--- NOTE | 2022-11-28 07:56 | P.PNGS_ITS ---
Subjective Subjective Date of Service: 11/29/22 Interval history: denies pain - says she has had no pain since admission wants to eat no fever feels well Physical Exam 2 Vital Signs: Vital Signs: Last Vital Signs Temp 98.0 F 11/28/22 07:47 Pulse 67 11/28/22 07:47 Resp 16 11/28/22 07:47 BP 104/64 11/28/22 07:47 Pulse Ox 95 11/28/22 07:47 O2 Del Method Room Air 11/28/22 07:47 BMI result Body Mass Index 31.1 Const: General: comfortable and no acute distress Resp: Effort & Inspection: normal respiratory effort Cardio: Rate: regular rate GI: Other: no Muprhy's Palpation (GI): Soft to palpation, not firm, nontender and no guarding Objective Data Active Medications Bupropion HCl (Bupropion Hcl Xl 150 Mg Tab.Er.24h) 150 mg PO DAILY [facility] Fluticasone Propionate (Fluticasone Propionate Nasal 16 Gm [place]) 2 spray NOSTRIL-B DAILY PRN PRN Reason: Allergy Symptoms Heparin Sodium (Porcine) (Heparin Sodium,Porcine 5,000 Unit/Ml Vial) 5,000 unit SUBCUT Q8H [facility] Lactated Ringer's (Lr) 1,000 mls @ 125 mls/hr IVCONT .Q8H [facility] Last Admin: 11/28/22 01:56 Dose: Not Given Documented By: ALBANIA Non-Admin Reason: Medication Discontinued Sodium Chloride (Ns) 1,000 mls @ 80 mls/hr IVCONT .[id number] [facility] Last Admin: 11/28/22 03:16 Dose: 80 mls/hr Documented By: ALBANIA Piperacillin Sod/Tazobactam (Sod 3.375 gm/ Sodium Chloride) 50 mls @ 100 mls/hr IV Q6H [facility] Last Infusion: 11/28/22 04:17 Dose: Infused Documented By: ALBANIA Loratadine (Loratadine 10 Mg Tablet) 10 mg PO DAILY PRN PRN Reason: Allergy Symptoms Morphine Sulfate (Morphine Sulfate 4 Mg/Ml Cartridge) 3 mg IVPUSH Q4H PRN; Protocol PRN Reason: Pain, Severe (Pain Scale 7-10) Last Admin: 11/27/22 22:05 Dose: 3 mg Documented By: ALBANIA Nitroglycerin (Nitroglycerin 0.4 Mg Tab.Subl) 0.4 mg SUBLINGUAL Q5M PRN PRN Reason: CHEST PAIN Omeprazole (Omeprazole 20 Mg Capsule.Dr) 20 mg PO DAILY@0630 [facility] Last Admin: 11/28/22 05:07 Dose: 20 mg Documented By: ALBANIA Paroxetine HCl (Paroxetine Hcl 20 Mg Tablet) 20 mg PO BEDTIME [facility] Last Admin: 11/27/22 20:07 Dose: 20 mg Documented By: ALBANIA Senna (Sennosides 8.6 Mg Tablet) 17.2 mg PO BEDTIME [facility] Last Admin: 11/27/22 20:07 Dose: 17.2 mg Documented By: ALBANIA Sodium Chloride (0.9 % Sodium Chloride Flush 3 Ml Syringe) 3 ml IVFLUSH QSHIFT [facility] Last Admin: 11/27/22 20:07 Dose: 3 ml Documented By: ALBANIA Topiramate (Topiramate 100 Mg Tablet) 100 mg PO BEDTIME [facility] Last Admin: 11/27/22 20:07 Dose: 100 mg Documented By: ALB[place]IA Trazodone HCl (Trazodone Hcl 50 Mg Tablet) 50 mg PO BEDTIME [facility] Last Admin: 11/27/22 20:07 Dose: 50 mg Documented By: ALBANIA Vitamin D (Cholecalciferol (Vitamin D3) 25 Mcg Tablet) 50 mcg PO DAILY [facility] Labs 11/27/22 00:37 11/28/22 05:33 Labs: Laboratory Results - last 24 hr 11/28/22 11/28/22 11/28/22 05:33 05:33 05:33 Anion Gap Cancelled 10 L Estim Creat Clear Calc Cancelled 88.3 Estimated GFR Cancelled Random Glucose Calcium Total Bilirubin Direct Bilirubin AST ALT Alkaline Phosphatase Total Protein Albumin 11/28/22 11/28/22 11/28/22 05:33 05:33 05:33 Anion Gap Estim Creat Clear Calc Estimated GFR > 60 Random Glucose Cancelled 72 Calcium Cancelled 8.9 Total Bilirubin 1.6 H Direct Bilirubin 1.0 H AST 72 H ALT 62 H Alkaline Phosphatase 246 H Total Protein 6.5 Albumin 3.5 Microbiology Microbiology Results: Microbiology 11/27/22 02:33 Blood Culture - Preliminary Blood - Venous No growth after 24 hours. 11/27/22 02:23 Blood Culture - Preliminary Blood - Venous No growth after 24 hours. Procedures Date of Service Date of Service: 11/29/22 Progress Note: A&P Assessment and plan (1) Abdominal pain: Status: Acute Assessment and Plan: completely resolved abd soft, nontender plan to advance diet LFTs down may have passed stone? US does not show gallstones, sludge seen looks well appreciate hospitalist input plan to restart Plavix tomorrow if she continues to be asymptomatic (2) Elevated liver enzymes: Status: Acute Time Spent With Patient Time: Total time managing care of this patient today ____ minutes. Quality Stroke Does the patient have a stroke diagnosis?: No VTE Prior VTE?: No VTE Risk Level:: Medical - moderate - high VTE Device Contraindication: N/A - Device Ordered VTE Drug Contraindication: N/A - Med Ordered
[2022-11-28] MEDS: Cholecalciferol (Vitamin D3) 25 MCG TABLET 50 MCG PO (09:38)
[2022-11-28] MEDS: buPROPion HCl XL 150 MG TAB.ER.24H PO (09:39)
[2022-11-28] MEDS: 0.9 % Sodium Chloride Flush 3 ML SYRINGE IVFLUSH ×2 (09:39→15:57)
[2022-11-28] MEDS: Heparin Sodium,Porcine 5,000 UNIT/ML VIAL 5000 UNIT SUBCUT ×2 (10:22→18:05)
--- NOTE | 2022-11-28 10:36 | MHC.CM.PN ---
CM MET WITH PT AT BEDSIDE. PT LIVES ALONE AND HAS 2 HOURS OF [employer] DAILY. USES A WALKER FOR MOBILITY. NO HCP BUT WILLING TO COMPLETE ONE. + COVID [facility] PCP JUNAID REDDY. + THRIVE ASSESSMENT, RESOURCE GUIDE PROVIDED. DP: HOME, RESUME [employer]. FAMILY WILL TRANSPORT ON DC. CM WILL CONTINUE TO FOLLOW FOR ANY CHANGE IN DC PLAN/NEEDS.
--- NOTE | 2022-11-28 14:03 | HO.PM.IMPN ---
Subjective Subjective Date of Service: 11/28/22 Interval History: F/U for patient admitted to general surgery for management of acute acalculous cholecystitis Patient continues to do well, denies any abdominal pain Has tolerated advancement of diet to regular Has not had bowel movement yet, denies any flatus Denies chest pain/pressure, palpitations No shortness of breath Patient's Plavix was discontinued by Cardiology on 03/08/2022, the patient's PCP continued prescription and patient has been taking Plavix continuously since NSTEMI on 08/03/2021 Review of Systems No bowel movement, flatus since admission Denies abdominal pain No chest pain/pressure, palpitations Denies shortness of breath No fever, chills, nausea, vomiting, diarrhea Review of Systems: Yes all other systems are reviewed and are negative Physical Exam Vital Signs: Vital Signs: Last Vital Signs Temp 98.0 F 11/28/22 07:47 Pulse 67 11/28/22 07:47 Resp 16 11/28/22 07:47 BP 104/64 11/28/22 07:47 Pulse Ox 95 11/28/22 07:47 O2 Del Method Room Air 11/28/22 07:47 BMI result Body Mass Index 31.1 General: AOx3, no acute distress Resp: CTA bilaterally CVS: S1, S2, RRR GI: +BS, NT, no distention Skin: No rash Neuro: Cranial nerves II-XII grossly intact bilaterally. Motor grossly intact bilaterally Extremities: No edema Psych: Appropriate affect Objective Data Active Medications Bupropion HCl (Bupropion Hcl Xl 150 Mg Tab.Er.24h) 150 mg PO DAILY [facility] Last Admin: 11/28/22 09:39 Dose: 150 mg Documented By: BEATRIS Fluticasone Propionate (Fluticasone Propionate Nasal 16 Gm [place]) 2 spray NOSTRIL-B DAILY PRN PRN Reason: Allergy Symptoms Heparin Sodium (Porcine) (Heparin Sodium,Porcine 5,000 Unit/Ml Vial) 5,000 unit SUBCUT Q8H [facility] Last Admin: 11/28/22 10:22 Dose: 5,000 unit Documented By: BEATRIS Lactated Ringer's (Lr) 1,000 mls @ 125 mls/hr IVCONT .Q8H [facility] Last Admin: 11/28/22 10:18 Dose: Not Given Documented By: BEATRIS Non-Admin Reason: Medication Discontinued Sodium Chloride (Ns) 1,000 mls @ 80 mls/hr IVCONT .[id number] [facility] Last Admin: 11/28/22 09:40 Dose: 80 mls/hr Documented By: BEATRIS Piperacillin Sod/Tazobactam (Sod 3.375 gm/ Sodium Chloride) 50 mls @ 100 mls/hr IV Q6H [facility] Last Infusion: 11/28/22 10:23 Dose: Infused Documented By: BEATRIS Loratadine (Loratadine 10 Mg Tablet) 10 mg PO DAILY PRN PRN Reason: Allergy Symptoms Morphine Sulfate (Morphine Sulfate 4 Mg/Ml Cartridge) 3 mg IVPUSH Q4H PRN; Protocol PRN Reason: Pain, Severe (Pain Scale 7-10) Last Admin: 11/27/22 22:05 Dose: 3 mg Documented By: ALBANIA Nitroglycerin (Nitroglycerin 0.4 Mg Tab.Subl) 0.4 mg SUBLINGUAL Q5M PRN PRN Reason: CHEST PAIN Omeprazole (Omeprazole 20 Mg Capsule.Dr) 20 mg PO DAILY@0630 [facility] Last Admin: 11/28/22 05:07 Dose: 20 mg Documented By: ALB[place]IA Paroxetine HCl (Paroxetine Hcl 20 Mg Tablet) 20 mg PO BEDTIME [facility] Last Admin: 11/27/22 20:07 Dose: 20 mg Documented By: ALB[place]IA Senna (Sennosides 8.6 Mg Tablet) 17.2 mg PO BEDTIME [facility] Last Admin: 11/27/22 20:07 Dose: 17.2 mg Documented By: AL[place] Sodium Chloride (0.9 % Sodium Chloride Flush 3 Ml Syringe) 3 ml IVFLUSH QSHIFT [facility] Last Admin: 11/28/22 09:39 Dose: 3 ml Documented By: BEATRIS Topiramate (Topiramate 100 Mg Tablet) 100 mg PO BEDTIME [facility] Last Admin: 11/27/22 20:07 Dose: 100 mg Documented By: AL[place] Trazodone HCl (Trazodone Hcl 50 Mg Tablet) 50 mg PO BEDTIME [facility] Last Admin: 11/27/22 20:07 Dose: 50 mg Documented By: ALB[place] Vitamin D (Cholecalciferol (Vitamin D3) 25 Mcg Tablet) 50 mcg PO DAILY [facility] Last Admin: 11/28/22 09:38 Dose: 50 mcg Documented By: BEATRIS Labs 11/27/22 00:37 11/28/22 05:33 Labs: Laboratory Results - last 24 hr 11/28/22 11/28/22 11/28/22 05:33 05:33 05:33 Anion Gap Cancelled 10 L Estim Creat Clear Calc Cancelled 88.3 Estimated GFR Cancelled Random Glucose Calcium Total Bilirubin Direct Bilirubin AST ALT Alkaline Phosphatase Total Protein Albumin 11/28/22 11/28/22 11/28/22 05:33 05:33 05:33 Anion Gap Estim Creat Clear Calc Estimated GFR > 60 Random Glucose Cancelled 72 Calcium Cancelled 8.9 Total Bilirubin 1.6 H Direct Bilirubin 1.0 H AST 72 H ALT 62 H Alkaline Phosphatase 246 H Total Protein 6.5 Albumin 3.5 Microbiology Microbiology Results: Microbiology 11/27/22 02:33 Blood Culture - Preliminary Blood - Venous No growth after 24 hours. 11/27/22 02:23 Blood Culture - Preliminary Blood - Venous No growth after 24 hours. Assessment and Plan (1) Acute acalculous cholecystitis: Status: Acute Assessment and Plan: 56-year-old female with history hypertension, hyperlipidemia, osteoarthritis, prediabetes, history NSTEMI in 07/2021 admitted to General surgery for management of acute acalculous cholecystitis with consult placed to hospital service for medical management given cardiac history. Acute acalculous cholecystitis Plan per General surgery Pt's diet advanced to regular, has been tolerating it well Denies abdominal pain No bowel movement or flatus Given significant cardiac history and reports of dyspnea on exertion, echocardiogram ordered preoperatively; echo on 11/27/2022 negative, finding left ventricular systolic function normal with EF of 67% with no obvious valvular pathology. History of NSTEMI Had history of NSTEMI on 07/2021; PCI found no significant CAD Patient was started on dual anti-platelet therapy with Plavix and aspirin, was set to be on aspirin indefinitely but discontinue Plavix after 6-12 months Plavix was discontinued on 03/08/2022 by Cardiology, however patient's PCP continued prescription subsequently and patient received refills on 06/25/2022 and 10/29/2022 Continue to hold Plavix and will discontinue Plavix on discharge; have TT'd patient's PCP to let them know patient should no longer be on Plavix per Cardiology Patient currently has no anginal chest pain Trop undetectable x 4 EKG non-ischemic Resume statin on discharge [place] Patient earlier had dyspnea on exertion, currently asymptomatic BNP 39, no edema, lungs clear Low suspicion for acute CHF exacerbation echo ordered as above #HTN -blood pressures soft -hold antihypertensives at this time #Mood disorder -continue home meds #PreDm -glucose controlled Thank you for this consult, we will continue following. Time Spent With Patient Time: Total time managing care of this patient today ____ minutes. Quality Stroke Does the patient have a stroke diagnosis?: No VTE Prior VTE?: No VTE Risk Level:: Medical - moderate - high VTE Device Contraindication: N/A - Device Ordered VTE Drug Contraindication: N/A - Med Ordered
[2022-11-28 15:33] VITALS: BP 126/69; PULSE 68; RESP 18; TEMP 36.4; O2SAT 98
[2022-11-28 20:00] VITALS: BP 139/64; PULSE 65; RESP 18; TEMP 36.9; O2SAT 97
[2022-11-28] MEDS: traZODone HCL 50 MG TABLET PO (20:24)
[2022-11-28] MEDS: Sennosides 8.6 MG TABLET 17.2 MG PO (20:24)
[2022-11-28] MEDS: PARoxetine HCL 20 MG TABLET PO (20:24)
[2022-11-28] MEDS: Topiramate 100 MG TABLET PO (20:24)
[2022-11-29] MEDS: Heparin Sodium,Porcine 5,000 UNIT/ML VIAL 5000 UNIT SUBCUT ×2 (02:17→09:26)
[2022-11-29] MEDS: 0.9 % Sodium Chloride 1,000 ML 80 ML IVCONT (02:18)
[2022-11-29 03:22] VITALS: BP 125/62; PULSE 62; RESP 18; TEMP 36.6; O2SAT 98
[2022-11-29] MEDS: Piperacillin Sodium/Tazobactam 3.375 GM in 0.9 % Sodium Chloride 50 ML IV ×2 (03:40→09:27)
[2022-11-29] MEDS: Omeprazole 20 MG CAPSULE.DR PO (05:17)
[2022-11-29 07:28] VITALS: BP 118/64; PULSE 63; RESP 16; TEMP 36.6; O2SAT 96
--- NOTE | 2022-11-29 08:28 | P.PNGS_ITS ---
Subjective Subjective Date of Service: 11/29/22 Interval history: continues to feel well tolerating diet has had no abdl pain since admission Physical Exam 2 Vital Signs: Vital Signs: Last Vital Signs Temp 97.8 F 11/29/22 07:28 Pulse 63 11/29/22 07:28 Resp 16 11/29/22 07:28 BP 118/64 11/29/22 07:28 Pulse Ox 96 11/29/22 07:28 O2 Del Method Room Air 11/29/22 07:28 BMI result Body Mass Index 31.1 Const: General: comfortable and no acute distress Resp: Effort & Inspection: normal respiratory effort Cardio: Rate: regular rate GI: Palpation (GI): Soft to palpation, not firm, nontender and no guarding Objective Data Active Medications Bupropion HCl (Bupropion Hcl Xl 150 Mg Tab.Er.24h) 150 mg PO DAILY [facility] Last Admin: 11/28/22 09:39 Dose: 150 mg Documented By: BEATRIS Fluticasone Propionate (Fluticasone Propionate Nasal 16 Gm [place]) 2 spray NOSTRIL-B DAILY PRN PRN Reason: Allergy Symptoms Heparin Sodium (Porcine) (Heparin Sodium,Porcine 5,000 Unit/Ml Vial) 5,000 unit SUBCUT Q8H [facility] Last Admin: 11/29/22 02:17 Dose: 5,000 unit Documented By: ALBANIA Lactated Ringer's (Lr) 1,000 mls @ 125 mls/hr IVCONT .Q8H [facility] Last Admin: 11/29/22 00:50 Dose: Not Given Documented By: ALB[place]IA Non-Admin Reason: Medication Discontinued Sodium Chloride (Ns) 1,000 mls @ 80 mls/hr IVCONT .[id number] [facility] Last Admin: 11/29/22 02:18 Dose: 80 mls/hr Documented By: ALBANIA Piperacillin Sod/Tazobactam (Sod 3.375 gm/ Sodium Chloride) 50 mls @ 100 mls/hr IV Q6H [facility] Last Infusion: 11/29/22 04:29 Dose: Infused Documented By: ALBANIA Loratadine (Loratadine 10 Mg Tablet) 10 mg PO DAILY PRN PRN Reason: Allergy Symptoms Morphine Sulfate (Morphine Sulfate 4 Mg/Ml Cartridge) 3 mg IVPUSH Q4H PRN; Protocol PRN Reason: Pain, Severe (Pain Scale 7-10) Last Admin: 11/27/22 22:05 Dose: 3 mg Documented By: ALBANIA Nitroglycerin (Nitroglycerin 0.4 Mg Tab.Subl) 0.4 mg SUBLINGUAL Q5M PRN PRN Reason: CHEST PAIN Omeprazole (Omeprazole 20 Mg Capsule.) 20 mg PO DAILY@0630 [facility] Last Admin: 11/29/22 05:17 Dose: 20 mg Documented By: ALB[place]IA Paroxetine HCl (Paroxetine Hcl 20 Mg Tablet) 20 mg PO BEDTIME [facility] Last Admin: 11/28/22 20:24 Dose: 20 mg Documented By: ALBANIA Senna (Sennosides 8.6 Mg Tablet) 17.2 mg PO BEDTIME [facility] Last Admin: 11/28/22 20:24 Dose: 17.2 mg Documented By: ALB[place]IA Sodium Chloride (0.9 % Sodium Chloride Flush 3 Ml Syringe) 3 ml IVFLUSH QSHIFT [facility] Last Admin: 11/28/22 23:47 Dose: Not Given Documented By: ALB[place]IA Non-Admin Reason: IV Running Topiramate (Topiramate 100 Mg Tablet) 100 mg PO BEDTIME [facility] Last Admin: 11/28/22 20:24 Dose: 100 mg Documented By: ALB[place]IA Trazodone HCl (Trazodone Hcl 50 Mg Tablet) 50 mg PO BEDTIME [facility] Last Admin: 11/28/22 20:24 Dose: 50 mg Documented By: ALBANIA Vitamin D (Cholecalciferol (Vitamin D3) 25 Mcg Tablet) 50 mcg PO DAILY [facility] Last Admin: 11/28/22 09:38 Dose: 50 mcg Documented By: RAJESHK Labs 11/27/22 00:37 11/28/22 05:33 Microbiology Microbiology Results: Microbiology 11/27/22 02:33 Blood Culture - Preliminary Blood - Venous No growth after 48 hours. 11/27/22 02:23 Blood Culture - Preliminary Blood - Venous No growth after 48 hours. Procedures Date of Service Date of Service: 11/29/22 Progress Note: A&P Assessment and plan (1) Abdominal pain: Status: Acute Assessment and Plan: completely resolved no tenderness good GI function no fever may have passed stone through CBD? US shows sludge, no gallstones ok to dc home ffup in office may benefit from lap mel down the line if with recurrent issues discussed with cardiology Dr Carmichael - she will ffup with them for her cardiac hx resume Plavix (2) Elevated liver enzymes: Status: Acute Time Spent With Patient Time: Total time managing care of this patient today ____ minutes. Quality Stroke Does the patient have a stroke diagnosis?: No VTE Prior VTE?: No VTE Risk Level:: Medical - moderate - high VTE Device Contraindication: N/A - Device Ordered VTE Drug Contraindication: N/A - Med Ordered
--- NOTE | 2022-11-29 09:16 | MHC.CM.PN ---
pt dcd home no services
[2022-11-29] MEDS: buPROPion HCl XL 150 MG TAB.ER.24H PO (09:27)
[2022-11-29] MEDS: Cholecalciferol (Vitamin D3) 25 MCG TABLET 50 MCG PO (09:27)
--- NOTE | 2022-12-06 14:36 | PM.DS ---
DS: Providers Provider Date of Service: 11/29/22 Date of admission: 11/27/22 12:55 Primary care physician: Chanel Bai MD Consults: 11/27/22 12:55 Consult to Hospitalist Routine Comment: Consulting Provider: Hospitalist Reason For Exam: hx of [place] DS: Diagnosis Discharge Diagnosis (1) Abdominal pain: Status: Acute DS: Summary Hospital Course Hospital Course: 56-year-old female admitted on November 27, 2022 for abdominal pain. Her LFTs were elevated as well at that time. Her CAT scan was unremarkable, but her ultrasound read as question of possible acute cholecystitis. However, by the time she was seen, she did not have any pain or tenderness. She was admitted and kept on IV antibiotics in view of mildly elevated WBC. Was started on clear liquids as she continued to have no abdominal pain during the admission. Her diet was slowly advanced. She remained afebrile Her LFTs trended down significantly. It was therefore possible that she may have passed a stone but no residual gallstones seen on ultrasound although she did have some sludge She continued to tolerate diet, and remained afebrile. She was therefore discharged on 11/29/2022. She was instructed to see me in the office. Time Spent with Patient Time attestation: Total time managing care of this patient today ____ minutes. Discharge coordination time: Less than 30 minutes Quality: Safe Use of Opioids Does Pt have an Active Cancer Diagnosis on the Problem List?: No Quality: Stroke Does the patient have a stroke diagnosis?: No Physical Exam Vital Signs: Vital Signs: Last Vital Signs Temp 97.8 F 11/29/22 07:28 Pulse 63 11/29/22 07:28 Resp 16 11/29/22 07:28 BP 118/64 11/29/22 07:28 Pulse Ox 96 11/29/22 07:28 O2 Del Method Room Air 11/29/22 07:28 BMI result Body Mass Index 31.1 Const: General: comfortable and no acute distress Orientation/consciousness: patient oriented x3 Neck: Neck: Yes no lymphadenopathy Resp: Auscultation: clear to auscultation bilaterally Cardio: Rhythm: regular rhythm GI: Palpation (GI): Soft to palpation, nontender and no guarding Neuro: General: patient oriented x3 DS: Data Data Completed and Pending Labs on day of discharge: Laboratory Results WBC 11.2 X10*3/uL (4.8-10.8) H 11/27/22 00:37 RBC 4.86 X10*6/uL (4.20-5.50) 11/27/22 00:37 Hgb 13.6 g/dl (12.0-16.0) 11/27/22 00:37 Hct 41.0 % (37.0-47.0) 11/27/22 00:37 MCV 84.4 fL (80.0-98.0) 11/27/22 00:37 MCH 28.0 pg (27.0-33.0) 11/27/22 00:37 MCHC 33.2 g/dl (31.0-35.0) 11/27/22 00:37 RDW 13.0 % (11.0-16.0) 11/27/22 00:37 Plt Count 221 X10*3/uL (160-400) 11/27/22 00:37 MPV 12.3 fL (9.4-12.3) 11/27/22 00:37 Absolute Nucleated RBC 0.000 X10*3/uL (0.0-0.012) 11/27/22 00:37 Nucleated RBC % (auto) 0.0 /100WBC (0.0-0.2) 11/27/22 00:37 Sodium 142 mmol/L (135-145) 11/28/22 05:33 Sodium Cancelled 11/28/22 05:33 Potassium 3.7 mmol/L (3.3-5.1) 11/28/22 05:33 Potassium Cancelled 11/28/22 05:33 Chloride 108 mmol/L (96-108) 11/28/22 05:33 Chloride Cancelled 11/28/22 05:33 Carbon Dioxide 28 mmol/L (22-29) 11/28/22 05:33 Carbon Dioxide Cancelled 11/28/22 05:33 Anion Gap 10 (12-20) L 11/28/22 05:33 Anion Gap Cancelled 11/28/22 05:33 BUN 7 mg/dL (9-16) L 11/28/22 05:33 BUN Cancelled 11/28/22 05:33 Creatinine 0.80 mg/dL (0.5-1.4) 11/28/22 05:33 Creatinine Cancelled 11/28/22 05:33 Estim Creat Clear Calc 88.3 11/28/22 05:33 Estim Creat Clear Calc Cancelled 11/28/22 05:33 Estimated GFR > 60 11/28/22 05:33 Estimated GFR Cancelled 11/28/22 05:33 Random Glucose 72 mg/dL (60-115) 11/28/22 05:33 Random Glucose Cancelled 11/28/22 05:33 Lactic Acid 0.6 mmol/L (0.5-2.0) 11/27/22 02:23 Calcium 8.9 mg/dL (8.4-10.2) 11/28/22 05:33 Calcium Cancelled 11/28/22 05:33 Total Bilirubin 1.6 mg/dL (0.0-1.0) H 11/28/22 05:33 Direct Bilirubin 1.0 mg/dL (0.0-0.5) H 11/28/22 05:33 AST 72 U/L (5-31) H 11/28/22 05:33 ALT 62 U/L (0-31) H 11/28/22 05:33 Alkaline Phosphatase 246 U/L (39-117) H 11/28/22 05:33 Troponin I High Sens < 2.7 ng/L (<3.5-17.0) 11/27/22 00:37 Total Protein 6.5 g/dL (6.5-8.0) 11/28/22 05:33 Albumin 3.5 g/dL (3.5-5.0) 11/28/22 05:33 Lipase 12 U/L (8-78) 11/27/22 00:37 Urine Color Yellow 11/27/22 01:38 Urine Appearance Clear 11/27/22 01:38 Urine pH 7.0 (5.0-9.0) 11/27/22 01:38 Ur Specific [place] <= 1.005 (1.005-1.025) 11/27/22 01:38 Urine Protein Negative mg/dL (Neg-Trace) 11/27/22 01:38 Urine Glucose (UA) Negative mg/dL (Negative) 11/27/22 01:38 Urine Ketones Negative mg/dL (Negative) 11/27/22 01:38 Urine Blood Negative (Negative) 11/27/22 01:38 Urine Nitrite Negative (Negative) 11/27/22 01:38 Ur Leukocyte Esterase Negative (Negative) 11/27/22 01:38 Urine RBC 0-2 /HPF (0-2) 11/27/22 01:38 Urine WBC 0-5 /HPF (0-5) 11/27/22 01:38 Ur Squamous Epith Cells 0-2 /HPF (0-2) 11/27/22 01:38 Urine Bacteria None Seen (None Seen) 11/27/22 01:38 Hyaline Casts 0-2 /LPF (0-2) 11/27/22 01:38 Impressions Abdomen/Pelvis CT 11/27/22 02:00 IMPRESSION: Diverticula of the distal descending/proximal sigmoid colon without diverticulitis. Nonobstructing 1 to 2 mm calculi upper pole right kidney. No acute intra-abdominal process identified. Fleischner guidelines were followed. Abdomen Ultrasound 11/27/22 07:38 IMPRESSION: 1. Nonmobile echogenic sludge with mild wall thickening and mild tenderness in right upper quadrant by ultrasound probe. Findings are suggestive of acute cholecystitis. 2. Small lymph node at the head of the pancreas. 3. The liver, CBD and the right kidney is unremarkable. Discharge Plan Discharge Anticipated Discharge Date/Time: 11/29/22 08:31 Patient Disposition: Home, Self-Care Discharge Diagnosis: abdominal pain Referrals: Waqar Wynn MD [Physician] - 2 Weeks Hector Carmichael MD [Physician] - 3 Weeks Chanel Bai MD [Primary Care Provider] - 1 Week Discharge Medications: Continued omeprazole 20 mg Tablet,Delayed Release (Dr/Ec) 20 mg PO DAILY atorvastatin 80 mg Tablet 80 mg PO BEDTIME Qty: 30 0RF aspirin 81 mg Tablet,Delayed Release (Dr/Ec) 81 mg PO DAILY Qty: 14 0RF metoprolol tartrate 25 mg Tablet 25 mg PO Q12H Qty: 20 0RF Protocol: Hold for SBP/HR < HOLD for SBP < : 90 HOLD for HR < : 60 bupropion HCl 150 mg tablet extended release 24 hr 150 mg PO QAM tramadol 50 mg tablet 50 mg PO Q6H PRN (Reason: Pain) sennosides [senna] 8.6 mg tablet 17.2 mg PO BEDTIME amlodipine 5 mg tablet 5 mg PO DAILY lisinopril 20 mg tablet 20 mg PO DAILY nitroglycerin 0.4 mg tablet, sublingual 0.4 mg sublingual Q5M Myrbetriq 50 mg tablet extended release 24 hr 50 mg PO DAILY cholecalciferol (vitamin D3) 50 mcg (2,000 unit) tablet 50 mcg PO QAM loratadine [Allergy Relief (loratadine)] 10 mg tablet 10 mg PO DAILY PRN (Reason: Allergy Symptoms) fluticasone propionate 50 mcg/actuation spray,suspension 2 spray intranasal QAM PRN (Reason: Allergy Symptoms) topiramate 100 mg tablet 100 mg PO BEDTIME paroxetine HCl 20 mg tablet 20 mg PO BEDTIME trazodone 50 mg tablet 50 mg PO BEDTIME clopidogrel 75 mg tablet 75 mg PO QAM Discharge Orders: Discharge Order (Routine); Ordered 11/29/22 Ordered By: Waqar Wynn Diet: Advance to usual diet Activity on Discharge: As tolerated Stand Alone Forms: Patient Portal Discharge page Activity Restrictions/Additional Instructions: if with recurrent severe symptoms, may need to go ED call office for ffup need to ffup with cardiology Care Plan Goals: followup in office Health Concerns: CAD abnormal LFTs Plan of Treatment: ffup in office plan to repeat US down the line Assessment: doing well Discharge Date/Time: 11/29/22 11:03
== END 2022-11-29 11:03 | disposition home or self-care (01) ==
LOC: HO.ED 11-27 09:51 → HO.EDOVER 11-27 13:54 → HO.S3 11-27 16:13
PROVIDERS: Emergency Medicine; Admitting Provider Surgery; Emergency Provider Emergency Medicine Emergency Medical Services; PCP Family Medicine; Visit Provider Surgery
DX: K81.0 Acute cholecystitis (principal); F17.210 Nicotine dependence, cigarettes, uncomplicated; K21.9 Gastro-esophageal reflux disease without esophagitis; I10 Essential (primary) hypertension; F41.8 Other specified anxiety disorders; R73.03 Prediabetes; K59.09 Other constipation; I25.2 Old myocardial infarction; Z71.6 Tobacco abuse counseling; Z79.02 Long term (current) use of antithrombotics/antiplatelets; Z79.82 Long term (current) use of aspirin; Z79.899 Other long term (current) drug therapy
CPT/HCPCS: 36415; 74177; 76705; 80053; 81001; 82248; 83605; 83690; 84484; 85027; 87040; 93005; 93306; 99221; 99285; J1643; J2270; J2405; J2543; Q9957; Q9967

== ENCOUNTER → 2022-11-27 07:00 | Outpatient (BNV) | payer MEDICAID, SELFPAY | PROVIDERS: Admitting Provider Surgery; Emergency Provider Emergency Medicine Emergency Medical Services; PCP Family Medicine; Visit Provider Internal Medicine | DX: I34.81 Nonrheumatic mitral (valve) annulus calcification (principal); I35.8 Other nonrheumatic aortic valve disorders | CPT/HCPCS: 93306 ==

== ENCOUNTER → 2022-11-27 12:55 | Outpatient (BNV) | payer MEDICAID, SELFPAY | PROVIDERS: Admitting Provider Surgery; Emergency Provider Emergency Medicine Emergency Medical Services; PCP Family Medicine; Visit Provider Physician Assistant | DX: K81.0 Acute cholecystitis (principal) | CPT/HCPCS: 99222; 99232 ==

== ENCOUNTER → 2022-11-27 12:55 | Outpatient (BNV) | payer MEDICAID, SELFPAY | PROVIDERS: Admitting Provider Surgery; Emergency Provider Emergency Medicine Emergency Medical Services; PCP Family Medicine; Visit Provider Surgery | DX: R10.9 Unspecified abdominal pain (principal) | CPT/HCPCS: 99222; 99232; 99238; 99499 ==

== ENCOUNTER 2022-12-12 08:55 | Outpatient (AMB) | payer MEDICAID, SELFPAY ==
--- NOTE | 2022-12-12 09:21 | A.OFFVIS_ITS ---
Intake Vital Signs 12/12/22 09:26 Height 5 ft 7 in Weight 192 lb BMI 30.1 BP 135/62 Blood Pressure Location Rt brachial Position Sitting Pulse 65 Intake Visit Reasons: abdominal pain, question cholecystitis Intake Note: This patient presents for [facility] [place] follow-up assessment for abdominal pain, question cholecystitis. Patient c/o; reports no abdominal pain, reports no nausea or vomiting, reports no lost of appetite, reports constipation, reports last bowel movements this morning. Modeling And Simulation Analyst Required: Yes Modeling And Simulation Analyst Language: Abrasive Mixer Helper Name: Elsy Information Interpreted: non-clinical & clinical Accompanied by: Self / Same As Patient Allergies ibuprofen [From Motrin] Allergy (Unknown, Verified 12/12/22 09:27) UPSET STOMACH HPI abdominal pain, question cholecystitis HPI Details 56-year-old female here for follow-up fo r a question of cholecystitis. I had admitted her to the hospital last 11/27/2022 for transient pain with mildly elevated bilirubin. At that time, her ultrasound had shown some mild gallbladder wall thickening without gallstones although there was mention of sludge being seen. When I admitted her, she did not have pain anymore. However, I kept her because of her mildly elevated bilirubin which trended down. It appeared that she may have passed a stone based on the pattern of her pain. I instructed her to see me in the office for follow-up. She has had no problems with pain since then. She has good oral intake. She says she feels well overall. She does have a history of coronary artery disease and had a cardiac catheterization done last year. [facility] Medical History Cholecystitis Osteoarthritis of left hip Depression with anxiety Migraines History of non-ST elevation myocardial infarction (NSTEMI) (~07/2021) Personal history of nicotine dependence Primary osteoarthritis of knees, bilateral GERD (gastroesophageal reflux disease) Hypercholesterolemia Obesity HTN (hypertension) Osteoarthritis Surgical History History of cardiac cath (~2021) History of colonoscopy History of carpal tunnel surgery of right wrist (~2014) History of total abdominal hysterectomy (~2004) History of tubal ligation Family History Mother HTN (hypertension) Diabetes Father Alzheimer disease Brother Throat cancer Social History Household Members: None Housing: House Do you presently have visiting nurse or other home services: No Alcohol intake: current Alcohol intake frequency: does not drink Alcohol type: beer Patient Tobacco Use Status: Current everyday Tobacco user Tobacco use type: Cigarette Cigarettes Per Day: 8 Years Smoked: (onset 13, 1/2ppd x 42yrs, 20+PYH) Second Hand Smoke Exposure: No Substance Use Type: Marijuana service: No Current occupational status: disabled Review of Systems Const Denies chills and Denies fever(s) Card Denies chest pain, Denies dyspnea and Denies dyspnea on exertion Resp Denies cough, Denies dyspnea and Denies dyspnea on exertion GI Denies hematochezia and Denies change in bowel habits Denies hematuria Musc Denies back pain and Denies limited range of motion Neuro Denies focal weakness and Denies convulsions Psych Denies depression and Denies mood swings Physical Exam Vital Signs: Last Vital Signs Pulse 65 12/12/22 09:26 BP 135/62 12/12/22 09:26 BMI result Body Mass Index 30.1 Const General: comfortable and no acute distress Orientation/consciousness: patient oriented x3 Neck Neck: Yes no lymphadenopathy Resp Auscultation: clear to auscultation bilaterally Cardio Rhythm: regular rhythm GI Other: Nontender Palpation (GI): Soft to palpation, nontender and no guarding Neuro General: patient oriented x3 Assessment & Plan Assessment & Plan (1) Cholecystitis: Code(s): K81.9 - Cholecystitis, unspecified Plan: She was admitted to the hospital weeks ago because of transient abdominal pain with mildly elevated LFTs. She did not have any gallstones ultrasound but did have sludge She has been asymptomatic since that time. I am going to repeat her ultrasound to see if he has any stones gallbladder at all as it appears that she may have passed a gallstone to the on bile duct with transient elevation of her LFTs at that time She seems to be doing well. She is going to see her procurement technician in 2 weeks as well and I told her that finding on the ultrasound, she may fit from gallbladder surgery. Orders: Orders US abdomen limited Today K81.9 - Cholecystitis, unspecified Coding Level of Care Code Est Pt Level 3 (87092) Diagnoses Cholecystitis K81.9
[2022-12-12 09:26] VITALS: BP 135/62; PULSE 65; BMI 30.1
== END 2022-12-12 09:42 | disposition home or self-care (01) ==
PROVIDERS: PCP Family Medicine; Visit Provider Surgery
DX: K81.9 Cholecystitis, unspecified (principal)
CPT/HCPCS: 99213

== ENCOUNTER → 2022-12-12 08:55 | Outpatient (BNVA) | payer MEDICAID, SELFPAY | PROVIDERS: PCP Family Medicine; Visit Provider Surgery | DX: K81.9 Cholecystitis, unspecified (principal) | CPT/HCPCS: 99212 ==

== ENCOUNTER 2022-12-27 13:31 | Outpatient (AMB) | payer MEDICAID, SELFPAY ==
[2022-12-27 13:47] VITALS: BP 120/62; PULSE 62
--- NOTE | 2022-12-27 13:47 | A.OFFVIS_ITS ---
Intake Vital Signs 12/27/22 13:47 Height 5 ft 7 in Weight 191 lb 12.835 oz BMI 30.0 BP 120/62 Blood Pressure Location Lt brachial Position Sitting Pulse 62 Pulse Source Pulse Oximeter Intake Visit Reasons: hospital follow up/ requested by Dr. Wynn. Intake Note: F/u Seating And Mobility Technologist Required: Yes Seating And Mobility Technologist Language: Box Blank Machine Operator Name: josiane peck [id number] Allergies ibuprofen [From Motrin] Allergy (Unknown, Verified 12/27/22 13:53) UPSET STOMACH Medication List - Last Reconciled 12/27/22 by CUATE Lino amlodipine 5 mg PO DAILY aspirin 81 mg PO DAILY atorvastatin 80 mg PO BEDTIME bupropion HCl 150 mg PO QAM cholecalciferol (vitamin D3) 50 mcg PO QAM fluticasone propionate 50 mcg/actuation 2 sprays intranasal QAM PRN lisinopril 20 mg PO DAILY loratadine (Allergy Relief (loratadine)) 10 mg PO DAILY PRN metoprolol tartrate 25 mg See Protocol PO Q12H mirabegron ER (Myrbetriq) 50 mg PO DAILY nitroglycerin 0.4 mg sublingual Q5M omeprazole 40 mg PO QAM paroxetine HCl 20 mg PO BEDTIME sennosides (senna) 17.2 mg PO BEDTIME topiramate 100 mg PO BEDTIME tramadol 50 mg PO Q6H PRN trazodone 50 mg PO BEDTIME HPI hospital follow up/ requested by Dr. Wynn. HPI Details Suze is a 56-year-old female with past medical history of hypertension, hyperlipidemia, obesity who had NSTEMI 07/2021 with cardiac catheterization showing no significant coronary artery disease who was recently admitted to [facility] [place] with abdominal pain and followed for possible cholecystitis. Her condition improved with conservative management and she continues to follow with surgery as an outpatient. Today she reports that she is now feeling back to her normal self. She denies having abdominal discomfort. She has not had recent chest discomfort, shortness of breath, palpitations, presyncope, syncope, PND, orthopnea or edema. She is taking her meds as directed. She describes doing only light physical activity. [facility] Medical History Cholecystitis Osteoarthritis of left hip Depression with anxiety Migraines History of non-ST elevation myocardial infarction (NSTEMI) (~07/2021) Personal history of nicotine dependence Primary osteoarthritis of knees, bilateral GERD (gastroesophageal reflux disease) Hypercholesterolemia Obesity HTN (hypertension) Osteoarthritis Surgical History History of cardiac cath (~2021) History of colonoscopy History of carpal tunnel surgery of right wrist (~2014) History of total abdominal hysterectomy (~2004) History of tubal ligation Family History Mother HTN (hypertension) Diabetes Father Alzheimer disease Brother Throat cancer Social History Household Members: None Housing: House Do you presently have visiting nurse or other home services: No Alcohol intake: current Alcohol intake frequency: does not drink Alcohol type: beer Patient Tobacco Use Status: Current everyday Tobacco user Tobacco use type: Cigarette Cigarettes Per Day: 8 Years Smoked: (onset 13, 1/2ppd x 42yrs, 20+PYH) Second Hand Smoke Exposure: No Substance Use Type: Marijuana service: No Current occupational status: disabled Review of Systems Const All systems reviewed & are unremarkable except as noted in HPI and below ENT Denies dizziness Card Denies chest pain, Denies chest pain at rest, Denies chest pain with activity, Denies rapid heart rate, Denies pedal edema, Denies edema, Denies leg edema, Denies lightheadedness, Denies palpitations, Denies dyspnea, Denies dyspnea on exertion and Denies orthopnea Resp Denies cough, Denies dyspnea and Denies dyspnea on exertion GI Denies hematochezia and Denies change in stool character Musc Denies abnormal gait, Denies limited range of motion, Denies muscle cramps, Denies muscle weakness, Denies numbness, Denies radiating pain into limb, Denies stiffness and Denies tingling Neuro Denies abnormal gait, Denies dizziness, Denies numbness and Denies tingling Endo Denies palpitations Physical Exam Vital Signs: Last Vital Signs Pulse 62 12/27/22 13:47 BP 120/62 12/27/22 13:47 BMI result Body Mass Index 30.0 Const General: cooperative, healthy appearing, comfortable and no acute distress Orientation/consciousness: patient oriented x3 Neck Neck: Yes normal visual inspection Resp Effort & Inspection: normal respiratory effort Auscultation: clear to auscultation bilaterally, no crackles, no rales, no rhonchi and no wheezes Cardio Jugular venous distension: no JVD Rate: regular rate Rhythm: regular rhythm Heart sounds: S1 normal heart sound present, S2 normal heart sound present, no murmurs and no rubs Neuro General: patient oriented x3 Extrem General: Yes normal to inspection Psych Appearance: grossly normal Mental Status: mental status grossly normal Speech and movement: Normal speech and movement present Assessment & Plan Assessment & Plan (1) NSTEMI (non-ST elevated myocardial infarction): Onset Date: ~07/2021 Code(s): I21.4 - Non-ST elevation (NSTEMI) myocardial infarction Plan: NSTEMI 07/2021. Echocardiogram showed EF 65-70%, moderate LVH, mild basilar inferior hypokinesis. Cardiac catheterization 08/12/2021 showed no obstructive coronary artery disease only mild luminal irregularities in the LAD, left circumflex and RCA. She has possible microvascular disease, based on prior note. She was managed medically. Recently she was admitted to [facility] with abdominal pain and treated for possible cholecystitis. It was noted she was on aspirin and Plavix. Her Plavix had been discontinued by us 03/08/2022. An echocardiogram was done while she was inpatient in preparation for possible need for preop clearance. Echo done 11/27/2022 showed EF 67%, no valve abnormalities and no regional wall motion abnormalities. Today she reports no anginal sounding symptoms. She can continue on daily aspirin, high- dose atorvastatin, lisinopril, metoprolol, amlodipine. Last lipid profile showed LDL 68. Order placed for lipid profile to be done with next lab draw. Spent time reviewing Signs and symptoms of angina reviewed. Cardiac risk factor modification reviewed. Patient is a smoker. Benefits of smoking cessation reviewed. Cardiology followup in 6 months, sooner if needed (2) Primary hypertension: Code(s): I10 - Essential (primary) hypertension Plan: Well controlled at this time. Continue same antihypertensives, amlodipine, lisinopril and metoprolol. Labs from 11/28/2022 shows potassium 3.7, creatinine 0.80 (3) Hypercholesterolemia: Code(s): E78.00 - Pure hypercholesterolemia, unspecified Plan: [place] LDL goal less than 70. Continue high-dose statin, as tolerated. LFTs elevated however improving. Being followed by surgery (4) Heart palpitations: Code(s): R00.2 - Palpitations Plan: Prior Reports of heart palpitations like her heart is beating fast for a few minutes. Previously evaluated with Holter monitor without findings. Repeat Holter monitor done 10/25/2022 for 2 days shows sinus rhythm with average heart rate 76, occasional PVCs. Results reviewed with her. Continue current med management. (5) Hospital discharge follow-up: Code(s): Z09 - Encounter for follow-up examination after completed treatment for conditions other than malignant neoplasm (6) Preop cardiovascular exam: Code(s): Z01.810 - Encounter for preprocedural cardiovascular examination Plan: Patient may require cholecystectomy in the near future. She is low cardiac risk and may proceed as needed. Aspirin can be held as directed by surgeon and restarted when cleared to do so. Orders: Orders Lipid Panel Today E78.00 - Pure hypercholesterolemia, unspecified Coding Level of Care Code Est Pt Level 4 (75206) Diagnoses NSTEMI (non-ST elevated myocardial infarction) I21.4 Primary hypertension I10 Hypercholesterolemia E78.00 Heart palpitations R00.2 Hospital discharge follow-up Z09 Preop cardiovascular exam Z01.810 Time Spent (min) 28
== END 2022-12-27 14:18 | disposition home or self-care (01) ==
PROVIDERS: PCP Family Medicine; Visit Provider Nurse Practitioner Family
DX: I21.4 Non-ST elevation (NSTEMI) myocardial infarction (principal); I10 Essential (primary) hypertension; E78.00 Pure hypercholesterolemia, unspecified; R00.2 Palpitations; Z09 Encounter for follow-up examination after completed treatment for conditions other than malignant neoplasm; Z01.810 Encounter for preprocedural cardiovascular examination
CPT/HCPCS: 99214

== ENCOUNTER → 2022-12-27 13:31 | Outpatient (BNVA) | payer MEDICAID, SELFPAY | PROVIDERS: PCP Family Medicine; Visit Provider Nurse Practitioner Family | DX: Z01.810 Encounter for preprocedural cardiovascular examination (principal); Z09 Encounter for follow-up examination after completed treatment for conditions other than malignant neoplasm; I25.2 Old myocardial infarction; I10 Essential (primary) hypertension; E78.00 Pure hypercholesterolemia, unspecified; R00.2 Palpitations | CPT/HCPCS: 99212 ==

== ENCOUNTER 2023-01-21 09:05 | Outpatient (REF) | payer MEDICAID, SELFPAY ==
--- NOTE | ~2023-01-21 | US_ITS ---
EXAMINATION: US ABDOMEN LIMITED CLINICAL INFORMATION: Cholecystitis. COMPARISON: Abdominal ultrasound 11/27/2022 TECHNIQUE: Real-time imaging of the right upper quadrant abdominal viscera. FINDINGS: PANCREAS: Again seen is a probable peripancreatic node measuring 1.9 x 0.8 x 1.8 cm previously 3.0 x 1.1 x 1.7 cm decreased in size from prior. LIVER: Normal. The liver is normal in size. The liver contour is normal. Parenchymal echogenicity is normal. No focal hepatic lesion. There is no intrahepatic biliary duct dilatation seen. GALLBLADDER: Normal. The gallbladder is physiologically distended without evidence of stones, sludge, polyps, wall thickening or pericholecystic fluid. COMMON BILE DUCT: Normal in caliber measuring 0.4 cm in diameter. RIGHT KIDNEY: Normal. No hydronephrosis. No renal calculi or focal parenchymal lesions. The kidney measures 11.4 cm in maximum dimension. FREE FLUID: None. US/US abdomen limited IMPRESSION: 1. No cholelithiasis or evidence of acute cholecystitis. 2. Again seen is a probable peripancreatic node measuring 0.8 cm short axis, decreased in size from prior.
== END 2023-01-21 09:06 | disposition home or self-care (01) ==
LOC: HO.US 09:05
PROVIDERS: PCP Family Medicine; Visit Provider Surgery
DX: K81.9 Cholecystitis, unspecified (principal)
CPT/HCPCS: 76705

== ENCOUNTER 2023-01-29 09:22 | Outpatient (AMB) | payer MEDICAID, SELFPAY ==
[2023-01-29 09:28] VITALS: BP 131/60; PULSE 64; O2SAT 97; BMI 30.7
--- NOTE | 2023-01-29 09:28 | MHC.OFFVIS ---
Intake Vital Signs 01/29/23 09:28 Height 5 ft 7 in Weight 195 lb 12.328 oz BMI 30.7 BP 131/60 Blood Pressure Location Lt brachial Position Sitting Pulse 64 Pulse Source Pulse Oximeter Pulse Oximetry (%) 97 Oxygen Delivery Method Room Air Intake Visit Reasons: US abdomen follow-up Intake Note: Pt presents to the office today for US abdomen follow up. Pt states she gets pain on her left side of her abdomen which started yesterday. Pt denies any other concerns at this time. Allergies ibuprofen [From Motrin] Allergy (Unknown, Verified 01/29/23 09:32) UPSET STOMACH Medication List - Last Reconciled 01/29/23 by Waqar Wynn MD amlodipine 5 mg PO DAILY aspirin 81 mg PO DAILY atorvastatin 80 mg PO BEDTIME bupropion HCl 150 mg PO QAM cholecalciferol (vitamin D3) 50 mcg PO QAM fluticasone propionate 50 mcg/actuation 2 sprays intranasal QAM PRN lisinopril 20 mg PO DAILY loratadine (Allergy Relief (loratadine)) 10 mg PO DAILY PRN metoprolol tartrate 25 mg See Protocol PO Q12H mirabegron ER (Myrbetriq) 50 mg PO DAILY nitroglycerin 0.4 mg sublingual Q5M omeprazole 40 mg PO QAM paroxetine HCl 20 mg PO BEDTIME sennosides (senna) 17.2 mg PO BEDTIME topiramate 100 mg PO BEDTIME tramadol 50 mg PO Q6H PRN trazodone 50 mg PO BEDTIME HPI US abdomen follow-up HPI Details I had scheduled her for an ultrasound of the gallbladder in view of her episode of abdominal pain with transient elevation of her LFTs last November,. This appeared to be secondary to passage of gallstones to her common bile duct. She has had no recent episodes. She denies any new complaints at this time. [facility] Medical History Cholecystitis Osteoarthritis of left hip Depression with anxiety Migraines History of non-ST elevation myocardial infarction (NSTEMI) (~07/2021) Personal history of nicotine dependence Primary osteoarthritis of knees, bilateral GERD (gastroesophageal reflux disease) Hypercholesterolemia Obesity HTN (hypertension) Osteoarthritis Surgical History History of cardiac cath (~2021) History of colonoscopy History of carpal tunnel surgery of right wrist (~2014) History of total abdominal hysterectomy (~2004) History of tubal ligation Family History Mother HTN (hypertension) Diabetes Father Alzheimer disease Brother Throat cancer Social History Household Members: None Housing: House Do you presently have visiting nurse or other home services: No Alcohol intake: current Alcohol intake frequency: holidays/special occasions only Alcohol type: beer Patient Tobacco Use Status: Current everyday Tobacco user Tobacco use type: Cigarette Cigarettes Per Day: 8 Years Smoked: (onset 13, 1/2ppd x 42yrs, 20+PYH) Second Hand Smoke Exposure: No Substance Use Type: Marijuana service: No Current occupational status: disabled Review of Systems Const Denies chills and Denies fever(s) Card Denies chest pain, Denies dyspnea and Denies dyspnea on exertion Resp Denies cough, Denies dyspnea and Denies dyspnea on exertion GI Denies hematochezia and Denies change in bowel habits Denies hematuria Musc Denies back pain and Denies limited range of motion Neuro Denies focal weakness and Denies convulsions Psych Denies depression and Denies mood swings Physical Exam Vital Signs: Last Vital Signs Pulse 64 01/29/23 09:28 BP 131/60 01/29/23 09:28 Pulse Ox 97 01/29/23 09:28 Oxygen Delivery Method Room Air 01/29/23 09:28 BMI result Body Mass Index 30.7 Const General: comfortable and no acute distress Eyes Other: Anicteric Resp Effort & Inspection: normal respiratory effort Cardio Rate: regular rate GI Palpation (GI): Soft to palpation, not firm, nontender and no guarding Assessment & Plan Assessment & Plan (1) Cholecystitis: Code(s): K81.9 - Cholecystitis, unspecified Plan: Her ultrasound actually does not show any gallstones or any cholecystitis. I explained this finding to her. She did have a peripancreatic lymph node that appears smaller than before. This is likely reactive She is asymptomatic as well. In the absence of gallstones, I told her that she does not require cholecystectomy at this time. She can otherwise follow up on a p.r.n. basis. Coding Level of Care Code Est Pt Level 3 (29846) Diagnoses Cholecystitis K81.9
== END 2023-01-29 09:38 | disposition home or self-care (01) ==
PROVIDERS: PCP Family Medicine; Visit Provider Surgery
DX: K81.9 Cholecystitis, unspecified (principal)
CPT/HCPCS: 99213

== ENCOUNTER → 2023-01-29 09:22 | Outpatient (BNVA) | payer MEDICAID, SELFPAY | PROVIDERS: PCP Family Medicine; Visit Provider Surgery | DX: K81.9 Cholecystitis, unspecified (principal) | CPT/HCPCS: 99212 ==

== ENCOUNTER 2023-04-16 09:36 | Outpatient (REF) | payer MEDICAID, SELFPAY ==
[2023-04-16 10:58] LABS: MANUAL DIFF FLAG NO
[2023-04-16 11:57] LABS: Basophils Percent Auto 0.4 % (0-2); Eosinophils Absolute Auto 0.4 X10*3/uL (0.0-0.4); Eosinophils Percent Auto 4.3 % (0-4); Imm Gran Abs Auto 0.03 X10*3/uL (0.00-0.03); Imm Gran Pct Auto 0.3 % (0.0-0.4); Lymphocytes Absolute Auto 1.5 X10*3/uL (1.2-4.9); Lymphocytes Percent Auto 15.6 % (20-40); Mean Corpuscular HGB Conc 32.5 g/dl (31.0-35.0); Mean Corpuscular Hemoglobin 27.3 pg (27.0-33.0); Mean Platelet Volume 12.2 fL (9.4-12.3); Monocytes Absolute Auto 0.7 X10*3/uL (0.1-1.2); Monocytes Percent Auto 6.8 % (2-11); Neutrophils Percent Auto 72.6 % (45-73); Platelet Count 254 X10*3/uL (160-400); Red Blood Count 4.76 X10*6/uL (4.20-5.50); Red Cell Distribution Width 13.2 % (11.0-16.0); White Blood Count 9.7 X10*3/uL (4.8-10.8)
[2023-04-16 12:30] LABS: Alanine Aminotransferase 11 U/L (0-31); Aspartate Amino Transferase 14 U/L (5-31); C Reactive Protein 2.06 mg/dL (< or = 0.50); Estimated Glomerular Filt Rate > 60
[2023-04-16 12:35] LABS: Erythrocyte Sedimentation Rate 17 MM/HR (0-20)
== END 2023-04-16 09:37 | disposition home or self-care (01) ==
LOC: HO.LAB 09:36
PROVIDERS: PCP Family Medicine; Visit Provider Nurse Practitioner Family
DX: M25.50 Pain in unspecified joint (principal); Z79.899 Other long term (current) drug therapy
CPT/HCPCS: 36415; 82565; 84450; 84460; 85025; 85652; 86140; 99212

== ENCOUNTER 2023-04-16 09:36 | Outpatient (AMB) | payer MEDICAID, SELFPAY ==
[2023-04-16 09:46] VITALS: BP 118/72; PULSE 78; TEMP 36.1; O2SAT 98; BMI 31.8
--- NOTE | 2023-04-16 09:46 | MHC.OFFVIS ---
Intake Vital Signs 04/16/23 09:46 Height 5 ft 7 in Weight 202 lb 13.204 oz BMI 31.8 BP 118/72 Blood Pressure Location Rt brachial Position Sitting Pulse 78 Pulse Source Pulse Oximeter Temp 97 F Temp Source Skin Pulse Oximetry (%) 98 Oxygen Delivery Method Room Air Intake Visit Reasons: osteoarthritis Intake Note: Patient last seen 03/26/22 by Ca, presents today for follow up. c/o left shoulder pain radiating down the arm x 2 months Community Music Therapist Required: Yes Community Music Therapist Language: Rn Wellness Name: [id number] Jr Information Interpreted: clinical only Accompanied by: Self / Same As Patient Allergies ibuprofen [From Motrin] Allergy (Unknown, Verified 04/16/23 09:46) UPSET STOMACH HPI HPI Comments History of Present Illness Details Ms. Arciniega, 56yoF presents for follow-up of joint pain. Her joint pains continues to be the same as at last visit. She continues with elevated liver enzymes and is not sure why. She has a CT scan scheduled for . Prior Visit Mar 2022. Patient states that she had the flu the end of February and is still recovering. She states she received a call while in the waiting room today from her PCP that her liver enzymes are elevated with plan to repeat her labs in 4 days. She follows with a psychiatrist. She reports that she gets very little activity and stays in bed most of the day due to her depression. She continues to have pain in bilateral knees, completed physical therapy for her knees, but reports that physical therapy made her overall pain worse. States that occasionally her knees have some swelling.? Her pain is generally worse with activity and improves with rest.? She was referred to orthopedics but states that she did not make an appointment. She denies knee pain today. She states that her bilateral shoulder pain is stable at this time as well.? She reports chronic bilateral hip pain. She states when she goes to take a step she gets sharp pain in the left groin, pain comes and goes. She is managing her symptoms with gabapentin and tramadol. 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 Cholecystitis Osteoarthritis of left hip Depression with anxiety Migraines History of non-ST elevation myocardial infarction (NSTEMI) (~07/2021) Personal history of nicotine dependence Primary osteoarthritis of knees, bilateral GERD (gastroesophageal reflux disease) Hypercholesterolemia Obesity HTN (hypertension) Osteoarthritis Surgical History History of cardiac cath (~2021) History of colonoscopy History of carpal tunnel surgery of right wrist (~2014) History of total abdominal hysterectomy (~2004) History of tubal ligation Family History Mother HTN (hypertension) Diabetes Father Alzheimer disease Brother Throat cancer Social History Household Members: None Housing: House Do you presently have visiting nurse or other home services: No Alcohol intake: current Alcohol intake frequency: holidays/special occasions only Alcohol type: beer Patient Tobacco Use Status: Current everyday Tobacco user Tobacco use type: Cigarette Cigarettes Per Day: 8 Years Smoked: (onset 13, 1/2ppd x 42yrs, 20+PYH) Second Hand Smoke Exposure: No Substance Use Type: Marijuana service: No Current occupational status: disabled Review of Systems Const All systems reviewed & are unremarkable except as noted in HPI and below Physical Exam Vital Signs: Last Vital Signs Temp 97 F 04/16/23 09:46 Pulse 78 04/16/23 09:46 BP 118/72 04/16/23 09:46 Pulse Ox 98 04/16/23 09:46 Oxygen Delivery Method Room Air 04/16/23 09:46 BMI result Body Mass Index 31.8 APPEARANCE: Patient in no acute distress EYES: no redness, eyelids normal NOSE/SINUS: Airflow through both nares, no nasal discharge, no bleeding THROAT: Oral mucosa moist, no ulcerations NECK: No thyromegaly or masses, no adenopathy, trachea midline. HEART: Regular rhythm, S1-S2 heard, no murmurs, rubs or gallops. LUNG: Clear to auscultation, respiratory rate regular nonlabored. EXTREMITIES: No edema, no calf tenderness, normal peripheral pulses. NEURO: Oriented and alert x3. No focal weakness. Gait normal. SKIN: No inflammatory or neoplastic lesions. Normal color and turgor JOINT EXAM:? Hands: Normal pain-free range of motion without tenderness, swelling, increased warmth or erythema. Able to make a full fist and has a good product safety head strength. Wrists: Normal pain-free range of motion without tenderness, swelling, increased warmth or erythema. Elbows:Normal pain-free range of motion without tenderness, swelling, increased warmth or erythema. Shoulders:? Full range of motion without pain. No tenderness, weakness, swelling, increased warmth or erythema. Hips:? LEFT: Full range of motion without pain. RIGHT: Full range of motion. Pain that radiates to the groin reported with abduction, internal and external rotation. Hip bursa: No tenderness. Knees: LEFT:? Normal pain-free range of motion without tenderness, swelling, increased warmth or erythema.? There is no effusion or crepitation RIGHT: Normal pain-free range of motion without tenderness, swelling, increased warmth or erythema.? There is no effusion or crepitation Ankles: Normal pain-free range of motion without tenderness, swelling, increased warmth or erythema. Feet: Normal pain-free range of motion without tenderness, swelling, increased warmth or erythema. Tender points:? Tenderness to digital palpation at the occiput, trapezius, second rib, lateral epicondyle, knees, greater trochanter and gluteal area bilaterally. Results Reviewed Results Reviewed: Laboratory Tests 11/27/22 11/27/22 11/27/22 00:37 00:37 00:37 Total Bilirubin 2.1 H Direct Bilirubin AST 137 H ALT 68 H Alkaline Phosphatase 11/27/22 11/28/22 11/28/22 00:37 05:33 05:33 Total Bilirubin 1.6 H Direct Bilirubin 1.0 H AST 72 H ALT Alkaline Phosphatase 252 H 11/28/22 11/28/22 05:33 05:33 Total Bilirubin Direct Bilirubin AST ALT 62 H Alkaline Phosphatase 246 H EXAMINATION: XR hip RT min 2V, XR hip LT min 2V CLINICAL INFORMATION: Reason for Exam M25.551 - Pain in right hip COMPARISON: Hip radiographs 10/21/2017 TECHNIQUE: Two views of each hip. FINDINGS: No acute fracture or dislocation. Right hip joint space is maintained. Mild degenerative changes of the left hip with marginal osteophytes. Soft tissues are unremarkable. XR/XR hip LT min 2V IMPRESSION: No acute osseous abnormality. Mild degenerative changes of the left hip. No significant degenerative changes of the right hip. EXAMINATION: BILATERAL KNEE. CLINICAL INFORMATION: Pain. COMPARISON: None TECHNIQUE: 3 views each knee. FINDINGS: Right knee: There is minimal loss of medial compartment joint space. The lateral and the patellofemoral compartment joint spaces contain. No loose bodies, acute fracture or dislocation. No abnormal joint effusion seen. Left knee: There is minimal loss of medial compartment joint space. No visible acute fracture or dislocation seen. No abnormal suprapatellar joint effusion. There are no loose bodies. XR/XR knee RT 3V IMPRESSION: Mild degenerative changes in the medial compartment both knees. No visible acute fracture or dislocation seen. Assessment & Plan Assessment & Plan (1) Primary osteoarthritis of knees, bilateral: Code(s): M17.0 - Bilateral primary osteoarthritis of knee Plan: Osteoarthritis in bilateral knees. Previously evaluated by Ortho who felt that she may benefit from knee replacement in the future. Managing symptoms with tramadol.? Continues to be symptomatic reporting pain with use although pain is well controlled today. Orthopedics consult updated in case patient would like evaluation in the future. Tramadol contract reviewed and signed in clinic today. Follow-up in the office in 8 months or sooner if needed. (2) Elevated LFTs: Code(s): R79.89 - Other specified abnormal findings of blood chemistry (3) Osteoarthritis of shoulders, bilateral: Code(s): M19.011 - Primary osteoarthritis, right shoulder; M19.012 - Primary osteoarthritis, left shoulder Qualifiers: Osteoarthritis type: primary Qualified Code(s): M19.011 - Primary osteoarthritis, right shoulder; M19.012 - Primary osteoarthritis, left shoulder Plan #OA multiple Joints: Ms. Arciniega continues with OA to multiple Joints. No evidence on of inflammation on PE today. She manages her pain with Tramadol and Gabapentin so we will continue with those. #Elevated Liver Enzymes: Continues with elevated liver enzymes. She has had multiple imaging done, US as recent 01/2023, which shows liver as normal. I suspect the liver irritation may be related to Atorvastatin 80mg. Patient was not sure she was taking Atorvastatin, but I called in to [facility] and they confirmed she started taking it September 2021. Per the note in her last visit 03/2022: Patient received call today from PCP as above. Labs requested. LFTs elevated AST 99, ALT 78. Liver enzymes were normal in August 2021. CRP also elevated at 3.08 mg/dL. No evidence of active joint inflammation on exam. Patient reports she is recovering from the flu. Per patient PCP has ordered repeat blood work in 3 days, patient plans to complete this blood work. Will follow up with patient to check on status when I follow-up with x-ray results. She has continued with intermittent elevated enzymes since then. Since Tramadol is also metabolized in the liver, there is a concern for risk of toxicity. We will obtain updated labs and continue to monitor. We will continue Tramadol for now. 40 minutes spent reviewing chart, contacting pharmacy, evaluating patient and documenting. 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
== END 2023-04-16 10:26 | disposition home or self-care (01) ==
PROVIDERS: PCP Family Medicine; Visit Provider Nurse Practitioner Family
DX: M17.0 Bilateral primary osteoarthritis of knee (principal); R79.89 Other specified abnormal findings of blood chemistry; M19.011 Primary osteoarthritis, right shoulder; M19.012 Primary osteoarthritis, left shoulder
CPT/HCPCS: 99214

== ENCOUNTER 2023-04-24 08:27 | Outpatient (REF) | payer MEDICAID, SELFPAY ==
--- NOTE | ~2023-04-24 | XR_ITS ---
EXAMINATION: XR SHOULDER, LEFT CLINICAL INFORMATION: Pain COMPARISON: Previous x-ray May 2021 TECHNIQUE: AP external rotation, Grashey, scapular Y, and axillary views of the left shoulder. FINDINGS: Bone alignment is normal. No fracture or dislocation. Normal glenohumeral joint. Mild arthritis at the acromioclavicular joint. Soft tissues are normal. XR/XR shoulder LT min 2V IMPRESSION: Mild arthritis at the acromioclavicular joint.
== END 2023-04-24 08:28 | disposition home or self-care (01) ==
LOC: HO.CT 08:27
PROVIDERS: PCP Family Medicine; Visit Provider Family Medicine
DX: M25.512 Pain in left shoulder (principal); G89.29 Other chronic pain
CPT/HCPCS: 73030

== ENCOUNTER 2023-05-23 12:27 | Outpatient (REF) | payer MEDICAID, SELFPAY | END 2023-05-23 12:28 | disposition home or self-care (01) | LOC: HO.CT 12:27 | PROVIDERS: PCP Family Medicine; Visit Provider Family Medicine | DX: Z13.89 Encounter for screening for other disorder (principal) ==

== ENCOUNTER 2023-06-05 09:31 | Outpatient (REF) | payer MEDICAID, SELFPAY | END 2023-06-05 09:32 | disposition home or self-care (01) | LOC: HO.HOSX 09:31 | PROVIDERS: Visit Provider Physician Assistant | DX: Z13.89 Encounter for screening for other disorder (principal) ==

== ENCOUNTER 2023-06-16 17:11 | Inpatient (IN) | payer MEDICAID, SELFPAY ==
--- NOTE | ~2023-06-16 | XR_ITS ---
EXAMINATION: XR CHEST CLINICAL INFORMATION: Chest pain. COMPARISON: Prior chest radiographs, most recently 08/27/2022; CT chest dated 10/26/2021. TECHNIQUE: Frontal view of the chest was obtained. FINDINGS: The heart, great vessels, pulmonary vasculature and mediastinum are normal. There is mild atherosclerotic calcification of the aortic knob. No infiltrate, effusion or pneumothorax is seen. There is no acute osseous abnormality. There is mild calcific tendinitis of the right rotator cuff insertion. XR/XR chest 1V IMPRESSION: No active cardiopulmonary disease.
--- NOTE | 2023-06-16 17:23 | ECG_ITS ---
Test Reason : CHEST PAIN Blood Pressure : / mmHG Vent. Rate : 064 BPM Atrial Rate : 064 BPM P-R Int : 230 ms QRS Dur : 090 ms QT Int : 418 ms P-R-T Axes : 056 -08 020 degrees QTc Int : 431 ms Sinus rhythm with 1st degree A-V block Otherwise normal ECG When compared with ECG of 27-NOV-2022 00:18, No significant change was found Referred By: Generic ED Physician Electronically Signed By:LUCIANA MAS MD
[2023-06-16 17:24] VITALS: BP 109/68; PULSE 68; O2SAT 98
--- NOTE | 2023-06-16 17:28 | ED.CHESTPAIN ---
HPI - Chest Pain General Chief Complaint: Chest Pain Stated Complaint: CHEST PAIN SHOULDER PAIN Time Seen by Provider: 06/16/23 17:28 History of Present Illness HPI narrative: Patient is a 57-year-old female presents today with having chest pain. The chest pain lasted 20 minutes prior. Patient claims the pain is dull. Question radiate to the shoulder. Given some nitroglycerin on EMS arrival. Symptoms seems to have improved. Positive history of NSTEMI. Positive history of hypertension, hypercholesterolemia, smoking. Currently pain-free. There was no exertional component. Patient was sitting watching PD at the time. There has no radiation to the back. Related Data Home Medications Medication Instructions Recorded Confirmed amlodipine 5 mg tablet 5 mg PO DAILY 08/29/21 01/29/23 lisinopril 20 mg tablet 20 mg PO DAILY 08/29/21 01/29/23 mirabegron 50 mg tablet,extended 50 mg PO DAILY 08/29/21 01/29/23 release 24 hr (Myrbetriq) nitroglycerin 0.4 mg sublingual 0.4 mg sublingual Q5M angina 08/29/21 01/29/23 tablet sennosides 8.6 mg tablet (senna) 17.2 mg PO BEDTIME 08/29/21 01/29/23 cholecalciferol (vitamin D3) 50 50 mcg PO QAM 03/26/22 01/29/23 mcg (2,000 unit) tablet fluticasone propionate 50 2 spray intranasal QAM PRN Allergy 03/26/22 01/29/23 mcg/actuation nasal Symptoms spray,suspension loratadine 10 mg tablet (Allergy 10 mg PO DAILY PRN Allergy Symptoms 03/26/22 01/29/23 Relief (loratadine)) paroxetine HCl 20 mg tablet 20 mg PO BEDTIME 03/26/22 01/29/23 topiramate 100 mg tablet 100 mg PO BEDTIME 03/26/22 01/29/23 trazodone 50 mg tablet 50 mg PO BEDTIME Insomnia 03/26/22 01/29/23 bupropion HCl 150 mg 24 hr tablet, 150 mg PO QAM 11/27/22 01/29/23 extended release tramadol 50 mg tablet 50 mg PO Q6H PRN Pain 11/27/22 01/29/23 omeprazole 40 mg capsule,delayed 40 mg PO QAM 12/27/22 01/29/23 release sumatriptan succinate 50 mg tablet 50 mg PO DAILY PRN 04/16/23 Previous Rx's Medication Instructions Recorded aspirin 81 mg tablet,delayed 81 mg PO DAILY #14 tabs 08/11/21 release atorvastatin 80 mg tablet 80 mg PO BEDTIME #30 tabs 08/11/21 metoprolol tartrate 25 mg tablet 25 mg PO Q12H #20 tabs 08/11/21 Allergies Allergy/AdvReac Type Severity Reaction Status Date / Time ibuprofen [From Motrin] Allergy Unknown UPSET Verified 04/16/23 09:46 STOMACH Review of Systems Review of Systems: Positive chest pain Yes all other systems are reviewed and are negative PMFSH Past Medical History Attestation statement: The following information was validated with the patient. 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 Cholecystitis Osteoarthritis of left hip Depression with anxiety Migraines History of non-ST elevation myocardial infarction (NSTEMI) (~07/2021) Personal history of nicotine dependence Primary osteoarthritis of knees, bilateral GERD (gastroesophageal reflux disease) Hypercholesterolemia Obesity HTN (hypertension) Osteoarthritis Surgical History History of cardiac cath (~2021) History of colonoscopy History of carpal tunnel surgery of right wrist (~2014) History of total abdominal hysterectomy (~2004) History of tubal ligation Family History Family History Mother HTN (hypertension) Diabetes Father Alzheimer disease Brother Throat cancer Social History Social History Household Members: None Housing: House Do you presently have visiting nurse or other home services: No Alcohol intake: current Alcohol intake frequency: holidays/special occasions only Alcohol type: beer Patient Tobacco Use Status: Current everyday Tobacco user Tobacco use type: Cigarette Cigarettes Per Day: 8 Years Smoked: (onset 13, 1/2ppd x 42yrs, 20+PYH) Smoked in Last 30 Days: Yes Second Hand Smoke Exposure: No Use of substances other than those prescribed or required for medical reasons: Yes Substance Use Type: Marijuana Advance Directives: Yes Advance Directives on File: Yes Advance Directives Date on File: 12/02/22 Patient : No service: No Current occupational status: disabled Physical Exam Vital Signs: Vital Signs: Last Vital Signs Temp 98.6 F 06/16/23 20:43 Pulse 68 06/16/23 20:43 Resp 18 06/16/23 20:43 BP 138/63 06/16/23 20:43 Pulse Ox 98 06/16/23 20:43 O2 Del Method Room Air 06/16/23 20:43 BMI result Body Mass Index 32.8 Appearance: Alert. Oriented X3. No acute distress. Eyes: Pupils equal, round and reactive to light. ENT: Pharynx normal. Neck: Normal inspection. Neck supple. No lymph nodes noted. No crepitus CVS: Normal heart rate and rhythm. Pulses normal. Normal S1 and S2 Respiratory: No respiratory distress. Breath sounds normal. No Wheezing. No rales Abdomen: Soft and nontender. No rigidity. No distention. good BS x4 Skin: Skin warm and dry. Normal skin color. Normal skin turgor. Extremities: No lower extremity edema. Neurovascular intact to all extremities. No Lacerations. No Rash Neuro: Oriented X 3. No motor deficit. No sensory deficit. Moving all extermities. No slurred speech Medical Decision Making Medical Decision Making MDM Narrative: Positive chest pain relieved with nitroglycerin history of NSTEMI in the past. Was given nitroglycerin in route. The symptoms seems have gone. Patient claims that her pain was mid chest that goes to her shoulder lasts about 5 minutes. Associated with some shortness of breath. She has a history of prediabetes, hypertension, high cholesterol. Patient's troponin became more more elevated 1st set was less than 2.7 then in the 9 range then the last 1 at 34. Started on Lovenox. Case consulted by Cardiology 0 comfortable with admission. Case consulted by the hospitalist team. Will admit for possible NSTEMI. Differential Diagnosis Differential Diagnoses: The differential diagnosis associated with the presentation includes Angina Admission/Observation Consideration of admission/observation: Escalation of care including admission/observation considered Consult Healthcare Provider Management of the patient was discussed with: Hospitalist and Payment Manager (Hospitalist and Cardiology) Lab Data [facility] Lab Attestation statement: I reviewed the patient's lab results. 06/16/23 18:04 06/16/23 18:04 Labs: Lab Results 06/16/23 06/16/23 06/16/23 Range/Units 18:04 20:24 21:42 WBC 12.1 H (4.8-10.8) X10*3/uL RBC 4.79 (4.20-5.50) X10*6/uL Hgb 13.1 (12.0-16.0) g/dl Hct 40.1 (37.0-47.0) % MCV 83.7 (80.0-98.0) fL MCH 27.3 (27.0-33.0) pg MCHC 32.7 (31.0-35.0) g/dl RDW 13.0 (11.0-16.0) % Plt Count 224 (160-400) X10*3/uL MPV 11.6 (9.4-12.3) fL Immature Gran % (Auto) 0.3 (0.0-0.4) % Neut % (Auto) 68.5 (45-73) % Lymph % (Auto) 19.4 L (20-40) % Lawrence % (Auto) 7.9 (2-11) % Eos % (Auto) 3.7 (0-4) % Baso % (Auto) 0.2 (0-2) % Lymph # (Auto) 2.4 (1.2-4.9) X10*3/uL Lawrence # (Auto) 1.0 (0.1-1.2) X10*3/uL Eos # (Auto) 0.5 H (0.0-0.4) X10*3/uL Baso # (Auto) 0.0 (0.0-0.2) X10*3/uL Abs Immat Gran (auto) 0.04 H (0.00-0.03) X10*3/uL Absolute Neuts (auto) 8.3 (2.0-8.3) x10*3/uL Absolute Nucleated RBC 0.000 (0.0-0.012) X10*3/uL Nucleated RBC % (auto) 0.0 (0.0-0.2) /100WBC Sodium 141 (135-145) mmol/L Potassium 3.8 (3.3-5.1) mmol/L Chloride 106 (96-108) mmol/L Carbon Dioxide 27 (22-29) mmol/L Anion Gap 12 (12-20) BUN 21 H (9-16) mg/dL Creatinine 0.86 (0.5-1.4) mg/dL Estim Creat Clear Calc 83.3 Estimated GFR > 60 Random Glucose 120 H (60-115) mg/dL Calcium 9.4 (8.4-10.2) mg/dL Total Bilirubin 0.2 (0.0-1.0) mg/dL Direct Bilirubin 0.2 (0.0-0.5) mg/dL AST 12 (5-31) U/L ALT 7 (0-31) U/L Alkaline Phosphatase 100 (39-117) U/L Troponin I High Sens < 2.7 9.8 D 34.1 H D (<3.5-17.0) ng/L Total Protein 6.6 (6.5-8.0) g/dL Albumin 3.5 (3.5-5.0) g/dL Lipase 17 (8-78) U/L Independent Interpretation I performed an independent interpretation of an: EKG (Sinus heart rate is 80 PA QRS QTC normal there is no acute ST segment elevation) External Record Review External record reviewed: Inpatient record Chronic Conditions Patient?s care impacted by: Diabetes and Hypertension Social Determinants Patient?s care significantly limited by Social Determinants of Health including: Problems related to primary support group Critical Care Time Critical Care Time Critical Care Time: Yes Total Critical Care Time: 40 Attestation: I have personally provided 40 minutes of critical care time exclusive of time spent on separately billable procedures. ?Time includes review of lab data, radiology results, discussion with consultants, and monitoring for potential decompensation. ?Interventions were performed as documented above Discharge Plan Discharge Clinical Impression: Non-ST elevation [place] (NSTEMI) Patient Disposition: Admitted As Inpatient Prescriptions: No Action atorvastatin 80 mg Tablet 80 mg PO BEDTIME Qty: 30 0RF aspirin 81 mg Tablet,Delayed Release (Dr/Ec) 81 mg PO DAILY Qty: 14 0RF metoprolol tartrate 25 mg Tablet 25 mg PO Q12H Qty: 20 0RF Protocol: Hold for SBP/HR < HOLD for SBP < : 90 HOLD for HR < : 60 bupropion HCl 150 mg tablet extended release 24 hr 150 mg PO QAM tramadol 50 mg tablet 50 mg PO Q6H PRN (Reason: Pain) sennosides [senna] 8.6 mg tablet 17.2 mg PO BEDTIME amlodipine 5 mg tablet 5 mg PO DAILY lisinopril 20 mg tablet 20 mg PO DAILY nitroglycerin 0.4 mg tablet, sublingual 0.4 mg sublingual Q5M Myrbetriq 50 mg tablet extended release 24 hr 50 mg PO DAILY cholecalciferol (vitamin D3) 50 mcg (2,000 unit) tablet 50 mcg PO QAM loratadine [Allergy Relief (loratadine)] 10 mg tablet 10 mg PO DAILY PRN (Reason: Allergy Symptoms) fluticasone propionate 50 mcg/actuation spray,suspension 2 spray intranasal QAM PRN (Reason: Allergy Symptoms) topiramate 100 mg tablet 100 mg PO BEDTIME paroxetine HCl 20 mg tablet 20 mg PO BEDTIME trazodone 50 mg tablet 50 mg PO BEDTIME sumatriptan succinate 50 mg tablet 50 mg PO DAILY PRN omeprazole 40 mg capsule,delayed release(DR/EC) 40 mg PO QAM
[2023-06-16 17:36] VITALS: BP 122/63; PULSE 66; RESP 12; TEMP 36.7; O2SAT 99; BMI 32.8
[2023-06-16 18:08] LABS: MANUAL DIFF FLAG NO
[2023-06-16 18:10] LABS: Basophils Percent Auto 0.2 % (0-2); Eosinophils Absolute Auto 0.5 X10*3/uL (0.0-0.4); Eosinophils Percent Auto 3.7 % (0-4); Hematocrit 40.1 % (37.0-47.0); Hemoglobin 13.1 g/dl (12.0-16.0); Imm Gran Abs Auto 0.04 X10*3/uL (0.00-0.03); Imm Gran Pct Auto 0.3 % (0.0-0.4); Lymphocytes Absolute Auto 2.4 X10*3/uL (1.2-4.9); Lymphocytes Percent Auto 19.4 % (20-40); Mean Corpuscular HGB Conc 32.7 g/dl (31.0-35.0); Mean Corpuscular Hemoglobin 27.3 pg (27.0-33.0); Mean Corpuscular Volume 83.7 fL (80.0-98.0); Mean Platelet Volume 11.6 fL (9.4-12.3); Monocytes Percent Auto 7.9 % (2-11); Neutrophils Absolute Auto 8.3 x10*3/uL (2.0-8.3); Neutrophils Percent Auto 68.5 % (45-73); Platelet Count 224 X10*3/uL (160-400); Red Blood Count 4.79 X10*6/uL (4.20-5.50); White Blood Count 12.1 X10*3/uL (4.8-10.8)
[2023-06-16 18:43] LABS: Alanine Aminotransferase 7 U/L (0-31); Albumin Level 3.5 g/dL (3.5-5.0); Alkaline Phosphatase 100 U/L (39-117); Anion Gap 12 (12-20); Aspartate Amino Transferase 12 U/L (5-31); Bilirubin Direct 0.2 mg/dL (0.0-0.5); Bilirubin Total 0.2 mg/dL (0.0-1.0); Blood Urea Nitrogen 21 mg/dL (9-16); Calcium 9.4 mg/dL (8.4-10.2); Carbon Dioxide 27 mmol/L (22-29); Chloride 106 mmol/L (96-108); Creatinine Clr Calc Pharmacy 83.3; Estimated Glomerular Filt Rate > 60; Glucose Random 120 mg/dL (60-115); Lipase 17 U/L (8-78); Potassium 3.8 mmol/L (3.3-5.1); Sodium 141 mmol/L (135-145); Total Protein 6.6 g/dL (6.5-8.0)
[2023-06-16 18:50] LABS: Troponin-I High Sensitivity < 2.7 ng/L (<3.5-17.0)
[2023-06-16 20:43] VITALS: BP 138/63; PULSE 68; RESP 18; TEMP 37; O2SAT 98
[2023-06-16 20:47] LABS: Troponin-I High Sensitivity 9.8 ng/L (<3.5-17.0)
[2023-06-16 22:06] LABS: Troponin-I High Sensitivity 34.1 ng/L (<3.5-17.0)
[2023-06-17 00:44] LABS: Hematocrit 38.8 % (37.0-47.0); Hemoglobin 12.6 g/dl (12.0-16.0); Mean Corpuscular HGB Conc 32.5 g/dl (31.0-35.0); Mean Corpuscular Volume 83.3 fL (80.0-98.0); Mean Platelet Volume 11.6 fL (9.4-12.3); Platelet Count 214 X10*3/uL (160-400); Red Blood Count 4.66 X10*6/uL (4.20-5.50); White Blood Count 11.5 X10*3/uL (4.8-10.8)
[2023-06-17 00:53] LABS: INTERNATIONAL NORM RATIO 0.9 (0.9-1.1); Prothrombin Time 11.3 SEC (11.1-13.3)
[2023-06-17 00:55] LABS: Partial Thromboplastin Time 31.9 SEC (26.0-36.8)
--- NOTE | 2023-06-17 01:01 | P.HPHOSP_ITS ---
History of Present Illness Date of Service: 06/16/23 Attending physician on admission: Santosh Hendricks Chief Complaint: chest pain Suze Edwards is a 57 years old woman with past medical history significant for CAD (WI 2021), hyperlipidemia, GERD, essential hypertension and depression was brought to the emergency department complaining of retrosternal chest pain that started today at 4:30 PM while she was watching TV. She described the pain as a pressure with intensity 9/10 and radiating to the left arm. She mentioned that while getting the chest pain she was having cold + hot sensation on her face. Pain was associated with shortness of breath and heartburn. She stated that this chest pain was similar to the one she had when she was diagnosed with an WI. She denied any headache, dizziness, palpitations, nausea, vomiting or sweating. She is ongoing tobacco smoker -smoked since age 13 (6 cigarettes/day). She denied alcohol abuse or illicit drug use. She takes aspirin daily. Pain relieved with 1 dose of nitroglycerin sublingual (given by EMS, she also received treatment aspirin). Chart review: Cardiac catheterization July 2021: No obstructive epicardial CAD, patient has WI with nonobstructive coronary artery, normal LVEDP, there is no significant gradient on pullback across the aortic valve. In the ED, she was found to have stable vital signs. Blood workup was remarkable for slight leukocytosis, 11.5. There are no significant electrolyte imbalances. Renal function is adequate. Troponin is increasing (<2.7 --> 9.8 --> 34.1). LFTs and lipase are normal. CXR is pending. ECG showed normal sinus rhythm, first-degree AV block and no acute ischemic changes. ED tx: Lovenox 100 mg subcut. Review of Systems 2 Review of Systems: All 12 systems were reviewed and normal except as noted in HPI. 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 Cholecystitis Osteoarthritis of left hip Depression with anxiety Migraines History of non-ST elevation myocardial infarction (NSTEMI) (~07/2021) Personal history of nicotine dependence Primary osteoarthritis of knees, bilateral GERD (gastroesophageal reflux disease) Hypercholesterolemia Obesity HTN (hypertension) Osteoarthritis Family History Mother HTN (hypertension) Diabetes Father Alzheimer disease Brother Throat cancer Surgical History History of cardiac cath (~2021) History of colonoscopy History of carpal tunnel surgery of right wrist (~2014) History of total abdominal hysterectomy (~2004) History of tubal ligation Social History Household Members: None Housing: House Do you presently have visiting nurse or other home services: No Alcohol intake: current Alcohol intake frequency: holidays/special occasions only Alcohol type: beer Patient Tobacco Use Status: Current everyday Tobacco user Tobacco use type: Cigarette Cigarettes Per Day: 8 Years Smoked: (onset 13, 1/2ppd x 42yrs, 20+PYH) Smoked in Last 30 Days: Yes Second Hand Smoke Exposure: No Use of substances other than those prescribed or required for medical reasons: Yes Substance Use Type: Marijuana Advance Directives: Yes Advance Directives on File: Yes Advance Directives Date on File: 12/02/22 Patient : No service: No Current occupational status: disabled Meds Allergies Allergy/AdvReac Type Severity Reaction Status Date / Time ibuprofen [From Motrin] Allergy Unknown UPSET Verified 04/16/23 09:46 STOMACH Active Medications: Current Medications Acetaminophen (Acetaminophen 325 Mg Tablet) 650 mg PO Q6H PRN PRN Reason: Pain, Mild (Pain Scale 1-3) Amlodipine Besylate (Amlodipine Besylate 5 Mg Tablet) 5 mg PO DAILY [facility]; Protocol Aspirin (Aspirin Enteric Coated 81 Mg Tablet.) 81 mg PO DAILY [facility] Atorvastatin Calcium (Atorvastatin Calcium 80 Mg Tablet) 80 mg PO BEDTIME [facility] Enoxaparin Sodium (Enoxaparin Sodium 100 Mg/Ml Syringe) 100 mg 1 mg/kg (100 mg) SUBCUT Q12H [facility] Lisinopril (Lisinopril 20 Mg Tablet) 20 mg PO DAILY [facility]; Protocol Metoprolol Tartrate (Metoprolol Tartrate 25 Mg Tablet) 25 mg PO BID [facility]; Protocol Omeprazole (Omeprazole 40 Mg Capsule.) 40 mg PO DAILY [facility] Sodium Chloride (0.9 % Sodium Chloride Flush 3 Ml Syringe) 3 ml IVFLUSH QSHIFT [facility] Topiramate (Topiramate 100 Mg Tablet) 100 mg PO BEDTIME [facility] Trazodone HCl (Trazodone Hcl 50 Mg Tablet) 50 mg PO BEDTIME PRN PRN Reason: anxiety Home Medications Medication Instructions Recorded Confirmed Last Taken Type amlodipine 5 mg tablet 5 mg PO DAILY 08/29/21 06/17/23 11/26/22 History lisinopril 20 mg tablet 20 mg PO DAILY 08/29/21 06/17/23 11/26/22 History mirabegron 50 mg tablet,extended 50 mg PO DAILY 08/29/21 01/29/23 11/26/22 History release 24 hr (Myrbetriq) nitroglycerin 0.4 mg sublingual 0.4 mg sublingual Q5M angina 08/29/21 01/29/23 11/26/22 History tablet sennosides 8.6 mg tablet (senna) 17.2 mg PO BEDTIME 08/29/21 01/29/23 11/26/22 History cholecalciferol (vitamin D3) 50 50 mcg PO QAM 03/26/22 01/29/23 11/26/22 History mcg (2,000 unit) tablet fluticasone propionate 50 2 spray intranasal QAM PRN Allergy 03/26/22 01/29/23 11/26/22 History mcg/actuation nasal Symptoms spray,suspension loratadine 10 mg tablet (Allergy 10 mg PO DAILY PRN Allergy Symptoms 03/26/22 01/29/23 11/26/22 History Relief (loratadine)) paroxetine HCl 20 mg tablet 20 mg PO BEDTIME 03/26/22 01/29/23 11/26/22 History topiramate 100 mg tablet 100 mg PO BEDTIME 03/26/22 01/29/23 11/26/22 History trazodone 50 mg tablet 50 mg PO BEDTIME Insomnia 03/26/22 01/29/23 11/26/22 History bupropion HCl 150 mg 24 hr tablet, 150 mg PO QAM 11/27/22 06/17/23 11/26/22 History extended release tramadol 50 mg tablet 50 mg PO Q6H PRN Pain 11/27/22 01/29/23 11/26/22 History omeprazole 40 mg capsule,delayed 40 mg PO QAM 12/27/22 01/29/23 Unknown History release sumatriptan succinate 50 mg tablet 50 mg PO DAILY PRN 04/16/23 Unknown History metoprolol tartrate 25 mg tablet 25 mg PO BID 06/17/23 06/17/23 Unknown History metoprolol tartrate 25 mg tablet 25 mg PO BID 06/17/23 06/17/23 Unknown History omeprazole 40 mg capsule,delayed 40 mg PO QAM 06/17/23 06/17/23 Unknown History release topiramate 100 mg tablet 100 mg PO BEDTIME 06/17/23 06/17/23 Unknown History trazodone 50 mg tablet 50 mg PO BEDTIME PRN anxiety 06/17/23 06/17/23 Unknown History Physical Exam 2 Vital Signs and Narrative: Vital Signs: Last Vital Signs Temp 98.6 F 06/16/23 20:43 Pulse 68 06/16/23 20:43 Resp 18 06/16/23 20:43 BP 138/63 06/16/23 20:43 Pulse Ox 98 06/16/23 20:43 O2 Del Method Room Air 06/16/23 20:43 BMI result Body Mass Index 32.8 Constitutional - Awake and Alert, No apparent distress HEENT - PERRL, EOMI. Moist oral mucosa. Heart - S1S2, RRR. Lungs - Normal lung expansion, Normal respiratory effort, No respiratory distress, CTA bilaterally Abdomen - NT / ND; +BS; No rebound or guarding Extremities - no calf tenderness bilaterally, no swelling Musculoskeletal - Normal inspection, normal ROM Skin - Warm/Dry Neurological - Alert & oriented x3. No focal weakness grossly noted. Normal speech. Psychological - Appropriate affect Results Labs 06/17/23 00:28 06/16/23 18:04 Labs: Laboratory Results - last 24 hr 06/16/23 06/16/23 06/16/23 18:04 20:24 21:42 MCV 83.7 MCH 27.3 MCHC 32.7 RDW 13.0 Plt Count 224 MPV 11.6 Immature Gran % (Auto) 0.3 Neut % (Auto) 68.5 Lymph % (Auto) 19.4 L [place] % (Auto) 7.9 Eos % (Auto) 3.7 Baso % (Auto) 0.2 Lymph # (Auto) 2.4 [place] # (Auto) 1.0 Eos # (Auto) 0.5 H Baso # (Auto) 0.0 Abs Immat Gran (auto) 0.04 H Absolute Neuts (auto) 8.3 Absolute Nucleated RBC 0.000 Nucleated RBC % (auto) 0.0 PT INR APTT Anion Gap 12 Estim Creat Clear Calc 83.3 Estimated GFR > 60 Random Glucose 120 H Calcium 9.4 Total Bilirubin 0.2 Direct Bilirubin 0.2 AST 12 ALT 7 Alkaline Phosphatase 100 Troponin I High Sens < 2.7 9.8 D 34.1 H D Total Protein 6.6 Albumin 3.5 Lipase 17 06/17/23 00:28 MCV 83.3 MCH 27.0 MCHC 32.5 RDW 13.0 Plt Count 214 MPV 11.6 Immature Gran % (Auto) Neut % (Auto) Lymph % (Auto) [place] % (Auto) Eos % (Auto) Baso % (Auto) Lymph # (Auto) [place] # (Auto) Eos # (Auto) Baso # (Auto) Abs Immat Gran (auto) Absolute Neuts (auto) Absolute Nucleated RBC 0.000 Nucleated RBC % (auto) 0.0 PT 11.3 INR 0.9 APTT 31.9 Anion Gap Estim Creat Clear Calc Estimated GFR Random Glucose Calcium Total Bilirubin Direct Bilirubin AST ALT Alkaline Phosphatase Troponin I High Sens Total Protein Albumin Lipase Assessment and Plan (1) Non-ST elevation WI (NSTEMI): Status: Acute (2) Hypercholesterolemia: Status: Acute (3) Primary hypertension: Status: Acute (4) Pre-diabetes: Status: Acute Plan Suze Edwards is a 57 years old woman admitted with: * Non ST-elevation myocardial infarction. Admit to hospitalist service. Telemetry. Continue treatment with aspirin 81 mg p.o. daily. Continue Lovenox 100 mg subQ twice daily. Continue beta-dajuan, ACEI and statin. Hold Wellbutrin. Recheck troponin. Check lipid panel and hemoglobin A1c. Obtain echocardiogram. Cardiology consult. (Cardiac catheterization July 2021: No obstructive epicardial CAD, patient has WI with nonobstructive coronary artery, normal LVEDP, there is no significant gradient on pullback across the aortic valve). * Essential hypertension. Continue metoprolol, amlodipine and lisinopril. * Hyperlipidemia. Continue statin, * Tobacco smoking. Tobacco cessation education. Avoid nicotine gums or patches. * Depression. Continue home medications. * GERD. Continue PPI. DVT prophylaxis: Lovenox Code status: Full Patient will need hospitalization for at least 2 midnights for NSTEMI treatment with Lovenox, beta dajuan, MIRLANDE inhibitor and statin. Patient will also need evaluation by subspecialty and possible cardiac catheterization in the near future. Quality Stroke Does the patient have a stroke diagnosis?: No VTE Prior VTE?: No VTE Risk Level:: Medical - moderate - high VTE Device Contraindication: Treatment Not Indicated VTE Drug Contraindication: N/A - Med Ordered
[2023-06-17] MEDS: Enoxaparin Sodium 100 MG/ML SYRINGE SUBCUT (01:57)
[2023-06-17] MEDS: 0.9 % Sodium Chloride Flush 3 ML SYRINGE IVFLUSH ×2 (01:59→10:14)
[2023-06-17 05:43] VITALS: BP 130/57; PULSE 58; RESP 17; TEMP 36.6; O2SAT 97
[2023-06-17 06:28] LABS: MANUAL DIFF FLAG NO
[2023-06-17 06:36] LABS: Basophils Percent Auto 0.3 % (0-2); Eosinophils Absolute Auto 0.5 X10*3/uL (0.0-0.4); Eosinophils Percent Auto 4.1 % (0-4); Hematocrit 40.1 % (37.0-47.0); Hemoglobin 12.9 g/dl (12.0-16.0); Imm Gran Abs Auto 0.04 X10*3/uL (0.00-0.03); Imm Gran Pct Auto 0.4 % (0.0-0.4); Lymphocytes Absolute Auto 2.8 X10*3/uL (1.2-4.9); Lymphocytes Percent Auto 24.4 % (20-40); Mean Corpuscular HGB Conc 32.2 g/dl (31.0-35.0); Mean Corpuscular Hemoglobin 27.2 pg (27.0-33.0); Mean Corpuscular Volume 84.6 fL (80.0-98.0); Mean Platelet Volume 12.2 fL (9.4-12.3); Monocytes Absolute Auto 0.8 X10*3/uL (0.1-1.2); Neutrophils Absolute Auto 7.2 x10*3/uL (2.0-8.3); Neutrophils Percent Auto 63.8 % (45-73); Platelet Count 217 X10*3/uL (160-400); Red Blood Count 4.74 X10*6/uL (4.20-5.50); White Blood Count 11.3 X10*3/uL (4.8-10.8)
[2023-06-17 07:00] LABS: Troponin-I High Sensitivity 1855.4 ng/L (<3.5-17.0)
--- NOTE | 2023-06-17 07:00 | CA_ITS ---
Transthoracic Echocardiogram Patient (Last, First, Middle): Suze Edwards E Gender: Female Date of : 1965 Age: 57 Procedure Date: 06/17/2023 Procedure Type: Transthoracic Echocardiogram Location: [facility] [place] Height: 170.18 cm Weight: 94.8 kg BSA: 2.06 m2 Heart Rate: bpm BP: 124 / 60 mmHg Manager Social Responsibility: Referring MD: Santosh Hendricks MD Claims Adjudicator: Nelson Cotter MD Symptoms: NSTEMI Study Quality: Good ECG Rhythm: Sinus Conclusions: - 1. Normal LV systolic function with LVEF of 60-65% with mild LVH 2. Cardiac valvular Dopplers within normal limits 3. Normal RV systolic pressure 4. No gross pericardial effusion Findings Left Ventricle Normal left ventricular size and systolic function. There is mildly increased left ventricular wall thickness. The visually estimated ejection fraction is between 60-65%. Spectral Doppler is indicative of a normal filling pattern. Peak GLS is -19.5%, within normal limits Right Ventricle Normal right ventricular cavity size and systolic function. Atria Both atria are normal in size. There is no evidence of interatrial shunt. Aortic Valve Normal aortic valve structure and function. There is no aortic valve stenosis. There is no aortic valve regurgitation. Mitral Valve Normal mitral valve structure and function. There is trace mitral valve regurgitation. There is no mitral valve stenosis. Pulmonic Valve The pulmonic valve is likely normal. There is trace to mild pulmonic valve regurgitation. Tricuspid Valve Normal tricuspid valve structure. There is trace tricuspid valve regurgitation. The right ventricular systolic pressure is normal. The right ventricular systolic pressure is 18 mmHg. Normal right atrial pressure. There is no evidence of pulmonary hypertension. Great Vessels All visible segments of the aorta are normal in size. The pulmonary artery was not well visualized. Venous The inferior vena cava is normal in size and collapses greater than 50% with inspiration. Pericardium/Pleural There is no evidence of pericardial effusion. Measurements 2D Linear Measurements IVSd: 1.22 0.6-0.9/0.6-1.0 cm LVIDd: 3.92 3.9-5.3/4.2-5.9 cm LVIDd Index: 1.90 2.4-3.2/2.2-3.1 cm/m2 LVIDs: 2.42 2.0-3.6 cm LVPWd: 1.21 0.7-1.1 cm Ao Root: 3.10 2.1-3.5 cm LA Diam: 3.50 2.7-3.8/3.0-4.0 cm LAIDs Index: 1.70 1.5-2.3 cm/m2 LV Mass: 203.64 67-162/88-224 g LV Mass Index: 98.86 43-95/49-115 g/m2 LVOT Diam: 2.10 3.0+(-)1.3 cm 2D Systolic Function EF 4C: 61.40 >55% EF 2C: 63.60 >55% EF BiP: 63.00 >55% Mitral Valve MV Pk E: 0.81 MV PK A: 0.72 MV Decel Time: 235.00 E/A: 1.10 E'Lateral: 10.80 E'Medial: 7.29 E/E' Med: 11.10 E/E' Lat: 7.50 PHT: 69.00 MVA PHT: 3.19 Decel [place]: 3.43 Aortic Valve AoV Pk Heriberto: 1.43 AoV Mn Heriberto: 0.98 AoV VTI: 0.39 AoV Pk Grad: 8.00 Aov Mn Grad: 5.00 ELISABETH Cont.VTI: 2.53 LVOT LVOT Pk Heriberto: 1.22 LVOT Mn Heriberto: 0.71 LVOT VTI: 0.29 LVOT Pk Grad: 6.00 LVOT Mn Grad: 3.00 LVOT Diam: 2.10 LVOT Area: 3.46 Diastolic Function MV Pk E: 0.81 MV Pk A: 0.72 E/A: 1.10 E'Medial: 7.29 E/E' Med: 11.10 E' Laterial: 10.80 E/E' Lat: 7.50 Right Ventricle TAPSE (mm): 25.00 TVS' Heriberto: 11.00 Tricuspid Valve TR Pk Heriberto: 1.91 TR Pk Grad: 15.00 RA Press: 3.00 RVSP: 18.00 Great Vessels Aorta Ao Root-2D: 3.10 2.0-3.7 cm Ao Asc: 3.30 2.1-3.4 cm Pulmonary Valve PV Pk Heriberto: 0.95 Peak PV Grad: 4.00 Updated in Other Vendor System with Status of Final Nelson Cotter MD electronically signed on 06/17/2023 11:56:55 AM with status of Final
[2023-06-17 07:01] LABS: Alanine Aminotransferase 13 U/L (0-31); Albumin Level 3.5 g/dL (3.5-5.0); Alkaline Phosphatase 96 U/L (39-117); Anion Gap 11 (12-20); Aspartate Amino Transferase 23 U/L (5-31); Bilirubin Total 0.3 mg/dL (0.0-1.0); Blood Urea Nitrogen 15 mg/dL (9-16); Carbon Dioxide 30 mmol/L (22-29); Chloride 103 mmol/L (96-108); Cholesterol 189 mg/dL (<200); Creatinine Clr Calc Pharmacy 95.5; Estimated Glomerular Filt Rate > 60; Glucose Random 77 mg/dL (60-115); HDL Cholesterol 32 mg/dL (>40); LDL Cholesterol Calculated 133 mg/dL (<100); Potassium 3.7 mmol/L (3.3-5.1); Sodium 140 mmol/L (135-145); Total Protein 6.6 g/dL (6.5-8.0); Triglycerides 124 mg/dL (<150)
--- NOTE | 2023-06-17 07:04 | ECG_ITS ---
Test Reason : ELEVATED TROP Blood Pressure : / mmHG Vent. Rate : 061 BPM Atrial Rate : 061 BPM P-R Int : 230 ms QRS Dur : 082 ms QT Int : 420 ms P-R-T Axes : 056 -10 003 degrees QTc Int : 422 ms Sinus rhythm with 1st degree A-V block Otherwise normal ECG When compared with ECG of 16-JUN-2023 17:24, No significant change was found Referred By: Santosh Hendricks Electronically Signed By:LUCIANA MAS MD
--- NOTE | 2023-06-17 07:15 | PC.NURSE ---
Critical trop 1855.4, pt denies any chest pain. notified and ekg put in NSR with 1st degree block.
[2023-06-17 07:16] VITALS: BP 124/60; PULSE 62; RESP 10; TEMP 36.8; O2SAT 97
[2023-06-17 07:23] LABS: Estimated Average Glucose 114 mg/dL; Hemoglobin A1c % 5.6 % (<6.0)
--- NOTE | 2023-06-17 07:45 | PC.NURSE ---
pt is alert and oriented, skin appropriate for ethnicity, respirations even and unlabored, pt denies chest pain/sob at this time, ns on the monitor and vs stable
--- NOTE | 2023-06-17 09:39 | P.CONCA_ITS ---
History of Present Illness History of Present Illness Date of Service: 06/17/23 Requesting physician: Kaushik Gold Consult reason: myocardial infarction Chief complaint: NSTEMI Narrative: I was consulted to see Suze in cardiology consultation today for NSTEMI. She is a 57-year-old female who lives with the with prior history of myocardial infarction with cardiac catheterization showing nonobstructive CAD at that time, longstanding hypertension with hypertensive heart disease, hyperlipidemia, smoking. She takes all her medications regularly. Yesterday she says she was sitting watching television with her and relaxing and suddenly developed retrosternal precordial chest pressure radiating to left arm associated with diaphoresis. Patient got pre symptomatic and then came to the emergency room. Symptoms lasted for about an hour. A time she came to the emergency room symptoms had improved. Her initial troponin was 9 subsequent 34 and then 1800. EKG showed minor ST sagging. Patient is currently chest pain- free. Appropriately started on IV heparin, getting statins and aspirin. At home patient is on amlodipine 10 mg for suspected vaso spasm. Patient also on metoprolol 25 mg b.i.d.. She says she has been taking all her medications regularly. She says she has no sudden stressful events yesterday. She has generally increased stress in her life. Has prior history of drug abuse. Review of Systems 2 Constitutional: Constitutional: Reports no additional constitutional complaints Eyes: Eyes: Reports no additional eye complaints Cardiovascular: Cardiovascular: Reports chest pain at rest, Reports diaphoresis, Denies lightheadedness, Denies Loss of Consciousness, Denies palpitations and Reports dyspnea Respiratory: Respiratory: Reports no additional respiratory complaints and Reports dyspnea Gastrointestinal: Gastrointestinal: Reports no additional gastrointestinal complaints Genitourinary: Genitourinary: Reports no additional female genitourinary complaints Neurologic: Reports system reviewed and no additional complaints, except as documented Psychiatric: Psychiatric: Reports no additional psychiatric complaints Endocrine: Endocrine: Reports no additional endocrine complaints and Denies palpitations Hematologic/Lymphatic: Hematologic/Lymphatic: Reports no additional hematologic/lymphatic complaints [facility] Past Medical History Medical History Osteoarthritis of shoulders, bilateral Pain in joint involving multiple sites jail use of drug Cholecystitis Osteoarthritis of left hip Depression with anxiety Migraines History of non-ST elevation myocardial infarction (NSTEMI) (~07/2021) Personal history of nicotine dependence Primary osteoarthritis of knees, bilateral GERD (gastroesophageal reflux disease) Hypercholesterolemia Obesity HTN (hypertension) Osteoarthritis Family History Family History Mother HTN (hypertension) Diabetes Father Alzheimer disease Brother Throat cancer Surgical History Surgical History History of cardiac cath (~2021) History of colonoscopy History of carpal tunnel surgery of right wrist (~2014) History of total abdominal hysterectomy (~2004) History of tubal ligation Social History Social History Household Members: None Housing: House Do you presently have visiting nurse or other home services: No Alcohol intake: current Alcohol intake frequency: holidays/special occasions only Alcohol type: beer Patient Tobacco Use Status: Never used Tobacco Tobacco use type: Cigarette Cigarettes Per Day: 8 Years Smoked: (onset 13, 1/2ppd x 42yrs, 20+PYH) Second Hand Smoke Exposure: No Substance Use Type: Marijuana Advance Directives Date on File: 12/02/22 service: No Current occupational status: disabled Meds Allergies Allergy/AdvReac Type Severity Reaction Status Date / Time ibuprofen [From Motrin] Allergy Unknown UPSET Verified 04/16/23 09:46 STOMACH Active Medications: Current Medications Acetaminophen (Acetaminophen 325 Mg Tablet) 650 mg PO Q6H PRN PRN Reason: Pain, Mild (Pain Scale 1-3) Amlodipine Besylate (Amlodipine Besylate 5 Mg Tablet) 5 mg PO DAILY [facility]; Protocol Aspirin (Aspirin Enteric Coated 81 Mg Tablet.) 81 mg PO DAILY [facility] Atorvastatin Calcium (Atorvastatin Calcium 80 Mg Tablet) 80 mg PO BEDTIME [facility] Enoxaparin Sodium (Enoxaparin Sodium 100 Mg/Ml Syringe) 100 mg 1 mg/kg (100 mg) SUBCUT Q12H [facility] Lisinopril (Lisinopril 20 Mg Tablet) 20 mg PO DAILY [facility]; Protocol Metoprolol Tartrate (Metoprolol Tartrate 25 Mg Tablet) 25 mg PO BID [facility]; Protocol Omeprazole (Omeprazole 40 Mg Capsule.) 40 mg PO DAILY [facility] Sodium Chloride (0.9 % Sodium Chloride Flush 3 Ml Syringe) 3 ml IVFLUSH QSHIFT [facility] Last Admin: 06/17/23 01:59 Dose: 3 ml Topiramate (Topiramate 100 Mg Tablet) 100 mg PO BEDTIME [facility] Trazodone HCl (Trazodone Hcl 50 Mg Tablet) 50 mg PO BEDTIME PRN PRN Reason: anxiety Home Medications Medication Instructions Recorded Confirmed Last Taken Type lisinopril 20 mg tablet 20 mg PO DAILY 08/29/21 06/17/23 11/26/22 History mirabegron 50 mg tablet,extended 50 mg PO DAILY 08/29/21 06/17/23 11/26/22 History release 24 hr (Myrbetriq) sennosides 8.6 mg tablet (senna) 17.2 mg PO BEDTIME 08/29/21 06/17/23 11/26/22 History cholecalciferol (vitamin D3) 50 50 mcg PO DAILY 03/26/22 06/17/23 11/26/22 History mcg (2,000 unit) tablet fluticasone propionate 50 2 spray intranasal DAILY PRN 03/26/22 06/17/23 11/26/22 History mcg/actuation nasal Allergy Symptoms spray,suspension loratadine 10 mg tablet (Allergy 10 mg PO DAILY PRN Allergy Symptoms 03/26/22 06/17/23 11/26/22 History Relief (loratadine)) bupropion HCl 150 mg 24 hr tablet, 150 mg PO DAILY 11/27/22 06/17/23 11/26/22 History extended release tramadol 50 mg tablet 50 mg PO Q6H PRN Pain 11/27/22 06/17/23 11/26/22 History sumatriptan succinate 50 mg tablet 50 mg PO DAILY PRN Migraine 04/16/23 06/17/23 Unknown History Headache amlodipine 10 mg tablet 10 mg PO DAILY 06/17/23 06/17/23 Unknown History metoprolol tartrate 25 mg tablet 25 mg PO BID 06/17/23 06/17/23 Unknown History omeprazole 40 mg capsule,delayed 40 mg PO DAILY@0630 06/17/23 06/17/23 Unknown History release paroxetine HCl 10 mg tablet 10 mg PO BEDTIME 06/17/23 06/17/23 Unknown History trazodone 50 mg tablet 50 mg PO BEDTIME PRN anxiety 06/17/23 06/17/23 Unknown History Physical Exam 2 Vital Signs: Vital Signs: Last Vital Signs Temp 98.2 F 06/17/23 07:16 Pulse 62 06/17/23 07:16 Resp 10 L 06/17/23 07:16 BP 124/60 06/17/23 07:16 Pulse Ox 97 06/17/23 07:16 O2 Del Method Room Air 06/17/23 07:16 BMI result Body Mass Index 32.8 Const: General: cooperative, comfortable, no acute distress, alert, awake and Physically active Nutritional Appearance: overweight O rientation/consciousness: patient oriented x3 Limitations: no limitations HEENT: Head: Yes normocephalic and Yes atraumatic Neck: Neck: Yes trachea midline, Yes supple and Yes no JVD Resp: Effort & Inspection: normal respiratory effort Auscultation: clear to auscultation bilaterally Cardio: Jugular venous distension: no JVD Palpation: normal PMI Rate: r egular rate Rhythm: regular rhythm Heart sounds: S1 normal heart sound present, S2 normal heart sound present, no click, no gallops, no murmurs and no rubs GI: Auscultation: normal bowel sounds Skin: General skin exam: no rashes or lesions noted Neuro: General: patient oriented x3 and no focal motor deficits Extrem: General: Yes no clubbing, cyanosis or edema Psych: Appearance: grossly normal Objective Labs and Meds 06/17/23 04:57 06/17/23 04:57 Lab results: Laboratory Results - last 24 hr 06/16/23 06/16/23 06/16/23 18:04 20:24 21:42 WBC 12.1 H RBC 4.79 Hgb 13.1 Hct 40.1 MCV 83.7 MCH 27.3 MCHC 32.7 RDW 13.0 Plt Count 224 MPV 11.6 Immature Gran % (Auto) 0.3 Neut % (Auto) 68.5 Lymph % (Auto) 19.4 L Dewitt % (Auto) 7.9 Eos % (Auto) 3.7 Baso % (Auto) 0.2 Lymph # (Auto) 2.4 Dewitt # (Auto) 1.0 Eos # (Auto) 0.5 H Baso # (Auto) 0.0 Abs Immat Gran (auto) 0.04 H Absolute Neuts (auto) 8.3 Absolute Nucleated RBC 0.000 Nucleated RBC % (auto) 0.0 PT INR APTT Sodium 141 Potassium 3.8 Chloride 106 Carbon Dioxide 27 Anion Gap 12 BUN 21 H Creatinine 0.86 Estim Creat Clear Calc 83.3 Estimated GFR > 60 Random Glucose 120 H Estimat Average Glucose Hemoglobin A1c % Calcium 9.4 Total Bilirubin 0.2 Direct Bilirubin 0.2 AST 12 ALT 7 Alkaline Phosphatase 100 Troponin I High Sens < 2.7 9.8 D 34.1 H D Total Protein 6.6 Albumin 3.5 Triglycerides Cholesterol LDL Cholesterol, Calc HDL Cholesterol Lipase 17 06/17/23 06/17/23 00:28 04:57 WBC 11.5 H 11.3 H RBC 4.66 4.74 Hgb 12.6 12.9 Hct 38.8 40.1 MCV 83.3 84.6 MCH 27.0 27.2 MCHC 32.5 32.2 RDW 13.0 13.0 Plt Count 214 217 MPV 11.6 12.2 Immature Gran % (Auto) 0.4 Neut % (Auto) 63.8 Lymph % (Auto) 24.4 Dewitt % (Auto) 7.0 Eos % (Auto) 4.1 H Baso % (Auto) 0.3 Lymph # (Auto) 2.8 Dewitt # (Auto) 0.8 Eos # (Auto) 0.5 H Baso # (Auto) 0.0 Abs Immat Gran (auto) 0.04 H Absolute Neuts (auto) 7.2 Absolute Nucleated RBC 0.000 0.000 Nucleated RBC % (auto) 0.0 0.0 PT 11.3 INR 0.9 APTT 31.9 Sodium 140 Potassium 3.7 Chloride 103 Carbon Dioxide 30 H Anion Gap 11 L BUN 15 Creatinine 0.75 Estim Creat Clear Calc 95.5 Estimated GFR > 60 Random Glucose 77 Estimat Average Glucose 114 Hemoglobin A1c % 5.6 Calcium 9.0 Total Bilirubin 0.3 Direct Bilirubin AST 23 ALT 13 Alkaline Phosphatase 96 Troponin I High Sens 1855.4 H* D Total Protein 6.6 Albumin 3.5 Triglycerides 124 Cholesterol 189 LDL Cholesterol, Calc 133 H HDL Cholesterol 32 L Lipase EKG shows normal sinus rhythm with minor ST segment sagging Assessment and Plan (1) Non-ST elevation NV (NSTEMI): Status: Acute NSTEMI with typical symptoms and rising troponins are highly concerning for obvious high risk acute coronary syndrome. Although she has had similar event in the past with no significant obstructive coronary artery disease. However she still needs to pursue recurrent cardiac catheterization to evaluate for coronary anatomy and for plaque rupture/erosion. Other possibilities include coronary vaso spasm or stress-induced cardiomyopathy. Recommend an echocardiogram. I will also suggest a urine tox screen to evaluate for cocaine use. Continue IV heparin, aspirin, high-intensity statin therapies. Patient was explained the need for cardiac catheterization including risk, benefits with help of plastics worker. Patient agrees. Arrangements are being made to transfer to [facility]. Will follow with her as outpatient. Procedures Date of Service Date of Service: 06/17/23
--- NOTE | 2023-06-17 09:40 | PHA.MEDREC ---
Pharmacy Consult ? Medication Reconciliation Pharmacy has completed the medication reconciliation. List sent from [facility] and cross checked with claim history
[2023-06-17 10:09] VITALS: BP 119/69; PULSE 90; RESP 20; TEMP 36.4; O2SAT 98
[2023-06-17] MEDS: Omeprazole 40 MG CAPSULE.DR PO (10:14)
[2023-06-17] MEDS: Metoprolol Tartrate 25 MG TABLET PO (10:14)
[2023-06-17] MEDS: Aspirin Enteric Coated 81 MG TABLET.DR PO (10:14)
[2023-06-17] MEDS: lisinopriL 20 MG TABLET PO (10:14)
[2023-06-17] MEDS: amLODIPine Besylate 5 MG TABLET PO (10:14)
[2023-06-17 10:52] LABS: COVID-19 Test Negative (Negative); IDNOW Serial# 152EDE1D
[2023-06-17 10:58] LABS: Amphetamine Screen Urine Not Detected (Not Detect); Barbiturates, Urine Not Detected (Not Detect); Benzodiazepines Screen Urine Not Detected (Not Detect); Cannabinoid Screen Urine Not Detected (Not Detect); Cocaine Screen Urine Not Detected (Not Detect); Fentanyl, urine Not Detected (Not Detect); Opiate Screen Urine Not Detected (Not Detect); Phencyclidine Screen Urine Not Detected (Not Detect)
[2023-06-17] MEDS: Nicotine 21 MG PATCH.TD24 TRANSDERMA (11:24)
--- NOTE | 2023-06-17 12:01 | MHC.CM.PN ---
CM met with pt and S.O. at admission, she lives with S. 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 HCP confirmed: Eileen Kim. Pt is being transferred to [facility] today.
--- NOTE | 2023-06-17 12:17 | PM.EVENT ---
Event Note Date of Service: 06/17/23 Event Note: Review the echocardiogram. Noted to have moderate LV systolic dysfunction of unclear etiology. Still does not explain patient's symptoms. There is no evidence of acute coronary syndrome. However given her LV systolic dysfunction will transfer for cardiac catheterization tomorrow to [facility]. Findings were discussed with her daughter over the phone. Time Spent With Patient Time: Total time managing care of this patient today ____ minutes.
[2023-06-17 12:40] LABS: Prothrombin Time 11.7 SEC (11.1-13.3)
[2023-06-17 12:41] VITALS: BMI 31.7
[2023-06-17 12:42] LABS: PTT Heparin Drip 38.2 SEC (53-77.9)
[2023-06-17 12:45] VITALS: BP 113/53; PULSE 60; RESP 18; TEMP 36.6; O2SAT 98
[2023-06-17] MEDS: Heparin Sodium,Porcine/1/2NS 25,000 UNIT/250 ML IV.SOLN 10 UNIT IVCONT ×2 (13:18→13:37)
--- NOTE | 2023-06-17 13:23 | PM.DS ---
DS: Providers Provider Date of Service: 06/17/23 Date of admission: 06/16/23 23:55 Primary care physician: Chanel Bai MD Consults: 06/16/23 23:57 Consult to Cardiology Routine Consulting Provider: [facility] Reason for consultation: NSTEMI Has provider been notified: Yes DS: Diagnosis Discharge Diagnosis (1) Non-ST elevation MO (NSTEMI): Status: Acute DS: Summary Hospital Course Hospital Course: 57 years old woman with past medical history significant for CAD (MO 2021), hyperlipidemia, GERD, essential hypertension and depression was brought to the emergency department complaining of retrosternal chest pain that started today at 4:30 PM while she was watching TV. She described the pain as a pressure with intensity 9/10 and radiating to the left arm. She mentioned that while getting the chest pain she was having cold + hot sensation on her face. Pain was associated with shortness of breath and heartburn. She stated that this chest pain was similar to the one she had when she was diagnosed with an MO. She denied any headache, dizziness, palpitations, nausea, vomiting or sweating. She is ongoing tobacco smoker -smoked since age 13 (6 cigarettes/day). She denied alcohol abuse or illicit drug use. She takes aspirin daily. Pain relieved with 1 dose of nitroglycerin sublingual (given by EMS, she also received treatment aspirin). Chart review: Cardiac catheterization July 2021: No obstructive epicardial CAD, patient has MO with nonobstructive coronary artery, normal LVEDP, there is no significant gradient on pullback across the aortic valve. In the ED, she was found to have stable vital signs. Blood workup was remarkable for slight leukocytosis, 11.5. There are no significant electrolyte imbalances. Renal function is adequate. Troponin is increasing (<2.7 --> 9.8 --> 34.1). LFTs and lipase are normal. CXR is pending. ECG showed normal sinus rhythm, first-degree AV block and no acute ischemic changes. ED tx: Lovenox 100 mg subcut. Hospital course: Patient was admitted to the hospital because of chest pain found to have NSTEMI: Troponin elevated,cxr pending ,utox negative : [phone] range-patient is on aspirin, statin, beta-dajuan, IV heparin: Patient seen by Cardiology recommended-based transfer for further cardiac workup and possible cardiac catheterization intervention. Above management discussed with the patient in detail length she understand and plan, time spent 40 minute. Time Attestation Total time managing care of this patient today: 40 mintues. Discharge Coordination Time (in mins): 40 min Quality: Safe Use of Opioids Does Pt have an Active Cancer Diagnosis on the Problem List?: No Quality: Stroke Does the patient have a stroke diagnosis?: No Physical Exam Vital Signs: Vital Signs: Last Vital Signs Temp 97.8 F 06/17/23 12:45 Pulse 60 06/17/23 12:45 Resp 18 06/17/23 12:45 BP 113/53 L 06/17/23 12:45 Pulse Ox 98 06/17/23 12:45 O2 Del Method Room Air 06/17/23 12:45 BMI result Body Mass Index 31.7 Appearance: Alert.? Oriented X3. cvs: rrr, [id number] , no murmur res: clear to auscultation ,no rhonchii or wheezing abd: no rebound or guarding ,nt, bs present. ext pulses present , no cyanosis. neuro: axo3 , nonfocal. DS: Data Data Completed and Pending Labs on day of discharge: Laboratory Results - last 24 hr 06/16/23 06/16/23 06/16/23 18:04 20:24 21:42 WBC 12.1 H RBC 4.79 Hgb 13.1 Hct 40.1 MCV 83.7 MCH 27.3 MCHC 32.7 RDW 13.0 Plt Count 224 MPV 11.6 Immature Gran % (Auto) 0.3 Neut % (Auto) 68.5 Lymph % (Auto) 19.4 L Gillespie % (Auto) 7.9 Eos % (Auto) 3.7 Baso % (Auto) 0.2 Lymph # (Auto) 2.4 Gillespie # (Auto) 1.0 Eos # (Auto) 0.5 H Baso # (Auto) 0.0 Abs Immat Gran (auto) 0.04 H Absolute Neuts (auto) 8.3 Absolute Nucleated RBC 0.000 Nucleated RBC % (auto) 0.0 PT INR APTT aPTT Heparin Protocol Sodium 141 Potassium 3.8 Chloride 106 Carbon Dioxide 27 Anion Gap 12 BUN 21 H Creatinine 0.86 Estim Creat Clear Calc 83.3 Estimated GFR > 60 Random Glucose 120 H Estimat Average Glucose Hemoglobin A1c % Calcium 9.4 Total Bilirubin 0.2 Direct Bilirubin 0.2 AST 12 ALT 7 Alkaline Phosphatase 100 Troponin I High Sens < 2.7 9.8 D 34.1 H D Total Protein 6.6 Albumin 3.5 Triglycerides Cholesterol LDL Cholesterol, Calc HDL Cholesterol Lipase 17 Urine Opiates Screen Urine Fentanyl Screen Ur Barbiturates Screen Ur Phencyclidine Scrn Ur Amphetamines Screen U Benzodiazepines Scrn Urine Cocaine Screen U Marijuana (THC) Screen COVID-19 (DIANE) COVID-19 Clin Com 06/17/23 06/17/23 06/17/23 00:28 04:57 09:38 WBC 11.5 H 11.3 H RBC 4.66 4.74 Hgb 12.6 12.9 Hct 38.8 40.1 MCV 83.3 84.6 MCH 27.0 27.2 MCHC 32.5 32.2 RDW 13.0 13.0 Plt Count 214 217 MPV 11.6 12.2 Immature Gran % (Auto) 0.4 Neut % (Auto) 63.8 Lymph % (Auto) 24.4 Gillespie % (Auto) 7.0 Eos % (Auto) 4.1 H Baso % (Auto) 0.3 Lymph # (Auto) 2.8 Gillespie # (Auto) 0.8 Eos # (Auto) 0.5 H Baso # (Auto) 0.0 Abs Immat Gran (auto) 0.04 H Absolute Neuts (auto) 7.2 Absolute Nucleated RBC 0.000 0.000 Nucleated RBC % (auto) 0.0 0.0 PT 11.3 INR 0.9 APTT 31.9 aPTT Heparin Protocol Sodium 140 Potassium 3.7 Chloride 103 Carbon Dioxide 30 H Anion Gap 11 L BUN 15 Creatinine 0.75 Estim Creat Clear Calc 95.5 Estimated GFR > 60 Random Glucose 77 Estimat Average Glucose 114 Hemoglobin A1c % 5.6 Calcium 9.0 Total Bilirubin 0.3 Direct Bilirubin AST 23 ALT 13 Alkaline Phosphatase 96 Troponin I High Sens 1855.4 H* D 2095.3 H* Total Protein 6.6 Albumin 3.5 Triglycerides 124 Cholesterol 189 LDL Cholesterol, Calc 133 H HDL Cholesterol 32 L Lipase Urine Opiates Screen Urine Fentanyl Screen Ur Barbiturates Screen Ur Phencyclidine Scrn Ur Amphetamines Screen U Benzodiazepines Scrn Urine Cocaine Screen U Marijuana (THC) Screen COVID-19 (DIANE) COVID-19 Clin Com 06/17/23 06/17/23 06/17/23 10:15 10:32 12:18 WBC RBC Hgb Hct MCV MCH MCHC RDW Plt Count MPV Immature Gran % (Auto) Neut % (Auto) Lymph % (Auto) Gillespie % (Auto) Eos % (Auto) Baso % (Auto) Lymph # (Auto) Gillespie # (Auto) Eos # (Auto) Baso # (Auto) Abs Immat Gran (auto) Absolute Neuts (auto) Absolute Nucleated RBC Nucleated RBC % (auto) PT 11.7 INR 1.0 APTT aPTT Heparin Protocol 38.2 L Sodium Potassium Chloride Carbon Dioxide Anion Gap BUN Creatinine Estim Creat Clear Calc Estimated GFR Random Glucose Estimat Average Glucose Hemoglobin A1c % Calcium Total Bilirubin Direct Bilirubin AST ALT Alkaline Phosphatase Troponin I High Sens Total Protein Albumin Triglycerides Cholesterol LDL Cholesterol, Calc HDL Cholesterol Lipase Urine Opiates Screen Not Detected Urine Fentanyl Screen Not Detected Ur Barbiturates Screen Not Detected Ur Phencyclidine Scrn Not Detected Ur Amphetamines Screen Not Detected U Benzodiazepines Scrn Not Detected Urine Cocaine Screen Not Detected U Marijuana (THC) Screen Not Detected COVID-19 (DIANE) Negative COVID-19 Clin Com See Note Discharge Plan Discharge Anticipated Discharge Date/Time: 06/17/23 11:53 Patient Disposition: Xfer Acute Care Hospital Discharge Diagnosis: Nstemi Referrals: Chanel Bai MD [Primary Care Provider] - 1 Week Discharge Medications: New nicotine 21 mg/24 hr Patch 24 Hour 21 mg transdermal DAILY Qty: 1 0RF enoxaparin 100 mg/mL Syringe 100 mg subcut Q12H Qty: 1 0RF Continued atorvastatin 80 mg Tablet 80 mg PO BEDTIME Qty: 30 0RF aspirin 81 mg Tablet,Delayed Release (Dr/Ec) 81 mg PO DAILY Qty: 14 0RF trazodone 50 mg tablet 50 mg PO BEDTIME PRN (Reason: anxiety) omeprazole 40 mg capsule,delayed release(DR/EC) 40 mg PO DAILY@0630 metoprolol tartrate 25 mg tablet 25 mg PO BID amlodipine 10 mg tablet 10 mg PO DAILY paroxetine HCl 10 mg tablet 10 mg PO BEDTIME bupropion HCl 150 mg tablet extended release 24 hr 150 mg PO DAILY tramadol 50 mg tablet 50 mg PO Q6H PRN (Reason: Pain) sennosides [senna] 8.6 mg tablet 17.2 mg PO BEDTIME lisinopril 20 mg tablet 20 mg PO DAILY Myrbetriq 50 mg tablet extended release 24 hr 50 mg PO DAILY cholecalciferol (vitamin D3) 50 mcg (2,000 unit) tablet 50 mcg PO DAILY loratadine [Allergy Relief (loratadine)] 10 mg tablet 10 mg PO DAILY PRN (Reason: Allergy Symptoms) fluticasone propionate 50 mcg/actuation spray,suspension 2 spray intranasal DAILY PRN (Reason: Allergy Symptoms) sumatriptan succinate 50 mg tablet 50 mg PO DAILY PRN (Reason: Migraine Headache) Discharge Orders: Discharge Order (Routine); Ordered 06/17/23 Ordered By: Kaushik Gold Diet: Advance to usual diet Activity on Discharge: As tolerated Stand Alone Forms: Patient Portal Discharge page Care Plan Goals: Patient was admitted to the hospital because of chest pain found to have NSTEMI: Troponin elevated: [phone] range-patient is on aspirin, statin, beta-dajuan, IV heparin: Patient seen by Cardiology recommended-based transfer for further cardiac workup and possible cardiac catheterization intervention. Above management discussed with the patient in detail length she understand and plan. Health Concerns: As above. Plan of Treatment: As above. Assessment: As above.
== END 2023-06-17 14:04 | disposition short-term general hospital (02) | DRG 190 ==
LOC: HO.ED 22:24 → HO.EDOVER 06-17 00:03 → HO.IMC 06-17 07:39
PROVIDERS: Admitting Provider Internal Medicine; Emergency Provider Emergency Medicine Emergency Medical Services; PCP Family Medicine; Visit Provider Internal Medicine
DX: I21.4 Non-ST elevation (NSTEMI) myocardial infarction (principal); E78.5 Hyperlipidemia, unspecified; I25.10 Atherosclerotic heart disease of native coronary artery without angina pectoris; F32.A Depression, unspecified; K21.9 Gastro-esophageal reflux disease without esophagitis; F17.210 Nicotine dependence, cigarettes, uncomplicated; Z71.6 Tobacco abuse counseling; Z20.822 Contact with and (suspected) exposure to COVID-19; Z79.82 Long term (current) use of aspirin; Z79.899 Other long term (current) drug therapy
CPT/HCPCS: 36415; 71045; 80048; 80053; 80061; 80076; 80307; 83036; 83690; 84484; 85025; 85027; 85610; 85730; 87635; 93005; 93306; 93356; 99285; J1644; J1650; Q9957

== ENCOUNTER 2023-06-16 23:55 | Outpatient (BNV) | payer MEDICAID, SELFPAY | END 2023-06-17 07:04 | PROVIDERS: Admitting Provider Internal Medicine; Emergency Provider Emergency Medicine Emergency Medical Services; PCP Family Medicine; Visit Provider Internal Medicine Cardiovascular Disease | DX: I21.4 Non-ST elevation (NSTEMI) myocardial infarction (principal) | CPT/HCPCS: 93306; 93356 ==

== ENCOUNTER → 2023-06-16 23:55 | Outpatient (BNV) | payer MEDICAID, SELFPAY | PROVIDERS: Admitting Provider Internal Medicine; Emergency Provider Emergency Medicine Emergency Medical Services; PCP Family Medicine; Visit Provider Internal Medicine Cardiovascular Disease | DX: I21.4 Non-ST elevation (NSTEMI) myocardial infarction (principal); I44.0 Atrioventricular block, first degree | CPT/HCPCS: 93010; 99222 ==

== ENCOUNTER → 2023-06-16 23:55 | Outpatient (BNV) | payer MEDICAID, SELFPAY | PROVIDERS: Admitting Provider Internal Medicine; Emergency Provider Emergency Medicine Emergency Medical Services; PCP Family Medicine; Visit Provider Internal Medicine | DX: I21.4 Non-ST elevation (NSTEMI) myocardial infarction (principal); E78.00 Pure hypercholesterolemia, unspecified; I10 Essential (primary) hypertension; R73.03 Prediabetes | CPT/HCPCS: 99235; 99499 ==

== ENCOUNTER → 2023-06-17 23:59 | Outpatient (BNV) | payer MEDICAID, SELFPAY | PROVIDERS: PCP Family Medicine; Visit Provider Internal Medicine Cardiovascular Disease | DX: I21.4 Non-ST elevation (NSTEMI) myocardial infarction (principal) | CPT/HCPCS: 93458; 99152 ==

== ENCOUNTER 2023-09-15 10:08 | Outpatient (REF) | payer MEDICAID, SELFPAY ==
--- NOTE | ~2023-09-15 | XR_ITS ---
EXAMINATION: XR THORACOLUMBAR SPINE CLINICAL INFORMATION: Thoracic back pain. COMPARISON: Chest of June 17, 2023. TECHNIQUE: 3 views of the thoracic spine. FINDINGS: Dextroscoliosis of the thoracic spine. Moderate multilevel degenerative changes in the thoracic spine. Limited visualization of the lower thoracic spine due to overlying bone and soft tissue structures. XR/XR thoracic spine 2V IMPRESSION: Dextroscoliosis of the thoracic spine. Moderate multilevel degenerative changes in the thoracic spine.
== END 2023-09-15 10:09 | disposition home or self-care (01) ==
LOC: HO.XRAY 10:08
PROVIDERS: PCP Family Medicine; Visit Provider Family Medicine
DX: M54.6 Pain in thoracic spine (principal); G89.29 Other chronic pain
CPT/HCPCS: 72070

== ENCOUNTER 2023-10-03 12:53 | Outpatient (AMB) | payer MEDICAID, SELFPAY ==
[2023-10-03 13:09] VITALS: BP 108/60; PULSE 65; BMI 31.5
--- NOTE | 2023-10-03 13:09 | MHC.OFFVIS ---
Vital Signs 10/03/23 13:09 Height 5 ft 7 in Weight 201 lb 0.985 oz BMI 31.5 BP 108/60 Blood Pressure Location Rt brachial Position Sitting Pulse 65 Pulse Source Pulse Oximeter Intake Visit Reasons: f/u River Tester Required: Yes River Tester Language: Rougher Machine Operator Name: josiane shultz [id number] Allergies ibuprofen [From Motrin] Allergy (Unknown, Verified 10/03/23 13:11) UPSET STOMACH Medication List - Last Reconciled 10/03/23 by CUATE Lino amlodipine 10 mg PO DAILY aspirin 81 mg PO DAILY atorvastatin 80 mg PO BEDTIME bupropion HCl XL 150 mg PO DAILY cholecalciferol (vitamin D3) 50 mcg PO DAILY fluticasone propionate 50 mcg/actuation 2 sprays intranasal DAILY PRN heparin(porcine) in 0.45% NaCl 25,000 unit/250 mL 25,000 units (250 mL) continuous IV infusion .Q0M lisinopril 20 mg PO DAILY loratadine (Allergy Relief (loratadine)) 10 mg PO DAILY PRN metoprolol tartrate 25 mg PO BID mirabegron ER (Myrbetriq) 50 mg PO DAILY nicotine 21 mg transdermal DAILY omeprazole 40 mg PO DAILY@0630 paroxetine HCl 10 mg PO BEDTIME sennosides (senna) 17.2 mg PO BEDTIME sumatriptan succinate 50 mg PO DAILY PRN tramadol 50 mg PO Q6H PRN trazodone 50 mg PO BEDTIME PRN HPI HPI f/u: Details: Suze is a 57-year-old female with past medical history of smoking, hypertension, hyperlipidemia, obesity who had NSTEMI 07/2021 with cardiac catheterization showing no significant coronary artery disease who was recently admitted to [facility] 06/16/2023 with chest discomfort and ruled in for NSTEMI. She was transferred to [facility] for cardiac catheterization showing no significant CAD. She was thought to have coronary vasospasm and was put on amlodipine. She now presents for follow-up. Today she reports that she has been feeling well since her MO in . She has not had any recurrent chest discomfort. No shortness of breath, palpitations, presyncope, syncope, PND, orthopnea or edema. She is taking her meds as directed. She describes doing only light physical activity. She has been attending cardiac rehab. 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 Cholecystitis Osteoarthritis of left hip Depression with anxiety Migraines History of non-ST elevation myocardial infarction (NSTEMI) (~07/2021) Personal history of nicotine dependence Primary osteoarthritis of knees, bilateral GERD (gastroesophageal reflux disease) Hypercholesterolemia Obesity HTN (hypertension) Osteoarthritis Surgical History History of cardiac cath (~2021) History of colonoscopy History of carpal tunnel surgery of right wrist (~2014) History of total abdominal hysterectomy (~2004) History of tubal ligation Family History Mother HTN (hypertension) Diabetes Father Alzheimer disease Brother Throat cancer Social History Household Members: Spouse Housing: House Do you presently have visiting nurse or other home services: Yes (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) Alcohol intake: current Alcohol intake frequency: holidays/special occasions only Alcohol type: beer Patient Tobacco Use Status: Never used Tobacco Tobacco use type: Cigarette Cigarettes Per Day: 8 Years Smoked: (onset 13, 1/2ppd x 42yrs, 20+PYH) Second Hand Smoke Exposure: No Substance Use Type: Marijuana Advance Directives Date on File: 12/02/22 service: No Current occupational status: disabled Review of Systems Const All systems reviewed & are unremarkable except as noted in HPI and below ENT Denies no additional complaints Card Denies chest pain, Denies chest pain at rest, Denies chest pain with activity, Denies syncope, Denies rapid heart rate, Denies dyspnea, Denies dyspnea on exertion and Denies orthopnea Resp Denies dyspnea and Denies dyspnea on exertion Musc Denies no additional complaints Neuro Denies no additional complaints and Denies syncope Physical Exam Vital Signs: Last Vital Signs Pulse 65 10/03/23 13:09 BP 108/60 10/03/23 13:09 BMI result Body Mass Index 31.5 Const General: cooperative, healthy appearing, comfortable and no acute distress Orientation/consciousness: patient oriented x3 Neck Neck: Yes normal visual inspection Resp Effort & Inspection: normal respiratory effort Auscultation: clear to auscultation bilaterally, no crackles, no rales, no rhonchi and no wheezes Cardio Jugular venous distension: no JVD Rate: regular rate Rhythm: regular rhythm Heart sounds: S1 normal heart sound present, S2 normal heart sound present, no murmurs and no rubs Neuro General: patient oriented x3 Extrem General: Yes normal to inspection Psych Appearance: grossly normal Mental Status: mental status grossly normal Speech and movement: Normal speech and movement present Assessment & Plan Assessment & Plan (1) NSTEMI (non-ST elevated myocardial infarction): Onset Date: ~07/2021 Code(s): I21.4 - Non-ST elevation (NSTEMI) myocardial infarction Category: Medical Plan: NSTEMI 07/2021. Echocardiogram showed EF 65-70%, moderate LVH, mild basilar inferior hypokinesis. Cardiac catheterization 08/12/2021 showed no obstructive coronary artery disease only mild luminal irregularities in the LAD, left circumflex and RCA. She has possible microvascular disease, based on prior note. She was managed medically. She had been doing very well until presenting to [facility] [phone] with chest discomfort in her mid chest that radiated to her left arm. She ruled in for NSTEMI with troponins as high as 2094. Her EKG did not show ischemia. An echocardiogram showed EF 60-65%, mild LVH, normal valves. She was transferred to [facility] where she underwent cardiac catheterization showing no significant CAD. She was thought to have coronary vasospasm. She was put on amlodipine. Today she reports she has not had any recurrent chest discomfort. She is attending cardiac rehab. She has some mild lightheadedness when going from sitting to standing. She is taking all meds as directed. Her blood pressure is noted to be on the low side, recheck done by me 96/58 sitting. Will reduce her lisinopril down to 10 mg daily. Continue amlodipine at 10 mg daily, metoprolol. Continue aspirin indefinitely. Continue atorvastatin 80 mg daily. Last labs 06/17/2023 showed LDL 133. Informed of the need to recheck fasting lipids and CMP. All the above reviewed with her and she states understanding. Signs and symptoms of angina reviewed. Instructed on smoking cessation. Cardiology follow-up 3 months, sooner if needed. (2) Primary hypertension: Code(s): I10 - Essential (primary) hypertension Category: Medical Plan: Running on low side. Will reduce dose of lisinopril. Continue same amlodipine and metoprolol. (3) Hypercholesterolemia: Code(s): E78.00 - Pure hypercholesterolemia, unspecified Category: Medical Plan: Lookout LDL goal less than 70. Continue high-dose statin, as tolerated. Recent LDL was elevated at 133. She reports compliance with her atorvastatin. Will have her recheck lipid profile in the next few weeks. (4) Hospital discharge follow-up: Code(s): Z09 - Encounter for follow-up examination after completed treatment for conditions other than malignant neoplasm Category: Medical (5) S/P cardiac cath: Comment: 06/17/2023, left main and LAD normal, left circumflex and RCA minimal irregularities Code(s): Z98.890 - Other specified postprocedural states Category: Surgical Plan: As above (6) History of cardiac cath: Onset Date: ~2021 Comment: (No obstructed coronary arteries - [facility] 08/12/2021) Code(s): Z98.890 - Other specified postprocedural states Category: Surgical Plan: As above Plan Time spent on chart review, documentation, interview and assessment Orders: Orders Comprehensive Met. Panel Today I21.4 - Non-ST elevation (NSTEMI) myocardial infarction Lipid Panel Today I21.4 - Non-ST elevation (NSTEMI) myocardial infarction Medications: New lisinopril 10 mg PO DAILY 30 tabs 5RF Coding Level of Care Code Est Pt Level 4 (62570) Diagnoses NSTEMI (non-ST elevated myocardial infarction) I21.4 Primary hypertension I10 Hypercholesterolemia E78.00 Hospital discharge follow-up Z09 S/P cardiac cath Z98.890 History of cardiac cath Z98.890 Time Spent (min) 30
== END 2023-10-03 13:29 | disposition home or self-care (01) ==
PROVIDERS: PCP Family Medicine; Visit Provider Nurse Practitioner Family
DX: I21.4 Non-ST elevation (NSTEMI) myocardial infarction (principal); I10 Essential (primary) hypertension; E78.00 Pure hypercholesterolemia, unspecified; Z09 Encounter for follow-up examination after completed treatment for conditions other than malignant neoplasm; Z98.890 Other specified postprocedural states
CPT/HCPCS: 99214

== ENCOUNTER → 2023-10-03 12:53 | Outpatient (BNVA) | payer MEDICAID, SELFPAY | PROVIDERS: PCP Family Medicine; Visit Provider Nurse Practitioner Family | DX: I10 Essential (primary) hypertension (principal); I21.4 Non-ST elevation (NSTEMI) myocardial infarction; F17.210 Nicotine dependence, cigarettes, uncomplicated; E78.5 Hyperlipidemia, unspecified; E66.9 Obesity, unspecified; E78.00 Pure hypercholesterolemia, unspecified; Z98.890 Other specified postprocedural states | CPT/HCPCS: 99212 ==

== ENCOUNTER 2023-10-18 07:28 | Outpatient (REF) | payer MEDICAID, SELFPAY ==
[2023-10-18 08:36] LABS: Alanine Aminotransferase 13 U/L (0-31); Albumin Level 3.9 g/dL (3.5-5.0); Alkaline Phosphatase 114 U/L (39-117); Anion Gap 9 (12-20); Aspartate Amino Transferase 15 U/L (5-31); Bilirubin Total 0.3 mg/dL (0.0-1.0); Blood Urea Nitrogen 15 mg/dL (9-16); Calcium 9.6 mg/dL (8.4-10.2); Carbon Dioxide 34 mmol/L (22-29); Chloride 104 mmol/L (96-108); Cholesterol 198 mg/dL (<200); Estimated Glomerular Filt Rate > 60; Glucose Random 121 mg/dL (60-115); HDL Cholesterol 31 mg/dL (>40); LDL Cholesterol Calculated 127 mg/dL (<100); Potassium 3.6 mmol/L (3.3-5.1); Sodium 143 mmol/L (135-145); Total Protein 7.2 g/dL (6.5-8.0); Triglycerides 204 mg/dL (<150)
== END 2023-10-18 07:29 | disposition home or self-care (01) ==
LOC: HO.LAB 07:28
PROVIDERS: PCP Family Medicine; Visit Provider Nurse Practitioner Family
DX: I21.4 Non-ST elevation (NSTEMI) myocardial infarction (principal)
CPT/HCPCS: 36415; 80053; 80061

== ENCOUNTER 2023-10-27 09:43 | Emergency (ER) | payer MEDICAID, SELFPAY ==
[2023-10-27 09:59] VITALS: BP 104/67; PULSE 89; RESP 18; TEMP 37.2; O2SAT 98; BMI 30.8
--- NOTE | 2023-10-27 10:24 | ED.URI ---
HPI - URI/Sore Throat General Chief Complaint: Upper Respiratory Symptoms Stated Complaint: fever cough sore throat Time Seen by Provider: 10/27/23 10:13 Source: patient Mode of arrival: ambulatory Limitations: no limitations History of Present Illness ED Provider: Ravi Low PA-C HPI Narrative: 57-year-old female with a history CAD status post cardiac catheterization, prediabetes, HTN, HLD, Migraines, active smoker presents to the ED today with headache, sore throat, fatigue, bodyaches and fever that started yesterday and has since gotten worse this morning. Patient states that she took her temperature last night, and it was 100.6 degrees. She has not taken anything for the fever, or for the muscle pain. She has a history of migraines, and takes sumatriptan as abortive therapy and Topamax at night. She is having chest pain that is not radiating anywhere. She is coughing and it is non-productive and endorses a increase in shortness of breath (she has had shortness of breath for a while, is referred to a curatorial assistant from PCP). States symptoms started yesterday, got worse this morning. She denies nausea, vomiting, diarrhea, difficulty breathing. She has not taken her morning medications, states she can not take them without food. MD elicited complaint: fever, cough and sore throat Onset (ago): day(s) (1) Consistency: constant Able to tolerate fluids by mouth: Yes Exacerbating factors: swallowing Associated symptoms: fever, chills, myalgias, headache, sore throat, cough and shortness of breath Treatments prior to arrival: none Related Data Home Medications ?Medication ?Instructions ?Recorded ?Confirmed mirabegron 50 mg tablet,extended 50 mg PO DAILY 08/29/21 10/03/23 release 24 hr (Myrbetriq) sennosides 8.6 mg tablet (senna) 17.2 mg PO BEDTIME 08/29/21 10/03/23 cholecalciferol (vitamin D3) 50 50 mcg PO DAILY 03/26/22 10/03/23 mcg (2,000 unit) tablet fluticasone propionate 50 2 spray intranasal DAILY PRN 03/26/22 10/03/23 mcg/actuation nasal Allergy Symptoms spray,suspension loratadine 10 mg tablet (Allergy 10 mg PO DAILY PRN Allergy Symptoms 03/26/22 10/03/23 Relief (loratadine)) bupropion HCl 150 mg 24 hr tablet, 150 mg PO DAILY 11/27/22 10/03/23 extended release tramadol 50 mg tablet 50 mg PO Q6H PRN Pain 11/27/22 10/03/23 sumatriptan succinate 50 mg tablet 50 mg PO DAILY PRN Migraine 04/16/23 10/03/23 Headache amlodipine 10 mg tablet 10 mg PO DAILY 06/17/23 10/03/23 metoprolol tartrate 25 mg tablet 25 mg PO BID 06/17/23 10/03/23 omeprazole 40 mg capsule,delayed 40 mg PO DAILY@0630 06/17/23 10/03/23 release paroxetine HCl 10 mg tablet 10 mg PO BEDTIME 06/17/23 10/03/23 trazodone 50 mg tablet 50 mg PO BEDTIME PRN anxiety 06/17/23 10/03/23 Previous Rx's ?Medication ?Instructions ?Recorded aspirin 81 mg tablet,delayed 81 mg PO DAILY #14 tabs 08/11/21 release atorvastatin 80 mg tablet 80 mg PO BEDTIME #30 tabs 08/11/21 heparin (porcine) 25,000 unit/250 25,000 unit (250 mL) continuous IV 06/17/23 mL in 0.45 % sodium chloride IV infusion .Q0M #1 mL soln nicotine 21 mg/24 hr daily 21 mg transdermal DAILY #1 ea 06/17/23 transdermal patch lisinopril 10 mg tablet 10 mg PO DAILY #30 tabs 10/03/23 ezetimibe 10 mg tablet (Zetia) 10 mg PO DAILY #90 tabs 10/21/23 Allergies Allergy/AdvReac Type Severity Reaction Status Date / Time ibuprofen [From Motrin] AdvReac Unknown UPSET Verified 10/27/23 10:02 STOMACH Review of Systems Review of Systems: Yes all other systems are reviewed and are negative PMFSH Past Medical History Medical History Osteoarthritis of shoulders, bilateral Pain in joint involving multiple sites residential use of drug Cholecystitis Osteoarthritis of left hip Depression with anxiety Migraines History of non-ST elevation myocardial infarction (NSTEMI) (~07/2021) Personal history of nicotine dependence Primary osteoarthritis of knees, bilateral GERD (gastroesophageal reflux disease) Hypercholesterolemia Obesity HTN (hypertension) Osteoarthritis Surgical History History of cardiac cath (~2021) History of colonoscopy History of carpal tunnel surgery of right wrist (~2014) History of total abdominal hysterectomy (~2004) History of tubal ligation Family History Family History Mother HTN (hypertension) Diabetes Father Alzheimer disease Brother Throat cancer Social History Social History Household Members: Spouse Housing: House Do you presently have visiting nurse or other home services: 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) Alcohol intake: current Alcohol intake frequency: holidays/special occasions only Alcohol type: beer Patient Tobacco Use Status: Never used Tobacco Tobacco use type: Cigarette Cigarettes Per Day: 8 Years Smoked: (onset 13, 1/2ppd x 42yrs, 20+PYH) Second Hand Smoke Exposure: No Substance Use Type: Marijuana Advance Directives: Yes Advance Directives on File: Yes Advance Directives Date on File: 12/02/22 service: No Current occupational status: disabled Physical Exam Vital Signs: Vital Signs: Last Vital Signs Temp 98.9 F 10/27/23 11:17 Pulse 89 10/27/23 11:17 Resp 18 10/27/23 11:17 BP 104/67 10/27/23 11:17 Pulse Ox 98 10/27/23 11:17 O2 Del Method Room Air 10/27/23 11:17 BMI result Body Mass Index 30.8 Appearance: Alert. Oriented X3. Mild distress HEENT: normal inspection. Mild erythema to posterior throat, no exudate or tonsilar enlargement noted. CVS: Normal heart rate and rhythm. Pulses normal. Chest pain is present on palpation and while coughing, pain remains in center of chest. Respiratory: No respiratory distress. Cough present with deep breaths, no mucous production noted. Skin: Skin warm and dry. Normal skin color. Normal skin turgor. No rashes. Extremities: Normal to inspection and palpation, no trauma or injury noted. Neuro: Oriented X 3. No motor deficit. No sensory deficit. Medications Administered Discontinued Medications Generic Name Dose Route Start Last Admin Trade Name Freq PRN Reason Stop Dose Admin Acetaminophen/Butalbital/Caffeine 1 tab 10/27/23 10:43 10/27/23 10:59 Butalb/Acetamin/Caff 50/325/40 Tablet PO 10/27/23 10:44 1 tab ONCE ONE Administration Medical Decision Making Medical Decision Making [facility] Narrative: 57-year-old female with a history CAD status post cardiac catheterization, prediabetes, HTN, HLD, Migraines, active smoker presents to the ED today with headache, sore throat, fatigue, bodyaches and fever that started yesterday and has since gotten worse this morning. She has a history of multiple OH so EKG was obtained and was normal besides 1 T-wave inversion which was present on previous EKG reads. No concern for OH currently; with EKG and she has reproducible chest that does not radiate and is on aspirin/atorvstatin. Less likely pericarditis/myocarditis due to EKG reading. Most likely viral illness present, and a viral illness panel was run. She was positive for Covid. No need for chest x-ray, no difficulty breathing or wheezing on exam, no decreased lung sounds present and non-productive cough. Multiple medication interactions w/ paxlovid. symptoms are mild at this time. will defer paxlovid for now given risk v benefit of stopping her cardiac meds. stable for d/c home with supportive care. we discussed return precautions. Differential Diagnosis Differential Diagnoses: The differential diagnosis associated with the presentation includes Covid, RSV, Flu, OH, Viral illness, Viral induced pericarditis/myocarditis, pnuemonia Admission/Observation Consideration of admission/observation: Escalation of care including admission/observation considered Lab Data [facility] Lab Attestation statement: I reviewed the patient's lab results. Labs: Lab Results 10/27/23 Range/Units 10:13 Influenza Type A (PCR) NEGATIVE (Negative) Influenza Type B (PCR) NEGATIVE (Negative) RSV RNA Qual (PCR) NEGATIVE (Negative) SARS-CoV-2 RNA (RT-PCR) POSITIVE A (Negative) S. pyogenes GrpA SHAVON Negative (Negative) Independent Interpretation I performed an independent interpretation of an: EKG Interpretation: ekg w/ normal sinus rhythm, ventricular rate 81 bpm, normal IN interval, isolated t wave inversion in lead V1 only, no ST segment elevations or depressions External Record Review External record reviewed: Outpatient record, Prior outpatient labs and Prior outpatient radiology Tests considered The following testing was considered but not selected: CXR considered, low suspicion for PNA Prescription Management I considered prescription management with: Pain Medication and Antiviral Chronic Conditions Patient?s care impacted by: Diabetes, Hypertension and Other (smoker, cardiac disease) Social Determinants Patient?s care significantly limited by Social Determinants of Health including: Problems related to primary support group no transportation to pharmacy Critical Care Time Critical Care Time Critical Care Time: No Discharge Plan Discharge Clinical Impression: COVID-19 Patient Disposition: Home, Self-Care Instructions: COVID-19 (Coronavirus Disease 2019) (ED) Additional Instructions: You were found to be COVID-19 POSITIVE today. Your exam and oxygen levels were normal. Rest. Drink plenty of fluids. Do not go out in public while you are not feeling well. Take over the counter cold/flu medications as needed for your symptoms. Take Tylenol and/or Motrin as needed for fevers and body aches. Follow up with your doctor this week. If you develop new or worsening symptoms call 911 or come back to the ER for further evaluation. Prescriptions: No Action ezetimibe [Zetia] 10 mg tablet 10 mg PO DAILY Qty: 90 1RF Rx Instructions: Cholesterol medication, take in addition to atorvastatin atorvastatin 80 mg Tablet 80 mg PO BEDTIME Qty: 30 0RF aspirin 81 mg Tablet,Delayed Release (Dr/Ec) 81 mg PO DAILY Qty: 14 0RF trazodone 50 mg tablet 50 mg PO BEDTIME PRN (Reason: anxiety) omeprazole 40 mg capsule,delayed release(DR/EC) 40 mg PO DAILY@0630 metoprolol tartrate 25 mg tablet 25 mg PO BID amlodipine 10 mg tablet 10 mg PO DAILY paroxetine HCl 10 mg tablet 10 mg PO BEDTIME nicotine 21 mg/24 hr Patch 24 Hour 21 mg transdermal DAILY Qty: 1 0RF heparin(porcine) in 0.45% NaCl 25,000 unit/250 mL Parenteral Solution 25,000 unit continuous IV infusion .Q0M Qty: 1 0RF bupropion HCl 150 mg tablet extended release 24 hr 150 mg PO DAILY tramadol 50 mg tablet 50 mg PO Q6H PRN (Reason: Pain) sennosides [senna] 8.6 mg tablet 17.2 mg PO BEDTIME Myrbetriq 50 mg tablet extended release 24 hr 50 mg PO DAILY cholecalciferol (vitamin D3) 50 mcg (2,000 unit) tablet 50 mcg PO DAILY loratadine [Allergy Relief (loratadine)] 10 mg tablet 10 mg PO DAILY PRN (Reason: Allergy Symptoms) fluticasone propionate 50 mcg/actuation spray,suspension 2 spray intranasal DAILY PRN (Reason: Allergy Symptoms) sumatriptan succinate 50 mg tablet 50 mg PO DAILY PRN (Reason: Migraine Headache) lisinopril 10 mg tablet 10 mg PO DAILY Qty: 30 5RF Referrals: Chanel Bai MD [Primary Care Provider] - Interventions: ED Discharge Assessment Last Done: 10/27/23 11:17 Discharge Date/Time: 10/27/23 11:17 Print Language: Samoan
--- NOTE | 2023-10-27 10:25 | ECG_ITS ---
Test Reason : chest tightness Blood Pressure : / mmHG Vent. Rate : 081 BPM Atrial Rate : 081 BPM P-R Int : 190 ms QRS Dur : 086 ms QT Int : 372 ms P-R-T Axes : 041 -14 018 degrees QTc Int : 432 ms Normal sinus rhythm Normal ECG When compared with ECG of 17-JUN-2023 07:11, MD interval has decreased Referred By: Genesis Low Electronically Signed By:KIRA LICEA
[2023-10-27 10:45] LABS: IDNOW Serial# 08D9AD1C
[2023-10-27 10:46] LABS: Strep A Nucleic Acid Negative (Negative)
[2023-10-27] MEDS: Butalb/Acetamin/Caff 50/325/40 TABLET 1 TAB PO (10:59)
[2023-10-27 11:03] LABS: Influenza A PCR NEGATIVE (Negative); Influenza B PCR NEGATIVE (Negative); Resp Syncy Virus RNA Qual PCR NEGATIVE (Negative); SARS COV2 PCR INHOUSE POSITIVE (Negative)
[2023-10-27 11:17] VITALS: BP 104/67; PULSE 89; RESP 18; TEMP 37.2; O2SAT 98
== END 2023-10-27 11:17 | disposition home or self-care (01) ==
PROVIDERS: Emergency Provider Emergency Medicine Emergency Medical Services; PCP Family Medicine
DX: U07.1 COVID-19 (principal); R50.9 Fever, unspecified; J02.9 Acute pharyngitis, unspecified; R07.89 Other chest pain; R05.9 Cough, unspecified; I10 Essential (primary) hypertension
CPT/HCPCS: 0241U; 87651; 93005; 99283; 99284

== ENCOUNTER → 2023-10-27 10:25 | Outpatient (BNV) | payer MEDICAID, SELFPAY | PROVIDERS: Emergency Provider Emergency Medicine Emergency Medical Services; PCP Family Medicine; Visit Provider Internal Medicine | DX: R07.9 Chest pain, unspecified (principal) | CPT/HCPCS: 93010 ==

== ENCOUNTER 2023-12-26 11:30 | Outpatient (RCR) | payer MEDICAID, SELFPAY | END 2024-01-14 09:53 | disposition home or self-care (01) | LOC: HO.CR 11:30 | PROVIDERS: PCP Family Medicine; Visit Provider Internal Medicine | DX: I25.2 Old myocardial infarction (principal) | CPT/HCPCS: 93798 ==

== ENCOUNTER 2024-02-29 06:18 | Emergency (ER) | payer MEDICAID, SELFPAY ==
[2024-02-29] VITALS (7 sets, daily range): BP systolic 115–121; BP diastolic 63–74; PULSE 64–83; RESP 18–25; TEMP 36.6–36.9; O2SAT 95–99; BMI 34.5
--- NOTE | 2024-02-29 | ECG_ITS ---
Test Reason : ABD PAIN Blood Pressure : / mmHG Vent. Rate : 061 BPM Atrial Rate : 061 BPM P-R Int : 216 ms QRS Dur : 090 ms QT Int : 418 ms P-R-T Axes : 016 -06 -02 degrees QTc Int : 420 ms Sinus rhythm with 1st degree A-V block Otherwise normal ECG When compared with ECG of 27-OCT-2023 10:24, No significant change was found Referred By: Generic ED Physician Electronically Signed By:LUCIANA MAS MD
--- NOTE | ~2024-02-29 | US_ITS ---
EXAMINATION: US ABDOMEN LIMITED CLINICAL INFORMATION: Right upper quadrant pain. COMPARISON: None available. TECHNIQUE: Real-time imaging of the gallbladder and biliary ductal system. FINDINGS: GALLBLADDER: The gallbladder is physiologically distended without evidence of stones, sludge, polyps, wall thickening or pericholecystic fluid. COMMON BILE DUCT: Normal in caliber measuring 0.6 cm in diameter. US/US abdomen limited IMPRESSION: Normal gallbladder. Electronically signed by: Boone Mcdonald MD 02/29/2024 09:07 AM JOVITA
--- NOTE | ~2024-02-29 | CT_ITS ---
EXAMINATION: CT ABDOMEN AND PELVIS WITHOUT CONTRAST CLINICAL INFORMATION: Right-sided abdominal pain COMPARISON: CT abdomen and pelvis November 27, 2022 TECHNIQUE: Multidetector volumetric imaging was performed from the superior aspect of the liver through the pubic symphysis. Sagittal and coronal reformatted images were obtained on the technologist's workstation. This CT examination was performed using dose optimization techniques as appropriate, variously including the following: *Automated exposure control *Adjustment of mA and/or kV according to patient size (this includes techniques or standardized protocols for targeted exams where dose is matched to indication/reason for exam; i.e. extremities or head) *Use of iterative reconstruction technique DLP: 760 mGy-cm FINDINGS: LUNG BASES: The visualized lung bases are unremarkable. LIVER, GALLBLADDER, AND BILIARY TREE: The liver is normal in size, shape, and attenuation. No focal hepatic lesion or biliary ductal dilatation is present. The gallbladder is unremarkable with no evidence of radiopaque gallstones, gallbladder wall thickening, or obvious pericholecystic inflammatory changes. PANCREAS: Unremarkable. SPLEEN: Unremarkable. ADRENAL GLANDS: Unremarkable. KIDNEYS AND URETERS: The kidneys are normal in size. Punctate calyceal stones in the right upper pole. No hydronephrosis. BLADDER: Unremarkable. GASTROINTESTINAL TRACT: The small and large bowel are unremarkable. The appendix is unremarkable. ABDOMINAL WALL: No significant hernia is appreciated. LYMPH NODES: Normal. VASCULAR: Unremarkable. PELVIC VISCERA: Unremarkable. OSSEOUS STRUCTURES: Unremarkable. CT/CT abdomen pelvis wo IV con IMPRESSION: 1. No acute findings in the abdomen or pelvis. 2. Punctate calyceal stones in the right upper pole. No hydronephrosis. Fleischner guidelines were followed. Electronically signed by: Lucio Hall MD 02/29/2024 01:36 PM EST
[2024-02-29 06:49] LABS: MANUAL DIFF FLAG NO
--- NOTE | 2024-02-29 06:49 | ED.ABDPAIN ---
HPI - Abdominal Pain General Chief Complaint: Abdominal Pain Stated Complaint: RUQ pain 10/10 since friday -worse w/ respirations Time Seen by Provider: 02/29/24 06:48 Source: patient and EMS Mode of arrival: EMS Limitations: other (Poor historian) History of Present Illness ED Provider: WOLFGANG Rascno HPI narrative: 58-year-old female past medical history significant for obesity, coronary artery disease status post cardiac catheterization, NSTEMI, cholecystitis, oa, hypertension, hyperlipidemia, nicotine dependence presenting to the emergency department with intermittent sharp stabbing abdominal pain to the right upper quadrant ongoing intermittently since Friday. Patient reports pain reaches 10/10 strength with the pain comes on. Pain is precipitated by deep breathing unable to tell me what makes it better. He tells me she is very uncomfortable. Denies associated nausea, vomiting, fevers, chills, recent sick contacts, chest pain, shortness of breath, headache, vision changes, dizziness and weakness. She reports she last traveled by airplane back in November, no history of PE or DVT. Patient not on anticoagulation. Denies any previous abdominal surgeries. Patient is however a poor historian Related Data Home Medications ?Medication ?Instructions ?Recorded ?Confirmed mirabegron 50 mg tablet,extended 50 mg PO DAILY 08/29/21 10/03/23 release 24 hr (Myrbetriq) sennosides 8.6 mg tablet (senna) 17.2 mg PO BEDTIME 08/29/21 10/03/23 cholecalciferol (vitamin D3) 50 50 mcg PO DAILY 03/26/22 10/03/23 mcg (2,000 unit) tablet fluticasone propionate 50 2 spray intranasal DAILY PRN 03/26/22 10/03/23 mcg/actuation nasal Allergy Symptoms spray,suspension loratadine 10 mg tablet (Allergy 10 mg PO DAILY PRN Allergy Symptoms 03/26/22 10/03/23 Relief (loratadine)) bupropion HCl 150 mg 24 hr tablet, 150 mg PO DAILY 11/27/22 10/03/23 extended release tramadol 50 mg tablet 50 mg PO Q6H PRN Pain 11/27/22 10/03/23 sumatriptan succinate 50 mg tablet 50 mg PO DAILY PRN Migraine 04/16/23 10/03/23 Headache amlodipine 10 mg tablet 10 mg PO DAILY 06/17/23 10/03/23 metoprolol tartrate 25 mg tablet 25 mg PO BID 06/17/23 10/03/23 omeprazole 40 mg capsule,delayed 40 mg PO DAILY@0630 06/17/23 10/03/23 release paroxetine HCl 10 mg tablet 10 mg PO BEDTIME 06/17/23 10/03/23 trazodone 50 mg tablet 50 mg PO BEDTIME PRN anxiety 06/17/23 10/03/23 Previous Rx's ?Medication ?Instructions ?Recorded aspirin 81 mg tablet,delayed 81 mg PO DAILY #14 tabs 08/11/21 release atorvastatin 80 mg tablet 80 mg PO BEDTIME #30 tabs 08/11/21 heparin (porcine) 25,000 unit/250 25,000 unit (250 mL) continuous IV 06/17/23 mL in 0.45 % sodium chloride IV infusion .Q0M #1 mL soln nicotine 21 mg/24 hr daily 21 mg transdermal DAILY #1 ea 06/17/23 transdermal patch lisinopril 10 mg tablet 10 mg PO DAILY #30 tabs 10/03/23 ezetimibe 10 mg tablet (Zetia) 10 mg PO DAILY #90 tabs 10/21/23 Allergies Allergy/AdvReac Type Severity Reaction Status Date / Time ibuprofen [From Motrin] AdvReac Unknown UPSET Verified 02/29/24 06:43 STOMACH Review of Systems Review of Systems Yes all other systems are reviewed and are negative [facility] Past Medical History Attestation statement: The following information was validated with the patient. 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 Cholecystitis Osteoarthritis of left hip Depression with anxiety Migraines History of non-ST elevation myocardial infarction (NSTEMI) (~07/2021) Personal history of nicotine dependence Primary osteoarthritis of knees, bilateral GERD (gastroesophageal reflux disease) Hypercholesterolemia Obesity HTN (hypertension) Osteoarthritis Surgical History History of cardiac cath (~2021) History of colonoscopy History of carpal tunnel surgery of right wrist (~2014) History of total abdominal hysterectomy (~2004) History of tubal ligation Family History Family History Mother HTN (hypertension) Diabetes Father Alzheimer disease Brother Throat cancer Social History Social History Household Members: Spouse Housing: House Do you presently have visiting nurse or other home services: Yes ([employer] services) Alcohol intake: never Patient Tobacco Use Status: Never used Tobacco Tobacco use type: Cigarette Cigarettes Per Day: 8 Years Smoked: (onset 13, 1/2ppd x 42yrs, 20+PYH) Smoked in Last 30 Days: Yes Second Hand Smoke Exposure: No Use of substances other than those prescribed or required for medical reasons: No Substance Use Type: Marijuana Advance Directives: Yes Advance Directives on File: Yes Advance Directives Date on File: 12/02/22 Patient : No service: No Current occupational status: disabled Physical Exam ED Vital Signs: Vital Signs - 24 hr 02/29/24 06:26 02/29/24 08:03 02/29/24 10:02 Temperature 98.4 F 97.9 F Pulse Rate 67 64 Respiratory Rate 18 25 H 20 Blood Pressure 121/63 115/70 Pulse Oximetry 98 99 Oxygen Delivery Method Room Air Room Air 02/29/24 10:53 02/29/24 12:56 Temperature 97.9 F Pulse Rate 68 Respiratory Rate 25 H 18 Blood Pressure 115/74 Pulse Oximetry 99 Oxygen Delivery Method Room Air BMI result Body Mass Index 34.5 vss Appearance: Alert.? Oriented X3.? No acute distress.? Head: Normocephalic, atraumatic, no step-offs or deformities Eyes: Pupils equal, round and reactive to light.? CVS: Normal heart rate and rhythm.? Pulses normal.? Respiratory: No respiratory distress.? Breath sounds normal.? Abdomen: Soft and nontender.? Skin: Skin warm and dry.? Normal skin color.? Normal skin turgor.? Extremities: No lower extremity edema.? No calf ttp. 5/5 strength to bilateral upper and lower extremities Neuro: Oriented X 3.? No motor deficit.? No sensory deficit. CN 2-12 intact Course Reevaluation(s) Reevaluation #1: CBC unremarkable. Chemistry with no acute findings needing intervention. Troponin negative x3 with nonischemic EKG. Lipase normal. Patient continues to report right-sided pain now stating it is the whole right side and not particularly in the right upper quadrant. CT ordered. However, ultrasound abdomen limited with normal gallbladder. Time: 10:18 Reevaluation #2: UA without infection. Patient is still reporting discomfort despite medication. Time: 11:42 Reevaluation #3: Patient feeling better. CT scan showing no acute findings in the abdomen or pelvis, punctate stones in the right upper pole no hydronephrosis. Patient's pain could be renal colic. Will have her follow up with PCP and return with new or worsening symptoms. Educated patient on diagnosis and treatment plan, answered all question, patient verbalizes understanding. At this time patient will be discharged home, advised to return with new or worsening symptoms. Educated on worrisome signs and symptoms and when to return. At this time I feel comfortable discharge home. Time: 13:45 Medical Decision Making Medical Decision Making [facility] Narrative: 0755 58 yo f presents w/ RUQ pain that is worse w/ deep breathing and better at rest has been intermittent in nature since Friday PE w/ tenderness to palpation to RUQ on exam Hx and pe concerning for renal colic vs pe vs cholecysitits. Acute abdomen, cholangitis, dissection, ACS, acute respiratory distress, choledocholithiasis. Will rule out metabolic derangements and UTI Plan- labs, UA, imaging Differential Diagnosis Differential Diagnoses: The differential diagnosis associated with the presentation includes ( Hx and pe concerning for renal colic vs pe vs cholecysitits. Acute abdomen, cholangitis, dissection, ACS, acute respiratory distress, choledocholithiasis. Will rule out metabolic derangements and UTI) Admission/Observation Consideration of admission/observation: Escalation of care including admission/observation considered Lab Data [facility] Lab Attestation statement: I reviewed the patient's lab results. 02/29/24 06:45 02/29/24 06:45 Labs: Lab Results 02/29/24 02/29/24 02/29/24 Range/Units 06:45 08:02 10:06 WBC 8.2 (4.8-10.8) X10*3/uL RBC 4.48 (4.20-5.50) X10*6/uL Hgb 12.1 (12.0-16.0) g/dl Hct 36.7 L (37.0-47.0) % MCV 81.9 (80.0-98.0) fL MCH 27.0 (27.0-33.0) pg MCHC 33.0 (31.0-35.0) g/dl RDW 13.0 (11.0-16.0) % Plt Count 246 (160-400) X10*3/uL MPV 11.5 (9.4-12.3) fL Immature Gran % (Auto) 0.4 (0.0-0.4) % Neut % (Auto) 66.2 (45-73) % Lymph % (Auto) 17.2 L (20-40) % [place] % (Auto) 10.4 (2-11) % Eos % (Auto) 5.6 H (0-4) % Baso % (Auto) 0.2 (0-2) % Lymph # (Auto) 1.4 (1.2-4.9) X10*3/uL [place] # (Auto) 0.9 (0.1-1.2) X10*3/uL Eos # (Auto) 0.5 H (0.0-0.4) X10*3/uL Baso # (Auto) 0.0 (0.0-0.2) X10*3/uL Abs Immat Gran (auto) 0.03 (0.00-0.03) X10*3/uL Absolute Neuts (auto) 5.4 (2.0-8.3) x10*3/uL Absolute Nucleated RBC 0.000 (0.0-0.012) X10*3/uL Nucleated RBC % (auto) 0.0 (0.0-0.2) /100WBC PT 11.4 (10.9-12.4) SEC INR 1.0 (0.9-1.1) D-Dimer High Sensitivty 190 NG/ML Sodium 139 (135-145) mmol/L Potassium 3.5 (3.3-5.1) mmol/L Chloride 105 (96-108) mmol/L Carbon Dioxide 28 (22-29) mmol/L Anion Gap 10 L (12-20) BUN 14 (9-16) mg/dL Creatinine 0.78 (0.5-1.4) mg/dL Estim Creat Clear Calc 93.1 Estimated GFR > 60 Random Glucose 105 (60-115) mg/dL Calcium 8.6 D (8.4-10.2) mg/dL Magnesium 1.7 (1.6-2.6) mg/dL Total Bilirubin 0.4 (0.0-1.0) mg/dL AST 20 (5-31) U/L ALT 13 (0-31) U/L Alkaline Phosphatase 153 H (39-117) U/L Troponin I High Sens < 2.7 D < 2.7 (<3.5-17.0) ng/L Total Protein 6.8 (6.5-8.0) g/dL Albumin 3.5 (3.5-5.0) g/dL Lipase 12 (8-78) U/L Urine Color Yellow Urine Appearance Clear Urine pH 7.0 (5.0-9.0) Ur Specific Ewing 1.015 (1.005-1.025) Urine Protein Negative (Neg-Trace) mg/dL Urine Glucose (UA) Negative (Negative) mg/dL Urine Ketones Negative (Negative) mg/dL Urine Blood Negative (Negative) Urine Nitrite Negative (Negative) Ur Leukocyte Esterase Negative (Negative) 02/29/24 Range/Units 10:51 WBC (4.8-10.8) X10*3/uL RBC (4.20-5.50) X10*6/uL Hgb (12.0-16.0) g/dl Hct (37.0-47.0) % MCV (80.0-98.0) fL MCH (27.0-33.0) pg MCHC (31.0-35.0) g/dl RDW (11.0-16.0) % Plt Count (160-400) X10*3/uL MPV (9.4-12.3) fL Immature Gran % (Auto) (0.0-0.4) % Neut % (Auto) (45-73) % Lymph % (Auto) (20-40) % [place] % (Auto) (2-11) % Eos % (Auto) (0-4) % Baso % (Auto) (0-2) % Lymph # (Auto) (1.2-4.9) X10*3/uL [place] # (Auto) (0.1-1.2) X10*3/uL Eos # (Auto) (0.0-0.4) X10*3/uL Baso # (Auto) (0.0-0.2) X10*3/uL Abs Immat Gran (auto) (0.00-0.03) X10*3/uL Absolute Neuts (auto) (2.0-8.3) x10*3/uL Absolute Nucleated RBC (0.0-0.012) X10*3/uL Nucleated RBC % (auto) (0.0-0.2) /100WBC PT (10.9-12.4) SEC INR (0.9-1.1) D-Dimer High Sensitivty NG/ML Sodium (135-145) mmol/L Potassium (3.3-5.1) mmol/L Chloride (96-108) mmol/L Carbon Dioxide (22-29) mmol/L Anion Gap (12-20) BUN (9-16) mg/dL Creatinine (0.5-1.4) mg/dL Estim Creat Clear Calc Estimated GFR Random Glucose (60-115) mg/dL Calcium (8.4-10.2) mg/dL Magnesium (1.6-2.6) mg/dL Total Bilirubin (0.0-1.0) mg/dL AST (5-31) U/L ALT (0-31) U/L Alkaline Phosphatase (39-117) U/L Troponin I High Sens < 2.7 (<3.5-17.0) ng/L Total Protein (6.5-8.0) g/dL Albumin (3.5-5.0) g/dL Lipase (8-78) U/L Urine Color Urine Appearance Urine pH (5.0-9.0) Ur Specific Ewing (1.005-1.025) Urine Protein (Neg-Trace) mg/dL Urine Glucose (UA) (Negative) mg/dL Urine Ketones (Negative) mg/dL Urine Blood (Negative) Urine Nitrite (Negative) Ur Leukocyte Esterase (Negative) Independent Interpretation I performed an independent interpretation of an: EKG (Vent. Rate : 061 BPM Atrial Rate : 061 BPM P-R Int : 216 ms QRS Dur : 090 ms QT Int : 418 ms P-R-T Axes : 016 -06 -02 degrees QTc Int : 420 ms Sinus rhythm with 1st degree A-V block Otherwise normal ECG When compared with ECG of 27-OCT-2023 10:24, No significant change) and Ultrasound Radiology Impression Discussion of test interpretation with radiology: I have reviewed the radiologist's reading. External Record Review External record reviewed: Inpatient record, Office record, Outpatient record, Prior outpatient labs, Prior outpatient radiology, Primary care record and Outside ED record Chronic Conditions Patient?s care impacted by: Other (see hpi ) Social Determinants Patient?s care significantly limited by Social Determinants of Health including: Other Social Determinant of Health Medications Administered Discontinued Medications Generic Name Dose Route Start Last Admin Trade Name Freq PRN Reason Stop Dose Admin Morphine Sulfate 4 mg 02/29/24 07:49 02/29/24 08:03 Morphine Sulfate 4 Mg/Ml Cartridge IVPUSH 02/29/24 07:50 4 mg ONCE ONE Administration Protocol Morphine Sulfate 4 mg 02/29/24 10:42 02/29/24 10:53 Morphine Sulfate 4 Mg/Ml Cartridge IVPUSH 02/29/24 10:43 4 mg ONCE ONE Administration Protocol Critical Care Time Critical Care Time Critical Care Time: Yes Total Critical Care Time: 35 Attestation: I attest to this time spent taking care of the patient, obtaining history, physical, reviewing labs, imaging, treatment of patients condition +/- specialist/hospitalist consult Discharge Plan Discharge Clinical Impression: Abdominal pain, RUQ, Biliary colic Patient Disposition: Home, Self-Care Instructions: Abdominal Pain (ED) Additional Instructions: Take your medications as prescribed. If you were prescribed antibiotics today, it is important that you take your medication to their entirety, do not skip any doses, do not finish them early. Follow-up with your primary care provider this week. Return to the emergency department with new or worsening symptoms. Such as fevers, chills, chest pain, shortness of breath, nausea, vomiting, dizziness, headache, vision changes, lethargy In case of emergency call 911 CT/CT abdomen pelvis wo IV con IMPRESSION: 1. No acute findings in the abdomen or pelvis. 2. Punctate calyceal stones in the right upper pole. No hydronephrosis. Fleischner guidelines were followed. Prescriptions: No Action ezetimibe [Zetia] 10 mg tablet 10 mg PO DAILY Qty: 90 1RF Rx Instructions: Cholesterol medication, take in addition to atorvastatin atorvastatin 80 mg Tablet 80 mg PO BEDTIME Qty: 30 0RF aspirin 81 mg Tablet,Delayed Release (Dr/Ec) 81 mg PO DAILY Qty: 14 0RF trazodone 50 mg tablet 50 mg PO BEDTIME PRN (Reason: anxiety) omeprazole 40 mg capsule,delayed release(DR/EC) 40 mg PO DAILY@0630 metoprolol tartrate 25 mg tablet 25 mg PO BID amlodipine 10 mg tablet 10 mg PO DAILY paroxetine HCl 10 mg tablet 10 mg PO BEDTIME nicotine 21 mg/24 hr Patch 24 Hour 21 mg transdermal DAILY Qty: 1 0RF heparin(porcine) in 0.45% NaCl 25,000 unit/250 mL Parenteral Solution 25,000 unit continuous IV infusion .Q0M Qty: 1 0RF bupropion HCl 150 mg tablet extended release 24 hr 150 mg PO DAILY tramadol 50 mg tablet 50 mg PO Q6H PRN (Reason: Pain) sennosides [senna] 8.6 mg tablet 17.2 mg PO BEDTIME Myrbetriq 50 mg tablet extended release 24 hr 50 mg PO DAILY cholecalciferol (vitamin D3) 50 mcg (2,000 unit) tablet 50 mcg PO DAILY loratadine [Allergy Relief (loratadine)] 10 mg tablet 10 mg PO DAILY PRN (Reason: Allergy Symptoms) fluticasone propionate 50 mcg/actuation spray,suspension 2 spray intranasal DAILY PRN (Reason: Allergy Symptoms) sumatriptan succinate 50 mg tablet 50 mg PO DAILY PRN (Reason: Migraine Headache) lisinopril 10 mg tablet 10 mg PO DAILY Qty: 30 5RF Referrals: [facility] [Provider Group] - 1 day Chanel Bai MD [Primary Care Provider] - 2 days Stand Alone Forms: Work/School Release Print Language: Armenian
[2024-02-29 06:50] LABS: Basophils Percent Auto 0.2 % (0-2); Eosinophils Absolute Auto 0.5 X10*3/uL (0.0-0.4); Eosinophils Percent Auto 5.6 % (0-4); Hematocrit 36.7 % (37.0-47.0); Hemoglobin 12.1 g/dl (12.0-16.0); Imm Gran Abs Auto 0.03 X10*3/uL (0.00-0.03); Imm Gran Pct Auto 0.4 % (0.0-0.4); Lymphocytes Absolute Auto 1.4 X10*3/uL (1.2-4.9); Lymphocytes Percent Auto 17.2 % (20-40); Mean Corpuscular Volume 81.9 fL (80.0-98.0); Mean Platelet Volume 11.5 fL (9.4-12.3); Monocytes Absolute Auto 0.9 X10*3/uL (0.1-1.2); Monocytes Percent Auto 10.4 % (2-11); Neutrophils Absolute Auto 5.4 x10*3/uL (2.0-8.3); Neutrophils Percent Auto 66.2 % (45-73); Platelet Count 246 X10*3/uL (160-400); Red Blood Count 4.48 X10*6/uL (4.20-5.50); White Blood Count 8.2 X10*3/uL (4.8-10.8)
[2024-02-29 07:26] LABS: Alanine Aminotransferase 13 U/L (0-31); Albumin Level 3.5 g/dL (3.5-5.0); Alkaline Phosphatase 153 U/L (39-117); Anion Gap 10 (12-20); Aspartate Amino Transferase 20 U/L (5-31); Bilirubin Total 0.4 mg/dL (0.0-1.0); Blood Urea Nitrogen 14 mg/dL (9-16); Calcium 8.6 mg/dL (8.4-10.2); Carbon Dioxide 28 mmol/L (22-29); Chloride 105 mmol/L (96-108); Creatinine Clr Calc Pharmacy 93.1; Estimated Glomerular Filt Rate > 60; Glucose Random 105 mg/dL (60-115); Lipase 12 U/L (8-78); Magnesium 1.7 mg/dL (1.6-2.6); Potassium 3.5 mmol/L (3.3-5.1); Sodium 139 mmol/L (135-145); Total Protein 6.8 g/dL (6.5-8.0)
[2024-02-29] MEDS: Morphine Sulfate 4 MG/ML CARTRIDGE IVPUSH ×2 (08:03→10:53)
[2024-02-29 08:14] LABS: Troponin-I High Sensitivity < 2.7 ng/L (<3.5-17.0)
[2024-02-29 08:20] LABS: Prothrombin Time 11.4 SEC (10.9-12.4)
[2024-02-29 08:22] LABS: D Dimer High Sensitivity 190 NG/ML
[2024-02-29 08:56] LABS: Troponin-I High Sensitivity < 2.7 ng/L (<3.5-17.0)
[2024-02-29 10:14] LABS: Appearance Urine Clear; Color Urine Yellow; Glucose Urine UA Negative (Negative); Leukocyte Esterase Urine Negative (Negative); Nitrite Urine Negative (Negative); Specific Gravity - Urine 1.015 (1.005-1.025); Urine Blood Negative (Negative); Urine Ketones Negative (Negative); Urine Protein Negative (Neg-Trace)
[2024-02-29 11:36] LABS: Troponin-I High Sensitivity < 2.7 ng/L (<3.5-17.0)
== END 2024-02-29 14:16 | disposition home or self-care (01) ==
PROVIDERS: Physician Assistant; Emergency Provider Emergency Medicine; PCP Family Medicine
DX: K80.50 Calculus of bile duct without cholangitis or cholecystitis without obstruction (principal); R10.811 Right upper quadrant abdominal tenderness; I25.10 Atherosclerotic heart disease of native coronary artery without angina pectoris; F17.210 Nicotine dependence, cigarettes, uncomplicated; R07.1 Chest pain on breathing; Z79.899 Other long term (current) drug therapy
CPT/HCPCS: 36415; 74176; 76705; 80053; 81003; 83690; 83735; 84484; 85025; 85379; 85610; 93005; 99284; 99285; J2270

== ENCOUNTER → 2024-02-29 06:46 | Outpatient (BNV) | payer MEDICAID, SELFPAY | PROVIDERS: Emergency Provider Emergency Medicine; PCP Family Medicine; Visit Provider Internal Medicine Cardiovascular Disease | DX: I44.0 Atrioventricular block, first degree (principal) | CPT/HCPCS: 93010 ==

== ENCOUNTER 2024-03-23 13:10 | Outpatient (REF) | payer MEDICAID, SELFPAY ==
--- NOTE | ~2024-03-23 | MM_ITS ---
EXAMINATION: MM SCREENING DIGITAL BREAST TOMOSYNTHESIS, BILATERAL CLINICAL INFORMATION: Screening. Asymptomatic. COMPARISON: Mammography: Comparison is made with available priors TECHNIQUE: Digital breast mammography with tomosynthesis is performed in both the craniocaudal and mediolateral oblique views along with computer-aided detection (CAD). FINDINGS: There are scattered areas of fibroglandular density (ACR BI-RADS breast composition Category b). There are no significant masses, abnormal calcifications, or other abnormalities. MM/MM tomosynthesis screening BI IMPRESSION: No mammographic evidence of malignancy. ASSESSMENT: BI-RADS BI-RADS 1 - Negative RECOMMENDATION: Routine annual mammography screening. 1 year F/U This examination should not preclude the clinical evaluation of a suspicious palpable abnormality. This patient's information was entered into a reminder system with a target due date for their next mammogram. Electronically signed by: Katharine Mcduffie DO 03/29/2024 05:10 PM JOVITA
== END 2024-03-23 13:11 | disposition home or self-care (01) ==
LOC: HO.MAMMO 13:10
PROVIDERS: PCP Family Medicine; Visit Provider Family Medicine
DX: Z12.31 Encounter for screening mammogram for malignant neoplasm of breast (principal)
CPT/HCPCS: 77063; 77067

== ENCOUNTER → 2024-03-23 13:30 | Outpatient (BNV) | payer MEDICAID, SELFPAY | PROVIDERS: PCP Family Medicine; Visit Provider Internal Medicine | DX: Z12.31 Encounter for screening mammogram for malignant neoplasm of breast (principal) | CPT/HCPCS: 77063; 77067 ==

== ENCOUNTER 2024-04-05 17:07 | Emergency (ER) | payer MEDICAID, SELFPAY ==
--- NOTE | ~2024-04-05 | US_ITS ---
CLINICAL HISTORY: RUQ pain US abdomen limited Comparison: CT of the abdomen without contrast from 02/29/2024. Findings: No gallbladder wall thickening or pericholecystic fluid with mild under distention of the imaged gallbladder. Portions of the gallbladder including the fundus are obscured by side lobe artifacts. Imaged CBD is nondilated measuring up to 0.5 cm diameter. Sonographic Harman's sign is not elicited by the technologist. Imaged IVC and imaged aorta are unremarkable. No right upper quadrant ascites or right pleural effusion. Portions of the liver obscured by side lobe artifacts. The majority of the pancreas is obscured by overlying artifacts. Right kidney is obscured. 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 Main portal vein is obscured. The gallbladder is normal. There is no sonographic Harman sign. The main portal vein is antegrade. IMPRESSION: No ultrasound findings of acute cholecystitis. Imaged CBD is nondilated. This document has been electronically signed by: Ki Marroquin MD on 04/05/2024 19:22:05
[2024-04-05 18:06] VITALS: BP 111/61; PULSE 65; RESP 18; TEMP 36.5; O2SAT 97; BMI 30.1
--- NOTE | 2024-04-05 18:08 | ED_ITS ---
HPI - Abdominal Pain General Chief Complaint: Abdominal Pain Stated Complaint: ?gallbladder issues Related Data Home Medications ?Medication ?Instructions ?Recorded ?Confirmed mirabegron 50 mg tablet,extended 50 mg PO DAILY 08/29/21 10/03/23 release 24 hr (Myrbetriq) sennosides 8.6 mg tablet (senna) 17.2 mg PO BEDTIME 08/29/21 10/03/23 cholecalciferol (vitamin D3) 50 50 mcg PO DAILY 03/26/22 10/03/23 mcg (2,000 unit) tablet fluticasone propionate 50 2 spray intranasal DAILY PRN 03/26/22 10/03/23 mcg/actuation nasal Allergy Symptoms spray,suspension loratadine 10 mg tablet (Allergy 10 mg PO DAILY PRN Allergy Symptoms 03/26/22 10/03/23 Relief (loratadine)) bupropion HCl 150 mg 24 hr tablet, 150 mg PO DAILY 11/27/22 10/03/23 extended release tramadol 50 mg tablet 50 mg PO Q6H PRN Pain 11/27/22 10/03/23 sumatriptan succinate 50 mg tablet 50 mg PO DAILY PRN Migraine 04/16/23 10/03/23 Headache amlodipine 10 mg tablet 10 mg PO DAILY 06/17/23 10/03/23 metoprolol tartrate 25 mg tablet 25 mg PO BID 06/17/23 10/03/23 omeprazole 40 mg capsule,delayed 40 mg PO DAILY@0630 06/17/23 10/03/23 release paroxetine HCl 10 mg tablet 10 mg PO BEDTIME 06/17/23 10/03/23 trazodone 50 mg tablet 50 mg PO BEDTIME PRN anxiety 06/17/23 10/03/23 Previous Rx's ?Medication ?Instructions ?Recorded aspirin 81 mg tablet,delayed 81 mg PO DAILY #14 tabs 08/11/21 release atorvastatin 80 mg tablet 80 mg PO BEDTIME #30 tabs 08/11/21 heparin (porcine) 25,000 unit/250 25,000 unit (250 mL) continuous IV 06/17/23 mL in 0.45 % sodium chloride IV infusion .Q0M #1 mL soln nicotine 21 mg/24 hr daily 21 mg transdermal DAILY #1 ea 06/17/23 transdermal patch lisinopril 10 mg tablet 10 mg PO DAILY #30 tabs 10/03/23 ezetimibe 10 mg tablet (Zetia) 10 mg PO DAILY #90 tabs 10/21/23 acetaminophen 325 mg tablet 650 mg (2 x 325 mg) PO Q6H PRN 02/29/24 (Tylenol) fever or pain #30 tabs Allergies Allergy/AdvReac Type Severity Reaction Status Date / Time ibuprofen [From Motrin] AdvReac Unknown UPSET Verified 04/05/24 18:09 STOMACH PMFSH Past Medical History Medical History Osteoarthritis of shoulders, bilateral Pain in joint involving multiple sites assisted use of drug Cholecystitis Osteoarthritis of left hip Depression with anxiety Migraines History of non-ST elevation myocardial infarction (NSTEMI) (~07/2021) Personal history of nicotine dependence Primary osteoarthritis of knees, bilateral GERD (gastroesophageal reflux disease) Hypercholesterolemia Obesity HTN (hypertension) Osteoarthritis Surgical History History of cardiac cath (~2021) History of colonoscopy History of carpal tunnel surgery of right wrist (~2014) History of total abdominal hysterectomy (~2004) History of tubal ligation Family History Family History Mother HTN (hypertension) Diabetes Father Alzheimer disease Brother Throat cancer Social History Social History Household Members: Spouse Housing: House Do you presently have 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) Alcohol intake: never Patient Tobacco Use Status: Never used Tobacco Tobacco use type: Cigarette Cigarettes Per Day: 8 Years Smoked: (onset 13, 1/2ppd x 42yrs, 20+PYH) Second Hand Smoke Exposure: No Substance Use Type: Marijuana Advance Directives: Yes Advance Directives on File: Yes Advance Directives Date on File: 12/02/22 Do you have a plan to hurt others: No Plan service: No Current occupational status: disabled Physical Exam ED Vital Signs: Vital Signs - 24 hr 04/05/24 18:06 Temperature 97.7 F Pulse Rate 65 Respiratory Rate 18 Blood Pressure 111/61 Pulse Oximetry 97 Oxygen Delivery Method Room Air BMI result Body Mass Index 30.1 Course Course Course Narrative: This is an RME: Additional HPI, ROS, PE not included below will be deferred to primary provider. RME assessment and note performed by: Amber Medeiros PA-C This is a [id number]-female, obesity, coronary artery disease status post cardiac catheterization, NSTEMI, cholecystitis, oa, hypertension, hyperlipidemia, nicotine dependence presenting to the emergency department, who presents to the ER with a complaint of abdominal pain, nausea, vomiting since yesterday. Right upper quadrant pain. Plan: Labs, EKG, ultrasound Reevaluation(s) Reevaluation #1: Patient left without completing treatment. Medical Decision Making Lab Data 04/05/24 19:41 04/05/24 19:41 Labs: Lab Results 04/05/24 Range/Units 19:41 WBC 12.0 H (4.8-10.8) X10*3/uL RBC 4.53 (4.20-5.50) X10*6/uL Hgb 12.3 (12.0-16.0) g/dl Hct 37.4 (37.0-47.0) % MCV 82.6 (80.0-98.0) fL MCH 27.2 (27.0-33.0) pg MCHC 32.9 (31.0-35.0) g/dl RDW 13.4 (11.0-16.0) % Plt Count 297 (160-400) X10*3/uL MPV 11.7 (9.4-12.3) fL Immature Gran % (Auto) 0.3 (0.0-0.4) % Neut % (Auto) 64.2 (45-73) % Lymph % (Auto) 20.2 (20-40) % [place] % (Auto) 7.4 (2-11) % Eos % (Auto) 7.6 H (0-4) % Baso % (Auto) 0.3 (0-2) % Lymph # (Auto) 2.4 (1.2-4.9) X10*3/uL [place] # (Auto) 0.9 (0.1-1.2) X10*3/uL Eos # (Auto) 0.9 H (0.0-0.4) X10*3/uL Baso # (Auto) 0.0 (0.0-0.2) X10*3/uL Abs Immat Gran (auto) 0.03 (0.00-0.03) X10*3/uL Absolute Neuts (auto) 7.7 (2.0-8.3) x10*3/uL Absolute Nucleated RBC 0.000 (0.0-0.012) X10*3/uL Nucleated RBC % (auto) 0.0 (0.0-0.2) /100WBC Sodium 143 (135-145) mmol/L Potassium 3.9 (3.3-5.1) mmol/L Chloride 106 (96-108) mmol/L Carbon Dioxide 27 (22-29) mmol/L Anion Gap 14 (12-20) BUN 20 H (9-16) mg/dL Creatinine 0.73 (0.5-1.4) mg/dL Estim Creat Clear Calc 92.8 Estimated GFR > 60 Random Glucose 117 H (60-115) mg/dL Calcium 8.7 (8.4-10.2) mg/dL Magnesium 1.9 (1.6-2.6) mg/dL Total Bilirubin 0.1 (0.0-1.0) mg/dL Direct Bilirubin < 0.2 (0.0-0.5) mg/dL AST 16 (5-31) U/L ALT 11 (0-31) U/L Alkaline Phosphatase 119 H (39-117) U/L Troponin I High Sens < 2.7 (<3.5-17.0) ng/L Total Protein 7.6 (6.5-8.0) g/dL Albumin 3.8 (3.5-5.0) g/dL Lipase 16 (8-78) U/L Discharge Plan Discharge Clinical Impression: Abdominal pain Patient Disposition: Left W/O Completing Treatment Prescriptions: No Action ezetimibe [Zetia] 10 mg tablet 10 mg PO DAILY Qty: 90 1RF Rx Instructions: Cholesterol medication, take in addition to atorvastatin atorvastatin 80 mg Tablet 80 mg PO BEDTIME Qty: 30 0RF aspirin 81 mg Tablet,Delayed Release (Dr/Ec) 81 mg PO DAILY Qty: 14 0RF trazodone 50 mg tablet 50 mg PO BEDTIME PRN (Reason: anxiety) omeprazole 40 mg capsule,delayed release(DR/EC) 40 mg PO DAILY@0630 metoprolol tartrate 25 mg tablet 25 mg PO BID amlodipine 10 mg tablet 10 mg PO DAILY paroxetine HCl 10 mg tablet 10 mg PO BEDTIME nicotine 21 mg/24 hr Patch 24 Hour 21 mg transdermal DAILY Qty: 1 0RF heparin(porcine) in 0.45% NaCl 25,000 unit/250 mL Parenteral Solution 25,000 unit continuous IV infusion .Q0M Qty: 1 0RF acetaminophen [Tylenol] 325 mg tablet 650 mg PO Q6H PRN (Reason: fever or pain) Qty: 30 0RF bupropion HCl 150 mg tablet extended release 24 hr 150 mg PO DAILY tramadol 50 mg tablet 50 mg PO Q6H PRN (Reason: Pain) sennosides [senna] 8.6 mg tablet 17.2 mg PO BEDTIME Myrbetriq 50 mg tablet extended release 24 hr 50 mg PO DAILY cholecalciferol (vitamin D3) 50 mcg (2,000 unit) tablet 50 mcg PO DAILY loratadine [Allergy Relief (loratadine)] 10 mg tablet 10 mg PO DAILY PRN (Reason: Allergy Symptoms) fluticasone propionate 50 mcg/actuation spray,suspension 2 spray intranasal DAILY PRN (Reason: Allergy Symptoms) sumatriptan succinate 50 mg tablet 50 mg PO DAILY PRN (Reason: Migraine Headache) lisinopril 10 mg tablet 10 mg PO DAILY Qty: 30 5RF Discharge Date/Time: 04/05/24 23:53
--- NOTE | 2024-04-05 18:09 | ECG_ITS ---
Test Reason : EPIGASTRIC PAIN Blood Pressure : */* mmHG Vent. Rate : 62 BPM Atrial Rate : 62 BPM P-R Int : 214 ms QRS Dur : 90 ms QT Int : 426 ms P-R-T Axes : 40 -12 3 degrees QTcB Int : 432 ms Sinus rhythm with 1st degree A-V block Minimal voltage criteria for LVH, may be normal variant ( R in aVL ) Borderline ECG When compared with ECG of 29-Feb-2024 06:46, No significant change was found Referred By: Amber Medeiros Electronically Signed By: LUCIANA MAS MD
[2024-04-05 19:48] LABS: MANUAL DIFF FLAG NO
[2024-04-05 19:49] LABS: Basophils Percent Auto 0.3 % (0-2); Eosinophils Absolute Auto 0.9 X10*3/uL (0.0-0.4); Eosinophils Percent Auto 7.6 % (0-4); Hematocrit 37.4 % (37.0-47.0); Hemoglobin 12.3 g/dl (12.0-16.0); Imm Gran Abs Auto 0.03 X10*3/uL (0.00-0.03); Imm Gran Pct Auto 0.3 % (0.0-0.4); Lymphocytes Absolute Auto 2.4 X10*3/uL (1.2-4.9); Lymphocytes Percent Auto 20.2 % (20-40); Mean Corpuscular HGB Conc 32.9 g/dl (31.0-35.0); Mean Corpuscular Hemoglobin 27.2 pg (27.0-33.0); Mean Corpuscular Volume 82.6 fL (80.0-98.0); Mean Platelet Volume 11.7 fL (9.4-12.3); Monocytes Absolute Auto 0.9 X10*3/uL (0.1-1.2); Monocytes Percent Auto 7.4 % (2-11); Neutrophils Absolute Auto 7.7 x10*3/uL (2.0-8.3); Neutrophils Percent Auto 64.2 % (45-73); Platelet Count 297 X10*3/uL (160-400); Red Blood Count 4.53 X10*6/uL (4.20-5.50); Red Cell Distribution Width 13.4 % (11.0-16.0)
[2024-04-05 20:05] LABS: Alanine Aminotransferase 11 U/L (0-31); Albumin Level 3.8 g/dL (3.5-5.0); Alkaline Phosphatase 119 U/L (39-117); Anion Gap 14 (12-20); Aspartate Amino Transferase 16 U/L (5-31); Bilirubin Direct < 0.2 mg/dL (0.0-0.5); Bilirubin Total 0.1 mg/dL (0.0-1.0); Blood Urea Nitrogen 20 mg/dL (9-16); Calcium 8.7 mg/dL (8.4-10.2); Carbon Dioxide 27 mmol/L (22-29); Chloride 106 mmol/L (96-108); Creatinine Clr Calc Pharmacy 92.8; Estimated Glomerular Filt Rate > 60; Glucose Random 117 mg/dL (60-115); Lipase 16 U/L (8-78); Magnesium 1.9 mg/dL (1.6-2.6); Potassium 3.9 mmol/L (3.3-5.1); Sodium 143 mmol/L (135-145); Total Protein 7.6 g/dL (6.5-8.0)
[2024-04-05 20:13] LABS: Troponin-I High Sensitivity < 2.7 ng/L (<3.5-17.0)
--- NOTE | 2024-04-05 23:51 | PC.NURSE ---
pt called in WR multiple times with no answer
== END 2024-04-05 23:53 | disposition left against medical advice (07) ==
PROVIDERS: Physician Assistant Medical; Emergency Provider Emergency Medicine; PCP Family Medicine
DX: R10.9 Unspecified abdominal pain (principal); R10.13 Epigastric pain; I10 Essential (primary) hypertension; K21.9 Gastro-esophageal reflux disease without esophagitis; Z79.899 Other long term (current) drug therapy
CPT/HCPCS: 36415; 76705; 80048; 80076; 83690; 83735; 84484; 85025; 93005; 99283; 99284

== ENCOUNTER → 2024-04-05 18:09 | Outpatient (BNV) | payer MEDICAID, SELFPAY | PROVIDERS: Emergency Provider Emergency Medicine; PCP Family Medicine; Visit Provider Internal Medicine Cardiovascular Disease | DX: I44.0 Atrioventricular block, first degree (principal) | CPT/HCPCS: 93010 ==

== ENCOUNTER → 2024-04-05 18:09 | Outpatient (BNV) | payer MEDICAID, SELFPAY | PROVIDERS: PCP Family Medicine; Visit Provider Radiology Neuroradiology | DX: R10.11 Right upper quadrant pain (principal) | CPT/HCPCS: 76705 ==

== ENCOUNTER 2024-04-09 12:34 | Emergency (ER) | payer MEDICAID, SELFPAY ==
[2024-04-09 14:11] VITALS: BP 106/44; PULSE 83; RESP 16; TEMP 36.4; O2SAT 97; BMI 29.5
--- NOTE | 2024-04-09 14:12 | ED.GENADULT ---
HPI - General Adult General Chief complaint: Abdominal Pain Stated complaint: r side pain Related Data Home Medications ?Medication ?Instructions ?Recorded ?Confirmed mirabegron 50 mg tablet,extended 50 mg PO DAILY 08/29/21 10/03/23 release 24 hr (Myrbetriq) sennosides 8.6 mg tablet (senna) 17.2 mg PO BEDTIME 08/29/21 10/03/23 cholecalciferol (vitamin D3) 50 50 mcg PO DAILY 03/26/22 10/03/23 mcg (2,000 unit) tablet fluticasone propionate 50 2 spray intranasal DAILY PRN 03/26/22 10/03/23 mcg/actuation nasal Allergy Symptoms spray,suspension loratadine 10 mg tablet (Allergy 10 mg PO DAILY PRN Allergy Symptoms 03/26/22 10/03/23 Relief (loratadine)) bupropion HCl 150 mg 24 hr tablet, 150 mg PO DAILY 11/27/22 10/03/23 extended release tramadol 50 mg tablet 50 mg PO Q6H PRN Pain 11/27/22 10/03/23 sumatriptan succinate 50 mg tablet 50 mg PO DAILY PRN Migraine 04/16/23 10/03/23 Headache amlodipine 10 mg tablet 10 mg PO DAILY 06/17/23 10/03/23 metoprolol tartrate 25 mg tablet 25 mg PO BID 06/17/23 10/03/23 omeprazole 40 mg capsule,delayed 40 mg PO DAILY@0630 06/17/23 10/03/23 release paroxetine HCl 10 mg tablet 10 mg PO BEDTIME 06/17/23 10/03/23 trazodone 50 mg tablet 50 mg PO BEDTIME PRN anxiety 06/17/23 10/03/23 Previous Rx's ?Medication ?Instructions ?Recorded aspirin 81 mg tablet,delayed 81 mg PO DAILY #14 tabs 08/11/21 release atorvastatin 80 mg tablet 80 mg PO BEDTIME #30 tabs 08/11/21 heparin (porcine) 25,000 unit/250 25,000 unit (250 mL) continuous IV 06/17/23 mL in 0.45 % sodium chloride IV infusion .Q0M #1 mL soln nicotine 21 mg/24 hr daily 21 mg transdermal DAILY #1 ea 06/17/23 transdermal patch lisinopril 10 mg tablet 10 mg PO DAILY #30 tabs 10/03/23 ezetimibe 10 mg tablet (Zetia) 10 mg PO DAILY #90 tabs 10/21/23 acetaminophen 325 mg tablet 650 mg (2 x 325 mg) PO Q6H PRN 02/29/24 (Tylenol) fever or pain #30 tabs Allergies Allergy/AdvReac Type Severity Reaction Status Date / Time ibuprofen [From Motrin] AdvReac Unknown UPSET Verified 04/09/24 14:18 STOMACH PMFSH Past Medical History Medical History Osteoarthritis of shoulders, bilateral Pain in joint involving 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 sites 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 Cholecystitis Osteoarthritis of left hip Depression with anxiety Migraines History of non-ST elevation myocardial infarction (NSTEMI) (~07/2021) Personal history of nicotine dependence Primary osteoarthritis of knees, bilateral GERD (gastroesophageal reflux disease) Hypercholesterolemia Obesity HTN (hypertension) Osteoarthritis Surgical History History of cardiac cath (~2021) History of colonoscopy History of carpal tunnel surgery of right wrist (~2014) History of total abdominal hysterectomy (~2004) History of tubal ligation Family History Family History Mother HTN (hypertension) Diabetes Father Alzheimer disease Brother Throat cancer Social History Social History Household Members: Spouse Housing: House Do you presently have visiting nurse or other home services: Yes ([employer] services) Alcohol intake: never Patient Tobacco Use Status: Never used Tobacco Tobacco use type: Cigarette Cigarettes Per Day: 8 Years Smoked: (onset 13, 1/2ppd x 42yrs, 20+PYH) Second Hand Smoke Exposure: No Substance Use Type: Marijuana Advance Directives: Yes Advance Directives on File: Yes Advance Directives Date on File: 12/02/22 Do you have a plan to hurt others: No Plan service: No Current occupational status: disabled Physical Exam ED Vital Signs: BMI result Body Mass Index 29.5 Course Course Course Narrative: This is a rapid medical exam performed by Naeem Pelletier NP: Additional HPI, ROS, PE not included below will be deferred to primary provider. Patient is a 58-year old [place]ese-speaking female with history of HTN, NSTEMI I, cardiac catheterization, obesity presenting to the emergency department with complaint of right-sided/flank pain x 1 week. Denies any difficulty urinating. Denies diarrhea, has been having vomiting. Seen here on 04/05 for same. Plan: labs, UA Medical Decision Making Lab Data 04/09/24 14:46 04/09/24 14:46 Labs: Lab Results 04/09/24 Range/Units 14:46 WBC 10.8 (4.8-10.8) X10*3/uL RBC 4.75 (4.20-5.50) X10*6/uL Hgb 12.9 (12.0-16.0) g/dl Hct 39.1 (37.0-47.0) % MCV 82.3 (80.0-98.0) fL MCH 27.2 (27.0-33.0) pg MCHC 33.0 (31.0-35.0) g/dl RDW 13.4 (11.0-16.0) % Plt Count 243 (160-400) X10*3/uL MPV 11.8 (9.4-12.3) fL Immature Gran % (Auto) 0.5 H (0.0-0.4) % Neut % (Auto) 69.3 (45-73) % Lymph % (Auto) 16.8 L (20-40) % [place] % (Auto) 7.9 (2-11) % Eos % (Auto) 5.2 H (0-4) % Baso % (Auto) 0.3 (0-2) % Lymph # (Auto) 1.8 (1.2-4.9) X10*3/uL [place] # (Auto) 0.9 (0.1-1.2) X10*3/uL Eos # (Auto) 0.6 H (0.0-0.4) X10*3/uL Baso # (Auto) 0.0 (0.0-0.2) X10*3/uL Abs Immat Gran (auto) 0.05 H (0.00-0.03) X10*3/uL Absolute Neuts (auto) 7.5 (2.0-8.3) x10*3/uL Absolute Nucleated RBC 0.000 (0.0-0.012) X10*3/uL Nucleated RBC % (auto) 0.0 (0.0-0.2) /100WBC Sodium 139 (135-145) mmol/L Potassium 4.0 (3.3-5.1) mmol/L Chloride 106 (96-108) mmol/L Carbon Dioxide 26 (22-29) mmol/L Anion Gap 11 L (12-20) BUN 14 (9-16) mg/dL Creatinine 0.72 (0.5-1.4) mg/dL Estim Creat Clear Calc 93.2 Estimated GFR > 60 Random Glucose 94 (60-115) mg/dL Calcium 9.2 (8.4-10.2) mg/dL Total Bilirubin 0.3 (0.0-1.0) mg/dL AST 17 (5-31) U/L ALT 11 (0-31) U/L Alkaline Phosphatase 113 (39-117) U/L Total Protein 7.7 (6.5-8.0) g/dL Albumin 3.9 (3.5-5.0) g/dL Urine Color Dark Yellow Urine Appearance Clear Urine pH 5.5 (5.0-9.0) Ur Specific [place] >= 1.030 H (1.005-1.025) Urine Protein Trace (Neg-Trace) mg/dL Urine Glucose (UA) Negative (Negative) mg/dL Urine Ketones Trace (Negative) mg/dL Urine Blood Negative (Negative) Urine Nitrite Negative (Negative) Ur Leukocyte Esterase Trace H (Negative) Urine RBC 0-2 (0-2) /HPF Urine WBC 6-10 H (0-5) /HPF Ur Squamous Epith Cells 6-10 (0-2) /HPF Urine Bacteria None Seen (None Seen) Hyaline Casts 3-5 (0-2) /LPF Discharge Plan Discharge Clinical Impression: Patient left without being seen Patient Disposition: Left W/O Completing Treatment Prescriptions: No Action ezetimibe [Zetia] 10 mg tablet 10 mg PO DAILY Qty: 90 1RF Rx Instructions: Cholesterol medication, take in addition to atorvastatin atorvastatin 80 mg Tablet 80 mg PO BEDTIME Qty: 30 0RF aspirin 81 mg Tablet,Delayed Release (Dr/Ec) 81 mg PO DAILY Qty: 14 0RF trazodone 50 mg tablet 50 mg PO BEDTIME PRN (Reason: anxiety) omeprazole 40 mg capsule,delayed release(DR/EC) 40 mg PO DAILY@0630 metoprolol tartrate 25 mg tablet 25 mg PO BID amlodipine 10 mg tablet 10 mg PO DAILY paroxetine HCl 10 mg tablet 10 mg PO BEDTIME nicotine 21 mg/24 hr Patch 24 Hour 21 mg transdermal DAILY Qty: 1 0RF heparin(porcine) in 0.45% NaCl 25,000 unit/250 mL Parenteral Solution 25,000 unit continuous IV infusion .Q0M Qty: 1 0RF acetaminophen [Tylenol] 325 mg tablet 650 mg PO Q6H PRN (Reason: fever or pain) Qty: 30 0RF bupropion HCl 150 mg tablet extended release 24 hr 150 mg PO DAILY tramadol 50 mg tablet 50 mg PO Q6H PRN (Reason: Pain) sennosides [senna] 8.6 mg tablet 17.2 mg PO BEDTIME Myrbetriq 50 mg tablet extended release 24 hr 50 mg PO DAILY cholecalciferol (vitamin D3) 50 mcg (2,000 unit) tablet 50 mcg PO DAILY loratadine [Allergy Relief (loratadine)] 10 mg tablet 10 mg PO DAILY PRN (Reason: Allergy Symptoms) fluticasone propionate 50 mcg/actuation spray,suspension 2 spray intranasal DAILY PRN (Reason: Allergy Symptoms) sumatriptan succinate 50 mg tablet 50 mg PO DAILY PRN (Reason: Migraine Headache) lisinopril 10 mg tablet 10 mg PO DAILY Qty: 30 5RF Discharge Date/Time: 04/09/24 19:31
[2024-04-09 14:52] LABS: MANUAL DIFF FLAG NO
[2024-04-09 14:54] LABS: Basophils Percent Auto 0.3 % (0-2); Eosinophils Absolute Auto 0.6 X10*3/uL (0.0-0.4); Eosinophils Percent Auto 5.2 % (0-4); Hematocrit 39.1 % (37.0-47.0); Hemoglobin 12.9 g/dl (12.0-16.0); Imm Gran Abs Auto 0.05 X10*3/uL (0.00-0.03); Imm Gran Pct Auto 0.5 % (0.0-0.4); Lymphocytes Absolute Auto 1.8 X10*3/uL (1.2-4.9); Lymphocytes Percent Auto 16.8 % (20-40); Mean Corpuscular Hemoglobin 27.2 pg (27.0-33.0); Mean Corpuscular Volume 82.3 fL (80.0-98.0); Mean Platelet Volume 11.8 fL (9.4-12.3); Monocytes Absolute Auto 0.9 X10*3/uL (0.1-1.2); Monocytes Percent Auto 7.9 % (2-11); Neutrophils Absolute Auto 7.5 x10*3/uL (2.0-8.3); Neutrophils Percent Auto 69.3 % (45-73); Platelet Count 243 X10*3/uL (160-400); Red Blood Count 4.75 X10*6/uL (4.20-5.50); Red Cell Distribution Width 13.4 % (11.0-16.0); White Blood Count 10.8 X10*3/uL (4.8-10.8)
[2024-04-09 14:55] LABS: Appearance Urine Clear; Color Urine Dark Yellow; Glucose Urine UA Negative (Negative); Leukocyte Esterase Urine Trace (Negative); Nitrite Urine Negative (Negative); PH 5.5 (5.0-9.0); Specific Gravity - Urine >= 1.030 (1.005-1.025); UMIC TRIGGER UACC YES; Urine Blood Negative (Negative); Urine Ketones Trace mg/dL (Negative); Urine Protein Trace mg/dL (Neg-Trace)
[2024-04-09 14:59] LABS: Bacteria Urine None Seen (None Seen); RBC Urine 0-2 /HPF (0-2); UACC Culture Trigger YES
[2024-04-09 15:18] LABS: Alanine Aminotransferase 11 U/L (0-31); Albumin Level 3.9 g/dL (3.5-5.0); Alkaline Phosphatase 113 U/L (39-117); Anion Gap 11 (12-20); Aspartate Amino Transferase 17 U/L (5-31); Bilirubin Total 0.3 mg/dL (0.0-1.0); Blood Urea Nitrogen 14 mg/dL (9-16); Calcium 9.2 mg/dL (8.4-10.2); Carbon Dioxide 26 mmol/L (22-29); Chloride 106 mmol/L (96-108); Creatinine Clr Calc Pharmacy 93.2; Estimated Glomerular Filt Rate > 60; Glucose Random 94 mg/dL (60-115); Sodium 139 mmol/L (135-145); Total Protein 7.7 g/dL (6.5-8.0)
--- OUTSIDE RECORDS SUMMARY | 2024-04-09 18:07 | XMS_ITS | Encounter Summary ---
Author Organization [employer] Address [address] [place] [address] Care Team Providers Care Senior Net Developer Architect Name Role Phone Chanel Bai MD Primary Care Provider [phone] Encounter Details Date Type Department Care Team ([facility] Contact Info) Description 04/09/2024 Orders Only GENERIC EXTERNAL DATA DEPARTMENT Provider, Generic External Data Social History Tobacco Use Types Packs/Day Years Used Date Smoking Tobacco: Every Day Cigarettes Passive Smoke Exposure: Never Smokeless Tobacco: Never Alcohol Use Standard Drinks/Week Comments Never 0 (1 standard drink = 0.6 oz pur e alcohol) Depression Answer Date Recorded Patient Health Questionnaire-9 Score 9 03/04/2024 Patient Health Questionnaire-9 Score 9 03/04/2024 Last PHQ-9: Questionnaire Data Not on file 1 05/05/2023 Housing Stability Answer Date Recorded What is your housing situation today? I have nini marie 08/18/[address] you li ve. Do you have problems with any of the following? None of the above 08/18/2023 Food Insecurity Answer Date Recorded Within the past 12 months, y ou worried that your food would run out before you got money to buy more: Never True 08/18/2023 Within the past 12 months,th e food you bought just didn't last and you didn't have enough money to get more: Never True 05/2023 Transportation Answer Date Recorded In the past 12 months, has l ack of transportation kept you from medical appts, meetings, work or from getting things needed for daily living? No 08/18/2023 Utilities Answer Date Recorded In the past 12 months, has t he electric, gas, oil or water company threatened to shut off services in your home? No 08/18/2023 Depression Answer Date Recorded Patient Health Questionnaire-2 Score 5 03/04/2024 Comments Unknown Sex and Gender Information Value Date Recorded Sex Assigned at Female 01/14/2022 10:15 AM EDT Legal Sex Female 10:15 AM EDT Gender Identity Female 01/14/2022 10:15 AM EDT Sexual Orientation Choose not to disclose 2021 10:15 AM EDT documented as of this encounter Plan of Treatment Upcoming Encounters Date Type Department Care Team (Late st Contact Info) Description 04/15/2024 10:00 AM EST Clinical Support [facility] [address] [place] [address] Tali Velasquez, RN [address] [place] [address] documented as of this encounter Procedures Procedure Name Priority Date/Time Associated Diagnosis Comments URINALYSIS, COMPLETE, WITH REFLEX TO CULTURE Routine 04/09/2024 2:46 PM EST CBC WITH AUTO DIFFERENTIAL Routine 04/09/2024 2:46 PM EST COMPREHENSIVE METABOLIC PANEL Routine 04/09/2024 2:46 PM EST documented in this encounter Results * (ABNORMAL) Comprehensive Metabolic Panel (04/09/2024 2:46 PM EST) Sodium 139 135 - 145 mmol/L [facility] Potassium 4.0 3.3 - 5.1 mmol/L [facility] Chloride 106 96 - 108 mmol/L [facility] Carbon Dioxide 26 22 - 29 mmol/L [facility] Anion Gap 11(L) 12 - 20 [facility] Urea Nitrogen (BUN) 14 9 - 16 mg/dL [facility] Creatinine, Serum 0.72 0.5 - 1.4 mg/dL [facility] Creatinine Clr Calc Pharmacy 93.2 [facility] Comment:Provided height and weight: 170.18 cm,85.4 kg.eGFR (calculated from the MDRD study equation) and eCrCl(calculated from the Cockcroft-Gault equation) are based ondifferent parameters and may not yield comparable results.If eCrCl result is absurd, please check patient'sheight/weight. Estimated Glomerular Filt Rate >60 [facility] Comment:Chronic Kidney Disea se: Estimated GFR < 60 mL/min/[id number] Kidney Disease: Estimated GFR < 15 mL/min/1.73m2 Glucose 94 60 - 115 mg/dL [facility] Calcium 9.2 8.4 - 10.2 mg/dL [facility] Bilirubin, Total 0.3 0.0 - 1.0 mg/dL [facility] Aspartate Amino Transferase 17 5 - 31 U/L [facility] Alanine Aminotransferase 11 0 - 31 U/L [facility] Total Protein 7.7 6.5 - 8.0 g/dL [facility] Albumin Level 3.9 3.5 - 5.0 g/dL [facility] Alkaline Phosphatase 113 39 - 117 U/L [facility] 04/09/2024 2:46 PM EST 04/09/2024 2:50 PM EST us Generic External Data Provider LAB BLOOD ORDERAB LES Final Result [facility] [address] [place] [phone] * (ABNORMAL) Urinalysis, Complete, with Reflex to Culture (04/09/2024 2:46 PM EST) Color Urine Dark Yellow [facility] Appearance Urine Clear [facility] PH 5.5 5.0 - 9.0 [facility] Glucose Urine UA Negative Negative mg/dL [facility] Urine Blood Negative Negative [facility] Specific [place] - Urine >=1.030(H) 1.005 - 1.025 [facility] Urine Protein Trace Neg-Trace mg/dL [facility] Urine Ketones Trace Negative mg/dL [facility] Nitrite Urine Negative Negative [facility] Leukocyte Esterase Urine Trace(A) Negative [facility] RBC Urine 0-2 0 - 2 /HPF [facility] Urine WBC 6-10(A) 0 - 5 /HPF [facility] Urine Squamous Epithelial Cell 6-10 0 - 2 /HPF [facility] Urine Bacteria None Seen None Seen [facility] Hyaline Casts, Urine 3-5 0 - 2 /LPF [facility] 04/09/2024 2:46 PM EST 04/09/2024 2:50 PM EST Narrative [facility] - 04/09/2024 3:01 PM EST Urine, Clean Catch us Generic External Data Provider LAB URINE ORDERAB LES Final Result [facility] [address] [place] [address] [phone] * (ABNORMAL) CBC auto differential (04/09/2024 2:46 PM EST) White Blood Count 10.8 4.8 - 10.8 X10*3/uL [facility] Red Blood Count 4.75 4.20 - 5.50 X10*6/uL [facility] Hemoglobin 12.9 12.0 - 16.0 g/dl [facility] Hematocrit 39.1 37.0 - 47.0 % [facility] Mean Corpuscular Volume 82.3 80.0 - 98.0 fL [facility] Mean Corpuscular Hemoglobin 27.2 27.0 - 33.0 pg [facility] Mean Corpuscular HGB Conc 33.0 31.0 - 35.0 g/dl [facility] Red Cell Distribution Width 13.4 11.0 - 16.0 % [facility] Platelet Count 243 160 - 400 X10*3/uL [facility] Mean Platelet Volume 11.8 9.4 - 12.3 fL [facility] Neutrophils Percent Auto 69.3 45 - 73 % [facility] Imm Gran Pct Auto 0.5(H) 0.0 - 0.4 % [facility] Lymphocytes Percent Auto 16.8(L) 20 - 40 % [facility] Monocytes Percent Auto 7.9 2 - 11 % [facility] Eosinophils Percent Auto 5.2(H) 0 - 4 % [facility] Basophils Percent Auto 0.3 0 - 2 % [facility] NRBC Pct Auto 0.0 0.0 - 0.2 /100WBC [facility] Neutrophils Absolute Auto 7.5 2.0 - 8.3 x10*3/uL [facility] Imm Gran Abs Auto 0.05(H) 0.00 - 0.03 X10*3/uL [facility] Lymphocytes Absolute Auto 1.8 1.2 - 4.9 X10*3/uL [facility] Monocytes Absolute Auto 0.9 0.1 - 1.2 X10*3/uL [facility] Eosinophils Absolute Auto 0.6(H) 0.0 - 0.4 X10*3/uL [facility] Basophils Absolute Auto 0.0 0.0 - 0.2 X10*3/uL [facility] NRBC Abs Auto 0.000 0.0 - 0.012 X10*3/uL [facility] 04/09/2024 2:46 PM EST 04/09/2024 2:50 PM EST us Generic External Data Provider LAB BLOOD ORDERAB LES Final Result Performing Organization Address City/State/[facility] Co de Phone Number [facility] [address] [place] [address] [phone] documented in this encounter Visit Diagnoses Not on filedocumented in this encounter Additional Health Concerns Assessment Noted Time PHQ-9 Depression Total Score: 9 03/04/20 24 2:03 PM EST documented as of this encounter Care Teams Senior Net Developer Architect Relationship Specialty Start Date End Date Chanel Bai MD [address] [place] [phone] PCP - General Family Medicine 05/16/21 documented as of this encounter
--- OUTSIDE RECORDS SUMMARY | 2024-04-09 18:07 | XMS_ITS | Encounter Summary ---
Author Organization [employer] Address [address] [place] [address] Care Team Providers Care Program Clerk Name Role Phone Chanel Bai MD Primary Care Provider [phone] Encounter Details Date Type Department Care Team (Latest Contact Info) Description 04/08/2024 Outside Procedure [facility] OPTOMETRY [address] [place] [address] Jason, Cassidy, OD [address] [place] [address] Presbyopia (Primary Dx) Social History Tobacco Use Types Packs/Day Years [...] AM EDT documented as of this encounter Progress Notes * Cassidy Gomez OD - 04/08/2024 12:27 PM EST MH glasses were dispensed, 2 of 2. documented in this encounter Plan of Treatment Upcoming Encounters Date Type Department Care Team (Late st Contact Info) Description 04/15/2024 10:00 AM EST Clinical Support [facility] [address] [place] [address] Tali Velasquez, RN [address] [place] [address] documented as of this encounter Visit Diagnoses Diagnosis Presbyopia- Primary documented in this encounter Additional Health Concerns Assessment Noted Time PHQ-9 Depression Total Score: 9 03/04/20 24 2:03 PM EST documented as of this encounter Care Teams Program Clerk Relationship Specialty Start Date End Date Chanel Bai MD [address] [place] [address] PCP - General Family Medicine 05/16/21 documented as of this encounter
--- OUTSIDE RECORDS SUMMARY | 2024-04-09 18:08 | XMS_ITS | Encounter Summary ---
Author Organization [employer] Address [address] [place] [address] Care Team Providers Care Career Technical Education Teacher Name Role Phone Chanel Bai MD Primary Care Provider [phone] Reason for Visit * Reason Onset Date Comments Med Refill 10/10/2022 Encounter Details Date Type Department Care Team ([facility] st Contact Info) Description 10/10/2022 Telephone [facility] MEDIC[facility] [address] [place] [address] Chanel Bai MD [address] [place] [address] Med Refill Social History Tobacco Use Types Packs/Day Years [...] AM EDT documented as of this encounter Miscellaneous Notes * Telephone Encounter - Sebas Mena - 10/10/2022 12:15 PM EDT Tc from pt requesting a med refill for traMADol (Ultram) 50 MG tablet documented in this encounter Plan of Treatment Upcoming Encounters Date Type Department Care Team (Late st Contact Info) Description 04/15/2024 10:00 AM EST Clinical Support [facility] MED & PEDS [address] [place] [address] Tali Velasquez, RN [address] [place] [address] documented as of this encounter Visit Diagnoses Not on filedocumented in this encounter Additional Health Concerns Assessment Noted Time PHQ-9 Depression Total Score: 13 023 11:37 AM EST documented as of this encounter Care Teams Career Technical Education Teacher Relationship Specialty Start Date End Date Chanel Bai MD [address] [place] [address] PCP - General Family Medicine 05/16/21 documented as of this encounter
--- OUTSIDE RECORDS SUMMARY | 2024-04-09 18:08 | XMS_ITS | Encounter Summary ---
Author Organization [employer] Address [address] [place] [address] Care Team Providers Care Rest Room Matron Name Role Phone Chanel Bai MD Primary Care Provider [phone] Reason for Visit * Reason Comments Med Refill Encounter Details Date Type Department Care Team ([facility] Contact Info) Description 04/08/2024 Refill [facility] MED & PEDS [address] [place], [place] [phone] Chanel Bai MD [address] [place] [address] Polyarthralgia Social History Tobacco Use Types Packs/Day Years [...] Upcoming Encounters Date Type Department Care Team ([facility] st Contact Info) Description 04/15/2024 10:00 AM EST Clinical Support [facility] MED & PEDS [address] [place] [address] Tali Velasquez, EUGENIE [address] [place] [address] documented as of this encounter Visit Diagnoses Diagnosis Polyarthralgia Pain in joint, multiple sites documented in this encounter Additional Health Concerns Assessment Noted Time PHQ-9 Depression Total Score: 9 03/04/20 24 2:03 PM EST documented as of this encounter Care Teams Rest Room Matron Relationship Specialty Start Date End Date Chanel Bai MD [address] [place] [address] PCP - General Family Medicine 05/16/21 documented as of this encounter
--- OUTSIDE RECORDS SUMMARY | 2024-04-09 18:08 | XMS_ITS | Encounter Summary ---
Author Organization [employer] Address [address] [place] [address] Care Team Providers Care Asphalt Spreader Operator Name Role Phone Chanel Bai MD Primary Care Provider [phone] Reason for Visit * Reason Comments Med Refill Encounter Details Date Type Department Care Team ([facility] Contact Info) Description 03/11/2024 Refill [facility] MED & PEDS [address] [place], [place] [phone] Chanel Bai MD [address] [place] [address] Polyarthralgia Social History Tobacco Use Types Packs/Day [...] Upcoming Encounters Date Type Department Care Team ([facility] st Contact Info) Description 04/15/2024 10:00 AM EST Clinical Support [facility] MED [facility] PED[facility] [address] [place] [address] Tali Velasquez, EUGENIE [address] [place] [address] documented as of this encounter Visit Diagnoses Diagnosis Polyarthralgia Pain in joint, multiple sites documented in this encounter Additional Health Concerns Assessment Noted Time PHQ-9 Depression Total Score: 9 03/04/20 24 2:03 PM EST documented as of this encounter Care Teams Asphalt Spreader Operator Relationship Specialty Start Date End Date Chanel Bai MD [address] [place] [address] PCP - General Family Medicine 05/16/21 documented as of this encounter
--- OUTSIDE RECORDS SUMMARY | 2024-04-09 18:08 | XMS_ITS | Encounter Summary ---
Author Organization [employer] Address [address] [place] [address] Care Team Providers Care Liquid Compounder Name Role Phone Chanel Bai MD Primary Care Provider [phone] Reason for Visit * Reason Onset Date Comments PT1 12/03/2022 Encounter Details Date Type Department Care Team ([facility] Contact Info) Description 12/03/2022 Telephone [facility] MED & PEDS [address] [place] [address] Chanel Bai MD [address] [place] [address] PT1 Social History Tobacco Use Types Packs/Day Years Used Date Smoking Tobacco: Every Day Cigarettes Passive Smoke Exposure: Never Smokeless Tobacco: Never Alcohol Use Standard Drinks/Week Comments Never 0 (1 standard drink = 0.6 oz pur e alcohol) Depression Answer Date Recorded Patient Health Questionnaire-9 Score 13 03/22/2022 Depression Answer Date Recorded Patient Health Questionnaire-2 Score 4 03/22/2022 Comments Unknown Sex and Gender Information Value Date Recorded Sex Assigned at Female 01/14/2022 10:15 AM EDT Legal Sex Female 10:15 AM EDT Gender Identity Female 01/14/2022 10:15 AM EDT Sexual Orientation Choose not to disclose 2021 10:15 AM EDT documented as of this encounter Miscellaneous Notes * Telephone Encounter - Kelly Calvin - 12/03/2022 3:32 PM EDT PT-1 submitted for patient. They will receive a letter of approval or denial in the mail. * Telephone Encounter - Faby Najera - 12/03/2022 10:17 AM EDT Tc benedicto Dockery at [facility] PT1 Address verified Date: 12/09/22 Time: 12:30 pm Visits: 2 (12/18/22 at 10:30 am) Address: [address] [place] [address] Facility: [facility] Dental Wheel Chair: n/a Batchmaker Needed: yes PT1 Date: 12/12/22 Time: 9:30 am Visits: 2 (12/27/21 at 1:45 pm) Address: [address] [place] [address] [place] [address] Facility: Cardiology Wheel Chair: n/a Batchmaker Needed: yes PT1 Date: 12/13/22 Time: 9:30 am Visits: Address: [address] [place], [place] Facility: PCP Wheel Chair: n/a Batchmaker Needed: yes documented in this encounter Plan of Treatment Upcoming Encounters Date Type Department Care Team (Late st Contact Info) Description 04/15/2024 10:00 AM EST Clinical Support [facility] CH[facility] MED & PEDS [address] [place] [address] Tali Velasquez, EUGENIE [address] [place] [address] documented as of this encounter Visit Diagnoses Diagnosis Polyarthralgia Pain in joint, multiple sites documented in this encounter Additional Health Concerns Assessment Noted Time PHQ-9 Depression Total Score: 13 023 11:37 AM EST documented as of this encounter Care Teams Liquid Compounder Relationship Specialty Start Date End Date Chanel Bai MD [address] [place] [address] PCP - General Family Medicine 05/16/21 documented as of this encounter
--- OUTSIDE RECORDS SUMMARY | 2024-04-09 18:08 | XMS_ITS | Encounter Summary ---
Author Organization [employer] Address [address]t [place] [address] Care Team Providers Care Development Analyst Name Role Phone Chanel Bai MD Primary Care Provider [phone] Reason for Visit * Reason Onset Date Comments Appointment Request 03/08/2022 Encounter Details Date Type Department Care Team ([facility] Contact Info) Description 03/08/2022 Telephone [facility] CHC MED & PEDS [address] [place], [place] [phone] Chanel Bai MD [address] [place] [address] Appointment Request Social History Tobacco Use Types Packs/Day Years Used Date Smoking Tobacco: Never Assessed Comments Unknown Sex and Gender Information Value Date Recorded Sex Assigned at Female 01/14/2022 10:15 AM EDT Legal Sex Female 10:15 AM EDT Gender Identity Female 01/14/2022 10:15 AM EDT Sexual Orientation Choose not to disclose 2021 10:15 AM EDT documented as of this encounter Miscellaneous Notes * Telephone Encounter - Kerline Butcher RN - 03/08/2022 10:40 AM EST Please see message below and follow up with pt for appt rescheduling. Thank you. * Telephone Encounter - Brook Graciela - 03/08/2022 10:22 AM EST Tc from pt requesting to r/s missed appt on 01/23/22 for ov-bp. Power Lineman tried to book nothing available and call had dropped before I was able to inform pt . documented in this encounter Plan of Treatment Upcoming Encounters Date Type Department Care Team ([facility] st Contact Info) Description 04/15/2024 10:00 AM EST Clinical Support [facility] MED & PEDS [address] [place] [address] Tali Velasquez, RN [address] [place] [address] documented as of this encounter Visit Diagnoses Not on filedocumented in this encounter Care Teams Development Analyst Relationship Specialty Start Date End Date Chanel Bai MD [address] [place] [address] PCP - General Family Medicine 05/16/21 documented as of this encounter
--- OUTSIDE RECORDS SUMMARY | 2024-04-09 18:08 | XMS_ITS | Encounter Summary ---
Author Organization [employer] Address [address] [place] [address] Care Team Providers Care Contract Processor Name Role Phone Chanel Bai MD Primary Care Provider [phone] Encounter Details Date Type Department Care Team ([facility] st Contact Info) Description 04/06/2024 3:45 PM EST Office Visit [facility] OPTOMETRY [address] [place] [address] Jason, Cassidy, OD [address] [place] [address] Hyperopia of both eyes (Primary Dx) Social History Tobacco Use Types [...] Progress Notes * Cassidy Gomez OD - 04/06/2024 3:45 PM EST MH glasses were dispensed. documented in this encounter Plan of Treatment Upcoming Encounters Date Type Department Care Team (Late st Contact Info) Description 04/15/2024 10:00 AM EST Clinical Support [facility] CH[facility] MED & PEDS [address] [place] [address] Tali Velasquez, EUGENIE [address] [place] [address] documented as of this encounter Visit Diagnoses Diagnosis Hyperopia of both eyes- Primary documented in this encounter Additional Health Concerns Assessment Noted Time PHQ-9 Depression Total Score: 9 03/04/20 24 2:03 PM EST documented as of this encounter Care Teams Contract Processor Relationship Specialty Start Date End Date Chanel Bai MD [address] [place] [address] PCP - General Family Medicine 05/16/21 documented as of this encounter
--- OUTSIDE RECORDS SUMMARY | 2024-04-09 18:08 | XMS_ITS | Encounter Summary ---
Author Organization [employer] Address [address] [facility] [place] [address] Care Team Providers Care Marketing Instructor Name Role Phone Chanel Bai MD Primary Care Provider [phone] Encounter Details Date Type Department Care Team ([facility] Contact Info) Description 04/05/2024 Orders Only [facility] External Provider, [facility] Social History Tobacco Use Types Packs/Day Years [...] Description 04/15/2024 10:00 AM EST Clinical Support [facility] [address] [place] [address] Tali Velasquez, RN [address] [place] [address] documented as of this encounter Procedures Procedure Name Priority Date/Time Associated Diagnosis Comments HIGH SENSITIVITY TROPONIN I Routine 04/05/2024 7:41 PM EST CBC WITH AUTO DIFFERENTIAL Routine 04/05/2024 7:41 PM EST MAGNESIUM Routine 04/05/2024 7:41 PM EST LIPASE Routine 04/05/2024 7:41 PM EST HEPATIC FUNCTION PANEL Routine 04/05/2024 7:41 PM EST BASIC METABOLIC PANEL Routine 04/05/2024 7:41 PM EST US ABDOMEN LIMITED Routine 04/05/2024 7: 22 PM EST documented in this encounter Results * High Sensitivity Troponin I (04/05/2024 7:41 PM EST) TROPONIN I HIGH SENSITIVITY <2.7 <3.5 - 17.0 ng/L [facility] Comment:The [place] high sens itivity Troponin-I results should beused in conjunction with other diagnostic information suchas ECG, clinical observations and information, and patientsymptoms to aid in the diagnosis of PR. 04/05/2024 7:41 PM EST 04/05/2024 7:47 PM EST us Generic External Data Provider LAB BLOOD ORDERAB LES Final Result Performing Organization Address [facility]/ZIP Co de Phone Number [facility] [address] [place] [phone] * Lipase (04/05/2024 7:41 PM EST) Lipase 16 8 - 78 U/L [facility] 04/05/2024 7:41 PM EST 04/05/2024 7:47 PM EST us Generic External Data Provider LAB BLOOD ORDERAB LES Final Result Performing Organization Address [facility] Co de Phone Number [facility] [address] [place] [phone] * Magnesium (04/05/2024 7:41 PM EST) Magnesium 1.9 1.6 - 2.6 mg/dL [facility] 04/05/2024 7:41 PM EST 04/05/2024 7:47 PM EST us Generic External Data Provider LAB BLOOD ORDERAB LES Final Result Performing Organization Address [facility] Co de Phone Number [facility] [address] [place] [phone] * (ABNORMAL) Basic Metabolic Panel (04/05/2024 7:41 PM EST) Sodium 143 135 - 145 mmol/L [facility] Potassium 3.9 3.3 - 5.1 mmol/L [facility] Chloride 106 96 - 108 mmol/L [facility] Carbon Dioxide 27 22 - 29 mmol/L [facility] Anion Gap 14 12 - 20 [facility] Urea Nitrogen (BUN) 20(H) 9 - 16 mg/dL [facility] Creatinine, Serum 0.73 0.5 - 1.4 mg/dL [facility] Creatinine Clr Calc Pharmacy 92.8 [facility] Comment:Provided height and weight: 170.18 cm,87.1 kg.eGFR (calculated from the MDRD study equation) and eCrCl(calculated from the Cockcroft-Gault equation) are based ondifferent parameters and may not yield comparable results.If eCrCl result is absurd, please check patient'sheight/weight. Estimated Glomerular Filt Rate >60 [facility] Comment:Chronic Kidney Disea se: Estimated GFR < 60 mL/min/1.74t9Dlgwua Kidney Disease: Estimated GFR < 15 mL/min/1.73m2 Glucose 117(H) 60 - 115 mg/dL [facility] Calcium 8.7 8.4 - 10.2 mg/dL [facility] 04/05/2024 7:41 PM EST 04/05/2024 7:47 PM EST us Generic External Data Provider LAB BLOOD ORDERAB LES Final Result [facility] [address] [place] [address] [phone] * (ABNORMAL) Hepatic Function Panel (04/05/2024 7:41 PM EST) Bilirubin, Total 0.1 0.0 - 1.0 mg/dL [facility] Bilirubin, Direct <0.2 0.0 - 0.5 mg/dL [facility] Aspartate Amino Transferase 16 5 - 31 U/L [facility] Alanine Aminotransferase 11 0 - 31 U/L [facility] Total Protein 7.6 6.5 - 8.0 g/dL [facility] Albumin Level 3.8 3.5 - 5.0 g/dL [facility] Alkaline Phosphatase 119(H) 39 - 117 U/L [facility] 04/05/2024 7:41 PM EST 04/05/2024 7:47 PM EST us Generic External Data Provider LAB BLOOD ORDERAB LES Final Result [facility] [address] [place], [place] [phone] * (ABNORMAL) CBC auto differential (04/05/2024 7:41 PM EST) White Blood Count 12.0(H) 4.8 - 10.8 X10*3/uL [facility] Red Blood Count 4.53 4.20 - 5.50 X10*6/uL [facility] Hemoglobin 12.3 12.0 - 16.0 g/dl [facility] Hematocrit 37.4 37.0 - 47.0 % [facility] Mean Corpuscular Volume 82.6 80.0 - 98.0 fL [facility] Mean Corpuscular Hemoglobin 27.2 27.0 - 33.0 pg [facility] Mean Corpuscular HGB Conc 32.9 31.0 - 35.0 g/dl [facility] Red Cell Distribution Width 13.4 11.0 - 16.0 % [facility] Platelet Count 297 160 - 400 X10*3/uL [facility] Mean Platelet Volume 11.7 9.4 - 12.3 fL [facility] Neutrophils Percent Auto 64.2 45 - 73 % [facility] Imm Gran Pct Auto 0.3 0.0 - 0.4 % [facility] Lymphocytes Percent Auto 20.2 20 - 40 % [facility] Monocytes Percent Auto 7.4 2 - 11 % [facility] Eosinophils Percent Auto 7.6(H) 0 - 4 % [facility] Basophils Percent Auto 0.3 0 - 2 % [facility] NRBC Pct Auto 0.0 0.0 - 0.2 /100WBC [facility] Neutrophils Absolute Auto 7.7 2.0 - 8.3 x10*3/uL [facility] Imm Gran Abs Auto 0.03 0.00 - 0.03 X10*3/uL [facility] Lymphocytes Absolute Auto 2.4 1.2 - 4.9 X10*3/uL [facility] Monocytes Absolute Auto 0.9 0.1 - 1.2 X10*3/uL [facility] Eosinophils Absolute Auto 0.9(H) 0.0 - 0.4 X10*3/uL [facility] Basophils Absolute Auto 0.0 0.0 - 0.2 X10*3/uL [facility] NRBC Abs Auto 0.000 0.0 - 0.012 X10*3/uL [facility] 04/05/2024 7:41 PM EST 04/05/2024 7:47 PM EST us Generic External Data Provider LAB BLOOD ORDERAB LES Final Result Performing Organization Address [facility]/State/[facility] Co de Phone Number [facility] [address] [place] [phone] * US Abdomen Limited (04/05/2024 7:22 PM EST) Anatomical Region Laterality Modality Abdomen Ultrasound 04/05/2024 7:22 PM EST Narrative 04/05/2024 7:23 PM EST ? [facility] ?[address] ?[place] [address] ? Ultrasound Report ? Signed ? Patient: Suze Edwards ?MR#: [id number] ?? 7 ? : 1965 ?Acct:[id number] ? Age/Sex: 58 / F ?ADM Date: 04/05/24 ? Loc: HO.ED ? Attending Dr: ? Ordering Physician: Amber Medeiros ?? Date of Service: 04/05/24 ?? Procedure(s): US abdomen limited ?? Accession Number(s): [id number] ? cc: Amber Medeiros; Chanel Bai MD ? CLINICAL HISTORY: RUQ pain ? US abdomen limited ? Comparison: CT of the abdomen without contrast from 02/29/2024. ? Findings: ?? No gallbladder wall thickening or pericholecystic fluid with mild under ?? distention of the imaged gallbladder. Portions of the gallbladder ?? including the fundus are obscured by side lobe artifacts. ?? Imaged CBD is nondilated measuring up to 0.5 cm diameter. Sonographic ?? Harman's sign is not elicited by the technologist. ?? Imaged IVC and imaged aorta are unremarkable. ?? No right upper quadrant ascites or right pleural effusion. ?? Portions of the liver obscured by side lobe artifacts. ?? The majority of the pancreas is obscured by overlying artifacts. Right ?? kidney is obscured. 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 ?? Main portal vein is obscured. ?? The gallbladder is normal. There is no sonographic Harman sign. ?? The main portal vein is antegrade. ? IMPRESSION: ?? No ultrasound findings of acute cholecystitis. ?? Imaged CBD is nondilated. ? This document has been electronically signed by: Ki Marroquin MD on ?? 04/05/2024 19:22:05 ? Dictated By: ?Ki Marroquin MD ? Signed By: ?<Electronically signed by Ki Marroquin MD in OV> ? 04/05/241922 ? DD/ 21 ? TD/TT: 04/05/241921 ? Ruling Machine Feeder: ? Procedure Note Yanet Matamoros - 04/05/2024 [place] [address] Ultrasound Report Signed Patient: Suze Edwards EMR#: [id number] 7 : 1965Acct:[id number] Age/Sex: 58 / FADM Date: 04/05/24 Loc: HO.ED Attending Dr: Ordering Physician: Amber Medeiros Date of Service: 04/05/24 Procedure(s): US abdomen limited Accession Number(s): [id number] cc: Amber Medeiros; Chanel Bai MD CLINICAL HISTORY: RUQ pain US abdomen limited Comparison: CT of the abdomen without contrast from 02/29/2024. Findings: No gallbladder wall thickening or pericholecystic fluid with mild under distention of the imaged gallbladder. Portions of the gallbladder including the fundus are obscured by side lobe artifacts. Imaged CBD is nondilated measuring up to 0.5 cm diameter. Sonographic Harman's sign is not elicited by the technologist. Imaged IVC and imaged aorta are unremarkable. No right upper quadrant ascites or right pleural effusion. Portions of the liver obscured by side lobe artifacts. The majority of the pancreas is obscured by overlying artifacts. Right kidney is obscured. 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 Main portal vein is obscured. The gallbladder is normal. There is no sonographic Harman sign. The main portal vein is antegrade. IMPRESSION: No ultrasound findings of acute cholecystitis. Imaged CBD is nondilated. This document has been electronically signed by: Ki Marroquin MD on 04/05/2024 19:22:05 Dictated By: Ki Marroquin MD Signed By: <Electronically signed by Ki Marroquin MD in OV> 04/05/241922 DD/ 21 TD/TT: 04/05/241921 Ruling Machine Feeder: [facility] External Provider IMG US PROCEDURES Final Result documented in this encounter Visit Diagnoses Not on filedocumented in this encounter Additional Health Concerns Assessment Noted Time PHQ-9 Depression Total Score: 9 03/04/20 24 2:03 PM EST documented as of this encounter Care Teams Marketing Instructor Relationship Specialty Start Date End Date Chanel Bai MD [address] [place] [address] PCP - General Family Medicine 05/16/21 documented as of this encounter
--- OUTSIDE RECORDS SUMMARY | 2024-04-09 18:08 | XMS_ITS | Encounter Summary ---
Author Organization [employer] Address [address] [place] [address] Care Team Providers Care Hamper Maker Machine Name Role Phone Chanel Bai MD Primary Care Provider [phone] Reason for Visit * Reason Comments Med Refill Encounter Details Date Type Department Care Team ([facility] Contact Info) Description 03/22/2024 Refill [facility] & PEDS [address] [place], [place] [phone] Chanel Bai MD [address] [place] [address] Coronary artery disease, unspecified vessel or lesion type, unspecified whether angina present, unspecified whether [place] or transplanted heart Social History Tobacco Use Types Packs/Day Years [...] Upcoming Encounters Date Type Department Care Team ([facility] st Contact Info) Description 04/15/2024 10:00 AM EST Clinical Support [facility] [address] [place] [address] Tali Velasquez, EUGENIE [address] [place] [address] documented as of this encounter Visit Diagnoses Diagnosis Coronary artery disease, unspecified vessel or lesion type, unspecified whether angina present, unspecified whether [place] or transplanted heart documented in this encounter Additional Health Concerns Assessment Noted Time PHQ-9 Depression Total Score: 9 03/04/20 24 2:03 PM EST documented as of this encounter Care Teams Hamper Maker Machine Relationship Specialty Start Date End Date Chanel Bai MD [address] [place] [address] PCP - General Family Medicine 05/16/21 documented as of this encounter
--- NOTE | 2024-04-09 19:31 | PC.NURSE ---
called in WR multiple times with an answer
== END 2024-04-09 19:31 | disposition left against medical advice (07) ==
PROVIDERS: Registered Nurse Emergency; Emergency Provider Emergency Medicine; PCP Family Medicine
DX: R10.9 Unspecified abdominal pain (principal); Z53.21 Procedure and treatment not carried out due to patient leaving prior to being seen by health care provider
CPT/HCPCS: 36415; 80053; 81001; 85025; 87086; 99281; 99282

== ENCOUNTER 2024-08-04 08:53 | Emergency (ER) | payer MEDICAID, SELFPAY ==
[2024-08-04 09:01] VITALS: BP 117/80; PULSE 78; RESP 18; TEMP 36.6; O2SAT 98; BMI 30.1
[2024-08-04 09:29] LABS: MANUAL DIFF FLAG NO
[2024-08-04 09:41] LABS: Basophils Percent Auto 0.2 % (0-2); Eosinophils Absolute Auto 0.5 X10*3/uL (0.0-0.4); Eosinophils Percent Auto 4.8 % (0-4); Hematocrit 38.1 % (37.0-47.0); Hemoglobin 12.8 g/dl (12.0-16.0); Imm Gran Abs Auto 0.02 X10*3/uL (0.00-0.03); Imm Gran Pct Auto 0.2 % (0.0-0.4); Lymphocytes Absolute Auto 1.5 X10*3/uL (1.2-4.9); Lymphocytes Percent Auto 15.7 % (20-40); Mean Corpuscular HGB Conc 33.6 g/dl (31.0-35.0); Mean Corpuscular Hemoglobin 27.1 pg (27.0-33.0); Mean Corpuscular Volume 80.5 fL (80.0-98.0); Mean Platelet Volume 11.9 fL (9.4-12.3); Monocytes Absolute Auto 0.7 X10*3/uL (0.1-1.2); Monocytes Percent Auto 7.7 % (2-11); Neutrophils Absolute Auto 6.6 x10*3/uL (2.0-8.3); Neutrophils Percent Auto 71.4 % (45-73); Platelet Count 251 X10*3/uL (160-400); Red Blood Count 4.73 X10*6/uL (4.20-5.50); Red Cell Distribution Width 13.8 % (11.0-16.0); White Blood Count 9.3 X10*3/uL (4.8-10.8)
--- NOTE | 2024-08-04 09:43 | ED.CHESTPAIN ---
HPI - Chest Pain General Chief Complaint: Chest Pain Stated Complaint: abd pain Time Seen by Provider: 08/04/24 09:33 History of Present Illness ED Provider: Ab Stephenson MD HPI narrative: 58-year-old female with history tobacco smoking, CAD, NSTEMI 2021 chest pain once again with elevating troponins 2023 sent to [facility] here with: Epigastric pain intermittent since last night 11p. At 11p she felt slight L pectoral chest discomfort. No radiation. No assoc diaphroesis/n/dyspnea. Eating and drinking ok. Chronic cough. Still smoking tobacco. No exertional sx. Related Data Home Medications ?Medication ?Instructions ?Recorded ?Confirmed mirabegron 50 mg tablet,extended 50 mg PO DAILY 08/29/21 10/03/23 release 24 hr (Myrbetriq) sennosides 8.6 mg tablet (senna) 17.2 mg PO BEDTIME 08/29/21 10/03/23 cholecalciferol (vitamin D3) 50 50 mcg PO DAILY 03/26/22 10/03/23 mcg (2,000 unit) tablet fluticasone propionate 50 2 spray intranasal DAILY PRN 03/26/22 10/03/23 mcg/actuation nasal Allergy Symptoms spray,suspension loratadine 10 mg tablet (Allergy 10 mg PO DAILY PRN Allergy Symptoms 03/26/22 10/03/23 Relief (loratadine)) bupropion HCl 150 mg 24 hr tablet, 150 mg PO DAILY 11/27/22 10/03/23 extended release tramadol 50 mg tablet 50 mg PO Q6H PRN Pain 11/27/22 10/03/23 sumatriptan succinate 50 mg tablet 50 mg PO DAILY PRN Migraine 04/16/23 10/03/23 Headache amlodipine 10 mg tablet 10 mg PO DAILY 06/17/23 10/03/23 metoprolol tartrate 25 mg tablet 25 mg PO BID 06/17/23 10/03/23 omeprazole 40 mg capsule,delayed 40 mg PO DAILY@0630 06/17/23 10/03/23 release paroxetine HCl 10 mg tablet 10 mg PO BEDTIME 06/17/23 10/03/23 trazodone 50 mg tablet 50 mg PO BEDTIME PRN anxiety 06/17/23 10/03/23 Previous Rx's ?Medication ?Instructions ?Recorded aspirin 81 mg tablet,delayed 81 mg PO DAILY #14 tabs 08/11/21 release atorvastatin 80 mg tablet 80 mg PO BEDTIME #30 tabs 08/11/21 heparin (porcine) 25,000 unit/250 25,000 unit (250 mL) continuous IV 06/17/23 mL in 0.45 % sodium chloride IV infusion .Q0M #1 mL soln nicotine 21 mg/24 hr daily 21 mg transdermal DAILY #1 ea 06/17/23 transdermal patch lisinopril 10 mg tablet 10 mg PO DAILY #30 tabs 10/03/23 acetaminophen 325 mg tablet 650 mg (2 x 325 mg) PO Q6H PRN 02/29/24 (Tylenol) fever or pain #30 tabs ezetimibe 10 mg tablet 10 mg PO BEDTIME #90 tabs 04/19/24 Allergies Allergy/AdvReac Type Severity Reaction Status Date / Time ibuprofen [From Motrin] AdvReac Unknown UPSET Verified 08/04/24 09:04 STOMACH PMFSH Past Medical History Medical History Osteoarthritis of shoulders, bilateral Pain in joint involving multiple sites 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 Cholecystitis Osteoarthritis of left hip Depression with anxiety Migraines History of non-ST elevation myocardial infarction (NSTEMI) (~07/2021) Personal history of nicotine dependence Primary osteoarthritis of knees, bilateral GERD (gastroesophageal reflux disease) Hypercholesterolemia Obesity HTN (hypertension) Osteoarthritis Surgical History History of cardiac cath (~2021) History of colonoscopy History of carpal tunnel surgery of right wrist (~2014) History of total abdominal hysterectomy (~2004) History of tubal ligation Family History Family History Mother HTN (hypertension) Diabetes Father Alzheimer disease Brother Throat cancer Social History Social History Household Members: Spouse Housing: House Do you presently have visiting nurse or other home services: Yes ([employer] services) Alcohol intake: never Patient Tobacco Use Status: Never used Tobacco Tobacco use type: Cigarette Cigarettes Per Day: 8 Years Smoked: (onset 13, 1/2ppd x 42yrs, 20+PYH) Smoked in Last 30 Days: Yes Second Hand Smoke Exposure: No Use of substances other than those prescribed or required for medical reasons: No Substance Use Type: Marijuana Advance Directives: Yes Advance Directives on File: Yes Advance Directives Date on File: 12/02/22 Do you have a plan to hurt others: No Plan service: No Current occupational status: disabled Physical Exam Vital Signs: Vital Signs: Last Vital Signs Temp 98.0 F 08/04/24 11:57 Pulse 74 08/04/24 11:57 Resp 16 08/04/24 11:57 BP 123/65 08/04/24 11:57 Pulse Ox 96 08/04/24 11:57 O2 Del Method Room Air 08/04/24 11:57 BMI result Body Mass Index 30.1 Const: Other: EXAM: Gen: Alert, awake, well appearing, well hydrated. Head: Atraumatic Eyes: Anicteric, Normal conjunctiva. ENT: Moist mucosa, no pallor. ? Neck: Supple. Respiratory: Breathing comfortably, No distress.Clear to auscultation bilaterally, symmetric chest expansion, No wheeze, rales, ronchi. Cardiovascular: Regular rate and rhythm. No murmurs or rub. Well perfused periphery, warm extremities. No edema. ? Abdominal: Soft, no objective distension. No palpable masses or obvious organomegaly. No focal tenderness, no guarding, no rebound tenderness or other peritoneal findings. : No flank tenderness. Neuro: Alert. Gross movement of all extremities intact. ? Vital signs: See flowsheet Medications Administered Discontinued Medications Generic Name Dose Route Start Last Admin Trade Name José Luisq PRN Reason Stop Dose Admin Acetaminophen 975 mg 08/04/24 10:08/04/24 11:12 Acetaminophen 325 Mg Tablet PO 08/04/24 10:26 975 mg ONCE ONE Administration Al Hydroxide/Mg Hydroxide 30 ml 08/04/24 10:25 08/04/24 11:12 Magnesium Hydrox/Alum Hydrox 30 Ml Oral.Susp PO 08/04/24 10:26 30 ml ONCE ONE Administration Famotidine 20 mg 08/04/24 10:08/04/24 11:12 Famotidine 20 Mg Tablet PO 08/04/24 10:26 20 mg ONCE ONE Administration Procedures Procedure Narrative Procedure Narrative: EMERGENCY ULTRASOUND INTERPRETATION- Limited Point of Care Biliary [This study was ordered, performed, and interpreted by myself. The study reveals: Impression: NO EVIDENCE OF ACUTE INFLAMMATION OF THE GALLBLADDER, NO EVIDENCE OF OBSTRUCTIVE BILIARY DISEASE] [Indication: RUQ PAIN Gallbladder: NO WALL THICKENING > 4MM, NO PERICHOLECYSTIC FLUID, NOT GROSSLY DILATED/HYDROPIC. -Additional: WALL MEASUREMENT: CBD MEASURMENT IF OBTAINED: Performed by: Ab Stephenson MD CPT:[id number]] Medical Decision Making Medical Decision Making [facility] Narrative: 58-year-old female with history of CAD NSTEMI 2021, 2023. She had upper epigastric pain and left pectoral region pain without radiation last night. She woke this morning still felt some discomfort in the upper abdomen but no longer had chest pain no difficulty breathing. Exam reassuring with no chest wall tenderness or bruising she is mildly tender in the epigastrium. She is not vomiting ill or toxic looking. Vitals are stable. ECG is reassuring see interpretation below. She did have some tenderness on right upper quadrant but she had a reassuring biliary ultrasound of the bedside see report above. Lab Data [facility] Lab Attestation statement: I reviewed the patient's lab results. 08/04/24 09:23 08/04/24 09:23 Labs: Lab Results 08/04/24 08/04/24 Range/Units 09:23 10:45 WBC 9.3 (4.8-10.8) X10*3/uL RBC 4.73 (4.20-5.50) X10*6/uL Hgb 12.8 (12.0-16.0) g/dl Hct 38.1 (37.0-47.0) % MCV 80.5 (80.0-98.0) fL MCH 27.1 (27.0-33.0) pg MCHC 33.6 (31.0-35.0) g/dl RDW 13.8 (11.0-16.0) % Plt Count 251 (160-400) X10*3/uL MPV 11.9 (9.4-12.3) fL Immature Gran % (Auto) 0.2 (0.0-0.4) % Neut % (Auto) 71.4 (45-73) % Lymph % (Auto) 15.7 L (20-40) % Leake % (Auto) 7.7 (2-11) % Eos % (Auto) 4.8 H (0-4) % Baso % (Auto) 0.2 (0-2) % Lymph # (Auto) 1.5 (1.2-4.9) X10*3/uL Leake # (Auto) 0.7 (0.1-1.2) X10*3/uL Eos # (Auto) 0.5 H (0.0-0.4) X10*3/uL Baso # (Auto) 0.0 (0.0-0.2) X10*3/uL Abs Immat Gran (auto) 0.02 (0.00-0.03) X10*3/uL Absolute Neuts (auto) 6.6 (2.0-8.3) x10*3/uL Absolute Nucleated RBC 0.000 (0.0-0.012) X10*3/uL Nucleated RBC % (auto) 0.0 (0.0-0.2) /100WBC Sodium 141 (135-145) mmol/L Potassium 3.9 (3.3-5.1) mmol/L Chloride 104 (96-108) mmol/L Carbon Dioxide 30 H (22-29) mmol/L Anion Gap 11 L (12-20) BUN 13 (9-16) mg/dL Creatinine 0.73 (0.5-1.4) mg/dL Estim Creat Clear Calc 92.8 Estimated GFR > 60 Random Glucose 122 H (60-115) mg/dL Calcium 8.7 (8.4-10.2) mg/dL Troponin I High Sens < 2.7 < 2.7 (<3.5-17.0) ng/L Discharge Plan Discharge Clinical Impression: Abdominal pain Patient Disposition: Home, Self-Care Instructions: Abdominal Pain (ED) Additional Instructions: DISCHARGE DIAGNOSES: Abdominal pain HISTORY OF PRESENTATION: ?Upper abdominal pain and chest pain EMERGENCY DEPARTMENT COURSE,TESTS, TREATMENTS: While in the ED today we checked your gallbladder which had no signs of stones or inflammation or infection, you had an EKG which was normal and reassuring and 2 separate cardiac enzymes are normal and reassuring DISCHARGE MEDICATIONS: ?[We have made no changes to your regular medication regimen] FOLLOW-UP: ?Call your primary or general physician soon as possible to discuss your symptoms, your ED visit and to discuss follow up plans Call your primary doctor follow up you may need outpatient provocative testing to check your heart more fully INSTRUCTIONS ?& RETURN PRECAUTIONS: If any symptoms change first call your primary physician, if it is after-hours your primary doctors office should have a provider sales operations associate you can speak with. If the symptoms are severe or very concerning to you then call 911 or return to the ED. Call to establish and follow up with a primary care provider. If you already have a primary care provider, please follow up with them. Llame para establecer y hacer un seguimiento con un proveedor de atenci?n primaria. Si ya tiene un proveedor de atenci?n primaria, neisha un seguimiento con ?antonio Stephenson MD Emergency Physician [facility] Prescriptions: No Action ezetimibe 10 mg tablet 10 mg PO BEDTIME Qty: 90 3RF atorvastatin 80 mg Tablet 80 mg PO BEDTIME Qty: 30 0RF aspirin 81 mg Tablet,Delayed Release (Dr/Ec) 81 mg PO DAILY Qty: 14 0RF trazodone 50 mg tablet 50 mg PO BEDTIME PRN (Reason: anxiety) omeprazole 40 mg capsule,delayed release(DR/EC) 40 mg PO DAILY@0630 metoprolol tartrate 25 mg tablet 25 mg PO BID amlodipine 10 mg tablet 10 mg PO DAILY paroxetine HCl 10 mg tablet 10 mg PO BEDTIME nicotine 21 mg/24 hr Patch 24 Hour 21 mg transdermal DAILY Qty: 1 0RF heparin(porcine) in 0.45% NaCl 25,000 unit/250 mL Parenteral Solution 25,000 unit continuous IV infusion .Q0M Qty: 1 0RF acetaminophen [Tylenol] 325 mg tablet 650 mg PO Q6H PRN (Reason: fever or pain) Qty: 30 0RF bupropion HCl 150 mg tablet extended release 24 hr 150 mg PO DAILY tramadol 50 mg tablet 50 mg PO Q6H PRN (Reason: Pain) sennosides [senna] 8.6 mg tablet 17.2 mg PO BEDTIME Myrbetriq 50 mg tablet extended release 24 hr 50 mg PO DAILY cholecalciferol (vitamin D3) 50 mcg (2,000 unit) tablet 50 mcg PO DAILY loratadine [Allergy Relief (loratadine)] 10 mg tablet 10 mg PO DAILY PRN (Reason: Allergy Symptoms) fluticasone propionate 50 mcg/actuation spray,suspension 2 spray intranasal DAILY PRN (Reason: Allergy Symptoms) sumatriptan succinate 50 mg tablet 50 mg PO DAILY PRN (Reason: Migraine Headache) lisinopril 10 mg tablet 10 mg PO DAILY Qty: 30 5RF Interventions: ED Discharge Assessment Last Done: 08/04/24 11:57 Discharge Date/Time: 08/04/24 11:58 Print Language: Arabic
[2024-08-04 09:56] LABS: Anion Gap 11 (12-20); Blood Urea Nitrogen 13 mg/dL (9-16); Calcium 8.7 mg/dL (8.4-10.2); Carbon Dioxide 30 mmol/L (22-29); Chloride 104 mmol/L (96-108); Creatinine Clr Calc Pharmacy 92.8; Estimated Glomerular Filt Rate > 60; Glucose Random 122 mg/dL (60-115); Potassium 3.9 mmol/L (3.3-5.1); Sodium 141 mmol/L (135-145)
[2024-08-04 10:10] LABS: Troponin-I High Sensitivity < 2.7 ng/L (<3.5-17.0)
[2024-08-04 10:32] VITALS: BP 121/52; PULSE 57; RESP 20; O2SAT 96
--- OUTSIDE RECORDS SUMMARY | 2024-08-04 10:49 | XMS_ITS | Encounter Summary ---
Author Organization [employer] Address [address] [place] [address] Care Team Providers Care Warehouse Representative Name Role Phone Chanel Bai MD Primary Care Provider [phone] Encounter Details Date Type Department Care Team ([facility] Contact Info) Description 08/04/2024 Orders Only GENERIC EXTERNAL DATA DEPARTMENT Provider, [...] Care Team (Late st Contact Info) Description 08/23/2024 1:00 PM EDT Office Visit [facility] [address] [place] [address] Chanel Bai MD [address] [place] [address] 09/30/2024 10:00 AM EDT Clinical Support [facility] [address] [place] [address] Tali Velasquez RN [address] [place] [address] documented as of this encounter Procedures Procedure Name Priority Date/Time Associated Diagnosis Comments HIGH SENSITIVITY TROPONIN I Routine 08/04/2024 9:23 AM EDT CBC WITH AUTO DIFFERENTIAL Routine 08/04/2024 9:23 AM EDT BASIC METABOLIC PANEL Routine 08/04/2024 9:23 AM EDT documented in this encounter Results * High Sensitivity Troponin I (08/04/2024 9:23 AM EDT) TROPONIN I HIGH SENSITIVITY <2.7 <3.5 - 17.0 ng/L [facility] Comment:The [place] high sens itivity Troponin-I results should beused in conjunction with other diagnostic information suchas ECG, clinical observations and information, and patientsymptoms to aid in the diagnosis of MD. 08/04/2024 9:23 AM EDT 08/04/2024 9:28 AM EDT us Generic External Data Provider LAB BLOOD ORDERAB LES Final Result Performing Organization Address City/[facility]/ZIP Co de Phone Number [facility] [address] [place] [address] [phone] * (ABNORMAL) Basic Metabolic Panel (08/04/2024 9:23 AM EDT) Sodium 141 135 - 145 mmol/L [facility] Potassium 3.9 3.3 - 5.1 mmol/L [facility] Chloride 104 96 - 108 mmol/L [facility] Carbon Dioxide 30(H) 22 - 29 mmol/L [facility] Anion Gap 11(L) 12 - 20 [facility] Urea Nitrogen (BUN) 13 9 - 16 mg/dL [facility] Creatinine, Serum 0.73 0.5 - 1.4 mg/dL [facility] Creatinine Clr Calc Pharmacy 92.8 [facility] Comment:Provided height and weight: 170.18 cm,87.1 kg.eGFR (calculated from the MDRD study equation) and eCrCl(calculated from the Cockcroft-Gault equation) are based ondifferent parameters and may not yield comparable results.If eCrCl result is absurd, please check patient'sheight/weight. Estimated Glomerular Filt Rate >60 [facility] Comment:Chronic Kidney Disea se: Estimated GFR < 60 mL/min/1.03s1Oagbrh Kidney Disease: Estimated GFR < 15 mL/min/1.73m2 Glucose 122(H) 60 - 115 mg/dL [facility] Calcium 8.7 8.4 - 10.2 mg/dL [facility] 08/04/2024 9:23 AM EDT 08/04/2024 9:28 AM EDT us Generic External Data Provider LAB BLOOD ORDERAB LES Final Result Performing Organization Address [facility]/ZIP Co de Phone Number [facility] [address] [place] [phone] * (ABNORMAL) CBC auto differential (08/04/2024 9:23 AM EDT) White Blood Count 9.3 4.8 - 10.8 X10*3/uL [facility] Red Blood Count 4.73 4.20 - 5.50 X10*6/uL [facility] Hemoglobin 12.8 12.0 - 16.0 g/dl [facility] Hematocrit 38.1 37.0 - 47.0 % [facility] Mean Corpuscular Volume 80.5 80.0 - 98.0 fL [facility] Mean Corpuscular Hemoglobin 27.1 27.0 - 33.0 pg [facility] Mean Corpuscular HGB Conc 33.6 31.0 - 35.0 g/dl [facility] Red Cell Distribution Width 13.8 11.0 - 16.0 % [facility] Platelet Count 251 160 - 400 X10*3/uL [facility] Mean Platelet Volume 11.9 9.4 - 12.3 fL [facility] Neutrophils Percent Auto 71.4 45 - 73 % [facility] Imm Gran Pct Auto 0.2 0.0 - 0.4 % [facility] Lymphocytes Percent Auto 15.7(L) 20 - 40 % [facility] Monocytes Percent Auto 7.7 2 - 11 % [facility] Eosinophils Percent Auto 4.8(H) 0 - 4 % [facility] Basophils Percent Auto 0.2 0 - 2 % [facility] NRBC Pct Auto 0.0 0.0 - 0.2 /100WBC [facility] Neutrophils Absolute Auto 6.6 2.0 - 8.3 x10*3/uL [facility] Imm Gran Abs Auto 0.02 0.00 - 0.03 X10*3/uL [facility] Lymphocytes Absolute Auto 1.5 1.2 - 4.9 X10*3/uL [facility] Monocytes Absolute Auto 0.7 0.1 - 1.2 X10*3/uL [facility] Eosinophils Absolute Auto 0.5(H) 0.0 - 0.4 X10*3/uL [facility] Basophils Absolute Auto 0.0 0.0 - 0.2 X10*3/uL [facility] NRBC Abs Auto 0.000 0.0 - 0.012 X10*3/uL [facility] 08/04/2024 9:23 AM EDT 08/04/2024 9:28 AM EDT us Generic External Data Provider LAB BLOOD ORDERAB LES Final Result Performing Organization Address City/State/[facility] Co de Phone Number [facility] [address] [place] [phone] [phone] documented in this encounter Visit Diagnoses Not on filedocumented in this encounter Additional Health Concerns Assessment Noted Time PHQ-9 Depression Total Score: 9 03/04/20 24 2:03 PM EST documented as of this encounter Care Teams Warehouse Representative Relationship Specialty Start Date End Date Chanel Bai MD [address] [place] [address] PCP - General Family Medicine 05/16/21 documented as of this encounter
--- OUTSIDE RECORDS SUMMARY | 2024-08-04 10:49 | XMS_ITS | Encounter Summary ---
Author Organization [employer] Address [address] [place] [address] Care Team Providers Care Fire Warden Name Role Phone Chanel Bai MD Primary Care Provider [phone] Reason for Visit * Reason Onset Date Comments PT1 12/03/2022 Encounter Details Date Type Department Care Team ([facility] Contact Info) Description 12/03/2022 Telephone [facility] MED & PEDS [address] [place], [place] [phone] Chanel Bai MD [address] [place] [address] PT1 Social History Tobacco Use Types Packs/Day [...] Faby Najera - 12/03/2022 10:17 AM EDT Stefano Dockery at [facility] PT1 Address verified Date: 12/09/22 Time: 12:30 pm Visits: 2 (12/18/22 at 10:30 am) Address: [address] [address] Facility: [facility] Dental Wheel Chair: n/a Grounds Supervisor Needed: yes PT1 Date: 12/12/22 Time: 9:30 am Visits: 2 (12/27/21 at 1:45 pm) Address: [address] [place] [address] [place] [address] Facility: Cardiology Wheel Chair: n/a Grounds Supervisor Needed: yes PT1 Date: 12/13/22 Time: 9:30 am Visits: Address: [address] [place], [place] Facility: PCP Wheel Chair: n/a Grounds Supervisor Needed: yes documented in this encounter Plan of Treatment Upcoming Encounters Date Type Department Care Team (Late st Contact Info) Description 08/23/2024 1:00 PM EDT Office Visit [facility] MED [facility] PEDS [address] [place] [address] Chanel Bai MD [address] [place] [address] 09/30/2024 10:00 AM EDT Clinical Support [facility] [address] [place] [address] Tali Velasquez, EUGENIE [address] [place] [address] documented as of this encounter Visit Diagnoses Diagnosis Polyarthralgia Pain in joint, multiple sites documented in this encounter Additional Health Concerns Assessment Noted Time PHQ-9 Depression Total Score: 13 023 11:37 AM EST documented as of this encounter Care Teams Fire Warden Relationship Specialty Start Date End Date Chanel Bai MD [address] [place] [address] PCP - General Family Medicine 05/16/21 documented as of this encounter
--- OUTSIDE RECORDS SUMMARY | 2024-08-04 10:49 | XMS_ITS | Encounter Summary ---
Author Organization [employer] Address [address] [place] [address] Care Team Providers Care Docking Pilot Name Role Phone Chanel Bai MD Primary Care Provider [phone] Reason for Visit * Reason Comments Med Refill Encounter Details Date Type Department Care Team ([facility] Contact Info) Description 07/29/2024 Refill [facility] MED & PEDS [address] [place], [place] [phone] Chanel Bai MD [address] [place] [address] Social History Tobacco Use Types Packs/Day Years [...] Description 08/23/2024 1:00 PM EDT Office Visit [facility] MED [facility]ED[facility] [address] [place] [address] Chanel Bai MD [address] [place] [address] 09/30/2024 10:00 AM EDT Clinical Support [facility] [address] [place] [address] Tali Velasquez, EUGENIE [address] [place] [address] documented as of this encounter Visit Diagnoses Not on filedocumented in this encounter Additional Health Concerns Assessment Noted Time PHQ-9 Depression Total Score: 9 03/04/20 24 2:03 PM EST documented as of this encounter Care Teams Docking Pilot Relationship Specialty Start Date End Date Chanel Bai MD [address] [place] [address] PCP - General Family Medicine 05/16/21 documented as of this encounter
--- OUTSIDE RECORDS SUMMARY | 2024-08-04 10:49 | XMS_ITS | Encounter Summary ---
Author Organization [employer] Address [address] [place] [address] Care Team Providers Care Forest Technology Professor Name Role Phone Chanel Bai MD Primary Care Provider [phone] Reason for Visit * Reason Onset Date Comments Appointment Request 03/08/2022 Encounter Details Date Type Department Care Team ([facility] Contact Info) Description 03/08/[address] [facility] MED & PEDS [address] [place], [place] [phone] Chanel Bai MD [address] [place] [address] Appointment Request Social History Tobacco Use Types [...] r/s missed appt on 01/23/22 for ov-bp. Expressive Music Therapist tried to book nothing available and call had dropped before I was able to inform pt . documented in this encounter Plan of Treatment Upcoming Encounters Date Type Department Care Team ([facility] st Contact Info) Description 08/23/2024 1:00 PM EDT Office Visit [facility] MED & PEDS [address] [place] [address] Chanel Bai MD [address] [place] [address] 09/30/2024 10:00 AM EDT Clinical Support [facility] MED & PEDS [address] [place], [place] [phone] Tali Velasquez, EUGENIE [address] [place], [place] [phone] documented as of this encounter Visit Diagnoses Not on filedocumented in this encounter Care Teams Forest Technology Professor Relationship Specialty Start Date End Date Chanel Bai MD [address] [place] [address] PCP - General Family Medicine 05/16/21 documented as of this encounter
--- OUTSIDE RECORDS SUMMARY | 2024-08-04 10:49 | XMS_ITS | Clinical Summary ---
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 12/29/19 21 Active nitroglycerin (Nitrostat) 0.[address] 1 tablet under the tongue. 08/14/19 22 Active traZODone (Desyrel) 50 MG tablet Take 50 mg by mouth if needed at bedtime. 02/19/20 22 Active albuterol 108 (90 Base) MCG/ACT inhalerIndicatio ns:Cough, unspecified type Inhale 2 puffs every 4 (four) hours if needed for wheezing. 18 g 04/18/19 23 Active clonazePAM (KlonoPIN) 1 MG tabletIndication s:Anxiety due to invasive procedure Take 1 tablet (1 mg) by mouth 1 (one) time for 1 dose. Take 1 tablet 30 minutes prior to procedure. 1 tablet 06/13/19 23 Active fluticasone (Flonase) 50 MCG/ACT nasal sprayIndications :Allergic rhinitis, unspecified seasonality, unspecified trigger INHALE 2 SPRAYS IN EACH NOSTRIL EVERY MORNING NEEDED 48 g 06/29/19 23 Active ketotifen (Zaditor) 0.025 % ophthalmic solution Administer 1 drop into both eyes 2 times daily. 10 mL 2 08/17/19 23 Active dextran 70-hypromellose PF (Artificial Tears PF) 0.1-0.3 % ophthalmic solution Administer 1 drop into both eyes if needed in the morning, at noon, and at bedtime for dry eyes. 1 each 5 08/17/19 23 Active buPROPion XL (Wellbutrin XL) 150 MG 24 hr tablet Take 1 tablet by mouth in the morning. 10/24/19 23 Active PARoxetine (Paxil) 10 MG tablet Take 1 tablet by mouth at bedtime. Active nicotine (Nicoderm CQ) 7 MG/24HR patch Place 1 patch on the skin 1 (one) time each day at the same time. 30 patch 07/07/19 24 Active LORazepam (Ativan) 1 MG tablet Take 1 tablet (1 mg) by mouth 1 (one) time for 1 dose. 1 tablet 07/07/19 24 Active Diclofenac Sodium 1 % gel Apply 5 g topically 4 times daily. 200 g 08/25/19 24 Active cyclobenzaprine (Flexeril) 10 MG tablet Take 1 tablet (10 mg) by mouth at bedtime for 10 days. 10 tablet 08/25/19 24 Active cholecalciferol VITAMIN D (Vitamin D-3) 50 MCG (2000 UT) tablet TAKE 1 TABLET BY MOUTH EVERY MORNING 90 tablet 3 12/17/19 24 Active amLODIPine (Norvasc) 10 MG tablet TAKE 1 TABLET BY MOUTH EVERY MORNING 90 tablet 3 12/17/19 24 Active lisinopril 10 MG tablet Take 10 mg by mouth Once per day. 10/03/19 24 Active ezetimibe (Zetia) 10 MG tablet Take 10 mg by mouth at bedtime. 01/26/20 24 Active Aspirin Low Dose 81 MG EC tabletIndication s:Coronary artery disease, unspecified vessel or lesion type, unspecified whether angina present, unspecified whether [place] or transplanted heart TAKE 1 TABLET BY MOUTH EVERY MORNING 90 tablet 1 03/22/19 25 Active atorvastatin (Lipitor) 80 MG tabletIndication s:Coronary artery disease, unspecified vessel or lesion type, unspecified whether angina present, unspecified whether [place] or transplanted heart TAKE 1 TABLET BY MOUTH AT BEDTIME 90 tablet 1 03/22/19 25 Active lisinopril 20 MG tabletIndication s:Coronary artery disease, unspecified vessel or lesion type, unspecified whether angina present, unspecified whether [place] or transplanted heart TAKE 1 TABLET BY MOUTH EVERY MORNING 90 tablet 1 03/22/19 25 Active loratadine (Claritin) 10 MG tabletIndication s:Seasonal allergies TAKE 1 TABLET BY MOUTH EVERY DAY NEEDED 90 tablet 1 04/21/19 25 Active metoprolol tartrate (Lopressor) 25 MG tablet TAKE 1 TABLET BY MOUTH TWICE DAILY IN THE MORNING AND AT BEDTIME 180 tablet 1 04/21/19 25 Active senna (Senokot) 8.6 MG tablet TAKE 2 TABLETS BY MOUTH EVERY DAY AT BEDTIME 180 tablet 1 04/21/19 25 Active Myrbetriq 50 MG 24 hr tablet TAKE 1 TABLET BY MOUTH EVERY MORNING 30 tablet 3 04/27/19 25 Active omeprazole (PriLOSEC) [address] capsuleIndicatio ns:Gastroesophag eal reflux disease, unspecified whether esophagitis present TAKE 1 CAPSULE BY MOUTH EVERY MORNING BEFORE BREAKFAST 90 capsule 3 07/23/19 25 Active traMADol (Ultram) 50 MG tabletIndication s:Polyarthralgia Take 1 tablet (50 mg) by mouth every 6 (six) hours. Do not start before July 29, 2024. 112 tablet 07/30/19 25 Active topiramate (Topamax) 25 MG tablet TAKE 1 TABLET BY MOUTH AT BEDTIME 90 tablet 5 07/31/19 25 Active omeprazole (PriLOSEC) [address] capsuleIndicatio ns:Gastroesophag eal reflux disease, unspecified whether esophagitis present TAKE 1 CAPSULE BY MOUTH EVERY MORNING BEFORE BREAKFAST 90 capsule 3 06/12/19 24 025 Discontinued topiramate (Topamax) 25 MG tablet Take 1 tablet (25 mg) by mouth at bedtime. 90 tablet 5 07/07/19 24 025 Discontinued traMADol (Ultram) 50 MG tabletIndication s:Polyarthralgia Take 1 tablet (50 mg) by mouth every 6 (six) hours. 112 tablet 06/12/19 25 025 Discontinued Active Problems Problem Noted Date Diagnosed Date Long-term current use of opiate analgesic 2024 Onychomycosis 03/04/2024 Assessment & Plan (03/04/2024 2:45 PM EST): Referral to podiatry for further evaluation. Personal history of nicotine dependence 03/01/20 Overview (03/01/2024): (current smoker - onset 13, 1/2ppd x 42yrs, 20+PYH) Medication monitoring encounter 03/01/2024 Overview (03/01/2024): tramadol pain contract signed 03/26/2022. Urine drug screen positive for fentanyl 06/28/2022, tramadol discontinued History of cardiac catheterization 03/01/2024 Overview (03/01/2024): 06/17/2023, left main and LAD normal, left circumflex and RCA minimal irregularities COVID-19 03/01/2024 Biliary colic 03/01/2024 Abdominal pain, RUQ 03/01/2024 Chronic bilateral thoracic back pain 08/25/2023 Assessment & Plan (08/25/2023 10:44 AM EDT): Ordering XR of Spine for further evaluation. Prescribing Flexeril for symptoms. Relevant Medications Cyclobenzaprine (Flexeril) 10 MG Tablet Primary osteoarthritis of knees, bilateral 07/06 Osteoarthritis of shoulders, bilateral Osteoarthritis of left hip 07/07/2023 Obesity 07/07/2023 Anxiety 07/07/2023 Coronary artery disease 07/07/2023 Chronic left shoulder pain 04/21/2023 Assessment & Plan (06/06/2023 10:53 AM EDT): Patient tolerated procedure well, no immediate complications. Discussed risk/benefit of procedure, discuss return precautions. Assessment & Plan (04/21/2023 11:55 AM EST): Patient still presents visit with complaints of L shoulder pain will be sent for imaging. In addition, patient was given the option of getting a injection procedure to improve pain: patient accepted. Therefore, patient will be scheduled an appointment for this procedure. Osteoarthritis of both knees 04/21/2023 Assessment & Plan (04/21/2023 11:54 AM EST): Patient that presented visit with concerns of osteoarthritis on both knees will be referred to Orthopaedic Surgery. Cholecystitis 12/13/2022 Assessment & Plan (12/31/2022 10:39 AM EDT): Already has f/up with surgery and recommended to f.up with cards. If symptoms recur or worsen, recommended to seek medical attention. Overactive bladder 10/04/2022 Dry eyes, bilateral 08/16/2022 Assessment & Plan (08/16/2022 9:43 AM EDT): Patient with bilateral eye dryness and associated burning sensation. Will start on Zaditor ophthalmic solution. Polyarthralgia 07/18/2022 Assessment & Plan (08/25/2023 10:45 AM EDT): Prescribing Tramadol and Diclofenac to alleviate symptoms. Relevant Medications Diclofenac Sodium 1% Gel Assessment & Plan (07/08/2023 3:41 PM EDT): Patient is on chronic tramadol for her joint aches, reviewed 5 A's. 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 At this point will take over prescription, will send message to TESTING ANALYST nurse. TMJ tenderness, right 04/18/2022 Assessment & Plan (04/18/2022 10:58 AM EST): Normal middle ear examination, tenderness in TMJ, likely associated with TMJ. Discussed with patient and given patient handout. Cough 04/18/2022 Assessment & Plan (04/18/2022 11:02 AM EST): Not hx of asthma, but has chest tightness and wheezing on exam with symptoms c/w reactive airway. Will send prednisone and albuterol, if he shows improvement will consider sending for PFTs. Right middle lobe pulmonary nodule 03/22/2022 Overview (03/22/2022): 11/05: Patient with stable [address] for lung screen secondary to 42 pack year hx. Needs repeat in 1 yr. Assessment & Plan (07/08/2023 3:40 PM EDT): Has not had repeat imaging done due to anxiety, rx'ed 1 dose of BZO to assist, recommended calling to rescheduled appt. Last image done in 11/05 Assessment & Plan (01/28/2023 11:37 AM EST): Patient with [address] in October 2021, needs repeat screening. Assessment & Plan (03/25/2022 4:47 PM EST): Stable [address], needs repeat in 1 yr on 11/06 NSTEMI (non-ST elevated myocardial infarction) 0 03/22/2022 History of total hysterectomy 03/22/2022 Vague bodily discomfort 03/22/2022 Assessment & Plan (03/25/2022 4:46 PM EST): Poor historian, feels just not feeling well. Benign not specific exam, will send labs and followup Prediabetes 08/27/2018 Vitamin D deficiency 11/25/2016 Primary hypertension 03/20/2015 Assessment & Plan (03/04/2024 2:44 PM EST): BP is wnl. Pt declined influenza and RSV vaccination. Follow up in 6 months. Assessment & Plan (01/24/2023 11:56 AM EST): Controlled: patient will not have any changes at this time. Recommended to keep monitoring blood pressure at home, and bring readings upon next office visit. Assessment & Plan (08/19/2022 9:15 AM EDT): Controlled. Cont current regimen. F/up in 4 months Assessment & Plan (07/18/2022 12:54 PM EDT): Controlled. Continue current regimen. Assessment & Plan (03/25/2022 4:45 PM EST): Recommend compliance with medications especially given her hx. Target BP < 140/90 mmHg, continue monitoring and followup in next scheduled appt Migraine without aura and responsive to treatmen t 03/20/2015 Hypertriglyceridemia 03/20/2015 High-density lipoprotein deficiency 03/20/2015 Gastroesophageal reflux disease 03/20/2015 Assessment & Plan (03/25/2022 4:46 PM EST): Reports pantoprazole not helpful, that she felt omeprazole helped her more, switched Current smoker 03/20/2015 Allergic rhinitis 03/20/2015 Encounters Date Type Department Care Team Description 08/04/2024 Orders Only GENERIC EXTERNAL DATA DEPARTMENT Provider, Generic External Data 07/29/2024 10:30 AM EDT Clinical Support [facility] [address] [place] [address] Tali Velasquez RN Chronic bilateral thoracic back pain (Primary Dx); Long-term current use of opiate analgesic 07/29/2024 Refill [facility] [address] [place] [address] Chanel Bai MD 07/29/2024 Travel 07/28/2024 Travel 07/28/2024 Refill [facility] [address] [place] [address] Chanel Bai MD Polyarthralgia 07/28/2024 Refill [facility] [address] [place] [address] Trina Costa MD Polyarthralgia 07/21/2024 Refill [facility] [address] [place] [address] Chanel Bai MD Gastroesophageal reflux disease, unspecified whether esophagitis present 07/08/2024 Telephone [facility] [address] [place] [address] Tali Velasquez, EUGENIE chili pepper grinder 06/28/2024 Telephone [facility] [address] [place] [address] Tali Velasquez RN 06/28/2024 Travel 06/11/2024 Refill [facility] [address] [place] [address] Chanel Bai MD Polyarthralgia 05/28/2024 Population Health [facility] () Department [address] [place] [phone] Provider, Population Health Generic from Last 3 Months Immunizations Immunization Administration Dates Next Due Influenza injectable quadriv alent IIV4 with preservative 01/29/2016,03/20/2015 Influenza injectable quadrivalent preservative f ree 01/24/2023,01/18/2019 Influenza live intranasal trivalent 01/24/2012 Influenza, IIV3, injectable 02/23/2008 Influenza, Split (incl. purified surface antigen ) 12/15/2012 Influenza, live, intranasal 01/24/2012 MMR 09/25/2000 Moderna Covid-19 Vaccine 12+ 08/23/2020,07/07/19 21 Moderna Covid-19 Vaccine 6+ Bivalent 05/08/2022 TD (adult), 2 Lf tetanus tox oid, preservative free, adsorbed 12/01/2007 Tdap 04/20/2013 Zoster, Recombinant 07/23/2022,08/24/2021 Social History Tobacco Use Types Packs/Day Years Used Date Smoking Tobacco: Every Day Cigarettes Passive Smoke Exposure: Never Smokeless Tobacco: Never Tobacco Cessation:Ready to Q uit: Yes; Counseling Given: Yes Alcohol Use Standard Drinks/Week Comments Never 0 [...] not to disclose 2021 10:15 AM EDT Last Filed Vital Signs Vital Sign Reading Time Taken Comments Blood Pressure 119/70 04/13/2024 12:53 PM EST Pulse 84 04/13/2024 12:53 PM EST Temperature 36.7 ??C (98.1 ??F) 04/13/2024 12:[address] Respiratory Rate 16 04/13/2024 12:53 PM EST Oxygen Saturation 96% 04/13/2024 12:53 PM EST Inhaled Oxygen Concentration - - Weight 84.4 kg (186 lb) 04/13/2024 12:53 PM EST Height 160.9 cm (5' 3.35 ) 04/13/2024 12:[address] Body Mass Index 32.59 04/13/2024 12:53 PM EST Plan of Treatment Upcoming Encounters Date Type Department Care Team (Late st Contact Info) Description 08/23/2024 1:00 PM EDT Office Visit [facility] [address] [place] [address] Chanel Bai MD [address] [place] [address] 09/30/2024 10:00 AM EDT Clinical Support [facility] [address] [place] [address] Tali Velasquez RN [address] [place] [address] Health Maintenance Due Date Last Done Comments CT Colonography 1965 FIT DNA/Cologuard 1965 FIT 1965 FOBT 1965 Sigmoidoscopy 1965 Disability Screening 1965 Pneumococcal Vaccine: 50+ Years (1 of 2 - PCV) 12/26/1982 DTaP/Tdap/Td Vaccines (2 - Td or Tdap) 04/20/2023 04/20/2013, 12/01/2007 COVID-19 Vaccine ( season) 2023 05/08/2022, 08/23/2020, 07/06/2020 Influenza Vaccine (#1) 2023 , 01/18/2019, 01/29/2016, Additional history exists RSV Patients and Patients Aged 60 years or older (1 - Risk 60-74 years 1-dose series) 2023 SDOH Screening 08/17/2024 08/18/2023 Colonoscopy 11/22/2024 11/23/2019 Colorectal Cancer Screening 11/22/2024 Tobacco Screening 02/26/2025 02/27/2024 Alcohol/Substance Use Screening 03/04/2025 03/04/2024 Depression Screening 03/04/2025 03/04/2024, 03/04/20 24 Mammogram 03/23/2026 03/23/2024, 0411/2022, 06/27/2021, Additional history exists Lipid Panel 10/17/2028 10/18/2023, 06/08/2020 HPV/Cotest Discontinued 02/25/2017 HIV Screening Completed 05/25/2021 Hepatitis C Screening Completed 03/29/2022 Zoster Vaccines Completed 07/23/2022, 08/24/2021 Diabetes: Hemoglobin A1C Discontinued 024, 05/25/2021, 06/08/2020 Cervical Cancer Screening Discontinued HIB Vaccines Aged Out No longer eligi ble based on patient's age to complete this topic HPV Vaccines Aged Out No longer eligi ble based on patient's age to complete this topic Hepatitis A Vaccines Aged Out No long er eligible based on patient's age to complete this topic Hepatitis B Vaccines Discontinued IPV Vaccines Aged Out No longer eligi ble based on patient's age to complete this topic Meningococcal B Vaccine Aged Out No l onger eligible based on patient's age to complete this topic Meningococcal Vaccine Aged Out No jim quang eligible based on patient's age to complete this topic Pap Smear Discontinued RSV under 20 months Aged Out No longe r eligible based on patient's age to complete this topic Rotavirus Vaccines Aged Out No longer eligible based on patient's age to complete this topic Procedures Procedure Name Priority Date/Time Associated Diagnosis Comments HIGH SENSITIVITY TROPONIN I Routine 08/04/2024 9:23 AM EDT BASIC METABOLIC PANEL Routine 08/04/2024 9:23 AM EDT CBC WITH AUTO DIFFERENTIAL Routine 08/04/2024 9:23 AM EDT POCT ALEJANDRO-14 URINE DRUG SCREEN Routine 07/29/2024 10:34 AM EDT Long-term current use of opiate analgesic Chronic bilateral thoracic back pain BI MAMMOGRAM SCREENING TOMOSYNTHESIS BILATERAL Routine 03/23/2024 1:13 PM EST Breast cancer screening by mammogram LIPID PANEL, STANDARD Routine 10/18/2023 7:48 AM EDT POCT GLYCATED HEMOGLOBIN, TOTAL Routine 08/25/2023 10:29 AM EDT Prediabetes HEPATITIS C AB W/REFL TO HCV RNA, QN, PCR Routine 03/29/2022 8:27 AM EST Transaminitis ZZZ HISTORICAL HIV AB/AG Routine 05/25/2021 8:01 AM EST HM COLONOSCOPY Routine 11/23/2019 ZZZ HISTORICAL HPV MRNA E6/E7 Routine 02/25/2017 10:20 AM EST from Last 3 Months or Most Recently Relevant to Health Maintenance Results * High Sensitivity Troponin I (08/04/2024 9:23 AM EDT) TROPONIN I HIGH SENSITIVITY <2.7 <3.5 - 17.0 ng/L [facility] Comment:The [place] high sens itivity Troponin-I results should beused in conjunction with other diagnostic information suchas ECG, clinical observations and information, and patientsymptoms to aid in the diagnosis of SD. 08/04/2024 9:23 AM EDT 08/04/2024 9:28 AM EDT us Generic External Data Provider LAB BLOOD ORDERAB LES Final Result [facility] [address] [place] [phone] * (ABNORMAL) CBC auto differential (08/04/2024 9:23 AM EDT) White Blood Count 9.3 4.8 - 10.8 X10*3/uL [facility] Red Blood Count 4.73 4.20 - 5.50 X10*6/uL [facility] Hemoglobin 12.8 12.0 - 16.0 g/dl [facility] Hematocrit 38.1 37.0 - 47.0 % [facility] Mean Corpuscular Volume 80.5 80.0 - 98.0 fL [facility] Mean Corpuscular Hemoglobin 27.1 27.0 - 33.0 pg [facility] Mean Corpuscular HGB Conc 33.6 31.0 - 35.0 g/dl [facility] Red Cell Distribution Width 13.8 11.0 - 16.0 % [facility] Platelet Count 251 160 - 400 X10*3/uL [facility] Mean Platelet Volume 11.9 9.4 - 12.3 fL [facility] Neutrophils Percent Auto 71.4 45 - 73 % [facility] Imm Gran Pct Auto 0.2 0.0 - 0.4 % [facility] Lymphocytes Percent Auto 15.7(L) 20 - 40 % [facility] Monocytes Percent Auto 7.7 2 - 11 % [facility] Eosinophils Percent Auto 4.8(H) 0 - 4 % [facility] Basophils Percent Auto 0.2 0 - 2 % [facility] NRBC Pct Auto 0.0 0.0 - 0.2 /100WBC [facility] Neutrophils Absolute Auto 6.6 2.0 - 8.3 x10*3/uL [facility] Imm Gran Abs Auto 0.02 0.00 - 0.03 X10*3/uL [facility] Lymphocytes Absolute Auto 1.5 1.2 - 4.9 X10*3/uL [facility] Monocytes Absolute Auto 0.7 0.1 - 1.2 X10*3/uL [facility] Eosinophils Absolute Auto 0.5(H) 0.0 - 0.4 X10*3/uL [facility] Basophils Absolute Auto 0.0 0.0 - 0.2 X10*3/uL [facility] NRBC Abs Auto 0.000 0.0 - 0.012 X10*3/uL [facility] 08/04/2024 9:23 AM EDT 08/04/2024 9:28 AM EDT us Generic External Data Provider LAB BLOOD ORDERAB LES Final Result [facility] [address] [place] [phone] * (ABNORMAL) Basic Metabolic Panel (08/04/2024 9:23 AM EDT) Sodium 141 135 - 145 mmol/L [facility] Potassium 3.9 3.3 - 5.1 mmol/L [facility] Chloride 104 96 - 108 mmol/L [facility] Carbon Dioxide 30(H) 22 - 29 mmol/L [facility] Anion Gap 11(L) 12 - 20 [facility] Urea Nitrogen (BUN) 13 9 - 16 mg/dL [facility] Creatinine, Serum 0.73 0.5 - 1.4 mg/dL [facility] Creatinine Clr Calc Pharmacy 92.8 [facility] Comment:Provided height and weight: 170.18 cm,87.1 kg.eGFR (calculated from the MDRD study equation) and eCrCl(calculated from the Cockcroft-Gault equation) are based ondifferent parameters and may not yield comparable results.If eCrCl result is absurd, please check patient'sheight/weight. Estimated Glomerular Filt Rate >60 [facility] Comment:Chronic Kidney Disea se: Estimated GFR < 60 mL/min/1.82r0Ogzqas Kidney Disease: Estimated GFR < 15 mL/min/1.73m2 Glucose 122(H) 60 - 115 mg/dL [facility] Calcium 8.7 8.4 - 10.2 mg/dL [facility] 08/04/2024 9:23 AM EDT 08/04/2024 9:28 AM EDT us Generic External Data Provider LAB BLOOD ORDERAB LES Final Result Performing Organization Address City/State/[facility] Co de Phone Number [facility] [address] [place] [phone] * POCT ALEJANDRO-14 Urine Drug Screen (07/29/2024 10:34 AM EDT) Urine Urine specimen obtained by clean catch procedure / Unknown 07/29/2024 10:34 AM EDT Narrative Tali Velasquez RN - 07/29/2024 10:34 AM EDT negative AMP, BAR, BUP, BZO, JOSE LUIS, FTY, MDMA, MET, MOP, MTD, OXY, PCP, TCA, THC. Lot# [id number] Exp: 11-03-25 us Chanel Bai MD POINT OF CARE TEST ENTER/EDIT ORDERABLES Final Result * BI Mammogram Screening Tomosynthesis Bilateral (03/23/2024 1:13 PM EST) Anatomical Region Laterality Modality Breast Bilateral Mammography 03/23/2024 1:13 PM EST Narrative 03/29/2024 5:13 PM EST ? [facility] ? [address] ?[place] [address] ? Mammography Report ? Signed ? Patient: Edwards,Suze E ?MR#: [id number] ?? 7 ? : 1965 ?Acct:[id number] ? Age/Sex: 58 / F ?ADM Date: 03/23/24 ? Loc: HO.MAMMO ? Attending Dr: Chanel Bai MD ? Ordering Physician: Chanel Bai MD ?Results: 1Nega ?? tive ? Date of Service: 03/23/24 ?Follow Up: 1 Year From Orig ?? inal Mammogram ? Procedure(s): MM tomosynthesis screening BI ?? Accession Number(s): [id number] ? cc: Chanel Bai MD ? EXAMINATION: ?? MM SCREENING DIGITAL BREAST TOMOSYNTHESIS, BILATERAL ? CLINICAL INFORMATION: ? Screening. Asymptomatic. ? COMPARISON: ?? Mammography: Comparison is made with available priors ? TECHNIQUE: ?? Digital breast mammography with tomosynthesis is performed in both the ?? craniocaudal and mediolateral oblique views along with computer-aided ?? detection (CAD). ? FINDINGS: ?? There are scattered areas of fibroglandular density (ACR BI-RADS breast ?? composition Category b). ? There are no significant masses, abnormal calcifications, or other ?? abnormalities. ? MM/MM tomosynthesis screening BI ?? IMPRESSION: ?? No mammographic evidence of malignancy. ? ASSESSMENT: ? BI-RADS BI-RADS 1 - Negative ? RECOMMENDATION: ?? Routine annual mammography screening. ? 1 year F/U ? This examination should not preclude the clinical evaluation of a ?? suspicious palpable abnormality. ? This patient's information was entered into a reminder system with a ?? target due date for their next mammogram. ? Electronically signed by: ??Katharine Mcduffie DO ??03/29/2024 05:10 PM EST ? Dictated By: ?Katharine Mcduffie DO ? Signed By: ?<Electronically signed by Katharine Mcduffie, DO in OV> ? 03/29/24 1710 ? DD/ 1313 ? TD/TT: 03/23/24 1329 ? Supervisor Metal Placing: ? Procedure Note Donotuseinterpreter, Image - 03/29/2024 [facility] [address] [place] [address] Mammography Report Signed Patient: Suze Edwards EMR#: [id number] 7 : 1965Acct:[id number] Age/Sex: 58 / FADM Date: 03/23/24 Loc: HO.MAMMO Attending Dr: Chanel Bai MD Ordering Physician: Chanel Bai MDResults: 1Nega tive Date of Service: 03/23/24Follow Up: 1 Year From Orig inal Mammogram Procedure(s): MM tomosynthesis screening BI Accession Number(s): [id number] cc: Chanel Bai MD EXAMINATION: MM SCREENING DIGITAL BREAST TOMOSYNTHESIS, BILATERAL CLINICAL INFORMATION: Screening. Asymptomatic. COMPARISON: Mammography: Comparison is made with available priors TECHNIQUE: Digital breast mammography with tomosynthesis is performed in both the craniocaudal and mediolateral oblique views along with computer-aided detection (CAD). FINDINGS: There are scattered areas of fibroglandular density (ACR BI-RADS breast composition Category b). There are no significant masses, abnormal calcifications, or other abnormalities. MM/MM tomosynthesis screening BI IMPRESSION: No mammographic evidence of malignancy. ASSESSMENT: BI-RADS BI-RADS 1 - Negative RECOMMENDATION: Routine annual mammography screening. 1 year F/U This examination should not preclude the clinical evaluation of a suspicious palpable abnormality. This patient's information was entered into a reminder system with a target due date for their next mammogram. Electronically signed by: Katharine Mcduffie DO 03/29/2024 05:10 PM EST Dictated By: Katharine Mcduffie DO Signed By: <Electronically signed by Katharine Mcduffie DO in OV> 03/29/24 1710 DD/ 1313 TD/TT: 03/23/24 1329 Supervisor Metal Placing: us Chanel Bai MD IMG BI PROCEDURES Final Resul t * (ABNORMAL) Lipid Panel, Standard (10/18/2023 7:48 AM EDT) Triglycerides 204(H) <150 mg/dL [facility] Comment:Desirable Triglyceri de: less than 150 mg/dLBorderline High Triglyceride 150-199 mg/dLHigh Triglyceride: 200-499 mg/dLVery High Triglyceride: greater than or equal to 5OO mg/dL Cholesterol 198 <200 mg/dL [facility] Comment:Desirable Cholestero l: less than 200 mg/dLBorderline High Cholesterol: 200-239 mg/dLHigh Cholesterol: greater than 239 mg/dL LDL Cholesterol Calculated 127(H) <100 mg/dL [facility] Comment:Desirable LDL: less than 100 mg/dLNear Optimal/Above Optimal LDL: 110- 129 mg/dLBorderline High LDL: 130-159 mg/dLHigh LDL: 160-189 mg/dLVery High LDL: greater than or equal to 190 mg/dL HDL Cholesterol 31(L) >40 mg/dL [facility] Comment:Desirable HDL: great er than 40 mg/dL Note: This HDL assay may give artificially low results in patients with liver disease. 10/18/2023 7:48 AM EDT 10/18/2023 7:48 AM EDT us Generic External Data Provider LAB BLOOD ORDERAB LES Final Result [facility] [address] [place] [phone] * POCT HGB A1C (08/25/2023 10:29 AM EDT) Pathologist [facility] Hemoglobin A1C 5.8 4.0 - 6.0 % QC Media Lot # [id number] Lot# Expiration Date Blood 08/25/2023 10:2 9 AM EDT Result [facility] Chanel Bai MD POINT OF CARE TEST ENTER/EDIT ORDERABLES Final Result * Hepatitis C Antibody with Reflex to HCV, RNA, Quantitative, Real-Time PCR (03/29/2022 8:27 AM EST) [facility] Hepatitis C Antibody NON-REACT IRWIN NON-REACT IRWIN [facility] [place] [facility] Index <0.02 <1.00 [facility] [place] [facility] Comment: HCV antibody was non-reactive. There is no laboratory evidence of HCV infection. In most cases, no further action is required. However, if recent HCV exposure is suspected, a test for HCV RNA (test code 00452) is suggested. For additional information please refer to http://education.Zentila/faq/WUX22d8 (This link is being provided for informational/ educational purposes only.) Blood Venous blood specimen / Unknown 03/29/2022 8:27 AM EST 03/29/2022 8:28 AM EST Narrative [facility] - 03/29/2022 10:22 PM EST FASTING:NO FASTING: NO Result [facility] Chanel Bai MD LAB BLOOD ORDERABLES Final Re sult [facility] [address] [facility], [place] [address] [facility] [place] [facility] [address] [facility], ([address]) [place] [address] * HIV AB/AG (05/25/2021 8:01 AM EST) [facility] HIV AB/AG Nonreactive Nonreactive [facility] Comment: HIV-1 p24 Ag and/or HIV-1/HIV-2 Ab not detected. ?? A test result that is nonreactive does not exclude the possibility of exposure to or infection with HIV-1 and/or HIV-2. Nonreactive results in this assay for individuals with prior exposure to HIV-1 and/or HIV-2 may be due to antigen and antibody levels that are below the limit of detection of this assay. ?? The [employer] HIV Ag/Ab Combo assay result and supplemental assay results should be interpreted in conjunction with the patient's clinical presentation, history and other laboratory results. ??If the results are inconsistent with clinical evidence, additional testing is suggested to confirm the result. 05/25/2021 8:01 AM EST Chanel Bai MD HISTORICAL/NON ORDERABLE LABS Final Result [facility] [address] * Hm Colonoscopy (11/23/2019) Colonoscopy Normal Normal Narrative Chanel Bai MD - 11/23/2019 Internal hemorroids noticed, needs repeat in 5 yrs given family hx Historical Provider HEALTH MAINTENANCE Final Result * HPV mRNA E6/E7 (02/25/2017 10:20 AM EST) HPV mRNA E6/E7 Not Detected NOT DETECTED [facility] Comment: This test was performed using the APTIMA(R) HPV Assay ([employer] This assay detects E6/E7 viral messenger RNA (mRNA) from 14 high-risk HPV types (16,18,31,33,35,39,45,51, 52,56,58,59,66,68). For additional information please refer to: http://education.Zentila/faq/IHM920x1 (This link is being provided for informational/ educational purposes only.) Test Performed by [employer], [facility], [address] [place] [address] Mookie Malone M.D., Ph.D., Director of Laboratories , [place] [id number] Please note: ??Effective 11/27/2015, HPV testing will be performed using [employer]'s APTIMA test which targets mRNA. Detecting mRNA instead of DNA, as in older methods, offers significant improvements in specificity. 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
[2024-08-04] MEDS: Famotidine 20 MG TABLET PO (11:12)
[2024-08-04] MEDS: Acetaminophen 325 MG TABLET 975 MG PO (11:12)
[2024-08-04] MEDS: Magnesium Hydrox/Alum Hydrox 30 ML ORAL.SUSP PO (11:12)
[2024-08-04 11:21] LABS: Troponin-I High Sensitivity < 2.7 ng/L (<3.5-17.0)
[2024-08-04 11:57] VITALS: BP 123/65; PULSE 74; RESP 16; TEMP 36.7; O2SAT 96
== END 2024-08-04 11:58 | disposition home or self-care (01) ==
PROVIDERS: Emergency Provider Emergency Medicine; PCP Family Medicine
DX: R07.89 Other chest pain (principal); I25.10 Atherosclerotic heart disease of native coronary artery without angina pectoris; R05.9 Cough, unspecified; R10.2 Pelvic and perineal pain; F17.210 Nicotine dependence, cigarettes, uncomplicated; Z79.899 Other long term (current) drug therapy
CPT/HCPCS: 36415; 80048; 84484; 85025; 99283; 99285

== ENCOUNTER 2024-08-06 05:31 | Emergency (ER) | payer MEDICAID, SELFPAY ==
--- NOTE | ~2024-08-06 | CT_ITS ---
EXAMINATION: CT ABDOMEN PELVIS WITH IV CONTRAST HISTORY: epigastric pain COMPARISON: Comparison is made with the prior examination dated 02/29/2024. TECHNIQUE: CT scan of the abdomen and pelvis was performed following administration of 85 mL Omnipaque 350 using standard departmental protocol. Coronal and sagittal reformatted images were generated and reviewed. Oral contrast material was not administered at the request of the referring physician. This CT exam was performed with one or more of the following dose reduction techniques: automated exposure control, adjustment of the mA and/or kV according to patient size, use of iterative reconstruction technique. DLP: 841 mGy-cm FINDINGS: LOWER CHEST: The visualized lung bases are clear. There is no pleural effusion. CARDIOVASCULATURE: The heart is normal in size. There is no pericardial effusion. LIVER: The liver is normal in size and contour. No liver mass is identified. The hepatic and portal veins are patent. GALLBLADDER / BILE DUCTS: The gallbladder is unremarkable. There is no intra or extrahepatic biliary ductal dilatation. SPLEEN: The spleen is normal in size. No focal splenic lesion is identified. PANCREAS: The pancreas is unremarkable in appearance. ADRENAL GLANDS: Within normal limits. KIDNEYS/RETROPERITONEUM: No renal calculi are identified. There is no hydronephrosis. No renal masses are identified. LYMPH NODES: No abdominal or pelvic lymphadenopathy. VASCULATURE: The abdominal aorta demonstrates moderate atherosclerotic irregularity without evidence of aneurysm formation. MESENTERY/PERITONEUM: No free fluid. No masses. There is no free intraperitoneal gas. STOMACH: There is a small hiatal hernia. The remainder of the stomach stomach is collapsed, limiting evaluation. SMALL BOWEL: The small bowel is normal in caliber. COLON: The colon is unremarkable. APPENDIX: Normal. URINARY BLADDER/PELVIC ORGANS: The urinary bladder is collapsed, limiting evaluation. The patient is status post hysterectomy. BONES / SOFT TISSUES: No suspicious bony or soft tissue abnormalities. CT/CT abdomen pelvis w IV con IMPRESSION: Small hiatal hernia. No acute abnormality is identified. Electronically signed by: Espinoza Irizarry MD 08/06/2024 08:40 AM EDT
[2024-08-06 05:34] VITALS: BP 105/67; PULSE 89; RESP 14; TEMP 36.3; O2SAT 95; BMI 30.2
--- NOTE | 2024-08-06 05:43 | ECG_ITS ---
Test Reason : CP Blood Pressure : */* mmHG Vent. Rate : 75 BPM Atrial Rate : 75 BPM P-R Int : 206 ms QRS Dur : 88 ms QT Int : 408 ms P-R-T Axes : 46 -15 6 degrees QTcB Int : 455 ms Normal sinus rhythm Normal ECG When compared with ECG of 04-Aug-2024 09:14, No significant change was found Referred By: Lisy Marti Electronically Signed By: Van Zendejas
--- NOTE | 2024-08-06 05:50 | ED.CHESTPAIN ---
HPI - Chest Pain General Chief Complaint: Chest Pain Stated Complaint: Abd Pain Time Seen by Provider: 08/06/24 05:45 Source: patient Mode of arrival: ambulatory Limitations: no limitations History of Present Illness ED Provider: Dr. Lisy Marti HPI narrative: Patient comes to the emergency room complaining of epigastric pain for 4 days. Patient states that she has not been vomiting or having any diarrhea. Patient states that she does have history of gastritis and takes her omeprazole daily. Patient was seen here couple of days ago and had the same complaint. Patient denies any fever or chills. Denies any urinary or respiratory symptoms. Patient denies chest pain or shortness of breath. Related Data Home Medications ?Medication ?Instructions ?Recorded ?Confirmed mirabegron 50 mg tablet,extended 50 mg PO DAILY 08/29/21 10/03/23 release 24 hr (Myrbetriq) sennosides 8.6 mg tablet (senna) 17.2 mg PO BEDTIME 08/29/21 10/03/23 cholecalciferol (vitamin D3) 50 50 mcg PO DAILY 03/26/22 10/03/23 mcg (2,000 unit) tablet fluticasone propionate 50 2 spray intranasal DAILY PRN 03/26/22 10/03/23 mcg/actuation nasal Allergy Symptoms spray,suspension loratadine 10 mg tablet (Allergy 10 mg PO DAILY PRN Allergy Symptoms 03/26/22 10/03/23 Relief (loratadine)) bupropion HCl 150 mg 24 hr tablet, 150 mg PO DAILY 11/27/22 10/03/23 extended release tramadol 50 mg tablet 50 mg PO Q6H PRN Pain 11/27/22 10/03/23 sumatriptan succinate 50 mg tablet 50 mg PO DAILY PRN Migraine 04/16/23 10/03/23 Headache amlodipine 10 mg tablet 10 mg PO DAILY 06/17/23 10/03/23 metoprolol tartrate 25 mg tablet 25 mg PO BID 06/17/23 10/03/23 omeprazole 40 mg capsule,delayed 40 mg PO DAILY@0630 06/17/23 10/03/23 release paroxetine HCl 10 mg tablet 10 mg PO BEDTIME 06/17/23 10/03/23 trazodone 50 mg tablet 50 mg PO BEDTIME PRN anxiety 04/02/24 07/19/24 Previous Rx's ?Medication ?Instructions ?Recorded aspirin 81 mg tablet,delayed 81 mg PO DAILY #14 tabs 08/11/21 release atorvastatin 80 mg tablet 80 mg PO BEDTIME #30 tabs 08/11/21 heparin (porcine) 25,000 unit/250 25,000 unit (250 mL) continuous IV 06/17/23 mL in 0.45 % sodium chloride IV infusion .Q0M #1 mL soln nicotine 21 mg/24 hr daily 21 mg transdermal DAILY #1 ea 06/17/23 transdermal patch lisinopril 10 mg tablet 10 mg PO DAILY #30 tabs 10/03/23 acetaminophen 325 mg tablet 650 mg (2 x 325 mg) PO Q6H PRN 02/29/24 (Tylenol) fever or pain #30 tabs ezetimibe 10 mg tablet 10 mg PO BEDTIME #90 tabs 04/19/24 ondansetron 4 mg disintegrating 4 mg PO Q8H PRN nausea and 08/06/24 tablet vomiting #4 tabs sucralfate 1 gram tablet (Carafate) 1 g PO Q6H 7 days #28 tabs 08/06/24 Allergies Allergy/AdvReac Type Severity Reaction Status Date / Time ibuprofen [From Motrin] AdvReac Unknown UPSET Verified 08/06/24 05:42 STOMACH Review of Systems Review of Systems: Constitutional : No Weight loss, No Fever, No Chills, No Night Sweats, No Fatigue, No Malaise ENT/Mouth : No Hearing loss, No Ear Pain, No Nasal Congestion, No Sinus Pain, No Hoarseness, No sore throat, No Rhinorrhea, No Swallowing Difficulty Eyes: No Eye Pain, No Swelling, No Redness, No Foreign Body, No Discharge, No Vision Changes Cardiovascular : No Chest Pain, No SOB, No Dyspnea on Exertion, No Orthopnea, No Edema, No Palpitations Respiratory : No Cough, No Sputum, No Wheezing, No Smoke Exposure, No Dyspnea Gastrointestinal : No Nausea, No Vomiting, No Diarrhea, No Constipation, Patient complaining of constant nonradiating epigastric pain, no hematochezia or melena, pain not changed by food or liquid ingestion Genitourinary : no irregular bleeding, No Dysuria, No Urinary Frequency, No Hematuria, No Urinary Incontinence, No Urgency, No Flank Pain, No Urinary Flow Changes, No Hesitancy Musculoskeletal : No joint pain, No Myalgias, No Joint Swelling Skin : No Skin Lesions, No rash Neuro : No Weakness, No Numbness, No Paresthesias, No Loss of Consciousness, No Dizziness, No Headache Psych : No Anxiety/Panic, No Depression, No SI/HI/AH/VH, No Social Issues, Heme/Lymph: No Bruising, No Bleeding,No Lymphadenopathy Endocrine : No Polyuria, No Polydipsia, No Temperature Intolerance [facility] Past Medical History Medical History Osteoarthritis of shoulders, bilateral Pain in joint involving multiple sites 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 Cholecystitis Osteoarthritis of left hip Depression with anxiety Migraines History of non-ST elevation myocardial infarction (NSTEMI) (~07/2021) Personal history of nicotine dependence Primary osteoarthritis of knees, bilateral GERD (gastroesophageal reflux disease) Hypercholesterolemia Obesity HTN (hypertension) Osteoarthritis Surgical History History of cardiac cath (~2021) History of colonoscopy History of carpal tunnel surgery of right wrist (~2014) History of total abdominal hysterectomy (~2004) History of tubal ligation Family History Family History Mother HTN (hypertension) Diabetes Father Alzheimer disease Brother Throat cancer Social History Social History Household Members: Spouse Housing: House Do you presently have visiting nurse or other home services: Yes ([employer] services) Alcohol intake: never Patient Tobacco Use Status: Never used Tobacco Tobacco use type: Cigarette Cigarettes Per Day: 8 Years Smoked: (onset 13, 1/2ppd x 42yrs, 20+PYH) Second Hand Smoke Exposure: No Use of substances other than those prescribed or required for medical reasons: No Substance Use Type: Marijuana Advance Directives: Yes Advance Directives on File: Yes Advance Directives Date on File: 12/02/22 Do you have a plan to hurt others: No Plan Patient : No service: No Current occupational status: disabled Physical Exam Vital Signs: Vital Signs: Last Vital Signs Temp 97.3 F 08/06/24 05:34 Pulse 89 08/06/24 05:34 Resp 14 08/06/24 05:34 BP 105/67 08/06/24 05:34 Pulse Ox 95 08/06/24 05:34 O2 Del Method Room Air 08/06/24 05:34 BMI result Body Mass Index 30.2 Const: Other: Appearance: Alert. Oriented X3. No acute distress. Eyes: Pupils equal, round and reactive to light. ENT: Pharynx normal. Neck: Normal inspection. Neck supple. No lymph nodes noted. No crepitus CVS: Normal heart rate and rhythm. Pulses normal. Normal S1 and S2 Respiratory: No respiratory distress. Breath sounds normal. No Wheezing. No rales Abdomen: Soft , tenderness to palpation in the epigastric area, mild rebound, no guarding, No rigidity. No distention. Skin: Skin warm and dry. Normal skin color. Normal skin turgor. Extremities: No lower extremity edema. No Lacerations. No Rash Neuro: Oriented X 3. No motor deficit. No sensory deficit. Moving all extremities. No slurred speech. CN 2 through 12 grossly intact Psych: calm, cooperative, normal affect Course Course Course Narrative: patient was seen here 2 days ago. A limited point of care biliary ultrasound was done, showing no wall thickening, no pericholecystic fluid, no grossly dilated gallbladder. Patient receiving IV fluids, Zofran, morphine and Pepcid given patient's past medical history, it is likely that patient may have gastritis, versus peptic ulcer versus perforated ulcer all of patient's labs and imaging pending Medications Administered Discontinued Medications Generic Name Dose Route Start Last Admin Trade Name Freq PRN Reason Stop Dose Admin Al Hydroxide/Mg Hydroxide 30 ml 08/06/24 06:48 08/06/24 07:02 Magnesium Hydrox/Alum Hydrox 30 Ml Oral.Susp PO 08/06/24 06:49 30 ml ONCE ONE Administration Famotidine 20 mg 08/06/24 05:49 08/06/24 06:09 Famotidine/Pf 20 Mg/2 Ml Vial IVPUSH 08/06/24 05:50 20 mg ONCE ONE Administration Famotidine 20 mg 08/06/24 07:21 08/06/24 08:01 Famotidine/Pf 20 Mg/2 Ml Vial IVPUSH 08/06/24 07:22 20 mg ONCE ONE Administration Sodium Chloride 1,000 mls @ 999 mls/hr 08/06/24 05:49 08/06/24 08:04 Ns IVCONT 08/06/24 06:49 Infused .Q1H1M ONE Infusion Iohexol 100 ml 08/06/24 08:29 08/06/24 08:29 Iohexol 350 Mg/Ml 100 Ml Infus..Btl IV 08/06/24 08:30 85 ml ONCE ONE Administration Lidocaine HCl 15 ml 08/06/24 06:48 08/06/24 07:02 Lidocaine Hcl Viscous 2 % 15 Ml Solution MUCOUS MEM 08/06/24 06:49 15 ml ONCE ONE Administration Morphine Sulfate 4 mg 08/06/24 05:49 08/06/24 06:09 Morphine Sulfate 4 Mg/Ml Cartridge IVPUSH 08/06/24 05:50 4 mg ONCE ONE Administration Protocol Morphine Sulfate 4 mg 08/06/24 07:22 08/06/24 08:01 Morphine Sulfate 4 Mg/Ml Cartridge IVPUSH 08/06/24 07:23 4 mg ONCE ONE Administration Protocol Ondansetron HCl 4 mg 08/06/24 05:49 08/06/24 06:09 Ondansetron Hcl 4 Mg/2 Ml Vial IVPUSH 08/06/24 05:50 4 mg ONCE ONE Administration Sucralfate 1 gm 08/06/24 07:21 08/06/24 08:01 Sucralfate Oral Suspension 1 Gm/10 Ml Oral.Susp PO 08/06/24 07:22 1 gm ONCE ONE Administration Medical Decision Making Medical Decision Making [facility] Narrative: my interpretation of EKG: Normal sinus rhythm, heart rate 75, no ST segment depression or elevation, nonspecific T-wave changes in V3, QTC 455 My interpretation of labs: No significant abnormality in patient's hematology and chemistry, normal LFTs, normal troponin, lipase within normal limits on arrival, patient received IV fluids, morphine, Zofran and Pepcid. Patient now receiving also a GI cocktail consisting of Maalox and viscous lidocaine CT scan of the abdomen /pelvis is pending sign out given to my colleage Dr. Cox 07:23I, Dr. Cox have take over the care of this patient, I reviewed pertinent blood work and imaging, re-evaluated the patient when appropriate. Patient re-evaluated, still complaining of abdominal pain in the epigastric area, I reviewed her prior blood work, ultrasound, she is pending CT of the abdomen, disposition to be determined based on CT findings however I suspect this is gastric lining inflammation, she has not had any evidence for bowel perforation, SBO, bowel sounds are present, no rebound no rigidity, no significant distention she is nonfebrile, pain is just in the epigastric area, if CT is negative we will need outpatient follow up endoscopy, PCP and GI follow up. 08:50 workup has been reassuring, we will adjust patient's medications and discharge Differential Diagnosis Differential Diagnoses: The differential diagnosis associated with the presentation includes ( gastritis, peptic ulcer disease, perforated ulcer, pancreatitis, choledocholithiasis, cholecystitis, SBO) Admission/Observation Consideration of admission/observation: Escalation of care including admission/observation considered ( given patient's recurrent visits to the ED, observation has been considered) Lab Data MDM Lab Attestation statement: I reviewed the patient's lab results. 08/06/24 06:05 08/06/24 06:05 Labs: Lab Results 08/06/24 Range/Units 06:05 WBC 8.6 (4.8-10.8) X10*3/uL RBC 4.76 (4.20-5.50) X10*6/uL Hgb 12.8 (12.0-16.0) g/dl Hct 38.8 (37.0-47.0) % MCV 81.5 (80.0-98.0) fL MCH 26.9 L (27.0-33.0) pg MCHC 33.0 (31.0-35.0) g/dl RDW 14.0 (11.0-16.0) % Plt Count 277 (160-400) X10*3/uL MPV 11.6 (9.4-12.3) fL Immature Gran % (Auto) 0.4 (0.0-0.4) % Neut % (Auto) 64.5 (45-73) % Lymph % (Auto) 20.7 (20-40) % [place] % (Auto) 9.0 (2-11) % Eos % (Auto) 5.0 H (0-4) % Baso % (Auto) 0.4 (0-2) % Lymph # (Auto) 1.8 (1.2-4.9) X10*3/uL [place] # (Auto) 0.8 (0.1-1.2) X10*3/uL Eos # (Auto) 0.4 (0.0-0.4) X10*3/uL Baso # (Auto) 0.0 (0.0-0.2) X10*3/uL Abs Immat Gran (auto) 0.03 (0.00-0.03) X10*3/uL Absolute Neuts (auto) 5.5 (2.0-8.3) x10*3/uL Absolute Nucleated RBC 0.000 (0.0-0.012) X10*3/uL Nucleated RBC % (auto) 0.0 (0.0-0.2) /100WBC Sodium 141 (135-145) mmol/L Potassium 3.9 (3.3-5.1) mmol/L Chloride 104 (96-108) mmol/L Carbon Dioxide 28 (22-29) mmol/L Anion Gap 13 (12-20) BUN 12 (9-16) mg/dL Creatinine 0.70 (0.5-1.4) mg/dL Estim Creat Clear Calc 97.1 Estimated GFR > 60 Random Glucose 113 (60-115) mg/dL Calcium 8.9 (8.4-10.2) mg/dL Magnesium 2.0 (1.6-2.6) mg/dL Total Bilirubin 0.3 (0.0-1.0) mg/dL Direct Bilirubin 0.1 (0.0-0.5) mg/dL AST 29 (5-31) U/L ALT 8 (0-31) U/L Alkaline Phosphatase 103 (39-117) U/L Troponin I High Sens < 2.7 (<3.5-17.0) ng/L Total Protein 6.8 (6.5-8.0) g/dL Albumin 3.8 (3.5-5.0) g/dL Lipase 12 (8-78) U/L Radiology Impression Radiologist Impression: IMPRESSION: Small hiatal hernia. No acute abnormality is identified. Critical Care Time Critical Care Time Critical Care Time: Yes Total Critical Care Time: 60 Attestation: I have personally provided critical care time. Time includes review of lab data, radiology results, discussion with consultants, and monitoring for potential decompensation. Intervention performed as documented. Discharge Plan Discharge Clinical Impression: Abdominal pain, epigastric Nausea & vomiting Qualifiers: Vomiting type: unspecified Qualified Code(s): R11.2 - Nausea with vomiting, unspecified Patient Disposition: Home, Self-Care Instructions: Abdominal Pain (ED) Additional Instructions: Your workup has been reassuring, uterine having issues with the gallbladder or liver, dehydration, CAT scan was done today there are no issues noted on a CAT scan, he will need to follow up with the primary care physician, you will likely need referral to mechanical cad designer, endoscopy, in the meantime continue using omeprazole at night, and I am adding Zofran as needed for nausea and vomiting, continue taking Tylenol as needed for pain, Carafate 1 pill 20 minutes before any meals for the next 1 week We suspect that the lining of the stomach is inflamed, any vomiting blood, black stools spiking fevers or chills chest pain come back to the ER but make sure to have follow up with the PCP Prescriptions: New sucralfate [Carafate] 1 gram tablet 1 g PO Q6H 7 Days Qty: 28 0RF ondansetron 4 mg tablet,disintegrating 4 mg PO Q8H PRN (Reason: nausea and vomiting) Qty: 4 0RF No Action ezetimibe 10 mg tablet 10 mg PO BEDTIME Qty: 90 3RF atorvastatin 80 mg Tablet 80 mg PO BEDTIME Qty: 30 0RF aspirin 81 mg Tablet,Delayed Release (Dr/Ec) 81 mg PO DAILY Qty: 14 0RF trazodone 50 mg tablet 50 mg PO BEDTIME PRN (Reason: anxiety) omeprazole 40 mg capsule,delayed release(DR/EC) 40 mg PO DAILY@0630 metoprolol tartrate 25 mg tablet 25 mg PO BID amlodipine 10 mg tablet 10 mg PO DAILY paroxetine HCl 10 mg tablet 10 mg PO BEDTIME nicotine 21 mg/24 hr Patch 24 Hour 21 mg transdermal DAILY Qty: 1 0RF heparin(porcine) in 0.45% NaCl 25,000 unit/250 mL Parenteral Solution 25,000 unit continuous IV infusion .Q0M Qty: 1 0RF acetaminophen [Tylenol] 325 mg tablet 650 mg PO Q6H PRN (Reason: fever or pain) Qty: 30 0RF bupropion HCl 150 mg tablet extended release 24 hr 150 mg PO DAILY tramadol 50 mg tablet 50 mg PO Q6H PRN (Reason: Pain) sennosides [senna] 8.6 mg tablet 17.2 mg PO BEDTIME Myrbetriq 50 mg tablet extended release 24 hr 50 mg PO DAILY cholecalciferol (vitamin D3) 50 mcg (2,000 unit) tablet 50 mcg PO DAILY loratadine [Allergy Relief (loratadine)] 10 mg tablet 10 mg PO DAILY PRN (Reason: Allergy Symptoms) fluticasone propionate 50 mcg/actuation spray,suspension 2 spray intranasal DAILY PRN (Reason: Allergy Symptoms) sumatriptan succinate 50 mg tablet 50 mg PO DAILY PRN (Reason: Migraine Headache) lisinopril 10 mg tablet 10 mg PO DAILY Qty: 30 5RF Print Language: Icelandic
[2024-08-06 06:09] LABS: MANUAL DIFF FLAG NO
[2024-08-06] MEDS: ondansetron HCL 4 MG/2 ML VIAL IVPUSH (06:09)
[2024-08-06] MEDS: Morphine Sulfate 4 MG/ML CARTRIDGE IVPUSH ×2 (06:09→08:01)
[2024-08-06] MEDS: Famotidine/PF 20 MG/2 ML VIAL IVPUSH ×2 (06:09→08:01)
[2024-08-06 06:11] LABS: Basophils Percent Auto 0.4 % (0-2); Eosinophils Absolute Auto 0.4 X10*3/uL (0.0-0.4); Hematocrit 38.8 % (37.0-47.0); Hemoglobin 12.8 g/dl (12.0-16.0); Imm Gran Abs Auto 0.03 X10*3/uL (0.00-0.03); Imm Gran Pct Auto 0.4 % (0.0-0.4); Lymphocytes Absolute Auto 1.8 X10*3/uL (1.2-4.9); Lymphocytes Percent Auto 20.7 % (20-40); Mean Corpuscular Hemoglobin 26.9 pg (27.0-33.0); Mean Corpuscular Volume 81.5 fL (80.0-98.0); Mean Platelet Volume 11.6 fL (9.4-12.3); Monocytes Absolute Auto 0.8 X10*3/uL (0.1-1.2); Neutrophils Absolute Auto 5.5 x10*3/uL (2.0-8.3); Neutrophils Percent Auto 64.5 % (45-73); Platelet Count 277 X10*3/uL (160-400); Red Blood Count 4.76 X10*6/uL (4.20-5.50); White Blood Count 8.6 X10*3/uL (4.8-10.8)
[2024-08-06] MEDS: 0.9 % Sodium Chloride 1,000 ML 999 ML IVCONT (06:12)
[2024-08-06 06:30] LABS: Alanine Aminotransferase 8 U/L (0-31); Albumin Level 3.8 g/dL (3.5-5.0); Alkaline Phosphatase 103 U/L (39-117); Anion Gap 13 (12-20); Aspartate Amino Transferase 29 U/L (5-31); Bilirubin Direct 0.1 mg/dL (0.0-0.5); Bilirubin Total 0.3 mg/dL (0.0-1.0); Blood Urea Nitrogen 12 mg/dL (9-16); Calcium 8.9 mg/dL (8.4-10.2); Carbon Dioxide 28 mmol/L (22-29); Chloride 104 mmol/L (96-108); Creatinine Clr Calc Pharmacy 97.1; Estimated Glomerular Filt Rate > 60; Glucose Random 113 mg/dL (60-115); Lipase 12 U/L (8-78); Potassium 3.9 mmol/L (3.3-5.1); Sodium 141 mmol/L (135-145); Total Protein 6.8 g/dL (6.5-8.0); Troponin-I High Sensitivity < 2.7 ng/L (<3.5-17.0)
[2024-08-06] MEDS: Lidocaine HCl Viscous 2 % 15 ML SOLUTION MUCOUS MEM (07:02)
[2024-08-06] MEDS: Magnesium Hydrox/Alum Hydrox 30 ML ORAL.SUSP PO (07:02)
[2024-08-06] MEDS: Sucralfate Oral Suspension 1 GM/10 ML ORAL.SUSP PO (08:01)
[2024-08-06] MEDS: iohexoL 350 MG/ML 100 ML INFUS..BTL IV (08:29)
[2024-08-06 09:59] VITALS: BP 110/51; PULSE 73; RESP 16; TEMP 36.6; O2SAT 95
== END 2024-08-06 09:59 | disposition home or self-care (01) ==
PROVIDERS: Emergency Medicine; Emergency Provider Emergency Medicine; PCP Family Medicine
DX: R07.89 Other chest pain (principal); R10.13 Epigastric pain; R11.2 Nausea with vomiting, unspecified; R10.2 Pelvic and perineal pain; Z79.899 Other long term (current) drug therapy
CPT/HCPCS: 36415; 74177; 80048; 80076; 83690; 83735; 84484; 85025; 93005; 96361; 96374; 96375; 96376; 99285; J1308; J2270; J2405; Q9967

== ENCOUNTER → 2024-08-06 05:43 | Outpatient (BNV) | payer MEDICAID, SELFPAY | PROVIDERS: Emergency Provider Emergency Medicine; PCP Family Medicine; Visit Provider Internal Medicine Cardiovascular Disease | DX: R07.9 Chest pain, unspecified (principal) | CPT/HCPCS: 93010 ==

== ENCOUNTER → 2024-08-06 05:49 | Outpatient (BNV) | payer MEDICAID, SELFPAY | PROVIDERS: Emergency Provider Emergency Medicine; PCP Family Medicine; Visit Provider Radiology Diagnostic Radiology | DX: K44.9 Diaphragmatic hernia without obstruction or gangrene (principal) | CPT/HCPCS: 74177 ==

== ENCOUNTER 2024-09-10 09:48 | Outpatient (AMB) | payer MEDICAID, SELFPAY ==
--- NOTE | 2024-09-10 10:15 | A.OFFVIS_ITS ---
Vital Signs 09/10/24 10:16 Height 5 ft 7 in Weight 178 lb 9.191 oz BMI 28.0 BP 120/68 Blood Pressure Location Lt brachial Position Sitting Pulse 78 Pulse Source Pulse Oximeter Intake Visit Reasons: Overdue f/u Public Health Nurse Required: Yes Public Health Nurse Name: ALEXANDREA [id number] Allergies ibuprofen (From Motrin) Adverse Reaction (Unknown, Verified 08/06/24 05:42) UPSET STOMACH Medication List - Last Reconciled 09/10/24 by CUATE Lino acetaminophen (Tylenol) 650 mg (2 x 325 mg) PO Q6H PRN amlodipine 10 mg PO DAILY aspirin 81 mg PO DAILY atorvastatin 80 mg PO BEDTIME bupropion HCl XL 150 mg PO DAILY cholecalciferol (vitamin D3) 50 mcg PO DAILY ezetimibe 10 mg PO BEDTIME fluticasone propionate 50 mcg/actuation 2 sprays intranasal DAILY PRN heparin(porcine) in 0.45% NaCl 25,000 unit/250 mL 25,000 units (250 mL) continuous IV infusion .Q0M lisinopril 10 mg PO DAILY loratadine (Allergy Relief (loratadine)) 10 mg PO DAILY PRN metoprolol tartrate 25 mg PO BID mirabegron ER (Myrbetriq) 50 mg PO DAILY nicotine 21 mg transdermal DAILY omeprazole 40 mg PO DAILY@0630 ondansetron 4 mg PO Q8H PRN paroxetine HCl 10 mg PO BEDTIME sennosides (senna) 17.2 mg PO BEDTIME sucralfate (Carafate) 1 g PO Q6H 7 days sumatriptan succinate 50 mg PO DAILY PRN tramadol 50 mg PO Q6H PRN trazodone 50 mg PO BEDTIME PRN HPI HPI Overdue f/u: Details: Suze is a 58-year-old female with past medical history of smoking, hypertension, hyperlipidemia, obesity who had NSTEMI 07/2021 with cardiac catheterization showing no significant coronary artery disease who was recently admitted to [facility] [place] with chest discomfort and ruled in for NSTEMI. She was transferred to [facility] for cardiac catheterization showing no significant CAD. She was thought to have coronary vasospasm and was put on amlodipine. She presents for follow-up. Today she reports that she has been feeling well overall since her last visit September 2023. She does get periodic mild chest discomfort with no pattern, not like prior admissions. She has no chest discomfort brought on by exertion. No shortness of breath, presyncope, syncope, PND, orthopnea or edema. She will notice brief heart palpitations lasting sec. She is taking her meds as directed. She describes doing only light physical activity. FOR[facility]LY [facility] Medical History Osteoarthritis of shoulders, bilateral Pain in joint involving multiple sites shelter use of drug Cholecystitis Osteoarthritis of left hip Depression with anxiety Migraines History of non-ST elevation myocardial infarction (NSTEMI) (~07/2021) Personal history of nicotine dependence Primary osteoarthritis of knees, bilateral GERD (gastroesophageal reflux disease) Hypercholesterolemia Obesity HTN (hypertension) Osteoarthritis Surgical History History of cardiac cath (~2021) History of colonoscopy History of carpal tunnel surgery of right wrist (~2014) History of total abdominal hysterectomy (~2004) History of tubal ligation Family History Mother HTN (hypertension) Diabetes Father Alzheimer disease Brother Throat cancer Social History Household Members: Spouse Housing: House Do you presently have visiting nurse or other home services: Yes ([employer] services) Alcohol intake: never Patient Tobacco Use Status: Never used Tobacco Tobacco use type: Cigarette Cigarettes Per Day: 8 Years Smoked: (onset 13, 1/2ppd x 42yrs, 20+PYH) Second Hand Smoke Exposure: No Substance Use Type: Marijuana Advance Directives Date on File: 12/02/22 service: No Current occupational status: disabled Review of Systems Const All systems reviewed & are unremarkable except as noted in HPI and below Denies weakness ENT Denies dizziness Card Denies chest pain, Denies chest pain with activity, Denies syncope, Denies rapid heart rate, Denies pedal edema, Denies edema, Denies leg edema, Denies lightheadedness, Denies palpitations, Denies dyspnea, Denies dyspnea on exertion and Denies orthopnea Resp Denies cough, Denies dyspnea and Denies dyspnea on exertion GI Denies hematochezia and Denies change in stool character Musc Denies abnormal gait, Denies muscle cramps, Denies muscle weakness, Denies numbness, Denies radiating pain into limb and Denies tingling Neuro Denies abnormal gait, Denies dizziness, Denies syncope, Denies numbness, Denies tingling and Denies weakness Endo Denies palpitations Physical Exam Vital Signs: Last Vital Signs Pulse 78 09/10/24 10:16 BP 120/68 09/10/24 10:16 BMI result Body Mass Index 28.0 Const General: cooperative, healthy appearing, comfortable and no acute distress Orientation/consciousness: patient oriented x3 Neck Neck: Yes normal visual inspection and Yes no JVD Carotids: normal carotid upstroke Chest Chest palpation & inspection: normal inspection of the chest Resp Effort & Inspection: normal respiratory effort Auscultation: clear to auscultation bilaterally, no crackles, no rales, no rhonchi and no wheezes Cardio Jugular venous distension: no JVD Rate: regular rate Rhythm: regular rhythm Heart sounds: S1 normal heart sound present, S2 normal heart sound present, no gallops, no murmurs and no rubs Peripheral pulses: Peripheral pulses 2+ throughout GI Inspection: Yes normal to inspection Skin General skin exam: no rashes or lesions noted Neuro General: patient oriented x3 Extrem General: Yes normal to inspection, No no pedal edema and No calf tenderness Psych Appearance: grossly normal Mental Status: mental status grossly normal Speech and movement: Normal speech and movement present Assessment & Plan Assessment & Plan (1) NSTEMI (non-ST elevated myocardial infarction): Onset Date: ~07/2021 Code(s): I21.4 - Non-ST elevation (NSTEMI) myocardial infarction Category: Medical Plan: NSTEMI x2 each with normal cardiac catheterization. She was thought to have coronary vasospasm. Last echocardiogram 06/17/2023 showed EF 60-65% with mild LVH, normal valve Dopplers. She has been on amlodipine 10 mg daily and metoprolol tartrate 25 mg b.i.d. and has been doing well. She is also on aspirin and high-dose atorvastatin and Zetia for good cholesterol control. Signs and symptoms of angina reviewed. Instructed on smoking cessation. Cardiology follow-up 1 year, sooner if needed. (2) Primary hypertension: Code(s): I10 - Essential (primary) hypertension Category: Medical Plan: Blood pressure goal less than 130/80. Well controlled at this time. Continue lisinopril, metoprolol, amlodipine. (3) Hypercholesterolemia: Code(s): E78.00 - Pure hypercholesterolemia, unspecified Category: Medical Plan: Vina LDL goal less than 100. She is due for an updated lipid profile. Continue high-dose statin, and Zetia. (4) S/P cardiac cath: Comment: 06/17/2023, left main and LAD normal, left circumflex and RCA minimal irregularities Code(s): Z98.890 - Other specified postprocedural states Category: Surgical Plan: As above (5) History of cardiac cath: Onset Date: ~2021 Comment: (No obstructed coronary arteries - [facility] 08/12/2021) Code(s): Z98.890 - Other specified postprocedural states Category: Surgical Plan: As above Plan I discussed with the patient the importance of continuing her medications, including amlodipine and metoprolol, to manage coronary vasospasm and hypertension. We reviewed the potential need for further evaluation if heart palpitations become prolonged or symptomatic. I emphasized the importance of medication adherence and scheduled a follow-up visit to monitor her condition. Patient Instructions: - Continue taking all prescribed medications daily. - Monitor for prolonged or symptomatic heart palpitations and report them. - Attend scheduled follow-up visits. Patient was informed and verbally consented to the use of an ambient scribe for clinic note documentation during this visit. Visit time spent on chart review, interview, assessment, orders, documentation. Coding Level of Care Code Est Pt Level 4 (78545) Complex EM visit Add On G2211 Diagnoses NSTEMI (non-ST elevated myocardial infarction) I21.4 Primary hypertension I10 Hypercholesterolemia E78.00 S/P cardiac cath Z98.890 History of cardiac cath Z98.890 Time Spent (min) 30
[2024-09-10 10:16] VITALS: BP 120/68; PULSE 78; BMI 28.0
== END 2024-09-10 10:48 | disposition home or self-care (01) ==
LOC: HO.HCS 09:49
PROVIDERS: PCP Family Medicine; Visit Provider Nurse Practitioner Family
DX: I21.4 Non-ST elevation (NSTEMI) myocardial infarction (principal); I10 Essential (primary) hypertension; E78.00 Pure hypercholesterolemia, unspecified; Z98.890 Other specified postprocedural states
CPT/HCPCS: 99214

== ENCOUNTER → 2024-09-10 09:48 | Outpatient (BNVA) | payer MEDICAID, SELFPAY | PROVIDERS: PCP Family Medicine; Visit Provider Nurse Practitioner Family | DX: I21.4 Non-ST elevation (NSTEMI) myocardial infarction (principal); I10 Essential (primary) hypertension; E78.00 Pure hypercholesterolemia, unspecified; Z98.890 Other specified postprocedural states | CPT/HCPCS: 99212 ==

== ENCOUNTER 2024-09-30 14:28 | Emergency (ER) | payer MEDICAID, SELFPAY ==
--- NOTE | ~2024-09-30 | XR_ITS ---
EXAMINATION: XR CHEST CLINICAL INFORMATION: chest pain COMPARISON: None available. TECHNIQUE: 2 views of the chest were obtained. FINDINGS: No significant abnormality is noted involving the heart, lungs, mediastinum, bony thorax or soft tissues. XR/XR chest 2V IMPRESSION: No acute disease Electronically signed by: Rj Soria MD 09/30/2024 03:57 PM EDT RP
--- NOTE | 2024-09-30 14:30 | ECG_ITS ---
Test Reason : CHEST PAIN Blood Pressure : */* mmHG Vent. Rate : 67 BPM Atrial Rate : 67 BPM P-R Int : 232 ms QRS Dur : 86 ms QT Int : 416 ms P-R-T Axes : 40 -10 -1 degrees QTcB Int : 439 ms Sinus rhythm with 1st degree A-V block Otherwise normal ECG When compared with ECG of 06-Aug-2024 05:53, No significant change was found Referred By: Generic ED Physician Electronically Signed By: KIRA LICEA
--- NOTE | 2024-09-30 14:30 | ED.GENADULT ---
HPI - General Adult General Chief complaint: Chest Pain Stated complaint: CHEST PAIN Time Seen by Provider: 09/30/24 14:30 History of Present Illness ED Provider: Azalea DE JESUS narrative: The patient is a 58-year-old woman who has a history of an NSTEMI in June 2023. She had a cardiac catheterization at that time there was no significant coronary artery disease seen. Apparently she had also had a similar episode in July of 2021. The thinking was that perhaps she has coronary vasospasm for these episodes. She has been a smoker. Today the patient says that she had an episode of sharp chest pain in her left upper chest while walking at a gas station this morning. She felt 3 sharp twinges in her left upper chest that lasted a few sec. this afternoon she was getting dressed and she had another episode of sharp twinges in her left upper chest which also lasted on the order of sec. she became concerned about these symptoms and called an ambulance and was brought to the hospital. She is currently pain-free. Related Data Home Medications ?Medication ?Instructions ?Recorded ?Confirmed mirabegron 50 mg tablet,extended 50 mg PO DAILY 08/29/21 09/10/24 release 24 hr (Myrbetriq) sennosides 8.6 mg tablet (senna) 17.2 mg PO BEDTIME 08/29/21 09/10/24 cholecalciferol (vitamin D3) 50 50 mcg PO DAILY 03/26/22 09/10/24 mcg (2,000 unit) tablet fluticasone propionate 50 2 spray intranasal DAILY PRN 03/26/22 09/10/24 mcg/actuation nasal Allergy Symptoms spray,suspension loratadine 10 mg tablet (Allergy 10 mg PO DAILY PRN Allergy Symptoms 03/26/22 09/10/24 Relief (loratadine)) bupropion HCl 150 mg 24 hr tablet, 150 mg PO DAILY 11/27/22 09/10/24 extended release tramadol 50 mg tablet 50 mg PO Q6H PRN Pain 11/27/22 09/10/24 sumatriptan succinate 50 mg tablet 50 mg PO DAILY PRN Migraine 04/16/23 09/10/24 Headache amlodipine 10 mg tablet 10 mg PO DAILY 06/17/23 09/10/24 metoprolol tartrate 25 mg tablet 25 mg PO BID 06/17/23 09/10/24 omeprazole 40 mg capsule,delayed 40 mg PO DAILY@0630 06/17/23 09/10/24 release paroxetine HCl 10 mg tablet 10 mg PO BEDTIME 06/17/23 09/10/24 trazodone 50 mg tablet 50 mg PO BEDTIME PRN anxiety 06/17/23 09/10/24 Previous Rx's ?Medication ?Instructions ?Recorded aspirin 81 mg tablet,delayed 81 mg PO DAILY #14 tabs 08/11/21 release atorvastatin 80 mg tablet 80 mg PO BEDTIME #30 tabs 08/11/21 heparin (porcine) 25,000 unit/250 25,000 unit (250 mL) continuous IV 06/17/23 mL in 0.45 % sodium chloride IV infusion .Q0M #1 mL soln nicotine 21 mg/24 hr daily 21 mg transdermal DAILY #1 ea 06/17/23 transdermal patch lisinopril 10 mg tablet 10 mg PO DAILY #30 tabs 10/03/23 acetaminophen 325 mg tablet 650 mg (2 x 325 mg) PO Q6H PRN 02/29/24 (Tylenol) fever or pain #30 tabs ezetimibe 10 mg tablet 10 mg PO BEDTIME #90 tabs 04/19/24 ondansetron 4 mg disintegrating 4 mg PO Q8H PRN nausea and 08/06/24 tablet vomiting #4 tabs sucralfate 1 gram tablet (Carafate) 1 g PO Q6H 7 days #28 tabs 08/06/24 Allergies Allergy/AdvReac Type Severity Reaction Status Date / Time ibuprofen (From Motrin) AdvReac Unknown UPSET Verified 09/30/24 15:01 STOMACH Review of Systems Review of Systems: Yes all other systems are reviewed and are negative PMFSH Past Medical History Medical History Osteoarthritis of shoulders, bilateral Pain in joint involving multiple sites [facility] use of drug Cholecystitis Osteoarthritis of left hip Depression with anxiety Migraines History of non-ST elevation myocardial infarction (NSTEMI) (~07/2021) Personal history of nicotine dependence Primary osteoarthritis of knees, bilateral GERD (gastroesophageal reflux disease) Hypercholesterolemia Obesity HTN (hypertension) Osteoarthritis Surgical History History of cardiac cath (~2021) History of colonoscopy History of carpal tunnel surgery of right wrist (~2014) History of total abdominal hysterectomy (~2004) History of tubal ligation Family History Family History Mother HTN (hypertension) Diabetes Father Alzheimer disease Brother Throat cancer Social History Social History Household Members: Spouse Housing: House Do you presently have visiting nurse or other home services: Yes ([employer] services) Alcohol intake: never Patient Tobacco Use Status: Never used Tobacco Tobacco use type: Cigarette Cigarettes Per Day: 8 Years Smoked: (onset 13, 1/2ppd x 42yrs, 20+PYH) Smoked in Last 30 Days: Yes Second Hand Smoke Exposure: No Use of substances other than those prescribed or required for medical reasons: No Substance Use Type: Marijuana Advance Directives: Yes Advance Directives on File: Yes Advance Directives Date on File: 12/02/22 Do you have a plan to hurt others: No Plan Patient : No service: No Current occupational status: disabled Physical Exam ED Vital Signs: Vital Signs - 24 hr 09/30/24 14:57 09/30/24 16:56 09/30/24 18:07 Temperature 98.3 F 0 F L Pulse Rate 66 66 66 Respiratory Rate 14 17 17 Blood Pressure 115/48 L 105/36 L 105/36 L Pulse Oximetry 98 98 98 Oxygen Delivery Method Room Air Room Air Room Air BMI result Body Mass Index 31.2 Const Other: The patient is a 58-year-old woman who was awake and alert. She does not appear in any acute distress. She does not appear obviously uncomfortable. She looks somewhat chronically ill and somewhat older than her age. Orientation/consciousness: patient oriented x3 HENMT Other: The face is symmetrical. ?Mucous membranes moist. Eyes General: appearance normal, both eyes and all related structures Neck Neck: Yes normal visual inspection, Yes full ROM and Yes no JVD Resp Effort & Inspection: normal respiratory effort Auscultation: clear to auscultation bilaterally Cardio Rate: regular rate Rhythm: regular rhythm Heart sounds: S1 normal heart sound present and S2 normal heart sound present GI Other: Abdomen is soft and nontender Skin Other: The skin is dry and unremarkable Neuro General: patient oriented x3, moves all extremities, no focal motor deficits and CN's II-XI intact bilaterally Extrem Other: There is no calf swelling or tenderness. No asymmetry. No peripheral edema. Medical Decision Making Medical Decision Making [facility] Narrative: The patient is a 58-year-old female who presents for evaluation of some episodes of chest pain she experienced today. Based on her description of the episodes my suspicion for an acute coronary syndrome is extremely low. She describes very brief sharp episodes lasting on the order of only seconds. Her EKGs unremarkable. Troponin is normal. She looks well otherwise. She was reassured and discharged. Lab Data 09/30/24 15:17 09/30/24 15:17 Labs: Lab Results 09/30/24 Range/Units 15:17 WBC 9.4 (4.8-10.8) X10*3/uL RBC 4.39 (4.20-5.50) X10*6/uL Hgb 11.8 L (12.0-16.0) g/dl Hct 35.7 L (37.0-47.0) % MCV 81.3 (80.0-98.0) fL MCH 26.9 L (27.0-33.0) pg MCHC 33.1 (31.0-35.0) g/dl RDW 13.7 (11.0-16.0) % Plt Count 253 (160-400) X10*3/uL MPV 11.5 (9.4-12.3) fL Immature Gran % (Auto) 0.4 (0.0-0.4) % Neut % (Auto) 69.6 (45-73) % Lymph % (Auto) 16.8 L (20-40) % Camp % (Auto) 8.3 (2-11) % Eos % (Auto) 4.7 H (0-4) % Baso % (Auto) 0.2 (0-2) % Lymph # (Auto) 1.6 (1.2-4.9) X10*3/uL Camp # (Auto) 0.8 (0.1-1.2) X10*3/uL Eos # (Auto) 0.4 (0.0-0.4) X10*3/uL Baso # (Auto) 0.0 (0.0-0.2) X10*3/uL Abs Immat Gran (auto) 0.04 H (0.00-0.03) X10*3/uL Absolute Neuts (auto) 6.6 (2.0-8.3) x10*3/uL Absolute Nucleated RBC 0.000 (0.0-0.012) X10*3/uL Nucleated RBC % (auto) 0.0 (0.0-0.2) /100WBC Sodium 141 (135-145) mmol/L Potassium 4.2 (3.3-5.1) mmol/L Chloride 104 (96-108) mmol/L Carbon Dioxide 31 H (22-29) mmol/L Anion Gap 10 L (12-20) BUN 18 H (9-16) mg/dL Creatinine 1.08 (0.5-1.4) mg/dL Estim Creat Clear Calc 63.8 Estimated GFR 52 Random Glucose 114 (60-115) mg/dL Calcium 8.7 (8.4-10.2) mg/dL Total Bilirubin 0.2 (0.0-1.0) mg/dL Direct Bilirubin < 0.2 (0.0-0.5) mg/dL AST 23 (5-31) U/L ALT 14 (0-31) U/L Alkaline Phosphatase 105 (39-117) U/L Troponin I High Sens < 2.7 (<3.5-17.0) ng/L C-Reactive Protein 1.32 H (< or = 0.50) mg/dL Total Protein 7.0 (6.5-8.0) g/dL Albumin 3.9 (3.5-5.0) g/dL Independent Interpretation I performed an independent interpretation of an: EKG Interpretation: EKG at 15:07 shows sinus rhythm with a first-degree AV block at 67 beats per minute. No acute ischemic changes. No significant change from previous. Discharge Plan Discharge Clinical Impression: Chest pain Patient Disposition: Home, Self-Care Additional Instructions: I think the pain you were experiencing is probably coming more from your ribs than anything internal. I do not think these episodes of pain were from your heart. Your testing today is very reassuring. Please do your best to try to reduce smoking. Continue your regular medications. Please follow up soon with your regular doctor to discuss this episode further. Return to the emergency room if you feel significantly worse. Prescriptions: No Action ezetimibe 10 mg tablet 10 mg PO BEDTIME Qty: 90 3RF atorvastatin 80 mg Tablet 80 mg PO BEDTIME Qty: 30 0RF aspirin 81 mg Tablet,Delayed Release (Dr/Ec) 81 mg PO DAILY Qty: 14 0RF trazodone 50 mg tablet 50 mg PO BEDTIME PRN (Reason: anxiety) omeprazole 40 mg capsule,delayed release(DR/EC) 40 mg PO DAILY@0630 metoprolol tartrate 25 mg tablet 25 mg PO BID amlodipine 10 mg tablet 10 mg PO DAILY paroxetine HCl 10 mg tablet 10 mg PO BEDTIME nicotine 21 mg/24 hr Patch 24 Hour 21 mg transdermal DAILY Qty: 1 0RF heparin(porcine) in 0.45% NaCl 25,000 unit/250 mL Parenteral Solution 25,000 unit continuous IV infusion .Q0M Qty: 1 0RF acetaminophen [Tylenol] 325 mg tablet 650 mg PO Q6H PRN (Reason: fever or pain) Qty: 30 0RF sucralfate [Carafate] 1 gram tablet 1 g PO Q6H 7 Days Qty: 28 0RF ondansetron 4 mg tablet,disintegrating 4 mg PO Q8H PRN (Reason: nausea and vomiting) Qty: 4 0RF bupropion HCl 150 mg tablet extended release 24 hr 150 mg PO DAILY tramadol 50 mg tablet 50 mg PO Q6H PRN (Reason: Pain) sennosides [senna] 8.6 mg tablet 17.2 mg PO BEDTIME Myrbetriq 50 mg tablet extended release 24 hr 50 mg PO DAILY cholecalciferol (vitamin D3) 50 mcg (2,000 unit) tablet 50 mcg PO DAILY loratadine [Allergy Relief (loratadine)] 10 mg tablet 10 mg PO DAILY PRN (Reason: Allergy Symptoms) fluticasone propionate 50 mcg/actuation spray,suspension 2 spray intranasal DAILY PRN (Reason: Allergy Symptoms) sumatriptan succinate 50 mg tablet 50 mg PO DAILY PRN (Reason: Migraine Headache) lisinopril 10 mg tablet 10 mg PO DAILY Qty: 30 5RF Referrals: Chanel Bai MD [Primary Care Provider, Medical] Interventions: ED Discharge Assessment Last Done: 09/30/24 18:07 Discharge Date/Time: 09/30/24 18:08 Print Language: Hungarian
[2024-09-30 14:57] VITALS: BP 109/51; BP 115/48; PULSE 66; PULSE 72; RESP 14; TEMP 36.8; O2SAT 98; O2SAT 99; BMI 31.2
--- NOTE | 2024-09-30 15:20 | PC.NURSE ---
patient a&ox3, labs drawn, ekg performed, gambling monitor applied- nsr 1degree, cxr performed, pt awaiting provider.
[2024-09-30 15:22] LABS: MANUAL DIFF FLAG NO
[2024-09-30 15:31] LABS: Hematocrit 35.7 % (37.0-47.0); Hemoglobin 11.8 g/dl (12.0-16.0); Imm Gran Abs Auto 0.04 X10*3/uL (0.00-0.03); Imm Gran Pct Auto 0.4 % (0.0-0.4); Lymphocytes Absolute Auto 1.6 X10*3/uL (1.2-4.9); Mean Corpuscular HGB Conc 33.1 g/dl (31.0-35.0); Mean Corpuscular Hemoglobin 26.9 pg (27.0-33.0); Mean Corpuscular Volume 81.3 fL (80.0-98.0); NRBC Abs Auto 0.000 X10*3/uL (0.0-0.012); NRBC Pct Auto 0.0 /100WBC (0.0-0.2); Platelet Count 253 X10*3/uL (160-400); Red Blood Count 4.39 X10*6/uL (4.20-5.50); White Blood Count 9.4 X10*3/uL (4.8-10.8)
[2024-09-30 15:39] LABS: Alanine Aminotransferase 14 U/L (0-31); Albumin Level 3.9 g/dL (3.5-5.0); Alkaline Phosphatase 105 U/L (39-117); Anion Gap 10 (12-20); Aspartate Amino Transferase 23 U/L (5-31); Blood Urea Nitrogen 18 mg/dL (9-16); Calcium 8.7 mg/dL (8.4-10.2); Carbon Dioxide 31 mmol/L (22-29); Chloride 104 mmol/L (96-108); Creatinine Clr Calc Pharmacy 63.8; Estimated Glomerular Filt Rate 52; Potassium 4.2 mmol/L (3.3-5.1); Sodium 141 mmol/L (135-145); Total Protein 7.0 g/dL (6.5-8.0)
[2024-09-30 15:47] LABS: Troponin-I High Sensitivity < 2.7 ng/L (<3.5-17.0)
[2024-09-30 16:56] VITALS: BP 105/36; PULSE 66; RESP 17; O2SAT 98
[2024-09-30 18:07] VITALS: BP 105/36; PULSE 66; RESP 17; TEMP -17.7; TEMP 0; O2SAT 98
== END 2024-09-30 18:08 | disposition home or self-care (01) ==
LOC: HO.ED 16:39
PROVIDERS: Emergency Provider Emergency Medicine; PCP Family Medicine
DX: R07.89 Other chest pain (principal); F17.210 Nicotine dependence, cigarettes, uncomplicated; Z79.899 Other long term (current) drug therapy
CPT/HCPCS: 36415; 71046; 80048; 80076; 84484; 85025; 86140; 93005; 99284

== ENCOUNTER → 2024-09-30 14:30 | Outpatient (BNV) | payer MEDICAID, SELFPAY | PROVIDERS: Emergency Provider Emergency Medicine; PCP Family Medicine; Visit Provider Internal Medicine | DX: I44.0 Atrioventricular block, first degree (principal) | CPT/HCPCS: 93010 ==

== ENCOUNTER → 2024-09-30 14:55 | Outpatient (BNV) | payer MEDICAID, SELFPAY | PROVIDERS: Emergency Provider Emergency Medicine; Visit Provider Radiology Diagnostic Radiology | DX: R07.9 Chest pain, unspecified (principal) | CPT/HCPCS: 71046 ==

== ENCOUNTER 2025-01-27 13:54 | Outpatient (AMB) | payer MEDICAID, SELFPAY ==
--- NOTE | 2025-01-27 14:03 | A.OFFVIS_ITS ---
Vital Signs 01/27/25 14:05 Height 5 ft 7 in Weight 198 lb BMI 31.0 BP 126/64 Blood Pressure Location Rt brachial Position Sitting Pulse 68 Pulse Source Pulse Oximeter Pulse Oximetry (%) 100 Oxygen Delivery Method Room Air Intake Visit Reasons: epigastric pain Intake Note: Patient new consult for epigastric pain Patient cc: Pt states that her sx are currently well controlled with the medications that she is taking. She had been experiencing GERD + abd pain. Venetian Blind Machine Operator Required: Yes Venetian Blind Machine Operator Services: Venetian Blind Machine Operator Present Venetian Blind Machine Operator Name: Sabina [id number],Elie [id number] Information Interpreted: clinical only Accompanied by: Self / Same As Patient Allergies ibuprofen (From Motrin) Adverse Reaction (Unknown, Verified 09/30/24 15:01) UPSET STOMACH Medication List - Last Reconciled 01/27/25 by Lucretia Armstrong CNP acetaminophen (Tylenol) 650 mg (2 x 325 mg) PO Q6H PRN amlodipine 10 mg PO DAILY aspirin 81 mg PO DAILY atorvastatin 80 mg PO BEDTIME bupropion HCl XL 150 mg PO DAILY cholecalciferol (vitamin D3) 50 mcg PO DAILY ezetimibe 10 mg PO BEDTIME fluticasone propionate 50 mcg/actuation 2 sprays intranasal DAILY PRN heparin(porcine) in 0.45% NaCl 25,000 unit/250 mL 25,000 units (250 mL) continuous IV infusion .Q0M lisinopril 10 mg PO DAILY loratadine (Allergy Relief (loratadine)) 10 mg PO DAILY PRN metoprolol tartrate 25 mg PO BID mirabegron ER (Myrbetriq) 50 mg PO DAILY nicotine 21 mg transdermal DAILY omeprazole 40 mg PO DAILY@0630 ondansetron 4 mg PO Q8H PRN paroxetine HCl 10 mg PO BEDTIME sumatriptan succinate 50 mg PO DAILY PRN tramadol 100 mg PO Q6H PRN trazodone 50 mg PO BEDTIME PRN HPI HPI epigastric pain: Details: Patient is a 59-year-old Indonesian speaking female with PMH of obesity, nicotine dependence, hypertension, hyperlipidemia, oa. Referred by PCP for evaluation of epigastric pain. Prior episodes of abdominal pain have resolved since the last ER visit in July, and she is currently pain-free. She notes relief of previous reflux symptoms with omeprazole and denies current heartburn, regurgitation, or dysphagia. Suze reports longstanding history of constipation, describing daily bowel movements (typically twice per day) but perceiving stool as difficult to pass and often associated with significant pain, which improves post-defecation. She reports intermittent nausea in the context of constipation but denies vomiting, hematochezia, or new systemic symptoms. She consumes chocolate and experiences diarrhea afterward, suggesting possible lactose intolerance. She intermittently uses Tramadol for pain, up to four times daily as needed. Past evaluation with CT abdomen/pelvis was unremarkable except for a small hiatal hernia. She recalls a normal colonoscopy approximately five years ago, for colorectal cancer screening, with no history of colorectal neoplasia. Comorbid cardiac issues ( hx of MT) are suggested by cardiology follow-up and advice to avoid smoking Patient denies: fever/chills, n/v, appetite changes, pyrosis, regurgitation,dysphasia, unintentional wt loss, ab pain or melena/hematochezia. Social hx: -denies ETOH use -denies recreational drug use -current smoker, 4 cig/days, working to stop - family hx as below -denies personal hx of [facility] Medical History (Updated 01/27/25 @ 15:02 by Lucretia Armstrong CNP) Constipation Hiatal hernia Osteoarthritis of shoulders, bilateral Pain in joint involving multiple sites correction use of drug Cholecystitis Osteoarthritis of left hip Depression with anxiety Migraines History of non-ST elevation myocardial infarction (NSTEMI) (~07/2021) Personal history of nicotine dependence Primary osteoarthritis of knees, bilateral GERD (gastroesophageal reflux disease) Hypercholesterolemia Obesity HTN (hypertension) Osteoarthritis Surgical History History of cardiac cath (~2021) History of colonoscopy History of carpal tunnel surgery of right wrist (~2014) History of total abdominal hysterectomy (~2004) History of tubal ligation Family History Mother HTN (hypertension) Diabetes Father Alzheimer disease Brother Throat cancer Social History Household Members: Spouse Housing: House Do you presently have visiting nurse or other home services: Yes ([employer] services) Alcohol intake: never Patient Tobacco Use Status: Never used Tobacco Tobacco use type: Cigarette Cigarettes Per Day: 8 Years Smoked: (onset 13, 1/2ppd x 42yrs, 20+PYH) Second Hand Smoke Exposure: No Substance Use Type: Marijuana Advance Directives Date on File: 12/02/22 service: No Current occupational status: disabled Review of Systems Const Reports as per HPI ENT Reports as per HPI Card Reports as per HPI Resp Reports as per HPI GI Reports as per HPI Reports as per HPI Physical Exam Vital Signs: Last Vital Signs Pulse 68 01/27/25 14:05 BP 126/64 01/27/25 14:05 Pulse Ox 100 01/27/25 14:05 Oxygen Delivery Method Room Air 01/27/25 14:05 BMI result Body Mass Index 31.0 Const General: healthy appearing, no acute distress and well developed Nutritional Appearance: average body habitus Orientation/consciousness: patient oriented x3 HEENT Head: Yes normal to inspection, Yes normocephalic and Yes atraumatic Face and sinus: Yes normal facial exam Eyes General: appearance normal, both eyes and all related structures Neck Neck: Yes normal visual inspection Resp Effort & Inspection: normal respiratory effort, able to speak in complete sentences, no tracheal deviation and symmetric chest movement Cardio Jugular venous distension: no JVD GI Inspection: Yes normal to inspection, No distended, Yes obesity and Yes striae Palpation (GI): Soft to palpation, not firm, nontender and No hepatosplenomegaly present Auscultation: normal bowel sounds Neuro General: patient oriented x3 Gait exam (Neuro): Normal gait present Psych Appearance: grossly normal Mental Status: mental status grossly normal Speech and movement: Normal speech and movement present Affect: normal affect Attitude: cooperative Thought process: Normal thought process present Thought content: Normal thought content present Insight: Good insight present (Psych) Judgement: Good judgement present (Psych) Results Reviewed Results Reviewed: Date of Service: 08/06/24 Procedure(s): CT abdomen pelvis w IV con Accession Number(s): [id number] cc: Lisy Marti MD; Chanel Bai MD~ Report Number: [id number]: Total DLP = 841.00 mGy-cm EXAMINATION: CT ABDOMEN PELVIS WITH IV CONTRAST HISTORY: epigastric pain COMPARISON: Comparison is made with the prior examination dated 02/29/2024. TECHNIQUE: CT scan of the abdomen and pelvis was performed following administration of 85 mL Omnipaque 350 using standard departmental protocol. Coronal and sagittal reformatted images were generated and reviewed. Oral contrast material was not administered at the request of the referring physician. This CT exam was performed with one or more of the following dose reduction techniques: automated exposure control, adjustment of the mA and/or kV according to patient size, use of iterative reconstruction technique. DLP: 841 mGy-cm FINDINGS: LOWER CHEST: The visualized lung bases are clear. There is no pleural effusion. CARDIOVASCULATURE: The heart is normal in size. There is no pericardial effusion. LIVER: The liver is normal in size and contour. No liver mass is identified. The hepatic and portal veins are patent. GALLBLADDER / BILE DUCTS: The gallbladder is unremarkable. There is no intra or extrahepatic biliary ductal dilatation. SPLEEN: The spleen is normal in size. No focal splenic lesion is identified. PANCREAS: The pancreas is unremarkable in appearance. ADRENAL GLANDS: Within normal limits. KIDNEYS/RETROPERITONEUM: No renal calculi are identified. There is no hydronephrosis. No renal masses are identified. LYMPH NODES: No abdominal or pelvic lymphadenopathy. VASCULATURE: The abdominal aorta demonstrates moderate atherosclerotic irregularity without evidence of aneurysm formation. MESENTERY/PERITONEUM: No free fluid. No masses. There is no free intraperitoneal gas. STOMACH: There is a small hiatal hernia. The remainder of the stomach stomach is collapsed, limiting evaluation. SMALL BOWEL: The small bowel is normal in caliber. COLON: The colon is unremarkable. APPENDIX: Normal. URINARY BLADDER/PELVIC ORGANS: The urinary bladder is collapsed, limiting evaluation. The patient is status post hysterectomy. BONES / SOFT TISSUES: No suspicious bony or soft tissue abnormalities. CT/CT abdomen pelvis w IV con IMPRESSION: Small hiatal hernia. No acute abnormality is identified Assessment & Plan Assessment & Plan (1) GERD (gastroesophageal reflux disease): Code(s): K21.9 - Gastro-esophageal reflux disease without esophagitis Category: Medical Qualifiers: Esophagitis presence: esophagitis presence not specified Qualified Code(s): K21.9 - Gastro-esophageal reflux disease without esophagitis Plan: GERD history, currently controlled with omeprazole; no current symptoms. Additional Testing: None unless new reflux or dysphagia symptoms develop. Medication Management: Continue omeprazole daily as tolerated; refill not needed at present. Lifestyle Recommendations: Maintain upright posture after meals, avoid large/fatty meals as general precaution; continue avoidance of GERD triggers; review need for ongoing PPI at subsequent visits. Follow-Up: Routine GI surveillance; earlier assessment if GERD symptoms recur. (2) Hiatal hernia: Code(s): K44.9 - Diaphragmatic hernia without obstruction or gangrene Category: Medical Plan: Incidentally noted on imaging; asymptomatic at present Additional Testing: None unless new reflux or dysphagia symptoms develop Medication Management: Continue omeprazole daily as tolerated Lifestyle Recommendations: Maintain upright posture after meals, avoid large/fatty meals as general precaution Follow-Up: Routine GI surveillance; earlier assessment if GERD symptoms recur (3) Constipation: Code(s): K59.00 - Constipation, unspecified Category: Medical Qualifiers: Constipation type: drug induced constipation Qualified Code(s): K59.03 - Drug induced constipation Plan: Persistent symptoms of difficult, painful stool passage, exacerbated by opioid use, insufficient dietary fiber, relief with certain laxatives Additional Testing: None required at this time due to recent screening and absence of alarm symptoms; review colonoscopy record to confirm normal findings and timeline Medication Management: Initiate Miralax (PEG 3350) daily, titrate to effect; discontinue Senna and avoid using others? prescription laxatives; continue Tramadol only as needed and consider alternatives for pain if possible to reduce constipation risk Lifestyle Recommendations: Increase dietary fiber (fruits, vegetables, legumes, seeds, nuts); target adequate fluid intake (water as main beverage); moderate use of caffeine; avoid chocolate if causing diarrhea; encourage high-fiber foods multiple times weekly Follow-Up: Reassess constipation and overall GI symptoms in 3 months Plan Follow-up 3 months or sooner as needed Time: I spent a total of 30 minutes on the date of encounter which includes: Preparing to see the patient (reviewed previous documentation, test results and medical history) Performing a medically appropriate exam and/or evaluation Ordering medications, tests, and procedures Documenting clinical information in the health record Medications: New polyethylene glycol 3350 (Miralax) Take 17G (one cap full) daily with 8oz of water 17 grams PO DAILY 510 grams 2RF constipation 30 days Coding Level of Care Code New Pt New Pt Level 3 (28107) Patient Type New Diagnoses Gastroesophageal reflux disease, unspecified whether esophagitis present K21.9 Esophagitis presence: esophagitis presence not specified Hiatal hernia K44.9 Drug-induced constipation K59.03 Constipation type: drug induced constipation
[2025-01-27 14:05] VITALS: BP 126/64; PULSE 68; O2SAT 100; BMI 31.0
--- OUTSIDE RECORDS SUMMARY | 2025-01-27 17:18 | XMS_ITS | Encounter Summary ---
Author Organization [employer] Address [address] [place] [address] Care Team Providers Care Life Claims Examiner Name Role Phone Chanel Bai MD Primary Care Provider [phone] Reason for Visit * Reason Onset Date Comments Appointment Request 03/08/2022 Encounter Details Date Type Department Care Team ([facility] Contact Info) Description 03/08/2022 Telephone [facility] MED [facility] PEDS [address], [place] [phone] Chanel Bai MD [address] [place] [address] Appointment Request Social History Tobacco Use Types [...] r/s missed appt on 01/23/22 for ov-bp. Mat Cutter tried to book nothing available and call had dropped before I was able to inform pt . documented in this encounter Plan of Treatment Upcoming Encounters Date Type Department Care Team (Late st Contact Info) Description 04/11/2025 1:30 PM EST Office Visit [facility] OPTOMETRY [address] [place] [address] Cassidy Gomez, OD [address] [place] [address] documented as of this encounter Visit Diagnoses Not on filedocumented in this encounter Care Teams Life Claims Examiner Relationship Specialty Start Date End Date Chanel Bai MD [address] [place] [address] PCP - General Family Medicine 05/16/21 Oralia Brian Psychiatrist 08/23/24 documented as of this encounter
--- OUTSIDE RECORDS SUMMARY | 2025-01-27 17:19 | XMS_ITS | Encounter Summary ---
Author Organization [employer] Address [address] [place] [address] Care Team Providers Care Robotics Application Engineer Name Role Phone Chanel Bai MD Primary Care Provider [phone] Reason for Visit * Reason Onset Date Comments PT1 12/03/2022 Encounter Details Date Type Department Care Team ([facility] Contact Info) Description 12/03/2022 Telephone [facility] MED & PEDS [address] [place], [place] [phone] Chanel Bai MD [address] [place] [address] PT1 Social History Tobacco Use Types Packs/Day [...] Najera - 12/03/2022 10:17 AM EDT Tc from [facility] PT1 Address verified Date: 12/09/22 Time: 12:30 pm Visits: 2 (12/18/22 at 10:30 am) Address: [address] [address] Facility: [facility] Dental Wheel Chair: n/a System Support Developer Needed: yes PT1 Date: 12/12/22 Time: 9:30 am Visits: 2 (12/27/21 at 1:45 pm) Address: [address] [place] [address] [place] [address] Facility: Cardiology Wheel Chair: n/a System Support Developer Needed: yes PT1 Date: 12/13/22 Time: 9:30 am Visits: Address: [address] [place], [place] Facility: PCP Wheel Chair: n/a System Support Developer Needed: yes documented in this encounter Plan of Treatment Upcoming Encounters Date Type Department Care Team (Late st Contact Info) Description 04/11/2025 1:30 PM EST Office Visit [facility] OPTOMETRY [address] [place] [address] Cassidy Gomez, OD [address] [place] [address] documented as of this encounter Visit Diagnoses Diagnosis Polyarthralgia Pain in joint, multiple sites documented in this encounter Additional Health Concerns Assessment Noted Time PHQ-9 Depression Total Score: 13 023 11:37 AM EST documented as of this encounter Care Teams Robotics Application Engineer Relationship Specialty Start Date End Date Chanel Bai MD [address] [place] [address] PCP - General Family Medicine 05/16/21 Oralia Brian Psychiatrist 08/23/24 documented as of this encounter
--- OUTSIDE RECORDS SUMMARY | 2025-01-27 17:19 | XMS_ITS | Clinical Summary ---
Author Organization [employer] Address [address] [place] [address] Care Team Providers Care Graduate Intern Name Role Phone Chanel Bai MD Primary Care Provider [phone] Allergies Active Allergy Reactions Criticality Noted Date [...] 22 Active albuterol 108 (90 Base) MCG/ACT inhalerIndicati ons:Cough, unspecified type Inhale 2 puffs every 4 (four) hours if needed for wheezing. 18 g 04/18/19 23 Active fluticasone (Flonase) 50 MCG/ACT nasal sprayIndication s:Allergic rhinitis, unspecified seasonality, unspecified trigger INHALE 2 [...] mouth in the morning. 10/24/19 23 Active Diclofenac Sodium 1 % gel Apply 5 g topically 4 times daily. 200 g 08/25/19 24 Active ezetimibe (Zetia) 10 MG tablet Take 10 mg by mouth at bedtime. 01/26/20 24 Active omeprazole (PriLOSEC) [address] capsuleIndicati ons:Gastroesoph ageal reflux disease, unspecified whether esophagitis present TAKE 1 CAPSULE BY MOUTH EVERY MORNING BEFORE BREAKFAST 90 capsule 3 07/23/19 25 Active traMADol (Ultram) 50 MG tabletIndicatio ns:Polyarthralg ia Take 1 tablet (50 mg) by mouth every 6 (six) hours. Do not start before July 29, 2024. 112 tablet 07/30/19 25 Active topiramate (Topamax) 25 MG tablet TAKE 1 TABLET BY MOUTH AT BEDTIME 90 tablet 5 07/31/19 25 Active mirabegron ER (Myrbetriq) 50 MG 24 hr tablet TAKE 1 TABLET BY MOUTH EVERY MORNING 90 tablet 1 08/24/19 25 Active Aspirin Low Dose 81 MG EC tabletIndicatio ns:Coronary artery disease, unspecified vessel or lesion type, unspecified whether angina present, unspecified whether holy cross or transplanted heart TAKE 1 TABLET BY MOUTH EVERY MORNING 90 tablet 1 09/17/19 25 Active atorvastatin (Lipitor) 80 MG tabletIndicatio ns:Coronary artery disease, unspecified vessel or lesion type, unspecified whether angina present, unspecified whether holy cross or transplanted heart TAKE 1 TABLET BY MOUTH AT BEDTIME 90 tablet 1 09/17/19 25 Active lisinopril 20 MG tabletIndicatio ns:Coronary artery disease, unspecified vessel or lesion type, unspecified whether angina present, unspecified whether holy cross or transplanted heart TAKE 1 TABLET BY MOUTH EVERY MORNING 90 tablet 1 09/24/19 25 Active naloxone (Narcan) 4 mg/0.1 mL nasal spray Administer 1 spray (4 mg) into affected nostril(s) if needed for opioid reversal. May repeat every 2-3 minutes if needed, alternating nostrils, until medical assistance becomes available. 2 each 2 10/02/19 25 026 Active loratadine (Claritin) 10 MG tabletIndicatio ns:Seasonal allergies TAKE 1 TABLET BY MOUTH EVERY DAY NEEDED 90 tablet 1 10/21/19 25 Active senna (Senokot) 8.6 MG tablet TAKE 2 TABLETS BY MOUTH EVERY DAY AT BEDTIME 180 tablet 1 10/21/19 25 Active metoprolol tartrate (Lopressor) 25 MG tablet TAKE 1 TABLET BY MOUTH TWICE DAILY IN THE MORNING AND AT BEDTIME 180 tablet 1 11/06/19 25 Active PARoxetine (Paxil) 10 MG tablet Take 1 tablet (10 mg) by mouth at bedtime. 90 tablet 1 11/27/19 25 Active traMADol (Ultram) 50 MG tabletIndicatio ns:Polyarthralg ia TAKE 1 TABLET BY MOUTH EVERY 6 HOURS NEEDED FOR SEVERE PAIN 112 tablet 01/06/20 25 Active amLODIPine (Norvasc) 10 MG tablet TAKE 1 TABLET EVERY MORNING 90 tablet 3 01/18/20 25 Active cholecalciferol VITAMIN D (Vitamin D-3) 50 MCG (1999 UT) tablet TAKE 1 TABLET EVERY MORNING 90 tablet 3 01/18/20 25 Active cholecalciferol VITAMIN D (Vitamin D-3) 50 MCG (1999 UT) tablet TAKE 1 TABLET BY MOUTH EVERY MORNING 90 tablet 3 12/17/19 24 025 Discontinued amLODIPine (Norvasc) 10 MG tablet TAKE 1 TABLET BY MOUTH EVERY MORNING 90 tablet 3 12/17/19 24 025 Discontinued traMADol (Ultram) 50 MG tabletIndicatio ns:Polyarthralg ia TAKE 1 TABLET BY MOUTH EVERY 6 HOURS NEEDED FOR SEVERE PAIN 112 tablet 12/01/19 25 025 Discontinued Active Problems Problem Noted Date Diagnosed Date Epigastric pain 08/23/2024 Assessment & Plan (08/24/2024 8:53 AM EDT): Patient has a history of recurrent epigastric pain, previously well-controlled with omeprazole. However, recent exacerbation has led to two emergency department visits on August 04 and 2024. The persistence and severity of symptoms warrant further investigation. Differential diagnoses may include gastritis, peptic ulcer disease, or other upper gastrointestinal pathologies. 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 At this point will take over prescription, will send message to [employer] nurse. TMJ tenderness, right 04/18/2022 Assessment & [...] NSTEMI (non-ST elevated myocardial infarction) 0 03/22/2022 Assessment & Plan (08/24/2024 8:54 AM EDT): Patient has a history of cardiovascular issues requiring specialist care. A previous appointment with the joiner apprentice was cancelled due to illness and COVID-19. Plan: - Reschedule [place] with joiner apprentice [place] [facility] [place] History of total hysterectomy 03/22/2022 Vague bodily [...] Encounters Date Type Department Care Team Description 01/16/2025 Refill [facility] [address] [place] [address] Chanel Bai MD 01/04/2025 Refill [facility] [address] [place] [address] Chanel Bai MD Polyarthralgia 12/22/2024 Telephone [facility] [address] [place] [address] Tali Velasquez RN 12/08/2024 Telephone [facility] [address] [place] [address] Tali Velasquez RN 12/02/2024 10:15 AM EDT Office Visit [facility] OPT[facility] [address] [place] [address] Jason, Cassidy, OD Hyperopia of both eyes (Primary Dx) 11/29/2024 Refill [facility] [address] [place] [address] Vish Raya MD Polyarthralgia 11/25/2024 Refill [facility] [address] [place] [address] Chanel Bai MD 11/04/2024 Refill [facility] [address] [place] [address] Chika Thomas MD from Last 3 Months Immunizations Immunization Administration [...] tox oid, preservative free, adsorbed 12/01/2007 Tdap 08/23/2024,04/20/2013 Zoster, Recombinant 07/23/2022,08/24/2021 Social History Tobacco Use [...] before you got money to buy more: Sometimes True 2024 Within the past 12 months,th e food you bought just didn't last and you didn't have enough money to get more: Sometimes True 08/13/2024 Transportation Answer Date Recorded In the past 12 months, has l ack of transportation kept you from medical appts, meetings, work or from getting things needed for daily living? Yes, it has kept me from medical appointments or getting medications. 08/13/2024 Utilities Answer Date Recorded In the past 12 months, has t he electric, gas, oil or water company threatened to shut off services in your home? No 08/18/2023 Depression Answer Date Recorded Patient Health Questionnaire-2 Score 5 03/04/2024 Internet Access Answer Date Recorded Internet Access Q1 Yes 08/13/2024 Internet Access Q2 Not on file 08/13/2024 Comments Unknown Sex and Gender Information Value Date Recorded Sex Assigned at Female 01/14/2022 10:15 AM EDT Legal Sex Female 10:15 AM EDT Gender Identity Female 01/14/2022 10:15 AM EDT Sexual Orientation Choose not to disclose 2021 10:15 AM EDT Last Filed Vital Signs Vital Sign Reading Time Taken Comments Blood Pressure 132/76 08/23/2024 1:16 PM EDT Pulse 74 08/23/2024 1:16 PM EDT Temperature 36.9 C (98.5 F) 08/23/2024 1:16 PM EDT Respiratory Rate 20 08/23/2024 1:16 PM EDT Oxygen Saturation 98% 08/23/2024 1:16 PM EDT Inhaled Oxygen Concentration - - Weight 88.3 kg (194 lb 9.6 oz) 08/23/2024 1:16 P M EDT Height 167 cm (5' 5.75 ) 08/23/2024 1:16 PM EDT Body Mass Index 31.65 08/23/2024 1:16 PM EDT Plan of Treatment Upcoming Encounters Date Type Department Care Team (Late st Contact Info) Description 04/11/2025 1:30 PM EST Office Visit [facility] [address] [place] [address] Jason, Cassidy, OD [address] [place], [place] [phone] Health Maintenance Due Date Last Done Comments CT Colonography 1965 FIT DNA/Cologuard 1965 FIT 1965 FOBT 1965 Sigmoidoscopy 1965 Pneumococcal Vaccine: 50+ Years (1 of 2 - PCV) 12/26/1982 RSV Patients and Patients Aged 60 years or older (1 - Risk 50-74 years 1-dose series) 12/26/2013 Depression Monitoring 09/02/2024 03/04/2024, 024 COVID-19 Vaccine ( season) 2024 05/08/2022, 08/23/2020, 07/06/2020 Colonoscopy 11/22/2024 11/23/2019 Colorectal Cancer Screening 11/22/2024 Alcohol/Substance Use Screening 03/04/2025 03/04/2024 SDOH Screening 08/13/2025 08/13/2024 Disability Screening 08/23/2025 08/23/2024 Tobacco Screening 08/23/2025 08/23/2024 Mammogram 03/23/2026 03/23/2024, 06/15, 06/27/2021, Additional history exists Lipid Panel 10/17/2028 10/18/2023, 06/08/2020 DTaP/Tdap/Td Vaccines (3 - Td or Tdap) 08/23/2034 08/23/2024, 04/20/2013, 12/01/2007 HPV/Cotest Discontinued 02/25/2017 HIV Screening Completed 05/25/2021 Hepatitis C Screening Completed 03/29/2022 Zoster Vaccines Completed 07/23/2022, 08/24/2021 Influenza Vaccine Discontinued 01/24/2023, , 01/29/2016, Additional history exists Diabetes: Hemoglobin A1C Discontinued 024, 05/25/2021, 06/08/2020 [...] Procedure Name Priority Date/Time Associated Diagnosis Comments BI MAMMOGRAM SCREENING TOMOSYNTHESIS BILATERAL Routine 03/23/2024 [...] Recently Relevant to Health Maintenance Results * BI Mammogram Screening Tomosynthesis Bilateral (03/23/2024 1:13 PM EST) Anatomical Region Laterality Modality Breast Bilateral Mammography 03/23/2024 1:13 PM EST Narrative 03/29/2024 5:13 PM EST [facility] [address] [place] [address] Mammography Report Signed Patient: Suze Edwards MR#: [id number] 7 : 1965 Acct:[id number] Age/Sex: 58 / F ADM Date: 03/23/24 Loc: HO.MAMMO Attending Dr: Chanel Bai MD Ordering Physician: Chanel Bai MD Results: 1Nega tive Date of Service: 03/23/24 Follow Up: 1 Year From Orig inal Mammogram Procedure(s): MM tomosynthesis screening BI Accession Number(s): [id number] cc: Chanel Bai MD EXAMINATION: MM SCREENING [...] by: Katharine Mcduffie DO 03/29/2024 05:10 PM [facility] Dictated By: Katharine Mcduffie DO Signed By: <Electronically signed by Katharine Mcduffie DO in OV> 03/29/24 1710 DD/ 1313 TD/TT: 03/23/24 1329 Merchandise Supervisor: Procedure Note Donotuseinterpreter, Image - 03/29/2024 [facility] [address] [place] [address] Mammography Report Signed Patient: Suze Ewdards EMR#: [id number] 7 : 1965Acct:[id number] Age/Sex: 58 / FADM Date: 03/23/24 Loc: [facility].MAMMO Attending Dr: Chanel Bai MD Ordering Physician: Chanel Bai MDResults: 1Nega tive Date of Service: 03/23/24Follow Up: 1 Year From Orig inal Mammogram Procedure(s): MM tomosynthesis screening BI Accession Number(s): [id number] cc: Chanel Bai MD EXAMINATION: MM SCREENING [...] by: Katharine Mcduffie DO 03/29/2024 05:10 PM [facility] Dictated By: Katharine Mcduffie DO Signed By: <Electronically signed by Katharine Mcduffie DO in OV> 03/29/24 1710 DD/ 1313 TD/TT: 03/23/24 1329 Merchandise Supervisor: us Chanel Bai MD IMG BI PROCEDURES Final Resul t * (ABNORMAL) Lipid Panel, Standard (10/18/2023 7:48 AM EDT) Triglycerides 204(H) <150 mg/dL [facility] Comment:Desirable Triglyceri de: less than 150 mg/dLBorderline High Triglyceride 150-199 mg/dLHigh Triglyceride: 200-499 mg/dLVery High Triglyceride: greater than or equal to 5OO mg/dL Cholesterol 198 <200 mg/dL [facility] Comment:Desirable Cholestero l: less than 200 mg/dLBorderline High Cholesterol: 200-239 mg/dLHigh Cholesterol: greater than 239 mg/dL LDL Cholesterol Calculated 127(H) <100 mg/dL [facility] Comment:Desirable LDL: less than 100 mg/dLNear Optimal/Above Optimal LDL: 110- 129 mg/dLBorderline High LDL: 130-159 mg/dLHigh LDL: 160-189 mg/dLVery High LDL: greater than or equal to 190 mg/dL HDL Cholesterol 31(L) >40 mg/dL [facility] Comment:Desirable HDL: great er than 40 mg/dL Note: This HDL assay may give artificially low results in patients with liver disease. 10/18/2023 7:48 AM EDT 10/18/2023 7:48 AM EDT us Generic External Data Provider LAB BLOOD ORDERAB LES Final Result [facility] [address] [place] [phone] * POCT HGB A1C (08/25/2023 10:29 AM EDT) Hemoglobin A1C 5.8 4.0 - 6.0 % QC Media Lot # [id number] Lot# Expiration Date Blood 08/25/2023 10:2 9 AM EDT Chanel Bai MD POINT OF CARE TEST ENTER/EDIT ORDERABLES Final Result * Hepatitis C Antibody with Reflex to HCV, RNA, Quantitative, Real-Time PCR (03/29/2022 8:27 AM EST) Hepatitis C Antibody NON-REACT IRWIN NON-REACT IRWIN [employer] [place] [employer] Index <0.02 <1.00 [employer] Comment: HCV antibody was non-reactive. There is no laboratory evidence of HCV infection. In most cases, no further action is required. However, if recent HCV exposure is suspected, a test for HCV RNA (test code 24695) is suggested. For additional information please refer to http://education.OpenBook/faq/CVV22m4 (This link is being provided for informational/ educational purposes only.) Blood Venous blood specimen / Unknown 03/29/2022 8:27 AM EST 03/29/2022 8:28 AM EST Narrative [facility] - 03/29/2022 10:22 PM EST FASTING:NO FASTING: NO Chanel Bai MD LAB BLOOD ORDERABLES Final Re sult [facility] [address] [place] [address] [employer] [facility] [address], ([address]) [place] [address] * HIV AB/AG (05/25/2021 8:01 AM EST) Pathologist [facility] HIV AB/AG Nonreactive Nonreactive [facility] Comment: HIV-1 p24 Ag and/or HIV-1/HIV-2 Ab not detected. A test result that is nonreactive does not exclude the possibility of exposure to or infection with HIV-1 and/or HIV-2. Nonreactive results in this assay for individuals with prior exposure to HIV-1 and/or HIV-2 may be due to antigen and antibody levels that are below the limit of detection of this assay. The [employer] HIV Ag/Ab Combo assay result and supplemental assay results should be interpreted in conjunction with the patient's clinical presentation, history and other laboratory results. If the results are inconsistent with clinical evidence, additional testing is suggested to confirm the result. 05/25/2021 8:01 AM EST Chanel Bai MD HISTORICAL/NON ORDERABLE LABS Final Result Performing Organization Address City/[facility]/ZIP Co de Phone Number [facility] [address] * Colonoscopy (11/23/2019) Colonoscopy Normal Normal Narrative Chanel Bai MD - 11/23/2019 Internal hemorroids noticed, needs repeat in 5 yrs given family hx Historical Provider MD HEALTH MAINTENANCE Final Result * HPV mRNA E6/E7 (02/25/2017 10:20 AM EST) HPV mRNA E6/E7 Not Detected NOT DETECTED [facility] Comment: This test was performed using the APTIMA(R) HPV Assay ([employer] This assay detects E6/E7 viral messenger RNA (mRNA) from 14 high-risk HPV types (16,18,31,33,35,39,45,51, 52,56,58,59,66,68). For additional information please refer to: http://FedCyber.OpenBook/faq/STC405h4 (This link is being provided for informational/ educational purposes only.) Test Performed by [employer], [employer] [facility], [address] [place] [id number] Mookie Malone M.D., Ph.D., Director of Laboratories , [facility] [id number] Please note: Effective 11/27/2015, HPV testing will be performed using [employer] APTIMA test which targets mRNA. Detecting mRNA instead of DNA, as in older methods, offers significant improvements in specificity. 02/25/2017 10:2 0 AM EST us Akiko Whaley NP HISTORICAL/NON ORDERABLE LABS Fi nal Result [facility] Counts include 234 beds at the [facility] [address] from Last 3 Months or Most Recently Relevant to Health Maintenance [facility] [address] [place], [place] Care Teams Graduate Intern Relationship Specialty Start Date End Date Chanel Bai MD [address] [place] [id number] PCP - General Family Medicine 05/16/21 Oralia Brian Psychiatrist 08/23/24
== END 2025-01-27 14:51 | disposition home or self-care (01) ==
LOC: HO.HGI 13:55
PROVIDERS: PCP Family Medicine; Visit Provider Nurse Practitioner Family
DX: K21.9 Gastro-esophageal reflux disease without esophagitis (principal); K44.9 Diaphragmatic hernia without obstruction or gangrene; K59.03 Drug induced constipation
CPT/HCPCS: 99203

== ENCOUNTER → 2025-01-27 13:54 | Outpatient (BNVA) | payer MEDICAID, SELFPAY | PROVIDERS: PCP Family Medicine; Visit Provider Nurse Practitioner Family | DX: K21.9 Gastro-esophageal reflux disease without esophagitis (principal); K44.9 Diaphragmatic hernia without obstruction or gangrene; K59.03 Drug induced constipation | CPT/HCPCS: 99212 ==